=== PATIENT | female | born 1960 | race Caucasian/White ===

== ENCOUNTER → 2020-04-19 15:34 | Outpatient (BNVA) | payer OTHER, SELFPAY | PROVIDERS: PCP Internal Medicine; Referring Provider Internal Medicine; Visit Provider Internal Medicine | DX: Z76.89 Persons encountering health services in other specified circumstances (principal) ==

== ENCOUNTER 2020-05-23 09:58 | Outpatient (REF) | payer OTHER, SELFPAY ==
[2020-05-23 11:05] LABS: COVID-19 Test Negative (Negative); IDNOW Serial# 55D5AD1C
== END 2020-05-23 09:59 | disposition home or self-care (01) ==
LOC: HO.EMPCOV 09:58
PROVIDERS: PCP Internal Medicine; Visit Provider Internal Medicine
DX: Z20.828 Contact with and (suspected) exposure to other viral communicable diseases (principal)
CPT/HCPCS: 87635; C9803

== ENCOUNTER 2020-06-15 10:28 | Outpatient (REF) | payer OTHER, SELFPAY | END 2020-06-15 10:29 | disposition home or self-care (01) | LOC: HO.LAB 10:28 | PROVIDERS: Visit Provider Internal Medicine | DX: E66.01 Morbid (severe) obesity due to excess calories (principal); F41.8 Other specified anxiety disorders; G47.33 Obstructive sleep apnea (adult) (pediatric) | CPT/HCPCS: 88142 ==

== ENCOUNTER 2020-06-24 07:38 | Outpatient (REF) | payer OTHER, SELFPAY ==
[2020-06-24 11:22] LABS: Hematocrit 40.9 % (37-47); Hemoglobin 13.2 g/dl (12.0-16.0); Mean Corpuscular HGB Conc 32.3 g/dl (31.0-35.0); Mean Corpuscular Hemoglobin 30.9 pg (27.0-33.0); Mean Corpuscular Volume 95.8 fL (80-98); Platelet Count 261 X10*3/uL (160-400); Red Blood Count 4.27 X10*6/uL (4.20-5.50); Red Cell Distribution Width 13.6 % (11.0-16.0)
[2020-06-24 11:26] LABS: Estimated Average Glucose 117 mg/dL; Hemoglobin A1c % 5.7 %
[2020-06-24 11:57] LABS: Alanine Aminotransferase 26 U/L (0-31); Albumin Level 4.3 g/dL (3.5-5.0); Alkaline Phosphatase 72 U/L (39-117); Anion Gap 15 (12-20); Aspartate Amino Transferase 22 U/L (5-31); Bilirubin Total 0.5 mg/dL (0.0-1.0); Blood Urea Nitrogen 13 mg/dL (9-16); Calcium 9.3 mg/dL (8.4-10.2); Carbon Dioxide 26 mmol/L (22-29); Chloride 105 mmol/L (96-108); Cholesterol 188 mg/dL; Creatinine Urine 57.93 mg/dL; Estimated Glomerular Filt Rate > 60; Glucose Fasting 110 mg/dL (60-99); HDL Cholesterol 60 mg/dL; LDL Cholesterol Calculated 108 mg/dl; Microalbumin Urine < 5.0 mg/L; Potassium 4.3 mmol/l (3.3-5.1); Sodium 142 mmol/L (135-145); Total Protein 6.9 g/dL (6.5-8.0); Triglycerides 101 mg/dL
[2020-06-24 12:21] LABS: TSH reflex Free T4 2.21 mIU/mL (0.32-4.0)
== END 2020-06-24 07:39 | disposition home or self-care (01) ==
LOC: HO.HMGCLDS 07:38
PROVIDERS: PCP Internal Medicine; Visit Provider Internal Medicine
DX: E66.01 Morbid (severe) obesity due to excess calories (principal); F41.8 Other specified anxiety disorders; G47.33 Obstructive sleep apnea (adult) (pediatric)
CPT/HCPCS: 36415; 80053; 80061; 82043; 83036; 84443; 85027

== ENCOUNTER → 2020-07-22 11:27 | Outpatient (BNVA) | payer OTHER, SELFPAY | PROVIDERS: PCP Internal Medicine; Visit Provider Student in an Organized Health Care Education/Training Program | DX: Z76.89 Persons encountering health services in other specified circumstances (principal) ==

== ENCOUNTER 2020-09-09 15:44 | Outpatient (REF) | payer OTHER, SELFPAY ==
--- NOTE | ~2020-09-09 | MM_ITS ---
EXAMINATION: MM SCREENING DIGITAL BREAST TOMOSYNTHESIS, BILATERAL CLINICAL INFORMATION: Screening. Asymptomatic. Family history breast cancer, sister. The lifetime risk of breast cancer based on the Tyrer-Cuzick Model is 29%. COMPARISON: Mammography: 09/04/2019, 08/29/2018, 02/27/2016 TECHNIQUE: Digital breast tomosynthesis is performed in both the craniocaudal and mediolateral oblique views along with computer-aided detection (CAD). Synthesized 2D images are generated from the tomosynthesis. FINDINGS: There are scattered areas of fibroglandular density (ACR BI-RADS breast composition Category b). There are no significant masses, abnormal calcifications, or other abnormalities. Parenchymal pattern is similar to prior studies. No developing density. The axilla and skin contours are unremarkable. MM/MM tomosynthesis screening BI IMPRESSION: No mammographic evidence of malignancy. ASSESSMENT: BI-RADS 1: Negative RECOMMENDATION: 1. Routine annual mammography screening. 2. The lifetime risk of breast cancer based on the Tyrer-Cuzick Model is 29%. Additional annual adjunct screening with breast MRI may be of benefit in women with a risk score of 20% or greater. This patient's information was entered into a reminder system with a target due date for their next mammogram.
== END 2020-09-09 15:45 | disposition home or self-care (01) ==
LOC: HO.MAMMO 15:44
PROVIDERS: PCP Internal Medicine; Visit Provider Internal Medicine
DX: Z12.31 Encounter for screening mammogram for malignant neoplasm of breast (principal)
CPT/HCPCS: 77063; 77067

== ENCOUNTER 2020-09-13 15:57 | Outpatient (REF) | payer OTHER, SELFPAY ==
--- NOTE | ~2020-09-13 | US_ITS ---
EXAMINATION: US VENOUS ULTRASOUND WITH DOPPLER LOWER EXTREMITY, LEFT CLINICAL INFORMATION: Left leg pain. COMPARISON: None TECHNIQUE: Ultrasound of the deep veins is performed from the hip to the calf with compression sonography and color and pulse Doppler assessment. Spectral analysis with color-flow imaging is performed. FINDINGS: There is normal venous compression and respiratory variation and augmented flow. The visualized common femoral vein, superficial femoral vein, profunda femoral vein, popliteal vein, and the trifurcation region shows no evidence of deep venous thrombosis. There is no significant popliteal fossa cyst. If the patient's symptoms persist, followup ultrasound in 5 days 7 days might be of value to exclude proximal propagation from a non-visualized calf vein. US/US venous duplex LE LT IMPRESSION: No DVT demonstrated in the left lower extremity.
[2020-09-13 17:52] LABS: Glucose Urine UA NEG (NEG); Leukocyte Esterase Urine NEG (NEG); Nitrite Urine NEG (NEG); Specific Gravity - Urine 1.025 (1.005-1.025); Urine Blood NEG (NEG); Urine Ketones NEG (NEG); Urine Protein NEG (NEG-TRACE)
[2020-09-13 17:53] LABS: Color Urine YELLOW; MANUAL DIFF FLAG NO
[2020-09-13 17:54] LABS: Appearance Urine CLEAR
[2020-09-13 18:00] LABS: Basophils Percent Auto 0.3 % (0-2); Eosinophils Absolute Auto 0.1 X10*3/uL (0.0-0.4); Eosinophils Percent Auto 1.6 % (0-4); Hematocrit 40.8 % (37-47); Hemoglobin 13.3 g/dl (12.0-16.0); Imm Gran Abs Auto 0.04 X10*3/uL (0.00-0.03); Imm Gran Pct Auto 0.5 % (0.0-0.4); Lymphocytes Absolute Auto 2.4 X10*3/uL (1.2-4.9); Lymphocytes Percent Auto 26.9 % (20-40); Mean Corpuscular HGB Conc 32.6 g/dl (31.0-35.0); Mean Corpuscular Hemoglobin 30.6 pg (27.0-33.0); Mean Platelet Volume 9.8 fL (9.4-12.3); Monocytes Absolute Auto 0.7 X10*3/uL (0.1-1.2); Monocytes Percent Auto 8.2 % (2-11); Neutrophils Absolute Auto 5.5 X10*3/uL (2.0-8.3); Neutrophils Percent Auto 62.5 % (45-73); Platelet Count 290 X10*3/uL (160-400); Red Blood Count 4.34 X10*6/uL (4.20-5.50); Red Cell Distribution Width 13.7 % (11.0-16.0); White Blood Count 8.8 X10*3/uL (4.8-10.8)
[2020-09-13 18:02] LABS: Bacteria Urine 1+ /LPF; RBC Urine 0 /HPF (0); Squamous Epithelial Cell Urine 1+ /LPF; WBC Urine 0 /HPF (0-4)
[2020-09-13 18:30] LABS: Alanine Aminotransferase 23 U/L (0-31); Albumin Level 4.4 g/dL (3.5-5.0); Alkaline Phosphatase 80 U/L (39-117); Anion Gap 13 (12-20); Aspartate Amino Transferase 20 U/L (5-31); Bilirubin Total 0.3 mg/dL (0.0-1.0); Blood Urea Nitrogen 16 mg/dL (9-16); C Reactive Protein 2.83 mg/dL (< or = 0.50); Calcium 9.5 mg/dL (8.4-10.2); Carbon Dioxide 29 mmol/L (22-29); Chloride 106 mmol/L (96-108); Estimated Glomerular Filt Rate > 60; Glucose Random 89 mg/dL (60-115); Potassium 3.8 mmol/L (3.3-5.1); Sodium 144 mmol/L (135-145)
[2020-09-13 18:50] LABS: Erythrocyte Sedimentation Rate 32 MM/HR (0-20)
[2020-09-14 12:32] LABS: Complement C3 155 mg/dL (83-193)
[2020-09-14 13:47] LABS: Anti DNA DS Antibody <1 IU/mL
== END 2020-09-13 15:58 | disposition home or self-care (01) ==
LOC: HO.US 15:57
PROVIDERS: PCP Internal Medicine; Visit Provider Student in an Organized Health Care Education/Training Program
DX: M79.89 Other specified soft tissue disorders (principal); M35.9 Systemic involvement of connective tissue, unspecified
CPT/HCPCS: 36415; 80053; 81001; 85025; 85652; 86140; 86160; 86225; 93971

== ENCOUNTER 2020-09-16 08:20 | Outpatient (REF) | payer OTHER, SELFPAY ==
--- NOTE | ~2020-09-16 | XR_ITS ---
EXAMINATION: XR KNEE, LEFT CLINICAL INFORMATION: Pain in the left knee COMPARISON: X-ray left knee February 2013. TECHNIQUE: Four views of the left knee. FINDINGS: There are marginal osteophytes about all compartments with some joint space narrowing of the patellofemoral and medial compartment indicative of ikbr-ki-vbzmxupb arthrosis. Mild arthrosis of the lateral compartment without joint space narrowing. Small joint effusion. No fracture or bone lesion. XR/XR knee LT 3V IMPRESSION: Osteoarthritis of the left knee most prominent in the medial compartment and patellofemoral compartment being [id number]. Overall degenerative changes have progressed compared with 2013 exam.
== END 2020-09-16 08:21 | disposition home or self-care (01) ==
LOC: HO.XRAY 08:20
PROVIDERS: PCP Internal Medicine; Visit Provider Student in an Organized Health Care Education/Training Program
DX: M25.562 Pain in left knee (principal); M06.9 Rheumatoid arthritis, unspecified; M79.7 Fibromyalgia; E66.01 Morbid (severe) obesity due to excess calories; G47.33 Obstructive sleep apnea (adult) (pediatric); F41.8 Other specified anxiety disorders; Z88.2 Allergy status to sulfonamides; Z88.8 Allergy status to other drugs, medicaments and biological substances; Z91.09 Other allergy status, other than to drugs and biological substances; Z79.1 Long term (current) use of non-steroidal anti-inflammatories (NSAID); Z79.899 Other long term (current) drug therapy
CPT/HCPCS: 20610; 73562

== ENCOUNTER → 2020-10-19 15:50 | Outpatient (BNVA) | payer OTHER, SELFPAY | PROVIDERS: Visit Provider Student in an Organized Health Care Education/Training Program ==

== ENCOUNTER 2020-11-01 17:00 | Outpatient (RCR) | payer OTHER, SELFPAY ==
--- NOTE | 2020-09-28 17:51 | MHC.PT.EP ---
[facility] [place] Office [place] Office [place] Office [address] [phone] F: [phone] F: [phone] F: [phone] F: [phone] Physical Therapy Plan of Care Date of Evaluation: 09/28/20 Date of Surgery: N/A Diagnosis: Left Knee Pain Assessment: Misa Ruiz is a 60-year-old female presenting to physical therapy with a diagnosis of left knee pain. She presents with deficits in BL knee ROM, BL LE strength, impaired posture and impaired gait mechanics. She would benefit from skilled therapy to address the aforementioned impairments and increase her tolerance to standing and walking for long periods, squatting down to lift items from the floor, and climbing stairs when ambulating in the community. Misa Ruiz is motivated to participate in therapy to reduce her pain, improve her function, and allow her to return to her PLOF. Frequency and Duration: The patient will be seen 2 visits per week for 5 weeks Short Term Goals: -Pt will report <2/10 pain at rest to allow her to sleep comfortably through the night within 3 weeks. Office Services Coordinator Goals: -Pt will be independent with HEP for symptom management and maintenance following discharge from therapy within 5 weeks. -Pt will be able to negotiate 12 stairs with <2/10 pain in her knee within 5 weeks. -Pt will report <2/10 pain with activity to allow her to walk for >20 minutes while at work within 5 weeks. Treatment Plan: Modalities to reduce pain, spasms and effusion. Manual therapy to restore motion and function. Therapeutic exercise to improve strength and flexibility. Neuromuscular re-education for posture and balance. Therapeutic activities to return to functional activities of daily living. Electronically signed by: Katie Maldonado, PT, DPT Please sign and return to therapist. Thank you for your referral.
--- NOTE | 2020-11-07 15:48 | MHC.PT.DC ---
[facility] [place] Office [place] Office [place] Office [address] [place] Cast[place] 140 [facility] [phone] F: [phone] F: [phone] F: [phone] F: [phone] Physical Therapy Discharge Report Diagnosis: Left Knee Pain Date of Surgery: N/A Date of Evaluation: 09/28/20 Date of Discharge: 11/07/20 Treatments to Date: 10 Cancellations to Date: 0 No Shows to Date: 0 Discharge Status: Achieved Goals Improved Function Discharge Summary: Pt has completed 10 PT visits and has achieved all goals set for her. She was therefore d/c from therapy. Electronically signed by: Katie Maldonado, PT, DPT Please sign and return to therapist. Thank you for your referral.
== END 2020-11-07 15:49 | disposition other institution (70) ==
LOC: HO.PT 17:00
PROVIDERS: PCP Internal Medicine; Visit Provider Student in an Organized Health Care Education/Training Program
DX: M25.562 Pain in left knee (principal)
CPT/HCPCS: 97110; 97140; 97162; 97530

== ENCOUNTER 2021-01-24 15:43 | Outpatient (REF) | payer OTHER, SELFPAY ==
[2021-01-24 17:22] LABS: MANUAL DIFF FLAG NO
[2021-01-24 17:24] LABS: Basophils Percent Auto 0.1 % (0-2); Eosinophils Absolute Auto 0.2 X10*3/uL (0.0-0.4); Eosinophils Percent Auto 2.3 % (0-4); Hematocrit 40.4 % (37-47); Hemoglobin 13.2 g/dl (12.0-16.0); Imm Gran Abs Auto 0.03 X10*3/uL (0.00-0.03); Imm Gran Pct Auto 0.4 % (0.0-0.4); Lymphocytes Absolute Auto 2.1 X10*3/uL (1.2-4.9); Lymphocytes Percent Auto 30.7 % (20-40); Mean Corpuscular HGB Conc 32.7 g/dl (31.0-35.0); Mean Corpuscular Hemoglobin 31.1 pg (27.0-33.0); Mean Corpuscular Volume 95.1 fL (80-98); Mean Platelet Volume 9.5 fL (9.4-12.3); Monocytes Absolute Auto 0.6 X10*3/uL (0.1-1.2); Monocytes Percent Auto 8.7 % (2-11); Neutrophils Percent Auto 57.8 % (45-73); Platelet Count 260 X10*3/uL (160-400); Red Blood Count 4.25 X10*6/uL (4.20-5.50); Red Cell Distribution Width 13.8 % (11.0-16.0)
[2021-01-24 17:43] LABS: Alanine Aminotransferase 26 U/L (0-31); Albumin Level 4.2 g/dL (3.5-5.0); Alkaline Phosphatase 90 U/L (39-117); Anion Gap 12 (12-20); Aspartate Amino Transferase 22 U/L (5-31); Bilirubin Total 0.2 mg/dL (0.0-1.0); Blood Urea Nitrogen 12 mg/dL (9-16); C Reactive Protein 2.72 mg/dL (< or = 0.50); Calcium 9.3 mg/dL (8.4-10.2); Carbon Dioxide 28 mmol/L (22-29); Chloride 106 mmol/L (96-108); Estimated Glomerular Filt Rate > 60; Glucose Random 133 mg/dL (60-115); Potassium 3.8 mmol/L (3.3-5.1); Sodium 142 mmol/L (135-145); Total Protein 6.8 g/dL (6.5-8.0)
[2021-01-24 18:10] LABS: Glucose Urine UA NEG (NEG); Leukocyte Esterase Urine NEG (NEG); Nitrite Urine NEG (NEG); Urine Blood NEG (NEG); Urine Ketones NEG (NEG); Urine Protein NEG (NEG-TRACE)
[2021-01-24 18:11] LABS: Erythrocyte Sedimentation Rate 30 MM/HR (0-20)
[2021-01-24 18:15] LABS: Appearance Urine CLEAR; Color Urine YELLOW
[2021-01-24 18:20] LABS: RBC Urine 0 /HPF (0); Squamous Epithelial Cell Urine TRACE /LPF; WBC Urine 0 /HPF (0-4)
[2021-01-25 14:46] LABS: Complement C3 134 mg/dL (83-193)
[2021-01-26 12:11] LABS: Anti DNA DS Antibody <1 IU/mL; Antibody to SS-A Antigen <1.0 NEG AI (<1.0 NEG); Antibody to SS-B Antigen <1.0 NEG AI (<1.0 NEG); SM/Ribonucleoprotein Ab 5.1 POS AI (<1.0 NEG); Smith Protein <1.0 NEG AI (<1.0 NEG)
== END 2021-01-24 15:44 | disposition home or self-care (01) ==
LOC: HO.LAB 15:43
PROVIDERS: PCP Internal Medicine; Visit Provider Student in an Organized Health Care Education/Training Program
DX: M35.9 Systemic involvement of connective tissue, unspecified (principal); M79.89 Other specified soft tissue disorders; Z79.899 Other long term (current) drug therapy
CPT/HCPCS: 36415; 80053; 81001; 85025; 85652; 86140; 86160; 86225; 86235

== ENCOUNTER 2021-06-23 08:05 | Outpatient (REF) | payer OTHER, SELFPAY ==
[2021-06-23 11:38] LABS: Hematocrit 42.9 % (37.0-47.0); Hemoglobin 13.7 g/dl (12.0-16.0); Mean Corpuscular HGB Conc 31.9 g/dl (31.0-35.0); Mean Corpuscular Hemoglobin 30.4 pg (27.0-33.0); Mean Corpuscular Volume 95.3 fL (80.0-98.0); Mean Platelet Volume 9.9 fL (9.4-12.3); Platelet Count 270 X10*3/uL (160-400); Red Cell Distribution Width 13.6 % (11.0-16.0); White Blood Count 5.7 X10*3/uL (4.8-10.8)
[2021-06-23 11:44] LABS: Alanine Aminotransferase 97 U/L (0-31); Albumin Level 4.3 g/dL (3.5-5.0); Alkaline Phosphatase 94 U/L (39-117); Anion Gap 11 (12-20); Aspartate Amino Transferase 47 U/L (5-31); Bilirubin Total 0.5 mg/dL (0.0-1.0); Blood Urea Nitrogen 10 mg/dL (9-16); Calcium 9.4 mg/dL (8.4-10.2); Carbon Dioxide 28 mmol/L (22-29); Chloride 106 mmol/L (96-108); Cholesterol 183 mg/dL; Estimated Glomerular Filt Rate > 60; Glucose Fasting 102 mg/dL (60-99); HDL Cholesterol 59 mg/dL; LDL Cholesterol Calculated 99 mg/dl; Sodium 141 mmol/L (135-145); Total Protein 6.9 g/dL (6.5-8.0); Triglycerides 129 mg/dL
[2021-06-23 11:47] LABS: Estimated Average Glucose 120 mg/dL; Hemoglobin A1c % 5.8 %
[2021-06-23 12:07] LABS: TSH reflex Free T4 2.11 uIU/mL (0.32-4.0)
== END 2021-06-23 08:06 | disposition home or self-care (01) ==
LOC: HO.HMGCLDS 08:05
PROVIDERS: PCP Internal Medicine; Visit Provider Internal Medicine
DX: Z00.00 Encounter for general adult medical examination without abnormal findings (principal); M35.9 Systemic involvement of connective tissue, unspecified; E66.01 Morbid (severe) obesity due to excess calories; G47.33 Obstructive sleep apnea (adult) (pediatric); R73.9 Hyperglycemia, unspecified; R06.00 Dyspnea, unspecified
CPT/HCPCS: 36415; 80053; 80061; 83036; 84443; 85027

== ENCOUNTER 2021-07-28 07:55 | Outpatient (REF) | payer OTHER, SELFPAY ==
[2021-07-28 12:01] LABS: Alanine Aminotransferase 38 U/L (0-31); Albumin Level 4.1 g/dL (3.5-5.0); Alkaline Phosphatase 84 U/L (39-117); Aspartate Amino Transferase 29 U/L (5-31); Bilirubin Direct 0.2 mg/dL (0.0-0.5); Bilirubin Total 0.2 mg/dL (0.0-1.0)
== END 2021-07-28 07:56 | disposition home or self-care (01) ==
LOC: HO.HMGCLDS 07:55
PROVIDERS: Visit Provider Internal Medicine
DX: R79.89 Other specified abnormal findings of blood chemistry (principal)
CPT/HCPCS: 36415; 80076

== ENCOUNTER → 2021-08-04 08:24 | Outpatient (REF) | payer OTHER, SELFPAY ==
--- NOTE | 2021-08-04 08:31 | CA_ITS ---
Transthoracic Echocardiogram Patient (Last, First, Middle): Misa Torres Ann Gender: Female Date of : 1960 Age: 61 Procedure Date: 08/04/2021 Procedure Type: Transthoracic Echocardiogram Location: OP Height: 160.02 cm Weight: 109.77 kg BSA: 2.10 m2 Heart Rate: bpm BP: 124 / 60 mmHg Enamel Shader: Referring MD: Iman Pulliam MD Brick Setter Operator: Luis Feilpe Castañeda MD Symptoms: R06.00 - Dyspnea, unspecified Study Quality: Fair ECG Rhythm: Sinus Conclusions: - 1. Normal LV systolic function with mild LVH with impaired LV relaxation pattern 2. Mildly dilated left atrium 3. Normal cardiac valvular Dopplers 4. Normal RVSP 5. No pericardial effusion Findings Left Ventricle Normal left ventricular size and systolic function. There is mildly increased left ventricular wall thickness. The visually estimated ejection fraction is between 60-65%. There is no evidence of regional wall motion abnormalities. Spectral Doppler is indicative of an impaired relaxation filling pattern. E/E prime ratio is between 8 and 15 consistent with indeterminate filling pressures. Right Ventricle Normal right ventricular cavity size and systolic function. Atria The left atrium is mildly dilated. There is no evidence of interatrial shunt. The right atrium is normal in size. Aortic Valve The aortic valve structure and function is likely normal. There is no aortic valve stenosis. There is no aortic valve regurgitation. Mitral Valve Normal mitral valve structure and function. There is trace mitral valve regurgitation. There is no mitral valve stenosis. Pulmonic Valve The pulmonic valve was not well visualized. Tricuspid Valve Likely normal tricuspid valve structure and function. There is trace tricuspid valve regurgitation. The right ventricular systolic pressure is normal. There is no evidence of pulmonary hypertension. Great Vessels All visible segments of the aorta are normal in size. The pulmonary artery was not well visualized. Venous The inferior vena cava is normal in size and collapses greater than 50% with inspiration. Pericardium/Pleural There is no evidence of pericardial effusion. Measurements 2D Linear Measurements IVSd: 1.24 0.6-0.9/0.6-1.0 cm LVIDd: 5.70 3.9-5.3/4.2-5.9 cm LVIDd Index: 2.71 2.4-3.2/2.2-3.1 cm/m2 LVIDs: 2.99 2.0-3.6 cm LVPWd: 1.33 0.7-1.1 cm Ao Root: 3.10 2.1-3.5 cm LA Diam: 4.10 2.7-3.8/3.0-4.0 cm LAIDs Index: 1.95 1.5-2.3 cm/m2 LV Mass: 428.22 67-162/88-224 g LV Mass Index: 203.92 43-95/49-115 g/m2 LVOT Diam: 2.00 3.0+(-)1.3 cm Mitral Valve MV Pk E: 0.87 MV PK A: 0.97 MV Decel Time: 265.00 E/A: 0.90 E'Lateral: 9.46 E'Medial: 5.77 E/E' Med: 15.00 E/E' Lat: 9.10 PHT: 78.00 MVA PHT: 2.82 Decel Cameron: 3.26 Aortic Valve AoV Pk Gwyn: 1.44 AoV Mn Gwyn: 0.87 AoV VTI: 0.33 AoV Pk Grad: 8.00 Aov Mn Grad: 4.00 SCOT Cont.VTI: 2.35 LVOT LVOT Pk Gwyn: 0.99 LVOT Mn Gwyn: 0.67 LVOT VTI: 0.25 LVOT Pk Grad: 4.00 LVOT Mn Grad: 2.00 LVOT Diam: 2.00 LVOT Area: 3.14 Diastolic Function MV Pk E: 0.87 MV Pk A: 0.97 E/A: 0.90 E'Medial: 5.77 E/E' Med: 15.00 E' Laterial: 9.46 E/E' Lat: 9.10 Tricuspid Valve TR Pk Gwyn: 1.62 TR Pk Grad: 10.00 RA Press: 3.00 RVSP: 13.00 Great Vessels Aorta Ao Root-2D: 3.10 2.0-3.7 cm Ao Asc: 3.10 2.1-3.4 cm Pulmonary Valve PV Pk Gwyn: 1.00 Peak PV Grad: 4.00 Updated in Other Vendor System with Status of Final Luis Felipe Castañeda MD electronically signed on 08/05/2021 9:35:11 AM with status of Final
== END ==
LOC: HO.CARD 08:24
PROVIDERS: PCP Internal Medicine; Visit Provider Internal Medicine
DX: R06.00 Dyspnea, unspecified (principal)
CPT/HCPCS: 93306; Q9957

== ENCOUNTER 2021-09-04 14:59 | Outpatient (REF) | payer OTHER, SELFPAY ==
[2021-09-04 16:38] LABS: MANUAL DIFF FLAG NO
[2021-09-04 16:47] LABS: Basophils Percent Auto 0.2 % (0-2); Eosinophils Absolute Auto 0.1 X10*3/uL (0.0-0.4); Eosinophils Percent Auto 1.7 % (0-4); Hematocrit 41.8 % (37.0-47.0); Hemoglobin 13.4 g/dl (12.0-16.0); Imm Gran Abs Auto 0.02 X10*3/uL (0.00-0.03); Imm Gran Pct Auto 0.2 % (0.0-0.4); Lymphocytes Absolute Auto 2.5 X10*3/uL (1.2-4.9); Lymphocytes Percent Auto 30.1 % (20-40); Mean Corpuscular HGB Conc 32.1 g/dl (31.0-35.0); Mean Corpuscular Hemoglobin 31.1 pg (27.0-33.0); Mean Platelet Volume 9.6 fL (9.4-12.3); Monocytes Absolute Auto 0.6 X10*3/uL (0.1-1.2); Monocytes Percent Auto 7.7 % (2-11); Neutrophils Percent Auto 60.1 % (45-73); Platelet Count 270 X10*3/uL (160-400); Red Blood Count 4.31 X10*6/uL (4.20-5.50); Red Cell Distribution Width 13.4 % (11.0-16.0); White Blood Count 8.3 X10*3/uL (4.8-10.8)
[2021-09-04 17:16] LABS: Alanine Aminotransferase 21 U/L (0-31); Aspartate Amino Transferase 20 U/L (5-31); C Reactive Protein 3.44 mg/dL (< or = 0.50); Estimated Glomerular Filt Rate > 60
== END 2021-09-04 15:00 | disposition home or self-care (01) ==
LOC: HO.LAB 14:59
PROVIDERS: PCP Internal Medicine; Visit Provider Internal Medicine Rheumatology
DX: M17.12 Unilateral primary osteoarthritis, left knee (principal); M35.9 Systemic involvement of connective tissue, unspecified; M79.643 Pain in unspecified hand; R79.89 Other specified abnormal findings of blood chemistry; M19.049 Primary osteoarthritis, unspecified hand; Z79.899 Other long term (current) drug therapy
CPT/HCPCS: 36415; 82565; 84450; 84460; 85025; 86140

== ENCOUNTER 2021-09-25 15:34 | Outpatient (REF) | payer OTHER, SELFPAY ==
--- NOTE | ~2021-09-25 | MM_ITS ---
EXAMINATION: MM SCREENING DIGITAL BREAST TOMOSYNTHESIS, BILATERAL CLINICAL INFORMATION: Screening. Asymptomatic. The lifetime risk of breast cancer based on the Tyrer-Cuzick Model is 9.0%. COMPARISON: Mammography: September 09, 2020 and studies dating back to February 01, 2011 TECHNIQUE: Digital breast tomosynthesis is performed in both the craniocaudal and mediolateral oblique views along with computer-aided detection (CAD). Synthesized 2D images are generated from the tomosynthesis. FINDINGS: There are scattered areas of fibroglandular density (ACR BI-RADS breast composition Category b). There are no new significant masses, abnormal calcifications, or other abnormalities. There stable regions of architectural distortion about the left breast. MM/MM tomosynthesis screening BI IMPRESSION: There are no significant changes from prior study. ASSESSMENT: BI-RADS 2: Benign RECOMMENDATION: Routine annual mammography screening. This patient's information was entered into a reminder system with a target due date for their next mammogram.
== END 2021-09-25 15:35 | disposition home or self-care (01) ==
LOC: HO.MAMMO 15:34
PROVIDERS: PCP Internal Medicine; Visit Provider Internal Medicine
DX: Z12.31 Encounter for screening mammogram for malignant neoplasm of breast (principal)
CPT/HCPCS: 77063; 77067

== ENCOUNTER 2021-11-25 06:57 | Outpatient (REF) | payer OTHER, SELFPAY ==
[2021-11-25 07:17] LABS: MANUAL DIFF FLAG NO
[2021-11-25 07:43] LABS: Basophils Percent Auto 0.3 % (0-2); Eosinophils Absolute Auto 0.1 X10*3/uL (0.0-0.4); Eosinophils Percent Auto 1.7 % (0-4); Hematocrit 40.4 % (37.0-47.0); Hemoglobin 13.5 g/dl (12.0-16.0); Imm Gran Abs Auto 0.03 X10*3/uL (0.00-0.03); Imm Gran Pct Auto 0.4 % (0.0-0.4); Lymphocytes Absolute Auto 2.2 X10*3/uL (1.2-4.9); Lymphocytes Percent Auto 29.8 % (20-40); Mean Corpuscular HGB Conc 33.4 g/dl (31.0-35.0); Mean Corpuscular Hemoglobin 31.7 pg (27.0-33.0); Mean Corpuscular Volume 94.8 fL (80.0-98.0); Mean Platelet Volume 9.6 fL (9.4-12.3); Monocytes Absolute Auto 0.5 X10*3/uL (0.1-1.2); Monocytes Percent Auto 6.3 % (2-11); Neutrophils Absolute Auto 4.6 x10*3/uL (2.0-8.3); Neutrophils Percent Auto 61.5 % (45-73); Platelet Count 268 X10*3/uL (160-400); Red Blood Count 4.26 X10*6/uL (4.20-5.50); Red Cell Distribution Width 13.4 % (11.0-16.0); White Blood Count 7.5 X10*3/uL (4.8-10.8)
[2021-11-25 08:12] LABS: Alanine Aminotransferase 23 U/L (0-31); Aspartate Amino Transferase 21 U/L (5-31); Estimated Average Glucose 117 mg/dL; Hemoglobin A1c % 5.7 %
[2021-11-25 08:15] LABS: Alanine Aminotransferase 22 U/L (0-31); Albumin Level 4.3 g/dL (3.5-5.0); Alkaline Phosphatase 75 U/L (39-117); Anion Gap 12 (12-20); Aspartate Amino Transferase 20 U/L (5-31); Bilirubin Total 0.5 mg/dL (0.0-1.0); Blood Urea Nitrogen 10 mg/dL (9-16); C Reactive Protein 3.09 mg/dL (< or = 0.50); Calcium 9.6 mg/dL (8.4-10.2); Carbon Dioxide 29 mmol/L (22-29); Chloride 104 mmol/L (96-108); Cholesterol 205 mg/dL; Estimated Glomerular Filt Rate > 60; Glucose Fasting 128 mg/dL (60-99); HDL Cholesterol 60 mg/dL; LDL Cholesterol Calculated 124 mg/dl; Potassium 4.1 mmol/L (3.3-5.1); Sodium 141 mmol/L (135-145); Triglycerides 106 mg/dL
[2021-11-25 08:52] LABS: Erythrocyte Sedimentation Rate 31 MM/HR (0-20)
[2021-11-29 21:01] LABS: Anti DNA DS Antibody <1 IU/mL
== END 2021-11-25 06:58 | disposition home or self-care (01) ==
LOC: HO.LAB 06:57
PROVIDERS: Student in an Organized Health Care Education/Training Program; Absent Provider Internal Medicine; PCP Internal Medicine; Visit Provider Internal Medicine Rheumatology
DX: Z00.00 Encounter for general adult medical examination without abnormal findings (principal); E66.01 Morbid (severe) obesity due to excess calories; G47.33 Obstructive sleep apnea (adult) (pediatric); M35.9 Systemic involvement of connective tissue, unspecified; R06.00 Dyspnea, unspecified; R73.9 Hyperglycemia, unspecified; Z79.899 Other long term (current) drug therapy
CPT/HCPCS: 36415; 80053; 80061; 83036; 84450; 84460; 85025; 85652; 86140; 86225

== ENCOUNTER 2022-02-05 09:26 | Day surgery (SDC) | payer OTHER, SELFPAY ==
--- NOTE | 2022-02-01 15:31 | HO.ANESPROP2 ---
Documented by User: Luna Leigh NP 02/01/22 15:33 HPI - Anesthesia Eval Consult details Narrative: 62yo F for Colonoscopy PMFSH Active Problems Active Problems: All Active Problems (Updated 01/01/22 @ 17:18 by Timur Rivera MD) Bilateral hand numbness (Acute) Osteoarthritis of hand, primary localized (Acute) Elevated LFTs (Acute) Hyperglycemia (Acute) TURCIOS (dyspnea on exertion) (Acute) Primary osteoarthritis of left knee (Acute) [facility] methotrexate user (Acute) Undifferentiated connective tissue disease (Acute) Depression with anxiety (Acute) Annual physical exam (Acute) RUSSELL (obstructive sleep apnea) (Acute) Morbid obesity (Acute) Past Medical History Medical History (Updated 01/01/22 @ 17:18 by Timur Rivera MD) Annual physical exam Depression with anxiety TURCIOS (dyspnea on exertion) Elevated LFTs Fibromyalgia Hyperglycemia [facility] methotrexate user Morbid obesity RUSSELL (obstructive sleep apnea) Osteoarthritis of hand, primary localized Rheumatoid arthritis Undifferentiated connective tissue disease Surgical History Surgical History H/O colonoscopy History of cyst of breast History of tonsillectomy Social History Social History Housing: House Alcohol intake: current Alcohol intake frequency: holidays/special occasions only Patient Tobacco Use Status: Never used Tobacco e-Cigarette/Vaping Use: Never Used Use of substances other than those prescribed or required for medical reasons: No Are you DNR?: No Advance Directives: No Advance Directives Information Provided: Yes Recently lost weight without trying: No Nutrition Risks: No Nutritional Risk Current occupational status: employed Cognitive needs: No Hearing needs: No Vision needs: Yes Meds Allergies Allergy/AdvReac Type Severity Reaction Status Date / Time chamomile flower Allergy Intermediate RASH Verified 01/01/22 15:40 [CHAMOMILE HAWKINS] gabapentin Allergy Unknown sleepiness Verified 01/01/22 15:40 lisinopril Allergy Unknown weight gain Verified 01/01/22 15:40 simvastatin Allergy Unknown NAUSEA Verified 01/01/22 15:40 Sulfa (Sulfonamide AdvReac Mild RASH Verified 01/01/22 15:40 Antibiotics) Home Medications Medication Instructions Recorded Confirmed Last Taken Type calcium carbonate 600 mg calcium 600 mg PO DAILY 06/15/20 01/01/22 Unknown History (1,500 mg) tablet (Calcium) omega-3 fatty acids 1,000 mg 1,000 mg PO BID 06/16/21 01/30/22 Unknown History capsule (Fish Oil Concentrate) cholecalciferol (vitamin D3) 25 25 mcg PO BID 09/04/21 01/30/22 Unknown History mcg (1,000 unit) capsule dextroamphetamine-amphetamine 10 5 mg PO DAILY 09/04/21 01/30/22 02/05/22 History mg tablet sertraline 100 mg tablet 100 mg PO DAILY 11/27/21 01/30/22 Unknown History fqgxngaopgoq-exenlvxt-atgcte tablet 1 tab PO DAILY 01/30/22 01/30/22 Unknown History sulfasalazine 500 mg tablet tab 01/30/22 01/30/22 Unknown History Exam Exam Date and Time: February 01, 2022 1531 Pertinent Lab Results Pertinent Lab Results: Laboratory Tests 11/25/21 11/25/21 07:14 07:14 WBC 7.5 Hgb 13.5 Hct 40.4 Plt Count 268 Sodium 141 Potassium 4.1 Chloride 104 Carbon Dioxide 29 BUN 10 Creatinine 0.70 Narrative Narrative: ECHO 2021 Conclusions: - 1. Normal LV systolic function with mild LVH with impaired LV? relaxation pattern ? 2. Mildly dilated left atrium? 3. Normal cardiac valvular Dopplers? 4. Normal RVSP ? 5. No pericardial effusion ?? 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 Morbid obesity RUSSELL (obstructive sleep apnea) Osteoarthritis of hand, primary localized Rheumatoid arthritis Undifferentiated connective tissue disease Family History Family history of problems with anesthesia: No Surgical History Surgical History H/O colonoscopy History of cyst of breast History of tonsillectomy History of Problems with Anesthesia: No Social History Social History Housing: House Alcohol intake: current Alcohol intake frequency: holidays/special occasions only Patient Tobacco Use Status: Never used Tobacco e-Cigarette/Vaping Use: Never Used Use of substances other than those prescribed or required for medical reasons: No Are you DNR?: No Advance Directives: No Advance Directives Information Provided: Yes Recently lost weight without trying: No Nutrition Risks: No Nutritional Risk Current occupational status: employed Cognitive needs: No Hearing needs: No Vision needs: Yes Meds Allergies Allergy/AdvReac Type Severity Reaction Status Date / Time chamomile flower Allergy Intermediate RASH Verified 01/01/22 15:40 [CHAMOMILE HAWKINS] gabapentin Allergy Unknown sleepiness Verified 01/01/22 15:40 lisinopril Allergy Unknown weight gain Verified 01/01/22 15:40 simvastatin Allergy Unknown NAUSEA Verified 01/01/22 15:40 Sulfa (Sulfonamide AdvReac Mild RASH Verified 01/01/22 15:40 Antibiotics) Home Medications Medication Instructions Recorded Confirmed Last Taken Type calcium carbonate 600 mg calcium 600 mg PO DAILY 06/15/20 01/01/22 Unknown History (1,500 mg) tablet (Calcium) omega-3 fatty acids 1,000 mg 1,000 mg PO BID 06/16/21 01/30/22 Unknown History capsule (Fish Oil Concentrate) cholecalciferol (vitamin D3) 25 25 mcg PO BID 09/04/21 01/30/22 Unknown History mcg (1,000 unit) capsule dextroamphetamine-amphetamine 10 5 mg PO DAILY 09/04/21 01/30/22 02/05/22 History mg tablet sertraline 100 mg tablet 100 mg PO DAILY 11/27/21 01/30/22 Unknown History dupnxozioywr-qzesbesb-inouvg tablet 1 tab PO DAILY 01/30/22 01/30/22 Unknown History sulfasalazine 500 mg tablet tab 01/30/22 01/30/22 Unknown History Assessment and Plan Assessment Anesthesia Assessment: Anesthesia Plan Discussed Final Anesthetic Review Family History of Problems with Anesthesia: No History of Problems with Anesthesia: No NPO: Yes ASA Class: II Final Preanesthetic Review: No Changes in Pt Med Stat, Meds/Allgs Chart Reviewed, Consent Obtained/Reviewed and Anes Risks/Benef Reviewed Patient Risk: Low Procedure Risk: Low Anesthetic Plan Anesthetic Plan: MAC: Disposition: Standard PACU
[2022-02-05 10:06] VITALS: BMI 40.9
[2022-02-05 10:09] VITALS: BP 155/72; PULSE 72; RESP 16; TEMP 36.4; O2SAT 97
[2022-02-05] MEDS: Lactated Ringers 1,000 ML 100 ML IVCONT (10:26)
--- NOTE | 2022-02-05 10:35 | P.CONAN_ITS ---
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 (Acute) Undifferentiated connective tissue disease (Acute) Depression with anxiety (Acute) Annual physical exam (Acute) RUSSELL (obstructive sleep apnea) (Acute) Morbid obesity (Acute) Past Medical History Medical History (Updated 01/01/22 @ 17:18 by Timur Rivera MD) Annual physical exam Depression with anxiety TURCIOS (dyspnea on exertion) Elevated LFTs Fibromyalgia 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 Morbid obesity RUSSELL (obstructive sleep apnea) Osteoarthritis of hand, primary localized Rheumatoid arthritis Undifferentiated connective tissue disease Family History Family history of problems with anesthesia: No Surgical History Surgical History H/O colonoscopy History of cyst of breast History of tonsillectomy History of Problems with Anesthesia: No Social History Social History Housing: House Alcohol intake: current Alcohol intake frequency: holidays/special occasions only Patient Tobacco Use Status: Never used Tobacco e-Cigarette/Vaping Use: Never Used Use of substances other than those prescribed or required for medical reasons: No Are you DNR?: No Advance Directives: No Advance Directives Information Provided: Yes Recently lost weight without trying: No Nutrition Risks: No Nutritional Risk Current occupational status: employed Cognitive needs: No Hearing needs: No Vision needs: Yes Meds Allergies Allergy/AdvReac Type Severity Reaction Status Date / Time chamomile flower Allergy Intermediate RASH Verified 01/01/22 15:40 [CHAMOMILE HAWKINS] gabapentin Allergy Unknown sleepiness Verified 01/01/22 15:40 lisinopril Allergy Unknown weight gain Verified 01/01/22 15:40 simvastatin Allergy Unknown NAUSEA Verified 01/01/22 15:40 Sulfa (Sulfonamide AdvReac Mild RASH Verified 01/01/22 15:40 Antibiotics) Active Medications: Current Medications Lactated Ringer's (Lr) 1,000 mls @ 100 mls/hr IVCONT .Q10H CANDY Last Admin: 02/05/22 10:26 Dose: 100 mls/hr Sodium Biphosphate/Sodium Phosphate (Sodium Phosphate,Coffey-Dibasic 133 Ml Enema) 133 ml WI ONCE PRN PRN Reason: Poor Colonoscopy Prep Results Home Medications Medication Instructions Recorded Confirmed Last Taken Type calcium carbonate 600 mg calcium 600 mg PO DAILY 06/15/20 01/01/22 Unknown History (1,500 mg) tablet (Calcium) omega-3 fatty acids 1,000 mg 1,000 mg PO BID 06/16/21 01/30/22 Unknown History capsule (Fish Oil Concentrate) cholecalciferol (vitamin D3) 25 25 mcg PO BID 09/04/21 01/30/22 Unknown History mcg (1,000 unit) capsule dextroamphetamine-amphetamine 10 5 mg PO DAILY 09/04/21 01/30/22 02/05/22 History mg tablet sertraline 100 mg tablet 100 mg PO DAILY 11/27/21 01/30/22 Unknown History ybuntykojuyd-lutzjbtc-awlofz tablet 1 tab PO DAILY 01/30/22 01/30/22 Unknown History sulfasalazine 500 mg tablet tab 01/30/22 01/30/22 Unknown History Exam Exam Date and Time: February 05, 2022 1035 Height,Weight and Vital Signs: Height 5 ft 3 in Weight 104.78 kg Last Vital Signs Temp 97.5 F 02/05/22 10:09 Pulse 72 02/05/22 10:09 Resp 16 02/05/22 10:09 BP 155/72 H 02/05/22 10:09 Pulse Ox 97 02/05/22 10:09 O2 Del Method 02/05/22 10:09 Airway Mallampati Class: II TM Dist: >3cm Neck ROM: Full Denture: Upper Assessment and Plan Final Anesthetic Review Family History of Problems with Anesthesia: No History of Problems with Anesthesia: No
[2022-02-05 11:39] VITALS: BP 130/65; PULSE 62; RESP 17; TEMP 36.2; O2SAT 96
--- NOTE | 2022-02-05 11:39 | PM.OP ---
Brief Operative Note Date of Service: 02/05/22 Pre-op diagnosis: Screening Post-op diagnosis: other (Diverticulosis) Procedure: Colonoscopy to the cecum and TI Surgeon: Patrice Swan Anesthesia: MAC Was an Veneer Drier Tailer used for this Procedure?: No Estimated blood loss (mL): 0 Pathology: none sent Condition: stable Disposition: PACU
[2022-02-05 11:54] VITALS: BP 155/78; PULSE 61; RESP 18; TEMP 36.2; O2SAT 96
--- NOTE | 2022-02-06 10:54 | OP_ITS ---
SURGEON: Patrice Swan MD INDICATIONS: The patient presents for evaluation of colorectal cancer screening and family history of colon cancer. Full consent was obtained from her for this, including risks of bleeding and perforation. PREOPERATIVE DIAGNOSIS: POSTOPERATIVE DIAGNOSIS: PROCEDURE PERFORMED: Colonoscopy to cecum and terminal ileum. ESTIMATED BLOOD LOSS: COMPLICATIONS: ANESTHESIA: Monitored anesthesia care. ASSISTANTS: SPECIMENS: PREOPERATIVE DIAGNOSES: Colorectal cancer screening and family history of colon cancer. POSTOPERATIVE DIAGNOSES: Colorectal cancer screening and family history of colon cancer, diverticulosis and internal hemorrhoids. DESCRIPTION OF PROCEDURE: The patient was placed in the left lateral decubitus position. The digital rectal exam revealed no abnormalities. The Olympus video pediatric colonoscope was entered into the rectum and advanced easily to the cecum. Once in the cecum, I did identify normal-appearing cecal pouch with appendiceal orifice and a normal-appearing ileocecal valve. The terminal ileum was cannulated and appeared normal. The scope was withdrawn back in the colon. The entire cecum and ileocecal valve appeared normal. The scope was slowly withdrawn, assessing all mucosal surfaces carefully. Preparation was excellent. I did not visualize any sign of polyps, colitis, or angiodysplasia. There was a mild amount of sigmoid diverticulosis. In the rectum, the scope was retroflexed visualizing internal hemorrhoids, but no other pathology. The rectal mucosa appeared normal. The scope was straightened and withdrawn from the patient. She tolerated the procedure well and was returned to recovery area in stable condition. IMPRESSION: 1. Sigmoid diverticulosis. 2. Internal hemorrhoids. PLAN: Given her family history, I would recommend a repeat colonoscopy in 5 years. She will otherwise see me on a p.r.n. basis. MD KALIN Eldridge/GEORGE / [id number]
== END 2022-02-05 12:30 | disposition home or self-care (01) ==
PROVIDERS: PCP Internal Medicine; Visit Provider Internal Medicine
PROC: 0DJD8ZZ Inspection of Lower Intestinal Tract, Via Natural or Artificial Opening Endoscopic (ICD-10-PCS; CPT 45378; principal; 2022-02-05 10:30)
DX: Z12.11 Encounter for screening for malignant neoplasm of colon (principal); Z80.0 Family history of malignant neoplasm of digestive organs; K57.30 Diverticulosis of large intestine without perforation or abscess without bleeding; K64.8 Other hemorrhoids; K21.9 Gastro-esophageal reflux disease without esophagitis; I10 Essential (primary) hypertension; F41.8 Other specified anxiety disorders; M32.9 Systemic lupus erythematosus, unspecified; M79.7 Fibromyalgia; M19.90 Unspecified osteoarthritis, unspecified site; G47.33 Obstructive sleep apnea (adult) (pediatric); Z99.89 Dependence on other enabling machines and devices; Z79.899 Other long term (current) drug therapy; Z79.82 Long term (current) use of aspirin
CPT/HCPCS: 45378

== ENCOUNTER 2022-02-13 13:28 | Outpatient (REF) | payer OTHER, SELFPAY ==
[2022-02-13 13:51] LABS: Appearance Urine HAZY; Color Urine YELLOW; Glucose Urine UA NEG (NEG); Leukocyte Esterase Urine 1+ (NEG); Nitrite Urine NEG (NEG); PH 7.5 (5.0-8.0); Specific Gravity - Urine 1.015 (1.005-1.025); UACC Culture Trigger YES; Urine Blood 2+ (NEG); Urine Ketones NEG (NEG); Urine Protein NEG (NEG-TRACE)
[2022-02-13 14:07] LABS: Bacteria Urine TRACE /LPF; RBC Urine 50-75 /HPF (0)
[2022-02-13 14:08] LABS: Squamous Epithelial Cell Urine 1+ /LPF
== END 2022-02-13 13:29 | disposition home or self-care (01) ==
LOC: HO.LNP 13:28
PROVIDERS: Visit Provider Internal Medicine
DX: R30.0 Dysuria (principal)
CPT/HCPCS: 81001; 87086

== ENCOUNTER 2022-02-14 16:42 | Outpatient (REF) | payer OTHER, SELFPAY ==
[2022-02-14 17:06] LABS: Appearance Urine CLEAR; Color Urine ORANGE; Glucose Urine UA 100 MG/DL (NEG); Leukocyte Esterase Urine 1+ (NEG); Nitrite Urine POS (NEG); Specific Gravity - Urine <= 1.005 (1.005-1.025); UACC Culture Trigger YES; Urine Blood TRACE (NEG); Urine Ketones NEG (NEG); Urine Protein 1+ MG/DL (NEG-TRACE)
[2022-02-14 17:14] LABS: Bacteria Urine TRACE /LPF; Squamous Epithelial Cell Urine 1+ /LPF
== END 2022-02-14 16:43 | disposition home or self-care (01) ==
LOC: HO.LAB 16:42
PROVIDERS: PCP Internal Medicine; Visit Provider Internal Medicine
DX: R82.71 Bacteriuria (principal)
CPT/HCPCS: 81001; 81003

== ENCOUNTER 2022-03-02 09:31 | Outpatient (REF) | payer OTHER, SELFPAY ==
[2022-03-02 11:27] LABS: MANUAL DIFF FLAG NO
[2022-03-02 11:30] LABS: Appearance Urine Clear; Color Urine Yellow; Glucose Urine UA Negative (Negative); Leukocyte Esterase Urine Trace (Negative); Nitrite Urine Negative (Negative); PH 7.5 (5.0-8.0); Urine Blood Negative (Negative); Urine Ketones Negative (Negative); Urine Protein Negative (Neg-Trace)
[2022-03-02 11:38] LABS: Basophils Percent Auto 0.3 % (0-2); Eosinophils Absolute Auto 0.1 X10*3/uL (0.0-0.4); Eosinophils Percent Auto 1.2 % (0-4); Hematocrit 42.2 % (37.0-47.0); Hemoglobin 13.9 g/dl (12.0-16.0); Imm Gran Abs Auto 0.01 X10*3/uL (0.00-0.03); Imm Gran Pct Auto 0.2 % (0.0-0.4); Lymphocytes Absolute Auto 1.9 X10*3/uL (1.2-4.9); Mean Corpuscular HGB Conc 32.9 g/dl (31.0-35.0); Mean Corpuscular Hemoglobin 30.4 pg (27.0-33.0); Mean Corpuscular Volume 92.3 fL (80.0-98.0); Mean Platelet Volume 10.2 fL (9.4-12.3); Monocytes Absolute Auto 0.4 X10*3/uL (0.1-1.2); Monocytes Percent Auto 6.4 % (2-11); Neutrophils Absolute Auto 3.5 x10*3/uL (2.0-8.3); Neutrophils Percent Auto 59.9 % (45-73); Platelet Count 313 X10*3/uL (160-400); Red Blood Count 4.57 X10*6/uL (4.20-5.50); Red Cell Distribution Width 13.5 % (11.0-16.0); White Blood Count 5.8 X10*3/uL (4.8-10.8)
[2022-03-02 11:39] LABS: Bacteria Urine None Seen (None Seen); Hyaline Casts Urine 0-2 /LPF (0-2); RBC Urine 0-2 /HPF (0-2); WBC Urine 0-5 /HPF (0-5)
[2022-03-02 12:38] LABS: Alanine Aminotransferase 37 U/L (0-31); Aspartate Amino Transferase 28 U/L (5-31); C Reactive Protein 2.48 mg/dL (< or = 0.50); Estimated Glomerular Filt Rate > 60
[2022-03-02 12:51] LABS: Erythrocyte Sedimentation Rate 38 MM/HR (0-20)
== END 2022-03-02 09:32 | disposition home or self-care (01) ==
LOC: HO.HMGCLDS 09:31
PROVIDERS: Absent Provider Internal Medicine Rheumatology; PCP Internal Medicine; Visit Provider Internal Medicine
DX: M35.9 Systemic involvement of connective tissue, unspecified (principal); Z79.899 Other long term (current) drug therapy
CPT/HCPCS: 36415; 81001; 82565; 84450; 84460; 85025; 85652; 86140

== ENCOUNTER 2022-03-07 15:49 | Outpatient (REF) | payer OTHER, SELFPAY ==
[2022-03-07 17:35] LABS: Appearance Urine Clear; Color Urine Yellow; Glucose Urine UA Negative (Negative); Leukocyte Esterase Urine Negative (Negative); Nitrite Urine Negative (Negative); Specific Gravity - Urine >= 1.030 (1.005-1.025); Urine Blood Negative (Negative); Urine Ketones Negative (Negative); Urine Protein Negative (Neg-Trace)
== END 2022-03-07 15:50 | disposition home or self-care (01) ==
LOC: HO.LAB 15:49
PROVIDERS: PCP Internal Medicine; Visit Provider Internal Medicine
DX: R82.71 Bacteriuria (principal)
CPT/HCPCS: 81003; 87086

== ENCOUNTER 2022-04-27 14:10 | Outpatient (REF) | payer OTHER, SELFPAY ==
[2022-04-27 16:36] LABS: MANUAL DIFF FLAG NO
[2022-04-27 16:41] LABS: Basophils Percent Auto 0.3 % (0-2); Eosinophils Absolute Auto 0.1 X10*3/uL (0.0-0.4); Eosinophils Percent Auto 1.8 % (0-4); Hematocrit 40.4 % (37.0-47.0); Hemoglobin 13.5 g/dl (12.0-16.0); Imm Gran Abs Auto 0.01 X10*3/uL (0.00-0.03); Imm Gran Pct Auto 0.2 % (0.0-0.4); Lymphocytes Absolute Auto 2.4 X10*3/uL (1.2-4.9); Lymphocytes Percent Auto 39.2 % (20-40); Mean Corpuscular HGB Conc 33.4 g/dl (31.0-35.0); Mean Corpuscular Hemoglobin 30.8 pg (27.0-33.0); Mean Corpuscular Volume 92.2 fL (80.0-98.0); Mean Platelet Volume 9.9 fL (9.4-12.3); Monocytes Absolute Auto 0.4 X10*3/uL (0.1-1.2); Monocytes Percent Auto 6.6 % (2-11); Neutrophils Absolute Auto 3.2 x10*3/uL (2.0-8.3); Neutrophils Percent Auto 51.9 % (45-73); Platelet Count 286 X10*3/uL (160-400); Red Blood Count 4.38 X10*6/uL (4.20-5.50); Red Cell Distribution Width 13.3 % (11.0-16.0); White Blood Count 6.2 X10*3/uL (4.8-10.8)
[2022-04-27 16:56] LABS: Alanine Aminotransferase 22 U/L (0-31); Aspartate Amino Transferase 21 U/L (5-31); C Reactive Protein 2.75 mg/dL (< or = 0.50); Estimated Glomerular Filt Rate > 60
[2022-04-27 18:02] LABS: Erythrocyte Sedimentation Rate 34 MM/HR (0-20)
== END 2022-04-27 14:11 | disposition home or self-care (01) ==
LOC: HO.HMGCLDS 14:10
PROVIDERS: PCP Internal Medicine; Visit Provider Internal Medicine Rheumatology
DX: M35.9 Systemic involvement of connective tissue, unspecified (principal); Z79.899 Other long term (current) drug therapy
CPT/HCPCS: 36415; 82565; 84450; 84460; 85025; 85652; 86140

== ENCOUNTER 2022-06-08 09:56 | Outpatient (REF) | payer OTHER, SELFPAY ==
[2022-06-08 11:35] LABS: MANUAL DIFF FLAG NO
[2022-06-08 11:47] LABS: Basophils Percent Auto 0.2 % (0-2); Eosinophils Absolute Auto 0.1 X10*3/uL (0.0-0.4); Eosinophils Percent Auto 1.7 % (0-4); Hematocrit 41.7 % (37.0-47.0); Hemoglobin 13.8 g/dl (12.0-16.0); Imm Gran Abs Auto 0.02 X10*3/uL (0.00-0.03); Imm Gran Pct Auto 0.3 % (0.0-0.4); Lymphocytes Absolute Auto 2.3 X10*3/uL (1.2-4.9); Lymphocytes Percent Auto 35.2 % (20-40); Mean Corpuscular HGB Conc 33.1 g/dl (31.0-35.0); Mean Corpuscular Hemoglobin 30.5 pg (27.0-33.0); Mean Corpuscular Volume 92.3 fL (80.0-98.0); Mean Platelet Volume 10.2 fL (9.4-12.3); Monocytes Absolute Auto 0.4 X10*3/uL (0.1-1.2); Monocytes Percent Auto 6.6 % (2-11); Neutrophils Absolute Auto 3.6 x10*3/uL (2.0-8.3); Platelet Count 261 X10*3/uL (160-400); Red Blood Count 4.52 X10*6/uL (4.20-5.50); Red Cell Distribution Width 13.2 % (11.0-16.0); White Blood Count 6.4 X10*3/uL (4.8-10.8)
[2022-06-08 12:48] LABS: Estimated Average Glucose 117 mg/dL; Hemoglobin A1c % 5.7 %
[2022-06-08 12:59] LABS: Alanine Aminotransferase 21 U/L (0-31); Albumin Level 4.2 g/dL (3.5-5.0); Alkaline Phosphatase 74 U/L (39-117); Anion Gap 12 (12-20); Aspartate Amino Transferase 22 U/L (5-31); Bilirubin Total 0.6 mg/dL (0.0-1.0); Blood Urea Nitrogen 10 mg/dL (9-16); C Reactive Protein 2.47 mg/dL (< or = 0.50); Calcium 9.2 mg/dL (8.4-10.2); Carbon Dioxide 29 mmol/L (22-29); Chloride 105 mmol/L (96-108); Cholesterol 197 mg/dL; Estimated Glomerular Filt Rate > 60; Glucose Fasting 101 mg/dL (60-99); HDL Cholesterol 59 mg/dL; LDL Cholesterol Calculated 113 mg/dl; Potassium 3.8 mmol/L (3.3-5.1); Sodium 142 mmol/L (135-145); TSH reflex Free T4 1.89 uIU/mL (0.32-4.0); Total Protein 6.7 g/dL (6.5-8.0); Triglycerides 126 mg/dL
[2022-06-08 14:05] LABS: Creatinine Urine 107.72 mg/dL; Microalbum/Creatinine Ratio Ur 11.1 ug/mg cr
== END 2022-06-08 09:57 | disposition home or self-care (01) ==
LOC: HO.HMGCLDS 09:56
PROVIDERS: Absent Provider Internal Medicine Rheumatology; PCP Internal Medicine; Visit Provider Internal Medicine
DX: E66.01 Morbid (severe) obesity due to excess calories (principal); M35.9 Systemic involvement of connective tissue, unspecified; R73.9 Hyperglycemia, unspecified; Z79.899 Other long term (current) drug therapy
CPT/HCPCS: 36415; 80053; 80061; 82043; 83036; 84443; 85025; 86140

== ENCOUNTER 2022-07-20 07:59 | Outpatient (REF) | payer OTHER, SELFPAY ==
--- NOTE | ~2022-07-20 | MM_ITS ---
EXAMINATION: BONE DENSITOMETRY CLINICAL INDICATION: Asymptomatic menopausal state. COMPARISON: Baseline BD dated 04/06/2013. TECHNIQUE: Using a [employer] DXA System (software version: 13.1) manufactured by [employer], dual-energy x-ray absorptiometry was performed of the lumbar spine and left hip. The images are of good technical quality. Summary results are attached. FINDINGS: AP SPINE L1-L4: Current: BMD 1.237 g/cm2, Z-score 0.8, T-score 0.5, normal, 3.8% decrease from baseline (<5% change is not significant). Baseline: BMD 1.286 g/cm2. LEFT FEMUR, NECK: Current: BMD 1.017 g/cm2, Z-score 0.5, T-score -0.2, normal. Baseline: BMD 0.988 g/cm2. LEFT FEMUR, TOTAL: Current: BMD 1.163 g/cm2, Z-score 1.5, T-score 1.2, normal, 5.2% increase from baseline (<5% change is not significant). Baseline: BMD 1.105 g/cm2. IDENTIFIED RISK FACTORS: Rheumatoid arthritis. Osteoporosis. Recurrent falls. Menopause. Thiazide. HISTORY OF FRACTURE: Shoulder. MEDICATIONS: Calcium supplement or multivitamin. Vitamin D. MM/XR DEXA axial skeleton IMPRESSION: 1. DIAGNOSIS: Normal bone density based on the lowest T-score value of -0.2 in the femoral neck applying World Health Organization criteria. 2. 10-YEAR FRACTURE RISK PREDICTION, FRAX: According to the guidelines, FRAX calculation should only be performed on patients in the osteopenia bone density category. Therefore, FRAX was not performed on this patient.? 3. Treatment Recommendations: NOF guidelines recommend consideration for treatment in postmenopausal women and men age 50 and older presenting with the following: -A hip or vertebral (clinical or morphometric) fracture. -T-score less than or equal to -2.5 at the femoral neck or spine after appropriate evaluation to exclude secondary causes. -Low bone mass at the hip or spine and a 10-year fracture probability by FRAX of greater than or equal to 3% for hip fracture or greater than or equal to 20% for major osteoporotic fracture based on the [place] adapted WHO algorithm. 4. Other Recommendations: All treatment decisions require clinical judgment and consideration of individual patient factors, including patient preferences, comorbidities, previous drug use, risk factors not captured in the FRAX model (e.g. frailty, falls, vitamin D deficiency, increased bone turnover, interval significant decline in bone density) and possible under or overestimation of fracture risk by FRAX. FUTURE SCAN RECOMMENDATION: People with diagnosed cases of osteoporosis or at high risk for fracture should have regular bone mineral density tests. For patients eligible for Medicare, routine testing is allowed once every 2 years. The testing frequency can be increased to one year for patients who have rapidly progressing disease, those who are receiving or discontinuing medical therapy to restore bone mass, or have additional risk factors.
== END 2022-07-20 08:00 | disposition home or self-care (01) ==
LOC: HO.MAMMO 07:59
PROVIDERS: Visit Provider Internal Medicine
DX: Z13.820 Encounter for screening for osteoporosis (principal); Z78.0 Asymptomatic menopausal state
CPT/HCPCS: 77080

== ENCOUNTER → 2022-08-14 08:18 | Outpatient (BNVA) | payer OTHER, SELFPAY | PROVIDERS: PCP Internal Medicine; Visit Provider Psychiatry & Neurology Neurology | DX: R20.0 Anesthesia of skin (principal) ==

== ENCOUNTER → 2022-08-15 15:09 | Outpatient (BNVA) | payer OTHER, SELFPAY | PROVIDERS: PCP Internal Medicine; Visit Provider Internal Medicine | DX: Z13.89 Encounter for screening for other disorder (principal) ==

== ENCOUNTER 2022-08-27 10:36 | Outpatient (REF) | payer OTHER, SELFPAY ==
[2022-08-27 11:43] LABS: Aspartate Amino Transferase 18 U/L (5-31)
[2022-08-27 11:51] LABS: Erythrocyte Sedimentation Rate 34 MM/HR (0-20)
== END 2022-08-27 10:37 | disposition home or self-care (01) ==
LOC: HO.LAB 10:36
PROVIDERS: PCP Internal Medicine; Visit Provider Internal Medicine Rheumatology
DX: M35.9 Systemic involvement of connective tissue, unspecified (principal); Z79.899 Other long term (current) drug therapy
CPT/HCPCS: 36415; 84450; 85652

== ENCOUNTER → 2022-08-30 08:31 | Outpatient (BNVA) | payer OTHER, SELFPAY | PROVIDERS: PCP Internal Medicine; Visit Provider Internal Medicine Rheumatology | DX: Z13.89 Encounter for screening for other disorder (principal) ==

== ENCOUNTER 2022-09-04 15:07 | Outpatient (REF) | payer OTHER, SELFPAY ==
[2022-09-04 15:25] LABS: MANUAL DIFF FLAG NO
[2022-09-04 17:06] LABS: Basophils Percent Auto 0.3 % (0-2); Eosinophils Absolute Auto 0.1 X10*3/uL (0.0-0.4); Eosinophils Percent Auto 1.1 % (0-4); Hemoglobin 14.3 g/dl (12.0-16.0); Imm Gran Abs Auto 0.02 X10*3/uL (0.00-0.03); Imm Gran Pct Auto 0.2 % (0.0-0.4); Lymphocytes Absolute Auto 3.2 X10*3/uL (1.2-4.9); Lymphocytes Percent Auto 30.6 % (20-40); Mean Corpuscular Hemoglobin 31.1 pg (27.0-33.0); Mean Corpuscular Volume 91.3 fL (80.0-98.0); Mean Platelet Volume 10.2 fL (9.4-12.3); Monocytes Absolute Auto 0.7 X10*3/uL (0.1-1.2); Monocytes Percent Auto 6.4 % (2-11); Neutrophils Absolute Auto 6.5 x10*3/uL (2.0-8.3); Neutrophils Percent Auto 61.4 % (45-73); Platelet Count 302 X10*3/uL (160-400); Red Cell Distribution Width 13.4 % (11.0-16.0); White Blood Count 10.5 X10*3/uL (4.8-10.8)
[2022-09-04 17:31] LABS: Alanine Aminotransferase 22 U/L (0-31); Aspartate Amino Transferase 21 U/L (5-31); C Reactive Protein 1.92 mg/dL (< or = 0.50); Estimated Glomerular Filt Rate > 60
[2022-09-04 17:52] LABS: Erythrocyte Sedimentation Rate 29 MM/HR (0-20)
== END 2022-09-04 15:08 | disposition home or self-care (01) ==
LOC: HO.LAB 15:07
PROVIDERS: PCP Internal Medicine; Visit Provider Internal Medicine Rheumatology
DX: M35.9 Systemic involvement of connective tissue, unspecified (principal); Z79.60 Long term (current) use of unspecified immunomodulators and immunosuppressants; Z79.899 Other long term (current) drug therapy
CPT/HCPCS: 36415; 82565; 84450; 84460; 85025; 85652; 86140

== ENCOUNTER 2022-10-01 09:41 | Outpatient (REF) | payer OTHER, SELFPAY ==
[2022-10-01 10:39] LABS: MANUAL DIFF FLAG NO
[2022-10-01 10:54] LABS: Basophils Percent Auto 0.3 % (0-2); Eosinophils Absolute Auto 0.2 X10*3/uL (0.0-0.4); Eosinophils Percent Auto 2.2 % (0-4); Hematocrit 40.8 % (37.0-47.0); Hemoglobin 13.9 g/dl (12.0-16.0); Imm Gran Abs Auto 0.03 X10*3/uL (0.00-0.03); Imm Gran Pct Auto 0.4 % (0.0-0.4); Lymphocytes Absolute Auto 2.3 X10*3/uL (1.2-4.9); Lymphocytes Percent Auto 31.4 % (20-40); Mean Corpuscular HGB Conc 34.1 g/dl (31.0-35.0); Mean Corpuscular Hemoglobin 31.7 pg (27.0-33.0); Mean Corpuscular Volume 93.2 fL (80.0-98.0); Mean Platelet Volume 10.2 fL (9.4-12.3); Monocytes Absolute Auto 0.5 X10*3/uL (0.1-1.2); Monocytes Percent Auto 6.3 % (2-11); Neutrophils Absolute Auto 4.4 x10*3/uL (2.0-8.3); Neutrophils Percent Auto 59.4 % (45-73); Platelet Count 272 X10*3/uL (160-400); Red Blood Count 4.38 X10*6/uL (4.20-5.50); Red Cell Distribution Width 13.2 % (11.0-16.0); White Blood Count 7.3 X10*3/uL (4.8-10.8)
[2022-10-01 11:07] LABS: Alanine Aminotransferase 23 U/L (0-31); Aspartate Amino Transferase 21 U/L (5-31); C Reactive Protein 2.46 mg/dL (< or = 0.50); Estimated Glomerular Filt Rate > 60
[2022-10-01 11:40] LABS: Erythrocyte Sedimentation Rate 28 MM/HR (0-20)
== END 2022-10-01 09:42 | disposition home or self-care (01) ==
LOC: HO.10HDL 09:41
PROVIDERS: Visit Provider Internal Medicine Rheumatology
DX: M35.9 Systemic involvement of connective tissue, unspecified (principal); Z79.60 Long term (current) use of unspecified immunomodulators and immunosuppressants; Z79.899 Other long term (current) drug therapy
CPT/HCPCS: 36415; 82565; 84450; 84460; 85025; 85652; 86140

== ENCOUNTER 2022-10-01 15:34 | Outpatient (REF) | payer OTHER, SELFPAY ==
--- NOTE | ~2022-10-01 | MM_ITS ---
EXAMINATION: MM SCREENING DIGITAL BREAST TOMOSYNTHESIS, BILATERAL CLINICAL INFORMATION: Screening. Asymptomatic. The lifetime risk of breast cancer based on the Tyrer-Cuzick Model is 9.6%. COMPARISON: Mammography: September 25, 2021 and studies dating back to February 27, 2016 TECHNIQUE: Digital breast tomosynthesis is performed in both the craniocaudal and mediolateral oblique views along with computer-aided detection (CAD). Synthesized 2D images are generated from the tomosynthesis. FINDINGS: There are scattered areas of fibroglandular density (ACR BI-RADS breast composition Category b). There are no new significant masses, abnormal calcifications, or other abnormalities. MM/MM tomosynthesis screening BI IMPRESSION: No significant changes from prior exam. ASSESSMENT: BI-RADS 1: Negative RECOMMENDATION: Routine annual mammography screening. This patient's information was entered into a reminder system with a target due date for their next mammogram.
== END 2022-10-01 15:35 | disposition home or self-care (01) ==
LOC: HO.MAMMO 15:34
PROVIDERS: PCP Internal Medicine; Visit Provider Internal Medicine
DX: Z12.31 Encounter for screening mammogram for malignant neoplasm of breast (principal)
CPT/HCPCS: 77063; 77067

== ENCOUNTER → 2022-10-18 10:50 | Outpatient (BNVA) | payer OTHER, SELFPAY | PROVIDERS: PCP Internal Medicine | DX: Z13.89 Encounter for screening for other disorder (principal) | CPT/HCPCS: 99203 ==

== ENCOUNTER 2022-11-08 16:00 | Outpatient (RCR) | payer OTHER, SELFPAY ==
--- NOTE | 2022-10-03 11:59 | MHC.PT.EP ---
[facility] [place] Office [place] Office [place] Office [address] Newton Castillo [address] [phone] F: [phone] F: [phone] F: [phone] F: [phone] Physical Therapy Plan of Care Date of Evaluation: Date of Surgery: NA Diagnosis: Unilateral primary OA, L knee Spondylosis without myelopathy or radiculopathy, lumbar region Assessment: Misa is a 62 year old female who is referred to PT for Unilateral primary OA, L knee, Spondylosis without myelopathy or radiculopathy, lumbar region . She reports of having h/o chronic B knee and low back pain however it got worse about 3-4 weeks back at work when was performing repeated lifting and transfers with a patient. On PT examination she presents with TTP over B medial joint line, decreased trunk and B Knee ROM, 7/10 pain in B knees and back which is worse with standing, walking, stairs, bending and lifting, decreased muscle strength, altered posture and gait. She is independent with all ADLS but needs to take seated rest breaks and modify them. 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 She would benefit from skilled PT to address the aforementioned impairments and improve tolerance to functional activities. Frequency and Duration: The patient will be seen 2/week for 5 weeks Short Term Goals: 1. Pt will have 50% decrease in pain which will enable her to sit without pain in 2 weeks. 2. Pt will be able to move her trunk through all planes of motion with a pain no more than 2/10 which will enable her to dress her body without modification in 3 weeks. Halfway Goals: 1. Pt will demonstrate an increase in muscle strength which will enable her to tolerate walking and stair negotiation with a pain no more than 2/10 in 5 weeks. 2. Pt will be independent with HEP for symptom management and maintenance following d/c in 5 weeks. Treatment Plan: Modalities to reduce pain, spasms and effusion. Manual therapy to restore motion and function. Therapeutic exercise to improve strength and flexibility. Neuromuscular re-education for posture and balance. Therapeutic activities to return to functional activities of daily living. Electronically signed by: Katie Joel, PT DPT Please sign and return to therapist. Thank you for your referral.
--- NOTE | 2022-12-05 09:31 | MHC.PT.DC ---
[facility] [place] Office [place] Office [place] Office [address] Newton Castillo [address] [phone] F: [phone] F: [phone] F: [phone] F: [phone] Physical Therapy Discharge Report Diagnosis: Unilateral primary OA, L knee Spondylosis without myelopathy or radiculopathy, lumbar region Date of Surgery: NA Date of Evaluation: 10/03/22 Date of Discharge: 12/05/22 Treatments to Date: 10 Cancellations to Date: 0 No Shows to Date: Discharge Status: Achieved Goals Improved Function Independent with HEP Discharge Summary: Misa completed 10 PT visits and achieved all goals set for her. She is therefore being d/c from PT. Electronically signed by: Katie Maldonado, PT DPT Please sign and return to therapist. Thank you for your referral.
== END 2022-12-05 09:31 | disposition home or self-care (01) ==
LOC: HO.PT 16:00
PROVIDERS: PCP Internal Medicine; Visit Provider Internal Medicine Rheumatology
DX: M17.12 Unilateral primary osteoarthritis, left knee (principal); M47.816 Spondylosis without myelopathy or radiculopathy, lumbar region
CPT/HCPCS: 97110; 97112; 97161; 97530

== ENCOUNTER 2022-12-07 08:39 | Outpatient (REF) | payer OTHER, SELFPAY ==
[2022-12-07 11:33] LABS: MANUAL DIFF FLAG NO
[2022-12-07 12:00] LABS: Basophils Percent Auto 0.2 % (0-2); Eosinophils Absolute Auto 0.1 X10*3/uL (0.0-0.4); Eosinophils Percent Auto 2.2 % (0-4); Hematocrit 41.5 % (37.0-47.0); Hemoglobin 13.7 g/dl (12.0-16.0); Imm Gran Abs Auto 0.01 X10*3/uL (0.00-0.03); Imm Gran Pct Auto 0.2 % (0.0-0.4); Lymphocytes Absolute Auto 1.7 X10*3/uL (1.2-4.9); Lymphocytes Percent Auto 33.3 % (20-40); Mean Corpuscular Hemoglobin 30.9 pg (27.0-33.0); Mean Corpuscular Volume 93.7 fL (80.0-98.0); Mean Platelet Volume 9.8 fL (9.4-12.3); Monocytes Absolute Auto 0.3 X10*3/uL (0.1-1.2); Monocytes Percent Auto 5.8 % (2-11); Neutrophils Absolute Auto 2.9 x10*3/uL (2.0-8.3); Neutrophils Percent Auto 58.3 % (45-73); Platelet Count 272 X10*3/uL (160-400); Red Blood Count 4.43 X10*6/uL (4.20-5.50); Red Cell Distribution Width 13.3 % (11.0-16.0)
[2022-12-07 12:10] LABS: Estimated Average Glucose 114 mg/dL; Hemoglobin A1c % 5.6 %
[2022-12-07 12:43] LABS: Alanine Aminotransferase 24 U/L (0-31); Albumin Level 4.2 g/dL (3.5-5.0); Alkaline Phosphatase 73 U/L (39-117); Anion Gap 12 (12-20); Aspartate Amino Transferase 23 U/L (5-31); Bilirubin Total 0.6 mg/dL (0.0-1.0); Blood Urea Nitrogen 10 mg/dL (9-16); C Reactive Protein 2.54 mg/dL (< or = 0.50); Calcium 9.1 mg/dL (8.4-10.2); Carbon Dioxide 27 mmol/L (22-29); Chloride 109 mmol/L (96-108); Estimated Glomerular Filt Rate > 60; Glucose Fasting 102 mg/dL (60-99); Iron 96 mcg/dL (30-160); Percent Iron Saturation 36 % (15-50); Sodium 144 mmol/L (135-145); Total Iron Binding Capacity 270 mcg/dL (228-428); Total Protein 6.7 g/dL (6.5-8.0); Unsaturated Iron Binding 174 ug/dL
[2022-12-07 12:45] LABS: Erythrocyte Sedimentation Rate 39 MM/HR (0-20)
[2022-12-07 12:49] LABS: Folate 14.5 ng/mL (> or = 4.0); Vitamin B12 616 pg/mL (200-900); Vitamin D 25-OH Total 73.4 ng/mL (>30)
[2022-12-07 12:54] LABS: Alanine Aminotransferase 23 U/L (0-31); Aspartate Amino Transferase 23 U/L (5-31)
== END 2022-12-07 08:40 | disposition home or self-care (01) ==
LOC: HO.HMGCLDS 08:39
PROVIDERS: Absent Provider Internal Medicine Rheumatology; PCP Internal Medicine; Visit Provider Internal Medicine
DX: E61.1 Iron deficiency (principal); E66.01 Morbid (severe) obesity due to excess calories; R06.00 Dyspnea, unspecified; R73.9 Hyperglycemia, unspecified; M35.9 Systemic involvement of connective tissue, unspecified; Z79.899 Other long term (current) drug therapy; Z79.60 Long term (current) use of unspecified immunomodulators and immunosuppressants
CPT/HCPCS: 36415; 80053; 82306; 82607; 82746; 83036; 83540; 84450; 84460; 85025; 85652; 86140

== ENCOUNTER → 2022-12-24 07:51 | Outpatient (BNVA) | payer OTHER, SELFPAY | PROVIDERS: PCP Internal Medicine; Visit Provider Internal Medicine Rheumatology ==

== ENCOUNTER 2023-03-27 11:04 | Outpatient (REF) | payer OTHER, SELFPAY ==
[2023-03-27 13:13] LABS: MANUAL DIFF FLAG NO
[2023-03-27 13:43] LABS: Basophils Percent Auto 0.3 % (0-2); Eosinophils Absolute Auto 0.1 X10*3/uL (0.0-0.4); Eosinophils Percent Auto 1.8 % (0-4); Hemoglobin 13.9 g/dl (12.0-16.0); Imm Gran Abs Auto 0.02 X10*3/uL (0.00-0.03); Imm Gran Pct Auto 0.3 % (0.0-0.4); Lymphocytes Absolute Auto 2.5 X10*3/uL (1.2-4.9); Lymphocytes Percent Auto 34.6 % (20-40); Mean Corpuscular HGB Conc 33.9 g/dl (31.0-35.0); Mean Corpuscular Hemoglobin 31.7 pg (27.0-33.0); Mean Corpuscular Volume 93.4 fL (80.0-98.0); Mean Platelet Volume 9.8 fL (9.4-12.3); Monocytes Absolute Auto 0.7 X10*3/uL (0.1-1.2); Monocytes Percent Auto 9.1 % (2-11); Neutrophils Absolute Auto 3.9 x10*3/uL (2.0-8.3); Neutrophils Percent Auto 53.9 % (45-73); Platelet Count 281 X10*3/uL (160-400); Red Blood Count 4.39 X10*6/uL (4.20-5.50); Red Cell Distribution Width 14.1 % (11.0-16.0); White Blood Count 7.2 X10*3/uL (4.8-10.8)
[2023-03-27 14:02] LABS: Alanine Aminotransferase 18 U/L (0-31); Aspartate Amino Transferase 20 U/L (5-31); C Reactive Protein 2.28 mg/dL (< or = 0.50); Estimated Glomerular Filt Rate > 60
[2023-03-27 14:08] LABS: Erythrocyte Sedimentation Rate 33 MM/HR (0-20)
== END 2023-03-27 11:05 | disposition home or self-care (01) ==
LOC: HO.HMGCLDS 11:04
PROVIDERS: PCP Internal Medicine; Visit Provider Internal Medicine Rheumatology
DX: M35.9 Systemic involvement of connective tissue, unspecified (principal); Z79.899 Other long term (current) drug therapy
CPT/HCPCS: 36415; 82565; 84450; 84460; 85025; 85652; 86140

== ENCOUNTER 2023-04-01 07:56 | Outpatient (AMB) | payer OTHER, SELFPAY ==
--- NOTE | 2023-04-01 08:06 | MHC.OFFVIS ---
Intake Vital Signs 04/01/23 08:08 Height 5 ft 3.5 in Weight 226 lb 10.163 oz BMI 39.5 BP 146/72 H Blood Pressure Location Lt brachial Position Sitting Pulse 79 Pulse Source Pulse Oximeter Temp 97.3 F Temp Source Skin Pulse Oximetry (%) 96 Oxygen Delivery Method Room Air Intake Visit Reasons: UCTD Intake Note: Patient here today to follow up on undifferentiated connective tissue disorder. 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 Accompanied by: Self / Same As Patient Allergies chamomile flower [CHAMOMILE HAWKINS] Allergy (Intermediate, Verified 04/01/23 08:07) RASH gabapentin Allergy (Unknown, Verified 04/01/23 08:07) sleepiness lisinopril Allergy (Unknown, Verified 04/01/23 08:07) weight gain simvastatin Allergy (Unknown, Verified 04/01/23 08:07) NAUSEA Sulfa (Sulfonamide Antibiotics) Adverse Reaction (Mild, Verified 04/01/23 08:07) RASH Daisys Adverse Reaction (Severe, Uncoded 04/01/23 08:07) rash Medication List - Last Reconciled 04/01/23 by Timur Rivera MD calcium carbonate (Calcium) 600 mg PO DAILY cholecalciferol (vitamin D3) 25 mcg PO BID dextroamphetamine-amphetamine 10 mg ER 1 cap PO QAM diclofenac sodium 1% 2 grams topical QID 30 days folic acid 1 mg PO DAILY hydroxychloroquine 200 mg PO BID loratadine 10 mg PO DAILY methotrexate sodium 20 mg (8 x 2.5 mg) PO QWEEK multivitamin (Daily Multi-Vitamin tablet) 1 tab PO DAILY [id number]-[id number] 1 tab PO DAILY omega-3 fatty acids (Fish Oil Concentrate) 1,000 mg PO BID sertraline 50 mg PO DAILY vitamin B complex 1 cap PO DAILY HPI HPI Comments History of Present Illness Details The patient returns for evaluation of what we are calling undifferentiated connective tissue disease. She remains on methotrexate 20 mg weekly, folic acid 1 mg daily, hydroxychloroquine 200 mg b.i.d., and cgtl-fwo-iuzptse ibuprofen 200 mg to 600 mg once daily if needed. There are arthralgias in the neck, hands, lower back and knees. She developed COVID apparently in early February. She had fevers, chills, and respiratory symptoms. Also she had fever and more myalgias and arthralgias. She was prescribed Paxil open and developed diarrhea. However she eventually did recover and return to work. 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 Morbid obesity Muscle cramps Numbness and tingling RUSSELL (obstructive sleep apnea) Osteoarthritis of hand, primary localized Rheumatoid arthritis Undifferentiated connective tissue disease Surgical History History of colonoscopy History of cyst of breast History of tonsillectomy Family History Father Osteoarthritis (arthritis due to wear and tear of joints) Colon cancer Diverticulosis Stroke HTN (hypertension) Mother HTN (hypertension) Acute arthritis Asthma Heart murmur TIA (transient ischemic attack) Diabetes mellitus Full dentures Family/Other Diabetes mellitus Heart disease CHF (congestive heart failure) Cancer Breast cancer Multiple myeloma Sister Mental health disorder Brother Substance use disorder Social History Housing: House Alcohol intake: former Patient Tobacco Use Status: Never used Tobacco e-Cigarette/Vaping Use: Never Used Current occupational status: employed 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 Card Details: Negative chest pain, edema and syncope Resp Details: Negative for SOB, cough and wheezing GI Details: Negative indigestion/heartburn, nausea, abdominal pain, bowel changes, diarrhea, constipation and bloody stool. Neuro Details: She still has some tingling often on her fingers. A neurology visit is planned. Negative for epilepsy, palsy, stroke, changes in speech, and weakness Psych Details: She is back on 50 mg daily sertraline as she did not feel it helped too much. She is also on daily Adderall. Momo/Lymph Details: Negative for excessive bruising or bleeding. Physical Exam APPEARANCE: Patient in no acute distress EYES no redness, pupils equal and reactive to light, eyelids normal EARS: External ear normal, canal clear and tympanic membrane normal. NOSE/SINUS: Airflow through both nares, no nasal discharge, no bleeding THROAT: Oral mucosa moist, no ulcerations NECK: No thyromegaly or masses, no adenopathy, trachea midline. HEART: Regulrar rhythm, S1-S2 heard, no murmurs, rubs or gallops. LUNG: Clear to percussion and auscultation ABD: Normal bowel sounds, no organomegaly, masses or tenderness. EXTREMITIES: No edema, no calf tenderness, normal peripheral pulses. NEURO: Oriented and alert x3. No focal weakness. Reflexes symmetric. Gait normal. SKIN: No inflammatory or neoplastic lesions. Normal color and turgor JOINT EXAM:.?? Cervical Spine:.? Mild discomfort with extremes of normal range of motion.? No tenderness. Thoracic Spine:.? No scoliosis.? No tenderness on palpation. Lumbar Spine:.? Alignment normal.? Full range of motion with mild discomfort; mild lumbar paraspinal muscle tenderness. Chest Wall:.? No tenderness, swelling, increased warmth or erythema. Hands:? Right:? Normal pain-free range of motion.? Mild tenderness at the base of the thumb and the 1st 3 MCP joints. There is some slight puffiness in the MCP joints..? There is also mild tenderness at the thumb IP joint and some slight tenderness? across the PIP joints.? There is also tenderness and some bony enlargement at the 2nd and 3rd distal IP joints.? Is no sensory loss or thenar atrophy. Left:? Mild tenderness across the MCP and PIP joints.? The 1st 3 MCPs have some slight puffiness. The D IP and PIP have some minimal bony enlargement.? No flexor tendon triggering or soft tissue swelling.? No sensory loss or thenar atrophy. Wrists:.? Normal pain-free range of motion without tenderness, swelling, increased warmth or erythema. Elbows:. Normal pain-free range of motion without tenderness, swelling, increased warmth or erythema. Shoulders:?? Right:?Mild pain at the extremes of range of motion with minimal anterior tenderness.? No abductor weakness, adenopathy, redness or swelling.? No acromioclavicular joint tenderness.? Left: range of motion without pain. No tenderness, weakness, swelling, increased warmth or erythema. Hips:? Right:? Mild lumbar pain and slight groin discomfort at the extremes of range of motion.? No groin tenderness or mass.? Left:? Normal range? of motion with slight buttock and groin pain at the extremes of internal external rotation.? No groin tenderness or mass. Hip bursa:.? No tenderness. Knees:??Right: Normal pain-free range of motion with mild patellofemoral crepitus.? There is mild medial tenderness without effusion, soft tissue swelling, swelling, increased warmth or erythema.? Left:? Mild pain with mild patellofemoral crepitus and mild pain extremes of normal flexion extension with some mild medial tenderness but no no effusion. Ankles:.? Normal pain-free range of motion without tenderness, swelling, increased warmth or erythema. Feet:? Normal pain-free range of motion with slight bony enlargement at the 1st MTP joints without tenderness..? No soft tissue swelling, increased warmth or erythema. Tender points:.? mild tenderness to digital palpation at the occiput, trapezius, second rib, knees, greater trochanter and gluteal area bilaterally. ? Results Reviewed Results Reviewed: Laboratory Tests 03/27/23 11:10 WBC 7.2 Hgb 13.9 ESR 33 H Creatinine 0.67 AST 20 ALT 18 C-Reactive Protein 2.28 H Assessment & Plan Assessment & Plan (1) Long-term use of immunosuppressant medication: Code(s): Z79.60 - group home (current) use of unspecified immunomodulators and immunosuppressants (2) Osteoarthritis of hand, primary localized: Code(s): M19.049 - Primary osteoarthritis, unspecified hand (3) Primary osteoarthritis of left knee: Code(s): M17.12 - Unilateral primary osteoarthritis, left knee (4) Undifferentiated connective tissue disease: Comment: onset 2008. Predominantly hand and knee pains. Hydroxychloroquine since 2009 eyes OK 03/2022.Methotrexate added 2011. Sulfasalazine added 2019. stopped 12/2019 due to suspicion of neuropathy Code(s): M35.9 - Systemic involvement of connective tissue, unspecified Plan: She still has some mild elevation of inflammatory markers and few joints that are tender. I am not sure this swelling in the hands is actually synovitis. She has not changed much i the 1.5 years or so that I have been seeing her. I do not really see any signs of extra-articular manifestations of an autoimmune connective tissue disorder. She has many tender points as well suggesting that much of her underlying pain could be some fibromyalgia. There are findings of osteoarthritis in the lower back, knees and the hands. I will check some hand x-rays. With the 13 year history of being on the hydroxychloroquine apparently she is getting regular eye exams so I think that it can be continued. The methotrexate is not causing her any side effects so we will continue that as well. We talked about sparingly using the ibuprofen and she seems to agree with that plan. She will need lab work again in 2 months and 4 months. She will make a follow-up in Rheumatology for 4 months. Orders: Orders XR hand RT min 3V Today M35.9 - Systemic involvement of connective tissue, unspecified Erythrocyte Sedimentation Rate Today M35.9 - Systemic involvement of connective tissue, unspecified Alanine Aminotransferase Today M35.9 - Systemic involvement of connective tissue, unspecified, Z79.899 - Other intermediate frame tender (current) drug therapy Aspartate Amino Transferase Today M35.9 - Systemic involvement of connective tissue, unspecified, Z79.899 - Other intermediate frame tender (current) drug therapy Complete Blood Count Auto Diff Today M35.9 - Systemic involvement of connective tissue, unspecified, Z79.899 - Other care home (current) drug therapy Creatinine Today M35.9 - Systemic involvement of connective tissue, unspecified, Z79.899 - Other care home (current) drug therapy XR hand LT min 3V Today M35.9 - Systemic involvement of connective tissue, unspecified C Reactive Protein Today M35.9 - Systemic involvement of connective tissue, unspecified Coding Level of Care Code Est Pt Level 4 (22196) Diagnoses Long-term use of immunosuppressant medication Z79.60 Osteoarthritis of hand, primary localized M19.049 Primary osteoarthritis of left knee M17.12 Undifferentiated connective tissue disease M35.9
[2023-04-01 08:08] VITALS: BP 146/72; PULSE 79; TEMP 36.3; O2SAT 96; BMI 39.5
== END 2023-04-01 08:34 | disposition home or self-care (01) ==
PROVIDERS: PCP Internal Medicine; Visit Provider Internal Medicine Rheumatology
DX: M35.89 Other specified systemic involvement of connective tissue (principal); Z79.60 Long term (current) use of unspecified immunomodulators and immunosuppressants; M19.049 Primary osteoarthritis, unspecified hand; M17.12 Unilateral primary osteoarthritis, left knee
CPT/HCPCS: 99214

== ENCOUNTER → 2023-04-01 07:56 | Outpatient (BNVA) | payer OTHER, SELFPAY | PROVIDERS: PCP Internal Medicine; Visit Provider Internal Medicine Rheumatology ==

== ENCOUNTER 2023-04-18 09:22 | Outpatient (AMB) | payer OTHER, SELFPAY ==
[2023-04-18 09:23] VITALS: BP 126/82; PULSE 63; O2SAT 96; BMI 39.5
--- NOTE | 2023-04-18 09:23 | A.OFFVIS_ITS ---
Intake Vital Signs 04/18/23 09:23 Height 5 ft 3.5 in Weight 226 lb 6 oz BMI 39.5 BP 126/82 Blood Pressure Location Rt brachial Position Sitting Pulse 63 Pulse Source Pulse Oximeter Pulse Oximetry (%) 96 Oxygen Delivery Method Room Air Intake Visit Reasons: 1y follow up Anesthesia of skin-LVM to r/s Intake Note: Pt presents to the office today for a 1 year follow up for anesthesia of skin. Pt states she is feeling well other than the neuropathy in her fingertips. Allergies chamomile flower [CHAMOMILE HAWKINS] Allergy (Intermediate, Verified 04/18/23 09:26) RASH gabapentin Allergy (Unknown, Verified 04/18/23 09:26) sleepiness lisinopril Allergy (Unknown, Verified 04/18/23 09:26) weight gain simvastatin Allergy (Unknown, Verified 04/18/23 09:26) NAUSEA Sulfa (Sulfonamide Antibiotics) Adverse Reaction (Mild, Verified 04/18/23 09:26) RASH Daisys Adverse Reaction (Severe, Uncoded 04/18/23 09:26) rash Medication List - Last Reconciled 04/18/23 by Linda Shin MD calcium carbonate (Calcium) 600 mg PO DAILY cholecalciferol (vitamin D3) 25 mcg PO BID dextroamphetamine-amphetamine 10 mg ER 1 cap PO QAM diclofenac sodium 1% 2 grams topical QID 30 days folic acid 1 mg PO DAILY hydroxychloroquine 200 mg PO BID loratadine 10 mg PO DAILY methotrexate sodium 20 mg (8 x 2.5 mg) PO QWEEK multivitamin (Daily Multi-Vitamin tablet) 1 tab PO DAILY opkaavxknorw-morrlqpm-lxerqe 1 tab PO DAILY omega-3 fatty acids (Fish Oil Concentrate) 1,000 mg PO BID sertraline 50 mg PO DAILY vitamin B complex 1 cap PO DAILY HPI HPI Comments History of Present Illness Details 63y/o female comes for follow up of num bness in her feet and fingers, sleep disorder, memory loss. she is on CPAP now and is complaint followed up by Dr. Galvan. SHe did not notice any worsening of her sensory symptoms.she still has nighttime leg discomfort and cramps . Previous history-She has been on sulfasalazine for 2 years for undifferentiated connective tissues disease and she started noticing numbness, tingling in her finger tips and distal toes , shooting pains for about 1 year. SHe was seen by Dr. Estrada in December 2021 and sulfasalazine was stopped as a probable etiology of neuropathy. She started noticing improvement in symptoms 2 mths after she stopped. Now she denies numbness, but has occasional tingling in her toes and fingers. she denies shooting pain. she has RUSSELL and on CPAP for over [address] Galvan. she has uncomfortable sensations in her legs at night.she wake sup 3 times a night with discomfort - she stretches her legs and shifts position. she has daytime fatigue.she reports leg cramps at night. 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 Undifferentiated connective tissue disease Rheumatoid arthritis Fibromyalgia Depression with anxiety RUSSELL (obstructive sleep apnea) Morbid obesity Surgical History History of colonoscopy History of cyst of breast History of tonsillectomy Family History Father Osteoarthritis (arthritis due to wear and tear of joints) Colon cancer Diverticulosis Stroke HTN (hypertension) Mother HTN (hypertension) Acute arthritis Asthma Heart murmur TIA (transient ischemic attack) Diabetes mellitus Full dentures Family/Other Diabetes mellitus Heart disease CHF (congestive heart failure) Cancer Breast cancer Multiple myeloma Sister Mental health disorder Brother Substance use disorder Social History Housing: House Alcohol intake: former Patient Tobacco Use Status: Never used Tobacco e-Cigarette/Vaping Use: Never Used Current occupational status: employed 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 Cognitive needs: No Hearing needs: No Vision needs: Yes Physical Exam Vital Signs: Last Vital Signs Pulse 63 04/18/23 09:23 BP 126/82 04/18/23 09:23 Pulse Ox 96 04/18/23 09:23 Oxygen Delivery Method Room Air 04/18/23 09:23 BMI result Body Mass Index 39.5 Const General: cooperative, healthy appearing, comfortable and no acute distress Nutritional Appearance: obese Orientation/consciousness: patient oriented x3 Limitations: no limitations HEENT Head: Yes normal to inspection and Yes normocephalic Eyes Pupils: Equal, round and reactive pupils present Neuro General: patient oriented x3, tone normal, moves all extremities and no focal motor deficits Cranial nerves: Yes Facial sensation intact/muscles of mastication intact, Yes Equal, round and reactive pupils present, Yes Bilaterally intact EOM present, Yes Nystagmus not present, Yes Normal facial strength present, Yes Midline tongue present, Yes Symmetric palate elevation present and Yes Ability to bila terally elevate shoulders present Cognition (Neuro): normal cognition Gait exam (Neuro): Antalgic gait present Motor exam (neuro): 5/5 motor strength present throughout and Motor abnormalities not present Deep tendon reflexes (DTR's): Right triceps reflex intensity grade: 1+, Left triceps reflex intensity grade: 1+, Rt Biceps (C5, C6): 1+, Left biceps reflex intensity grade: 1+, Right brachioradialis reflex intensity grade: 1+, Left brachioradialis reflex intensity grade: 1+, Right patellar reflex intensity grade: 1+ and Left patellar reflex intensity grade: 1+ Coordination: [id number] test normal Psych Appearance: grossly normal Mental Status: mental status grossly normal Assessment & Plan Assessment & Plan (1) Numbness and tingling: Comment: likely related to sulfasalazine - resolved Code(s): R20.0 - Anesthesia of skin; R20.2 - Paresthesia of skin Plan Patients is currently stable- neuro exam was non focal . I will follow her up clinically. I will trial her on ropinirole XR 2mg qhs Continue CPAP and f/u with Dr. Galvan Medications: New ropinirole ER 2 mg PO BEDTIME 30 tabs 3RF Coding Level of Care Code Est Pt Level 4 (30995) Diagnoses Numbness and tingling R20.0; R20.2
== END 2023-04-18 09:49 | disposition home or self-care (01) ==
PROVIDERS: Visit Provider Psychiatry & Neurology Neurology
DX: R20.0 Anesthesia of skin (principal); R20.2 Paresthesia of skin
CPT/HCPCS: 99214

== ENCOUNTER → 2023-04-18 09:22 | Outpatient (BNVA) | payer OTHER, SELFPAY | PROVIDERS: Visit Provider Psychiatry & Neurology Neurology | DX: R20.0 Anesthesia of skin (principal); R20.2 Paresthesia of skin; R25.2 Cramp and spasm ==

== ENCOUNTER 2023-05-01 12:34 | Outpatient (REF) | payer OTHER, SELFPAY ==
--- NOTE | ~2023-05-01 | XR_ITS ---
EXAMINATION: XR HANDS, BILATERAL CLINICAL INFORMATION: Systemic involvement of connective tissue disease. COMPARISON: Bilateral hands 10/25/2016. TECHNIQUE: 3 views of each hand. FINDINGS: Left: Again seen are degenerative changes at the interphalangeal joints with narrowing, sclerosis and minimal osteophyte formation. Appearances are similar to 2017. Degenerative changes are also seen at the 1st CMC joint which appears slightly progressed when compared to the 2017. No chondrocalcinosis. No fractures or dislocations. Right: Again seen are degenerative changes at the interphalangeal joints with narrowing, sclerosis and minimal osteophyte formation. Appearances are similar to 2017. No chondrocalcinosis. No fractures or dislocations. XR/XR hand LT min 3V IMPRESSION: Degenerative changes in both hands as described above.
--- NOTE | ~2023-05-01 | XR_ITS ---
EXAMINATION: XR HANDS, BILATERAL CLINICAL INFORMATION: Systemic involvement of connective tissue disease. COMPARISON: Bilateral hands 10/25/2016. TECHNIQUE: 3 views of each hand. FINDINGS: Left: Again seen are degenerative changes at the interphalangeal joints with narrowing, sclerosis and minimal osteophyte formation. Appearances are similar to 2017. Degenerative changes are also seen at the 1st CMC joint which appears slightly progressed when compared to the 2017. No chondrocalcinosis. No fractures or dislocations. Right: Again seen are degenerative changes at the interphalangeal joints with narrowing, sclerosis and minimal osteophyte formation. Appearances are similar to 2017. No chondrocalcinosis. No fractures or dislocations. XR/XR hand RT min 3V IMPRESSION: Degenerative changes in both hands as described above.
[2023-05-01 12:50] LABS: MANUAL DIFF FLAG NO
[2023-05-01 13:10] LABS: Basophils Percent Auto 0.3 % (0-2); Eosinophils Absolute Auto 0.1 X10*3/uL (0.0-0.4); Eosinophils Percent Auto 1.5 % (0-4); Hematocrit 41.6 % (37.0-47.0); Hemoglobin 14.1 g/dl (12.0-16.0); Imm Gran Abs Auto 0.03 X10*3/uL (0.00-0.03); Imm Gran Pct Auto 0.5 % (0.0-0.4); Lymphocytes Absolute Auto 2.2 X10*3/uL (1.2-4.9); Lymphocytes Percent Auto 32.8 % (20-40); Mean Corpuscular HGB Conc 33.9 g/dl (31.0-35.0); Mean Corpuscular Hemoglobin 31.1 pg (27.0-33.0); Mean Corpuscular Volume 91.6 fL (80.0-98.0); Mean Platelet Volume 9.5 fL (9.4-12.3); Monocytes Absolute Auto 0.6 X10*3/uL (0.1-1.2); Monocytes Percent Auto 9.6 % (2-11); Neutrophils Absolute Auto 3.6 x10*3/uL (2.0-8.3); Neutrophils Percent Auto 55.3 % (45-73); Platelet Count 273 X10*3/uL (160-400); Red Blood Count 4.54 X10*6/uL (4.20-5.50); Red Cell Distribution Width 13.7 % (11.0-16.0); White Blood Count 6.6 X10*3/uL (4.8-10.8)
[2023-05-01 13:48] LABS: Alanine Aminotransferase 25 U/L (0-31); Aspartate Amino Transferase 26 U/L (5-31); C Reactive Protein 2.07 mg/dL (< or = 0.50); Estimated Glomerular Filt Rate > 60
[2023-05-01 13:50] LABS: Erythrocyte Sedimentation Rate 32 MM/HR (0-20)
== END 2023-05-01 12:35 | disposition home or self-care (01) ==
LOC: HO.LAB 12:34
PROVIDERS: PCP Internal Medicine; Visit Provider Internal Medicine Rheumatology
DX: M35.9 Systemic involvement of connective tissue, unspecified (principal); Z79.899 Other long term (current) drug therapy
CPT/HCPCS: 36415; 73130; 82565; 84450; 84460; 85025; 85652; 86140

== ENCOUNTER 2023-06-10 09:53 | Outpatient (REF) | payer OTHER, SELFPAY ==
[2023-06-10 13:37] LABS: MANUAL DIFF FLAG NO
[2023-06-10 13:56] LABS: Basophils Percent Auto 0.2 % (0-2); Eosinophils Absolute Auto 0.1 X10*3/uL (0.0-0.4); Eosinophils Percent Auto 1.4 % (0-4); Hematocrit 42.5 % (37.0-47.0); Hemoglobin 13.9 g/dl (12.0-16.0); Imm Gran Abs Auto 0.03 X10*3/uL (0.00-0.03); Imm Gran Pct Auto 0.5 % (0.0-0.4); Lymphocytes Absolute Auto 1.8 X10*3/uL (1.2-4.9); Lymphocytes Percent Auto 27.6 % (20-40); Mean Corpuscular HGB Conc 32.7 g/dl (31.0-35.0); Mean Corpuscular Volume 94.7 fL (80.0-98.0); Monocytes Absolute Auto 0.5 X10*3/uL (0.1-1.2); Monocytes Percent Auto 7.6 % (2-11); Neutrophils Percent Auto 62.7 % (45-73); Platelet Count 286 X10*3/uL (160-400); Red Blood Count 4.49 X10*6/uL (4.20-5.50); Red Cell Distribution Width 13.2 % (11.0-16.0); White Blood Count 6.3 X10*3/uL (4.8-10.8)
[2023-06-10 14:10] LABS: Estimated Average Glucose 114 mg/dL; Hemoglobin A1c % 5.6 % (<6.0)
[2023-06-10 14:32] LABS: Alanine Aminotransferase 20 U/L (0-31); Albumin Level 4.2 g/dL (3.5-5.0); Alkaline Phosphatase 65 U/L (39-117); Anion Gap 10 (12-20); Aspartate Amino Transferase 22 U/L (5-31); Bilirubin Total 0.5 mg/dL (0.0-1.0); Blood Urea Nitrogen 11 mg/dL (9-16); C Reactive Protein 2.38 mg/dL (< or = 0.50); Calcium 9.5 mg/dL (8.4-10.2); Carbon Dioxide 29 mmol/L (22-29); Chloride 108 mmol/L (96-108); Cholesterol 194 mg/dL (<200); Estimated Glomerular Filt Rate > 60; Glucose Fasting 111 mg/dL (60-99); HDL Cholesterol 60 mg/dL (>40); LDL Cholesterol Calculated 111 mg/dL (<100); Potassium 4.4 mmol/L (3.3-5.1); Sodium 143 mmol/L (135-145); Total Protein 7.3 g/dL (6.5-8.0); Triglycerides 115 mg/dL (<150)
[2023-06-10 15:23] LABS: Erythrocyte Sedimentation Rate 38 MM/HR (0-20)
== END 2023-06-10 09:54 | disposition home or self-care (01) ==
LOC: HO.HMGCLDS 09:53
PROVIDERS: Absent Provider Internal Medicine Rheumatology; PCP Internal Medicine; Visit Provider Internal Medicine
DX: Z00.00 Encounter for general adult medical examination without abnormal findings (principal); E66.01 Morbid (severe) obesity due to excess calories; R73.9 Hyperglycemia, unspecified; M35.9 Systemic involvement of connective tissue, unspecified
CPT/HCPCS: 36415; 80053; 80061; 83036; 84443; 85025; 85652; 86140

== ENCOUNTER 2023-06-17 08:24 | Outpatient (AMB) | payer OTHER, SELFPAY ==
--- NOTE | 2023-06-17 08:28 | MHC.PC.OV ---
Vital Signs 06/17/23 08:31 Height 5 ft 3.5 in Weight 230 lb BMI 40.1 BP 126/74 Blood Pressure Location Lt brachial Position Sitting Pulse 62 Pulse Source Pulse Oximeter Pulse Oximetry (%) 97 Oxygen Delivery Method Room Air Intake Visit Reasons: PE Intake Note: Pt is here today for PE. Allergies chamomile flower [CHAMOMILE HAWKINS] Allergy (Intermediate, Verified 06/17/23 08:37) RASH gabapentin Allergy (Unknown, Verified 06/17/23 08:37) sleepiness lisinopril Allergy (Unknown, Verified 06/17/23 08:37) weight gain simvastatin Allergy (Unknown, Verified 06/17/23 08:37) NAUSEA ropinirole Adverse Reaction (Intermediate, Verified 06/17/23 08:54) HIGH BLOOD PRESSURE Sulfa (Sulfonamide Antibiotics) Adverse Reaction (Mild, Verified 06/17/23 08:37) RASH Daisys Adverse Reaction (Severe, Uncoded 06/17/23 08:37) rash Medication List - Last Reconciled 06/17/23 by Iman Pulliam MD calcium carbonate (Calcium) 600 mg PO DAILY cholecalciferol (vitamin D3) 25 mcg PO BID dextroamphetamine-amphetamine 10 mg 1 tab PO DAILY dextroamphetamine-amphetamine 10 mg ER 1 cap PO QAM diclofenac sodium 1% 2 grams topical QID 30 days folic acid 1 mg PO DAILY gabapentin 100 mg PO BEDTIME hydroxychloroquine 200 mg PO BID loratadine 10 mg PO DAILY methotrexate sodium 20 mg (8 x 2.5 mg) PO QWEEK multivitamin (Daily Multi-Vitamin tablet) 1 tab PO DAILY xzyyfwqaoefx-jfgswsgf-ymmnfy 1 tab PO DAILY omega-3 fatty acids (Fish Oil Concentrate) 1,000 mg PO BID sertraline 50 mg PO DAILY vitamin B complex 1 cap PO DAILY Tobacco use date assessed: 06/17/23 Fall risk assessment: No Falls in past year Last assessed Fall Risk: 06/17/23 Dental Screening Dental Screen Date: 06/17/23 Did you have a dental visit in the last 12 months?: Yes Did you have a dental problem in the last 6 months where you did not have access to dental care?: No Was dental information given to patient?: Patient has dentist HPI PE HPI Details Pt presents for PE. 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 Undifferentiated connective tissue disease Rheumatoid arthritis Fibromyalgia Depression with anxiety RUSSELL (obstructive sleep apnea) Morbid obesity Surgical History History of colonoscopy History of cyst of breast History of tonsillectomy Family History Father Osteoarthritis (arthritis due to wear and tear of joints) Colon cancer Diverticulosis Stroke HTN (hypertension) Mother HTN (hypertension) Acute arthritis Asthma Heart murmur TIA (transient ischemic attack) Diabetes mellitus Full dentures Family/Other Diabetes mellitus Heart disease CHF (congestive heart failure) Cancer Breast cancer Multiple myeloma Sister Mental health disorder Brother Substance use disorder Social History (Updated 05/06/23 @ 15:11 by Lucinda Chen [facility]) Housing: House Alcohol intake: former Patient Tobacco Use Status: Never used Tobacco e-Cigarette/Vaping Use: Never Used Current occupational status: employed 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 1. Little interest or pleasure in doing things: not at all 2. Feeling down, depressed, or hopeless: not at all 3. Trouble falling or staying asleep, or sleeping too much: several days 4. Feeling tired or having little energy: several days 5. Poor appetite or overeating: not at all 6. Feeling bad about yourself - or that you are a failure or have let yourself or your family down: not at all 7. Trouble concentrating on things, such as reading the newspaper or watching television: not at all 8. Moving or speaking so slowly that other people could have noticed. Or the opposite - being so fidgety or restless that you have been moving around a lot more than usual: not at all 9. Thoughts that you would be better off or of hurting yourself in some way: not at all Total score: 2 Depression Screening Interpretation: Negative Depression Screening Done: Yes Source: Developed by Drs. Patrice Agosto, Megan B.Bobby Delarosa and colleagues, with an educational johnathan from [employer]. Thrive Questionnaire Date Thrive assessed: 06/17/23 I am a: Patient What is your living situation today?: I have a steady place to live Within the past 12 months, did the food you bought not last and you didn't have the money to get more?: Never true Within the past 12 months, did you worry whether your food would run out before you got money to buy more?: Never true Do you have trouble paying for medicines?: No Do you have trouble getting transportation to medical appointments?: No Do you have trouble paying your heating and electricity bill?: No Do you have trouble taking care of your child, family member or friend?: No Do you have trouble with day-to-day activities such as bathing, preparing meals, shopping, managing finances, etc.?: No Are you currently unemployed and looking for a job?: No Are you interested in more education?: No Please select the resources that you would like help with: None AUDIT C Alcohol Use Questionnaire (AUDIT-C) 1. How often do you have a drink containing alcohol?: Never 3. How often do you have six or more drinks on one occasion?: Never Total Score: 0 MILDRED-7 AMB Questionnaire MILDRED-7 Date MILDRED - 7 assessed: 06/17/23 Feeling nervous, anxious, or on edge: 0 = Not at all Not being able to stop or control worryin = Not at all Worrying too much about different things: 0 = Not at all Trouble relaxin = Several days Being so restless that it is hard to sit still: 0 = Not at all Becoming easily annoyed or irritable: 0 = Not at all Feeling afraid as if something awful might happen: 0 = Not at all Total MILDRED-7 score (0-4 normal; 5-9 mild; 10-14 moderate; 15-21 severe): 1 Source: Developed by Drs. Patrice Agosto, Bobby Kohli and colleagues, with an educational johnathan from [employer]. Review of Systems Const All systems reviewed & are unremarkable except as noted in HPI and below Reports no additional complaints Eyes Reports no additional complaints ENT Reports no additional complaints Card Reports no additional complaints Resp Reports no additional complaints GI Reports no additional complaints Reports no additional complaints Physical exam (Primary Care) Vital Signs: Last Vital Signs Pulse 62 06/17/23 08:31 BP 126/74 06/17/23 08:31 Pulse Ox 97 06/17/23 08:31 Oxygen Delivery Method Room Air 06/17/23 08:31 BMI result Body Mass Index 40.1 Tobacco/Smoking Status: Tobacco use Status Tobacco use date assessed 06/17/23 06/17/23 08:44 Patient Tobacco Use Status Never used Tobacco 06/17/23 08:44 e-Cigarette/Vaping Use Never Used 06/17/23 08:28 PHQ-9: PHQ-9 Score PHQ-9: Total score 2 06/17/23 09:36 Depression Screening Interpretation: Negative Thrive Assessment: Date of Thrive Assessment Date Thrive assessed 06/17/23 06/17/23 08:44 Const General: no acute distress HENMT Head: Yes normal to inspection Ears: hearing grossly normal bilaterally Face and sinus: Yes normal facial exam Mouth: Normal oral and palatal mucosa present Throat: Yes posterior oropharynx normal Eyes General: appearance normal, both eyes and all related structures Neck Neck: Yes no lymphadenopathy and Yes supple Resp Effort & Inspection: normal respiratory effort Auscultation: clear to auscultation bilaterally Cardio Rhythm: regular rhythm Heart sounds: S1 normal heart sound present and S2 normal heart sound present GI Inspection: Yes normal to inspection Palpation (GI): Soft to palpation Percussion: Yes normal to percussion Auscultation: normal bowel sounds Assessment and Plan Assessment & Plan (1) Hyperglycemia: Code(s): R73.9 - Hyperglycemia, unspecified Plan: A1C is 5.6, ADA diet, increase exercise, weight loss discussed, f/u 6 months (2) Undifferentiated connective tissue disease: Comment: onset 2008. Predominantly hand and knee pains. Hydroxychloroquine since 2009 eyes OK 03/2022, 03/2023.Methotrexate added 2011. Sulfasalazine added 2019. stopped 12/2019 due to suspicion of neuropathy Code(s): M35.9 - Systemic involvement of connective tissue, unspecified Plan: f/u with Rheumatology (3) RUSSELL (obstructive sleep apnea): Comment: She is very regular in using CPAP and is benefiting. Compliance is excellent. Advised to come back once a year for follow-up. Code(s): G47.33 - Obstructive sleep apnea (adult) (pediatric) (4) Annual physical exam: Code(s): Z00.00 - Encounter for general adult medical examination without abnormal findings Plan: well balanced diet, regular exercise, weight loss discussed Orders: Orders Comprehensive Met. Panel 6 Months G47.33 - Obstructive sleep apnea (adult) (pediatric), M35.9 - Systemic involvement of connective tissue, unspecified, R73.9 - Hyperglycemia, unspecified, Z00.00 - Encounter for general adult medical examination without abnormal findings Complete Blood Count Auto Diff 6 Months G47.33 - Obstructive sleep apnea (adult) (pediatric), M35.9 - Systemic involvement of connective tissue, unspecified, R73.9 - Hyperglycemia, unspecified, Z00.00 - Encounter for general adult medical examination without abnormal findings Hemoglobin A1c 6 Months G47.33 - Obstructive sleep apnea (adult) (pediatric), M35.9 - Systemic involvement of connective tissue, unspecified, R73.9 - Hyperglycemia, unspecified, Z00.00 - Encounter for general adult medical examination without abnormal findings Lipid Panel 6 Months G47.33 - Obstructive sleep apnea (adult) (pediatric), M35.9 - Systemic involvement of connective tissue, unspecified, R73.9 - Hyperglycemia, unspecified, Z00.00 - Encounter for general adult medical examination without abnormal findings Coding Level of Care Code Est Pt Prev Care 40-64y(75286) Diagnoses Hyperglycemia R73.9 Undifferentiated connective tissue disease M35.9 RUSSELL (obstructive sleep apnea) G47.33 Annual physical exam Z00.00
[2023-06-17 08:31] VITALS: BP 126/74; PULSE 62; O2SAT 97; BMI 40.1
== END 2023-06-17 11:24 | disposition home or self-care (01) ==
PROVIDERS: PCP Internal Medicine; Visit Provider Internal Medicine
DX: R73.9 Hyperglycemia, unspecified (principal); M35.9 Systemic involvement of connective tissue, unspecified; G47.33 Obstructive sleep apnea (adult) (pediatric); Z00.00 Encounter for general adult medical examination without abnormal findings
CPT/HCPCS: 99396

== ENCOUNTER 2023-06-17 21:02 | Inpatient (IN) | payer OTHER, SELFPAY ==
--- NOTE | ~2023-06-17 | CT_ITS ---
EXAMINATION: CT HEAD WITHOUT CONTRAST (STROKE PROTOCOL) CLINICAL INFORMATION: Stroke protocol. Left leg numbness COMPARISON: MRI brain from 10/01/2018 TECHNIQUE: Contiguous axial imaging was performed from the skull base to vertex without intravenous administration of contrast. This CT examination was performed using dose optimization techniques as appropriate, variously including the following: *Automated exposure control *Adjustment of mA and/or kV according to patient size (this includes techniques or standardized protocols for targeted exams where dose is matched to indication/reason for exam; i.e. extremities or head) *Use of iterative reconstruction technique DLP: 605 mGy-cm FINDINGS: There is no evidence of acute intracranial hemorrhage or territorial infarction. Slight chronic white matter small vessel ischemic changes. No abnormal mass effect or midline shift is seen. De La Cruz to white matter differentiation is well preserved. No extra-axial fluid collections are identified. The ventricles are normal in size. There is no abnormal attenuation within the brain parenchyma. The osseous structures and soft tissues are normal. The mastoid air cells and visualized portions of the paranasal sinuses are well aerated. CT/CT head for stroke IMPRESSION: 1. No acute intracranial pathology. 2. Slight chronic white matter small vessel ischemic changes. This critical result was discussed with DR EDDY by telephone on 06/17/2023 9:29 PM and it was ascertained that the content and urgency of the report was understood at the time of direct communication.
--- NOTE | ~2023-06-17 | CT_ITS ---
EXAMINATION: CT ANGIOGRAM HEAD CT ANGIOGRAM NECK CLINICAL INFORMATION: Left leg numbness. COMPARISON: CT head from 06/17/2023. CTA head and neck from 10/01/2018. Brain MRI from 10/01/2018. TECHNIQUE: Initial noncontrast valving machine operator imaging of the head and neck was performed. Comparison is made with noncontrast head CT from earlier today. Test bolus sequences followed by intravenous administration 85 mL of Omnipaque 350. Helical imaging was performed in the axial plane from the aortic arch to the skull vertex. Delayed postcontrast imaging of the head was also performed. The data was processed at the tomography technologist's workstation for generation of MIP sequences. Angled MIPs and volume rendered reformatted images were also generated at an offline 3D workstation. Stenoses are assessed in accordance with NASCET criteria unless otherwise indicated. This CT examination was performed using dose optimization techniques as appropriate, variously including the following: *Automated exposure control. *Adjustment of mA and/or kV according to patient size (this includes techniques or standardized protocols for targeted exams where dose is matched to indication/reason for exam; i.e. extremities or head). *Use of iterative reconstruction technique. DLP: 1460 mGy-cm FINDINGS: CT Head: There is no evidence of acute intracranial hemorrhage or edematous territorial infarction. De La Cruz-white matter differentiation is preserved. A few foci of hypoattenuation in the periventricular and deep white matter are consistent with mild microangiopathy. Proportional prominence of the ventricles and sulcal spaces without evidence of obstructive hydrocephalus. No abnormal mass effect or midline shift. No extra-axial fluid collections. No pathologic intra-axial enhancement. No acute soft tissue or osseous abnormalities. Mild mucosal thickening of the paranasal sinuses. The mastoid air cells and middle ear cavities are clear. CT Neck: The thyroid gland and remaining cervical soft tissues are within normal limits. Straightening of the normal cervical lordosis. Mild degenerative anterolisthesis of C2 on C3. Moderate degenerative disc disease at C5-C6 and C6-C7 with disc-osteophyte complex formation. Mild degenerative disc disease at all additional cervical levels. There appears to be at least mild spinal canal stenosis at C5-C6. Facet and uncovertebral joint arthropathy leads to osseous encroachment on the neural foramina from C5-C7. CT Upper Chest: The visualized lung apices and upper mediastinum are within normal limits. Neck CTA: Aortic Arch: Normal contour and caliber. There 3 vessel branching pattern of the aortic arch. The left common carotid artery arises from the brachiocephalic trunk. The left vertebral artery arises directly from the aortic arch between the brachiocephalic and left subclavian arteries. Great Vessel Origins: No significant stenosis of the branch origins. Right Common Carotid Artery: No focal stenosis or occlusion. Cervical Right Internal Carotid Artery: Normal opacification without focal stenosis or occlusion. Left Common Carotid Artery: No focal stenosis or occlusion. Cervical Left Internal Carotid Artery: Mild calcific atherosclerotic disease of the carotid bulb and proximal internal carotid artery without flow-limiting stenosis. Cervical Right Vertebral Artery: Dominant. No focal stenosis or occlusion. Cervical Left Vertebral Artery: No focal stenosis or occlusion. Brain CTA: Intracranial Internal Carotid Arteries: Calcific atherosclerotic disease of the intracranial internal carotid arteries without occlusion or flow-limiting stenosis. Right Anterior Cerebral Artery: Normal A1 segment. Normal opacification of the distal FAROOQ segments. Left Anterior Cerebral Artery: Normal A1 segment. Normal opacification of the distal FAROOQ segments. Anterior Communicating Artery: Normal. Right Middle Cerebral Artery: Normal M1 segment of the MCA without focal stenosis or occlusion. Normal arborization of the distal segments. Left Middle Cerebral Artery: Normal M1 segment of the MCA without focal stenosis or occlusion. Normal arborization of the distal segments. Right Vertebral Artery: Normal V4 segment. Normal opacification of the proximal segments of the posterior inferior cerebellar artery. Left Vertebral Artery: Normal V4 segment. Normal opacification of the proximal segments of the posterior inferior cerebellar artery. Basilar Artery: Normal without focal stenosis or occlusion. Normal appearance of the proximal superior cerebellar arteries. Right Posterior Cerebral Artery: Normal P1 segment. Normal opacification of the distal ELECTRIC MOTOR MECHANIC segments. Left Posterior Cerebral Artery: Normal P1 segment. Normal opacification of the distal ELECTRIC MOTOR MECHANIC segments. Normal opacification of the superior sagittal, straight, transverse, and sigmoid sinuses. CT/CT angio head neck stroke IMPRESSION: 1. No evidence of acute intracranial hemorrhage or edematous territorial infarction. Mild underlying microangiopathy and generalized cerebral volume loss. 2. CTA of the head and neck without proximal occlusion or flow-limiting stenosis. 3. Moderate multilevel degenerative spondyloarthropathy of the cervical spine. Most notably, there appears to be at least mild spinal canal stenosis at C5-C6. This critical result was discussed with Dr. Kraft at 23:15 on 06/17/2023 and it was ascertained that the content and urgency of the report was understood at the time of direct communication.
--- NOTE | ~2023-06-17 | MR_ITS ---
MRI OF THE BRAIN WITHOUT IV CONTRAST INDICATION: TIA with left lower extremity weakness and numbness. COMPARISON: CTA head and neck June 17, 2023. TECHNIQUE: Multiplanar multisequence MR imaging of the brain was obtained without IV contrast. FINDINGS: There is no hydrocephalus, extra-axial surface collection, or herniation. Mild chronic microangiopathy. The major flow voids at the skull base are preserved. There is no acute infarct on diffusion-weighted imaging. There is no intracranial hemorrhage on the gradient recalled echo acquisition. A 6 mm pineal gland cyst is incidentally noted. The cerebellar tonsils are normally positioned. The cerebellum and brainstem are normal. The craniocervical junction is normal. Osseous marrow signal intensity is homogenous. The visualized soft tissues are unremarkable. There is a small right mastoid effusion. MR/MR head/brain wo con IMPRESSION: - No acute intracranial findings. No acute infarcts. - Mild chronic microangiopathy.
--- NOTE | 2023-06-17 21:05 | ECG_ITS ---
Test Reason : numbness Blood Pressure : / mmHG Vent. Rate : 067 BPM Atrial Rate : 067 BPM P-R Int : 170 ms QRS Dur : 098 ms QT Int : 402 ms P-R-T Axes : 048 -12 022 degrees QTc Int : 424 ms Normal sinus rhythm Moderate voltage criteria for LVH, may be normal variant ( R in aVL , Reynaldo product ) Borderline ECG When compared with ECG of 01-OCT-2018 14:46, No significant change was found Referred By: Arianna Kraft Electronically Signed By:Ji Street
--- NOTE | 2023-06-17 21:37 | ED_ITS ---
HPI - Neuro Symptoms/Deficit General Chief Complaint: Stroke Stated Complaint: left leg numbness Time Seen by Provider: 06/17/23 21:04 Source: patient and old records reviewed Mode of arrival: wheelchair Limitations: no limitations History of Present Illness HPI Narrative: 63 yo female with PMH of arthritis, mixed connective tissue disease, RUSSELL, obesity, depression, who was coming into work and 10 minutes prior to arrival in the ED felt numbness in L foot that went up to the thigh she had no weakness noted but stated her BP was high. She states the symptoms are improving and she can feel her leg at this time. She has not had a TIA or stroke before. She does not take a blood thinner or aspirin. Onset (ago): minute(s) (20) Last Observed Normal: 08:45 Location: left leg History of same: No Severity: mild Quality: numb Relieving factors: time Exacerbating factors: none Context: sudden onset On Anticoagulants: No Associated symptoms: denies other symptoms Treatments Prior to Arrival: none Related Data Home Medications Medication Instructions Recorded Confirmed calcium carbonate 600 mg calcium 600 mg PO DAILY 06/15/20 06/17/23 (1,500 mg) tablet (Calcium) omega-3 fatty acids 1,000 mg 1,000 mg PO BID 06/16/21 06/17/23 capsule (Fish Oil Concentrate) cholecalciferol (vitamin D3) 25 25 mcg PO BID 09/04/21 06/17/23 mcg (1,000 unit) capsule iuvwpumxtsvm-hnbzhexx-nnijlw tablet 1 tab PO DAILY 01/30/22 06/17/23 loratadine 10 mg tablet 10 mg PO DAILY 06/14/22 06/17/23 multivitamin (Daily Multi-Vitamin 1 tab PO DAILY 08/14/22 06/17/23 tablet) dextroamphetamine-amphetamine ER 1 cap PO QAM 03/28/23 06/17/23 10 mg 24hr capsule,extend release sertraline 50 mg tablet 50 mg PO DAILY 03/28/23 06/17/23 vitamin B complex 1 cap PO DAILY 04/01/23 06/17/23 dextroamphetamine-amphetamine 10 1 tab PO DAILY 06/17/23 06/17/23 mg tablet Previous Rx's Medication Instructions Recorded diclofenac sodium 1 % topical gel 2 g topical QID 30 days #100 grams 09/04/21 folic acid 1 mg tablet 1 mg PO DAILY #90 tabs 02/15/23 methotrexate sodium 2.5 mg tablet 20 mg (8 x 2.5 mg) PO QWEEK #96 03/12/23 tabs hydroxychloroquine 200 mg tablet 200 mg PO BID #180 tabs 04/09/23 gabapentin 100 mg capsule 100 mg PO BEDTIME #30 caps 05/22/23 Allergies Allergy/AdvReac Type Severity Reaction Status Date / Time chamomile flower Allergy Intermediate RASH Verified 06/17/23 21:44 [CHAMOMILE HAWKINS] lisinopril Allergy Unknown Nausea Verified 06/17/23 21:44 simvastatin Allergy Unknown NAUSEA Verified 06/17/23 21:44 ropinirole AdvReac Intermediate HIGH BLOOD Verified 06/17/23 21:44 PRESSURE Sulfa (Sulfonamide AdvReac Mild RASH Verified 06/17/23 21:44 Antibiotics) gabapentin AdvReac Unknown Fatigued Verified 06/17/23 21:44 Daisys AdvReac Severe rash Uncoded 06/17/23 21:44 Review of Systems 2 Review of Systems: Constitutional : No Fever, No Chills, No Fatigue ENT/Mouth : No sore throat, No Rhinorrhea Eyes: No Eye Pain, No Swelling, No Redness Cardiovascular : No Chest Pain, No SOB, No Dyspnea on Exertion Respiratory : No Cough, No Sputum Gastrointestinal : No Nausea, No Vomiting, No Diarrhea, No abdominal Pain Genitourinary : No Dysuria, No Urinary Frequency, No Hematuria, Musculoskeletal : No joint pain, No Myalgias, No Joint Swelling Skin : No Skin Lesions, No rash Neuro : No Weakness, pos Numbness, No Dizziness, no Headache Psych : No Anxiety/Panic, No Depression Heme/Lymph: No Bruising, No Bleeding,No Lymphadenopathy Endocrine : No Polyuria, No Polydipsia All other systems reviewed and are negative [facility] Past Medical History Attestation statement: The following information was validated with the patient. 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 Undifferentiated connective tissue disease Rheumatoid arthritis Fibromyalgia Depression with anxiety RUSSELL (obstructive sleep apnea) Morbid obesity Surgical History History of colonoscopy History of cyst of breast History of tonsillectomy Family History Family History Father Osteoarthritis (arthritis due to wear and tear of joints) Colon cancer Diverticulosis Stroke HTN (hypertension) Mother HTN (hypertension) Acute arthritis Asthma Heart murmur TIA (transient ischemic attack) Diabetes mellitus Full dentures Family/Other Diabetes mellitus Heart disease CHF (congestive heart failure) Cancer Breast cancer Multiple myeloma Sister Mental health disorder Brother Substance use disorder Social History Social History Housing: House Alcohol intake: never Patient Tobacco Use Status: Never used Tobacco Smoked in Last 30 Days: No e-Cigarette/Vaping Use: Never Used Use of substances other than those prescribed or required for medical reasons: No Any prior treatment program specific to substance use: No Advance Directives: No Advance Directives Information Provided: No Patient : No Current occupational status: employed 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 Oriented X3. No acute distress. Eyes: Pupils equal, round and reactive to light. ENT: Pharynx normal. Neck: Normal inspection. Neck supple. CVS: Normal heart rate and rhythm. Pulses normal. Respiratory: No respiratory distress. Breath sounds normal. Abdomen: Soft and nontender. Skin: Skin warm and dry. Normal skin color. Normal skin turgor. Extremities: No lower extremity edema. No calf ttp Neuro: Oriented X 3. No motor deficit. No sensory deficit. CN2-12 intact Course Course Course Narrative: given aspirin PO Medications Administered Discontinued Medications Generic Name Dose Route Start Last Admin Trade Name Freq PRN Reason Stop Dose Admin Iohexol 70 ml 06/17/23 22:27 06/17/23 22:27 Iohexol 350 Mg/Ml 100 Ml Infus..Btl IV 06/17/23 22:28 70 ml ONCE ONE Administration Medical Decision Making Medical Decision Making MDM Narrative: 63 yo female with PMH of arthritis, mixed connective tissue disease, RUSSELL, obesity, depression, here with resolved L leg numbness at this time will put in stroke protocol she is not a candidate for TNK as NIH is 0 and symptoms are so mild. Will observe and possibly admit for TIA. Differential Diagnosis Differential Diagnoses: The differential diagnosis associated with the presentation includes TIA, neuropathy, HTN Admission/Observation Consideration of admission/observation: Escalation of care including admission/observation considered admit for TIA Consult Healthcare Provider Management of the patient was discussed with: Hospitalist (will admit) Lab Data [facility] Lab Attestation statement: I reviewed the patient's lab results. 06/17/23 21:34 06/17/23 21:34 Labs: Lab Results 06/17/23 Range/Units 21:34 WBC 8.2 (4.8-10.8) X10*3/uL RBC 4.44 (4.20-5.50) X10*6/uL Hgb 13.7 (12.0-16.0) g/dl Hct 41.0 (37.0-47.0) % MCV 92.3 (80.0-98.0) fL MCH 30.9 (27.0-33.0) pg MCHC 33.4 (31.0-35.0) g/dl RDW 13.2 (11.0-16.0) % Plt Count 259 (160-400) X10*3/uL MPV 9.7 (9.4-12.3) fL Immature Gran % (Auto) 0.4 (0.0-0.4) % Neut % (Auto) 56.2 (45-73) % Lymph % (Auto) 33.8 (20-40) % [place] % (Auto) 7.2 (2-11) % Eos % (Auto) 2.2 (0-4) % Baso % (Auto) 0.2 (0-2) % Lymph # (Auto) 2.8 (1.2-4.9) X10*3/uL [place] # (Auto) 0.6 (0.1-1.2) X10*3/uL Eos # (Auto) 0.2 (0.0-0.4) X10*3/uL Baso # (Auto) 0.0 (0.0-0.2) X10*3/uL Abs Immat Gran (auto) 0.03 (0.00-0.03) X10*3/uL Absolute Neuts (auto) 4.6 (2.0-8.3) x10*3/uL Absolute Nucleated RBC 0.000 (0.0-0.012) X10*3/uL Nucleated RBC % (auto) 0.0 (0.0-0.2) /100WBC PT 11.6 (11.1-13.3) SEC INR 1.0 (0.9-1.1) APTT 35.7 (26.0-36.4) SEC Sodium 144 (135-145) mmol/L Potassium 3.7 (3.3-5.1) mmol/L Chloride 105 (96-108) mmol/L Carbon Dioxide 27 (22-29) mmol/L Anion Gap 16 (12-20) BUN 9 (9-16) mg/dL Creatinine 0.67 (0.5-1.4) mg/dL Estim Creat Clear Calc 91.2 Estimated GFR > 60 Random Glucose 94 (60-115) mg/dL Calcium 9.6 (8.4-10.2) mg/dL Magnesium 2.3 (1.6-2.6) mg/dL Total Bilirubin 0.3 (0.0-1.0) mg/dL Direct Bilirubin 0.1 (0.0-0.5) mg/dL AST 22 (5-31) U/L ALT 23 (0-31) U/L Alkaline Phosphatase 72 (39-117) U/L Troponin I High Sens 4.4 (<3.5-17.0) ng/L Total Protein 7.3 (6.5-8.0) g/dL Albumin 4.2 (3.5-5.0) g/dL COVID-19 ([facility]) Negative (Negative) COVID-19 Clin Com See Note Independent Interpretation I performed an independent interpretation of an: EKG and CT Scan (no ICH) Interpretation: Rate: 67 Rhythm: NSR [place]: left, LVH Normal P waves. Normal APRIL. Normal QRS complex. ST T wave : inverted t wave III, no OPAL qTC: normal prior studies: no acute ischemia The study has been interpreted contemporaneously by me. . Radiology Impression Discussion of test interpretation with radiology: I have reviewed the radiologist's reading. External Record Review External record reviewed: Inpatient record NIH Stroke Scale Internal: Initial- Upon Arrival Level of Consciousness: Alert Level of Consciousness Questions: Answers both questions correctly Level of Consciousness Commands: Performs both tasks correctly Best Gaze: Normal Visual: No visual loss Facial Palsy: Normal Motor Arm (Right): No drift Motor Arm (Left): No drift Motor Leg (Right): No drift Motor Leg (Left): No drift Limb Ataxia: Absent Sensory: Normal Best Language: No aphasia Dysarthia: Normal Extinction and Inattention: No abnormality Score: 0 Discharge Plan Discharge Clinical Impression: Brain TIA HTN (hypertension) Qualifiers: Hypertension type: unspecified Qualified Code(s): I10 - Essential (primary) hypertension Patient Disposition: Admitted As Inpatient Prescriptions: No Action folic acid 1 mg tablet 1 mg PO DAILY Qty: 90 3RF methotrexate sodium 2.5 mg tablet 20 mg PO QWEEK Qty: 96 1RF hydroxychloroquine 200 mg tablet 200 mg PO BID Qty: 180 2RF gabapentin 100 mg capsule 100 mg PO BEDTIME Qty: 30 6RF Centrum Silver Tablet 1 tab PO DAILY calcium carbonate [Calcium 600] 600 mg calcium (1,500 mg) tablet 600 mg PO DAILY cholecalciferol (vitamin D3) 25 mcg (1,000 unit) capsule 25 mcg PO BID loratadine 10 mg tablet 10 mg PO DAILY dextroamphetamine-amphetamine 10 mg tablet 1 tab PO DAILY omega-3 fatty acids [Fish Oil Concentrate] 1,000 mg capsule 1,000 mg PO BID diclofenac sodium 1 % gel 2 g topical QID 30 Days Qty: 100 2RF Rx Instructions: apply to single elbow, wrist or hand; for hand includes palm/fingers/back of hand multivitamin [Daily Multi-Vitamin] Tablet 1 tab PO DAILY sertraline 50 mg tablet 50 mg PO DAILY dextroamphetamine-amphetamine 10 mg capsule,extended release 24hr 1 cap PO QAM vitamin B complex Capsule 1 cap PO DAILY
[2023-06-17 21:40] LABS: MANUAL DIFF FLAG NO
[2023-06-17 21:42] LABS: Basophils Percent Auto 0.2 % (0-2); Eosinophils Absolute Auto 0.2 X10*3/uL (0.0-0.4); Eosinophils Percent Auto 2.2 % (0-4); Hemoglobin 13.7 g/dl (12.0-16.0); Imm Gran Abs Auto 0.03 X10*3/uL (0.00-0.03); Imm Gran Pct Auto 0.4 % (0.0-0.4); Lymphocytes Absolute Auto 2.8 X10*3/uL (1.2-4.9); Lymphocytes Percent Auto 33.8 % (20-40); Mean Corpuscular HGB Conc 33.4 g/dl (31.0-35.0); Mean Corpuscular Hemoglobin 30.9 pg (27.0-33.0); Mean Corpuscular Volume 92.3 fL (80.0-98.0); Mean Platelet Volume 9.7 fL (9.4-12.3); Monocytes Absolute Auto 0.6 X10*3/uL (0.1-1.2); Monocytes Percent Auto 7.2 % (2-11); Neutrophils Absolute Auto 4.6 x10*3/uL (2.0-8.3); Neutrophils Percent Auto 56.2 % (45-73); Platelet Count 259 X10*3/uL (160-400); Red Blood Count 4.44 X10*6/uL (4.20-5.50); Red Cell Distribution Width 13.2 % (11.0-16.0); White Blood Count 8.2 X10*3/uL (4.8-10.8)
[2023-06-17 21:50] LABS: Prothrombin Time 11.6 SEC (11.1-13.3)
[2023-06-17 21:51] VITALS: BP 194/84; PULSE 85; RESP 20; TEMP 36.7; O2SAT 98; BMI 33.4
[2023-06-17 21:53] LABS: Partial Thromboplastin Time 35.7 SEC (26.0-36.4)
[2023-06-17 21:58] LABS: Alanine Aminotransferase 23 U/L (0-31); Albumin Level 4.2 g/dL (3.5-5.0); Alkaline Phosphatase 72 U/L (39-117); Anion Gap 16 (12-20); Aspartate Amino Transferase 22 U/L (5-31); Bilirubin Direct 0.1 mg/dL (0.0-0.5); Bilirubin Total 0.3 mg/dL (0.0-1.0); Blood Urea Nitrogen 9 mg/dL (9-16); Calcium 9.6 mg/dL (8.4-10.2); Carbon Dioxide 27 mmol/L (22-29); Chloride 105 mmol/L (96-108); Creatinine Clr Calc Pharmacy 91.2; Estimated Glomerular Filt Rate > 60; Glucose Random 94 mg/dL (60-115); Magnesium 2.3 mg/dL (1.6-2.6); Potassium 3.7 mmol/L (3.3-5.1); Sodium 144 mmol/L (135-145); Total Protein 7.3 g/dL (6.5-8.0)
[2023-06-17 22:04] LABS: Troponin-I High Sensitivity 4.4 ng/L (<3.5-17.0)
[2023-06-17 22:10] LABS: COVID-19 Test Negative (Negative); IDNOW Serial# 08D9AD1C
[2023-06-17] MEDS: iohexoL 350 MG/ML 100 ML INFUS..BTL 70 ML IV (22:27)
[2023-06-17] MEDS: Aspirin 325 MG TABLET PO (23:38)
[2023-06-17 23:48] VITALS: BP 199/83; PULSE 69; RESP 24; TEMP 36.6; O2SAT 95
[2023-06-18 00:03] LABS: Cholesterol 188 mg/dL (<200); HDL Cholesterol 62 mg/dL (>40); LDL Cholesterol Calculated 103 mg/dL (<100); Triglycerides 115 mg/dL (<150)
[2023-06-18 00:37] VITALS: BP 165/65; PULSE 71; RESP 15; O2SAT 97
[2023-06-18] MEDS: Enoxaparin Sodium 40 MG/0.4 ML SYRINGE SUBCUT (00:40)
[2023-06-18 03:30] VITALS: BP 182/86
[2023-06-18 05:30] VITALS: BMI 39.2
[2023-06-18 06:13] VITALS: BP 160/74; PULSE 72; RESP 18; O2SAT 96
--- NOTE | 2023-06-18 07:00 | CA_ITS ---
Transthoracic Echocardiogram Patient (Last, First, Middle): Misa Torres Ann Gender: Female Date of : 1960 Age: 63 Procedure Date: 06/18/2023 Procedure Type: Transthoracic [place] [facility] [place]: 162.56 cm Weight: 103.42 kg BSA: 2.07 m2 Heart Rate: 56 bpm BP: 170 / 73 mmHg Arabic Translator: SB Referring MD: Baldomero Dela Cruz MD Symptoms: TIA Study Quality: Adequate ECG Rhythm: Bradycardia Conclusions: - Normal left ventricular size and systolic function. The visually estimated ejection fraction is between 60-65%. - E/E prime ratio is between 8 and 15 consistent with indeterminate filling pressures. There is severe septal asymmetric hypertrophy. - Normal right ventricular cavity size and systolic function. - Moderate plaque is seen in the descending thoracic aorta. Findings Procedure Information Contrast agent, definity, is being given per protocol without apparent complications. Left Ventricle Normal left ventricular size and systolic function. The visually estimated ejection fraction is between 60-65%. There is no evidence of regional wall motion abnormalities. Abnormal diastolic function is noted. Spectral Doppler is indicative of a pseudonormal filling pattern. E/E prime ratio is between 8 and 15 consistent with indeterminate filling pressures. There is severe septal asymmetric hypertrophy. Right Ventricle Normal right ventricular cavity size and systolic function. Atria The left atrium is normal in size. There is no evidence of interatrial shunt by agitated saline. Aortic Valve Normal aortic valve structure and function. There is no aortic valve stenosis. There is no aortic valve regurgitation. Mitral Valve Normal mitral valve structure and function. There is no mitral valve regurgitation. There is no mitral valve stenosis. Pulmonic Valve The pulmonic valve was not well visualized. Tricuspid Valve Normal tricuspid valve structure. Tricuspid regurgitation envelope is inadequate for calculation of right ventricular systolic pressure. Normal right atrial pressure. Great Vessels All visible segments of the aorta are normal in size. Moderate plaque is seen in the descending thoracic aorta. The visualized portions of the pulmonary artery and branches are normal. Venous The inferior vena cava is normal in size and collapses greater than 50% with inspiration. Pericardium/Pleural There is no evidence of pericardial effusion. Measurements 2D Linear Measurements IVSd: 1.57 0.6-0.9/0.6-1.0 cm LVIDd: 5.05 3.9-5.3/4.2-5.9 cm LVIDd Index: 2.44 2.4-3.2/2.2-3.1 cm/m2 LVIDs: 3.27 2.0-3.6 cm LVPWd: 0.64 0.7-1.1 cm LA Diam: 4.00 2.7-3.8/3.0-4.0 cm LAIDs Index: 1.93 1.5-2.3 cm/m2 LV Mass: 263.86 67-162/88-224 g LV Mass Index: 127.47 43-95/49-115 g/m2 LVOT Diam: 2.10 3.0+(-)1.3 cm 2D Systolic Function EF 4C: 69.10 >55% EF 2C: 70.20 >55% EF BiP: 69.40 >55% Mitral Valve MV Pk E: 0.89 MV PK A: 0.62 MV Decel Time: 199.00 E/A: 1.40 E'Lateral: 7.87 E'Medial: 6.65 E/E' Med: 13.30 E/E' Lat: 11.30 PHT: 58.00 MVA PHT: 3.79 Decel Upton: 4.45 Aortic Valve AoV Pk Gwyn: 1.24 AoV Pk Grad: 6.00 SCOT: 2.55 LVOT LVOT Pk Gwyn: 0.95 LVOT Mn Gwyn: 0.63 LVOT VTI: 0.20 LVOT Pk Grad: 4.00 LVOT Mn Grad: 2.00 LVOT Diam: 2.10 LVOT Area: 3.46 Diastolic Function MV Pk E: 0.89 MV Pk A: 0.62 E/A: 1.40 E'Medial: 6.65 E/E' Med: 13.30 E' Laterial: 7.87 E/E' Lat: 11.30 Right Ventricle TAPSE (mm): 23.50 TVS' Gwyn: 14.40 Tricuspid Valve RA Press: 3.00 Great Vessels Aorta Sinus of Valsalva: 3.30 2.0-3.5 cm Ao Asc: 3.00 2.1-3.4 cm Pulmonary Valve PV Pk Gwyn: 0.71 Peak PV Grad: 2.00 Updated in Other Vendor System with Status of Final Ji Street MD electronically signed on 06/18/2023 2:21:28 PM with status of Final
[2023-06-18 07:29] VITALS: BP 170/73; PULSE 65; RESP 18; TEMP 36.6; O2SAT 96
[2023-06-18 07:29] LABS: Estimated Average Glucose 117 mg/dL; Hemoglobin A1c % 5.7 % (<6.0)
--- NOTE | 2023-06-18 07:44 | P.HPHOSP_ITS ---
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 from the knee to the foot ? was numb and weak.? She held on to the wall and tried to move it but could hardly do so.? She therefore sat back down and at then noticed that the numbness had now extended proximally to the mid- thigh.? Another staff member checked her blood pressure and noticed that it was significantly elevated at 219/95 mmHg (she does not have a history of high blood pressure and in fact her blood pressure was normal today morning during a primary care clinic visit).? She was therefore taken to the emergency room for evaluation.? However, by the time she was assessed, her symptoms had completely resolved.? She states that they lasted about 15 minutes in total.? She denies any other neurological symptoms and initial evaluation in the D was notable for elevated blood pressure.? Her blood work was all normal and a head CT scan and head and neck CTA done were both normal.? She was started on Aspirin and also received a dose of 10 mg of IV Hydralazine for the elevated blood pressure following which admission was requested. ?When I saw her, she was comfortable in bed with no other symptoms. 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 Undifferentiated connective tissue disease Rheumatoid arthritis Fibromyalgia Depression with anxiety RUSSELL (obstructive sleep apnea) Morbid obesity Family History Father Osteoarthritis (arthritis due to wear and tear of joints) Colon cancer Diverticulosis Stroke HTN (hypertension) Mother HTN (hypertension) Acute arthritis Asthma Heart murmur TIA (transient ischemic attack) Diabetes mellitus Full dentures Family/Other Diabetes mellitus Heart disease CHF (congestive heart failure) Cancer Breast cancer Multiple myeloma Sister Mental health disorder Brother Substance use disorder Surgical History History of colonoscopy History of cyst of breast History of tonsillectomy Social History Household Members: Spouse Housing: House Do you presently have visiting nurse or other home services: No Alcohol intake: never Patient Tobacco Use Status: Never used Tobacco Smoked in Last 30 Days: No e-Cigarette/Vaping Use: Never Used Use of substances other than those prescribed or required for medical reasons: No Any prior treatment program specific to substance use: No Have you been hit, kicked, punched, or otherwise hurt by someone within the past year? 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 [employer] Cognitive needs: No Hearing needs: No Vision needs: Yes Meds Allergies Allergy/AdvReac Type Severity Reaction Status Date / Time chamomile flower Allergy Intermediate RASH Verified 06/17/23 21:44 [CHAMOMILE HAWKINS] lisinopril Allergy Unknown Nausea Verified 06/17/23 21:44 simvastatin Allergy Unknown NAUSEA Verified 06/17/23 21:44 ropinirole AdvReac Intermediate HIGH BLOOD Verified 06/17/23 21:44 PRESSURE Sulfa (Sulfonamide AdvReac Mild RASH Verified 06/17/23 21:44 Antibiotics) gabapentin AdvReac Unknown Fatigued Verified 06/17/23 21:44 Daisys AdvReac Severe rash Uncoded 06/17/23 21:44 Home Medications Medication Instructions Recorded Confirmed Last Taken Type calcium carbonate 600 mg calcium 600 mg PO DAILY 06/15/20 06/17/23 Unknown History (1,500 mg) tablet (Calcium) omega-3 fatty acids 1,000 mg 1,000 mg PO BID 06/16/21 06/17/23 Unknown History capsule (Fish Oil Concentrate) cholecalciferol (vitamin D3) 25 25 mcg PO BID 09/04/21 06/17/23 Unknown History mcg (1,000 unit) capsule pyehvdvvtgau-jzqyhaqv-mkvbax tablet 1 tab PO DAILY 01/30/22 06/17/23 Unknown History loratadine 10 mg tablet 10 mg PO DAILY 06/14/22 06/17/23 Unknown History multivitamin (Daily Multi-Vitamin 1 tab PO DAILY 08/14/22 06/17/23 Unknown History tablet) dextroamphetamine-amphetamine ER 1 cap PO QAM 03/28/23 06/17/23 Unknown History 10 mg 24hr capsule,extend release sertraline 50 mg tablet 50 mg PO DAILY 03/28/23 06/17/23 Unknown History vitamin B complex 1 cap PO DAILY 04/01/23 06/17/23 Unknown History dextroamphetamine-amphetamine 10 1 tab PO DAILY 06/17/23 06/17/23 Unknown History mg tablet Physical Exam 2 Vital Signs and Narrative: Vital Signs: Last Vital Signs Temp 97.9 F 06/18/23 07:29 Pulse 65 06/18/23 07:29 Resp 18 06/18/23 07:29 BP 170/73 H 06/18/23 07:29 Pulse Ox 96 06/18/23 07:29 O2 Del Method Room Air 06/18/23 07:29 BMI result Body Mass Index 39.2 General: obese white female in bed. Awake, alert and oriented x 4. No apparent distress Eyes: No pallor or jaundice. PERRLA, EOMI HENT: Moist oral mucus membranes. No oropharyngeal lesions. Neck: Supple. No cervical adenopathy. No JVD Cardiovascular: Regular rate and rhythm. Normal heart sounds. No murmurs, rubs or gallops. No JVD. No peripheral edema. Respiratory: Normal respiratory effort with no accessory muscle use. CTAB. , CTA bilaterally Gastrointestinal: Abdomen is soft, non-tender, non-distended. Normoactive bowel sounds. No hepatosplenomegaly Extremities: No edema. No calf tenderness. Good peripheral pulses Skin: Warm/Dry. No rashes. No mottling. Capillary refill is < 2 seconds Neurological: AAOx4. Intact speech & cognition. Normal gait & balance. CN II - XII grossly intact but not individually tested. No motor or sensory deficits Hematologic: No bleeding. No ecchymosis. No swollen or tender lymph nodes. Psychiatric: Cooperative. Appropriate mood and affect . Results Labs 06/17/23 21:34 06/17/23 21:34 Labs: Laboratory Results - last 24 hr 06/17/23 21:34 MCV 92.3 MCH 30.9 MCHC 33.4 RDW 13.2 Plt Count 259 MPV 9.7 Immature Gran % (Auto) 0.4 Neut % (Auto) 56.2 Lymph % (Auto) 33.8 Phelps % (Auto) 7.2 Eos % (Auto) 2.2 Baso % (Auto) 0.2 Lymph # (Auto) 2.8 Phelps # (Auto) 0.6 Eos # (Auto) 0.2 Baso # (Auto) 0.0 Abs Immat Gran (auto) 0.03 Absolute Neuts (auto) 4.6 Absolute Nucleated RBC 0.000 Nucleated RBC % (auto) 0.0 PT 11.6 INR 1.0 APTT 35.7 Anion Gap 16 Estim Creat Clear Calc 91.2 Estimated GFR > 60 Random Glucose 94 Estimat Average Glucose 117 Hemoglobin A1c % 5.7 Calcium 9.6 Magnesium 2.3 Total Bilirubin 0.3 Direct Bilirubin 0.1 AST 22 ALT 23 Alkaline Phosphatase 72 Total Protein 7.3 Albumin 4.2 Triglycerides 115 Cholesterol 188 LDL Cholesterol, Calc 103 H HDL Cholesterol 62 COVID-19 (HARVEY) Negative COVID-19 Clin Com See Note Imaging Radiologist's Impressions: Impressions Head CT 06/17/23 21:17 IMPRESSION: 1. No acute intracranial pathology. 2. Slight chronic white matter small vessel ischemic changes. This critical result was discussed with DR KRAFT by telephone on 06/17/2023 9:29 PM and it was ascertained that the content and urgency of the report was understood at the time of direct communication. Head/Neck CTA 06/17/23 22:29 IMPRESSION: 1. No evidence of acute intracranial hemorrhage or edematous territorial infarction. Mild underlying microangiopathy and generalized cerebral volume loss. 2. CTA of the head and neck without proximal occlusion or flow-limiting stenosis. 3. Moderate multilevel degenerative spondyloarthropathy of the cervical spine. Most notably, there appears to be at least mild spinal canal stenosis at C5-C6. This critical result was discussed with Dr. Kraft at 23:15 on 06/17/2023 and it was ascertained that the content and urgency of the report was understood at the time of direct communication. 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 TIA - Her presentation is concerning for TIA - Symptoms have largely resolved - will admit to telemetry - Continue on aspirin and statins - Check lipid pain, MRI head, Echo and Doppler us of the carotids - Neurology consult for further recommendations 2.? Elevated BP without diagnosis of hypertension - BP was significantly elevated at time of presentation - 219/95 mmHg - hold off antihypertensives and allow for permissive hypertension 3.? Obesity - BMI 39.2 - Encourage weight loss 4.? Undifferentiated connective tissues disease - Resume Plaquenil, Methotrexate and Adderall 5.? Depression & anxiety - She gives a history of mild depression for which she is on Sertraline - will continue the same DVT: SC Lovenox CODE STATUS: Full code Admission for at least 2 midnights for management of TIA and elevated BP Total time managing care of this patient today: 75 minutes. Quality Stroke Does the patient have a stroke diagnosis?: No VTE Prior VTE?: No VTE Risk Level:: Medical - moderate - high VTE Device Contraindication: N/A - Device Ordered VTE Drug Contraindication: N/A - Med Ordered
--- NOTE | 2023-06-18 08:36 | PHA.MEDREC ---
Pharmacy Consult ? Medication Reconciliation Pharmacy has completed the medication reconciliation. Spoke to patient and confirmed medication list.
--- NOTE | 2023-06-18 09:36 | HO.PM.IMPN ---
Subjective Subjective Date of Service: 06/18/23 Interval History: LLE numbness improved, now more crampy Physical Exam Vital Signs: Vital Signs: Last Vital Signs Temp 97.9 F 06/18/23 07:29 Pulse 65 06/18/23 07:29 Resp 18 06/18/23 07:29 BP 170/73 H 06/18/23 07:29 Pulse Ox 96 06/18/23 07:29 O2 Del Method Room Air 06/18/23 07:29 BMI result Body Mass Index 39.2 General: AO X 3, no acute distress Resp: CTA bilateral, no accessory muscles used CVS: S1,S2,RRR GI: soft, non tender, non distended Neuro: motor grossly intact, alert Psych: appropriate affect, appropriate insight Objective Data Active Medications Acetaminophen (Acetaminophen 325 Mg Tablet) 650 mg PO Q6H PRN PRN Reason: Pain, Mild (Pain Scale 1-3) Al Hydroxide/Mg Hydroxide (Magnesium Hydrox/Alum Hydrox 30 Ml Oral.Susp) 30 ml PO Q4H PRN PRN Reason: Heartburn/Nausea Aspirin (Aspirin Enteric Coated 81 Mg Tablet.Dr) 81 mg PO DAILY [facility] Docusate Sodium (Docusate Sodium 100 Mg Capsule) 100 mg PO BID [facility] Enoxaparin Sodium (Enoxaparin Sodium 40 Mg/0.4 Ml Syringe) 40 mg SUBCUT 2100 [facility] Last Admin: 06/18/23 00:40 Dose: 40 mg Documented By: CARYN Melatonin (Melatonin 3 Mg Tablet) 6 mg PO BEDTIME PRN PRN Reason: Insomnia Ondansetron HCl (Ondansetron Hcl 4 Mg/2 Ml Vial) 4 mg IVPUSH Q8H PRN PRN Reason: Nausea and Vomiting Sodium Chloride (0.9 % Sodium Chloride Flush 3 Ml Syringe) 3 ml IVFLUSH QSHIFT [facility] Labs 06/17/23 21:34 06/17/23 21:34 Labs: Laboratory Results - last 24 hr 06/17/23 21:34 MCV 92.3 MCH 30.9 MCHC 33.4 RDW 13.2 Plt Count 259 MPV 9.7 Immature Gran % (Auto) 0.4 Neut % (Auto) 56.2 Lymph % (Auto) 33.8 [place] % (Auto) 7.2 Eos % (Auto) 2.2 Baso % (Auto) 0.2 Lymph # (Auto) 2.8 [place] # (Auto) 0.6 Eos # (Auto) 0.2 Baso # (Auto) 0.0 Abs Immat Gran (auto) 0.03 Absolute Neuts (auto) 4.6 Absolute Nucleated RBC 0.000 Nucleated RBC % (auto) 0.0 PT 11.6 INR 1.0 APTT 35.7 Anion Gap 16 Estim Creat Clear Calc 91.2 Estimated GFR > 60 Random Glucose 94 Estimat Average Glucose 117 Hemoglobin A1c % 5.7 Calcium 9.6 Magnesium 2.3 Total Bilirubin 0.3 Direct Bilirubin 0.1 AST 22 ALT 23 Alkaline Phosphatase 72 Total Protein 7.3 Albumin 4.2 Triglycerides 115 Cholesterol 188 LDL Cholesterol, Calc 103 H HDL Cholesterol 62 COVID-19 (HARVEY) Negative COVID-19 Clin Com See Note Assessment and Plan (1) HTN (hypertension): Status: Acute Plan 63F PMH obesity, htn, connective tissue disease, mood disorder, presented LLE numbness lle numbness rule out tia/cva mri, neuro, echo asa, reported intolerance to statin htn permissive htn for now obesity ewgith loss recommended connective tissue disease continue plaquenil, mtx mood disorder sertraline dvt prophylaxis - lovenox full code reason for continued hospitalization:ongoing cva work up Quality Stroke Does the patient have a stroke diagnosis?: No VTE Prior VTE?: No VTE Risk Level:: Medical - moderate - high VTE Device Contraindication: N/A - Device Ordered VTE Drug Contraindication: N/A - Med Ordered
--- NOTE | 2023-06-18 09:37 | MHC.CM.PN ---
Pt lives at home with her , is self-care. Returning home is the goal. Pt will transport herself home (car is in lot). HCP on file and verified. PCP: Dr. Iman Pulliam
[2023-06-18] MEDS: Aspirin Enteric Coated 81 MG TABLET.DR PO (09:43)
[2023-06-18] MEDS: 0.9 % Sodium Chloride Flush 3 ML SYRINGE IVFLUSH (09:43)
--- NOTE | 2023-06-18 11:39 | PM.NEUROCN ---
History of Present Illness Data of Consult Service Date: 06/18/23 Primary Care Provider: Iman Pulliam MD [facility] Reason for consult: Transient left leg numbness 63-year-old female with past medical history of osteoarthritis, undifferentiated connective tissue disease, fibromyalgia, anxiety/depression, obstructive sleep apnea and ? peripheral neuropathy with intermittent numbness and tingling in hands and feet, followed by Dr. Shin ( No NCV/EMG done), who presented to the emergency room complaining of numbness and weakness involving the left leg.? 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 from the knee to the foot ? was numb and weak.? She held on to the wall and tried to move it but could hardly do so.? She therefore sat back down and at then noticed that the numbness had now extended proximally to the mid-thigh.? Another staff member checked her blood pressure and noticed that it was significantly elevated at 219/95 mm Hg (she does not have a history of high blood pressure and in fact her blood pressure was normal today morning during a primary care clinic visit).? She was therefore taken to the emergency room for evaluation.? However, by the time she was assessed, her symptoms had completely resolved.? She states that they lasted about 15 minutes in total.? She denies any other neurological symptoms. Her blood work was all normal and a head CT scan and head and neck CTA done were both normal.? She was started on Aspirin and also received a dose of 10 mg of IV Hydralazine Review of Systems Review of Systems: Constitutional : No Fever, No Chills, No Fatigue ENT/Mouth : No sore throat, No Rhinorrhea Eyes: No Eye Pain, No Swelling, No Redness Cardiovascular : No Chest Pain, No SOB, No Dyspnea on Exertion Respiratory : No Cough, No Sputum Gastrointestinal : No Nausea, No Vomiting, No Diarrhea, No abdominal Pain Genitourinary : No Dysuria, No Urinary Frequency, No Hematuria, Musculoskeletal : No joint pain, No Myalgias, No Joint Swelling Skin : No Skin Lesions, No rash Neuro : No Weakness, pos Numbness, No Dizziness, no Headache Psych : No Anxiety/Panic, No Depression Heme/Lymph: No Bruising, No Bleeding,No Lymphadenopathy Endocrine : No Polyuria, No Polydipsia All other systems reviewed and are negative Yes all other systems are reviewed and are negative [facility] Past Medical History Medical History Muscle cramps Numbness and tingling Osteoarthritis of hand, primary localized Elevated LFTs Hyperglycemia TURCIOS (dyspnea on exertion) 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 Undifferentiated connective tissue disease Rheumatoid arthritis Fibromyalgia Depression with anxiety RUSSELL (obstructive sleep apnea) Morbid obesity Family History Family History Father Osteoarthritis (arthritis due to wear and tear of joints) Colon cancer Diverticulosis Stroke HTN (hypertension) Mother HTN (hypertension) Acute arthritis Asthma Heart murmur TIA (transient ischemic attack) Diabetes mellitus Full dentures Family/Other Diabetes mellitus Heart disease CHF (congestive heart failure) Cancer Breast cancer Multiple myeloma Sister Mental health disorder Brother Substance use disorder Surgical History Surgical History History of colonoscopy History of cyst of breast History of tonsillectomy Social History Social History Household Members: Spouse Housing: House Do you presently have visiting nurse or other home services: No Alcohol intake: never Patient Tobacco Use Status: Never used Tobacco Smoked in Last 30 Days: No e-Cigarette/Vaping Use: Never Used Use of substances other than those prescribed or required for medical reasons: No Any prior treatment program specific to substance use: No Have you been hit, kicked, punched, or otherwise hurt by someone within the past year? 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 [employer] Cognitive needs: No Hearing needs: No Vision needs: Yes Meds Allergies Allergy/AdvReac Type Severity Reaction Status Date / Time chamomile flower Allergy Intermediate RASH Verified 06/17/23 21:44 [CHAMOMILE HAWKINS] lisinopril Allergy Unknown Nausea Verified 06/17/23 21:44 simvastatin Allergy Unknown NAUSEA Verified 06/17/23 21:44 ropinirole AdvReac Intermediate HIGH BLOOD Verified 06/17/23 21:44 PRESSURE Sulfa (Sulfonamide AdvReac Mild RASH Verified 06/17/23 21:44 Antibiotics) gabapentin AdvReac Unknown Fatigued Verified 06/17/23 21:44 Daisys AdvReac Severe rash Uncoded 06/17/23 21:44 Active Medications: Current Medications Acetaminophen (Acetaminophen 325 Mg Tablet) 650 mg PO Q6H PRN PRN Reason: Pain, Mild (Pain Scale 1-3) Al Hydroxide/Mg Hydroxide (Magnesium Hydrox/Alum Hydrox 30 Ml Oral.Susp) 30 ml PO Q4H PRN PRN Reason: Heartburn/Nausea Aspirin (Aspirin Enteric Coated 81 Mg Tablet.Dr) 81 mg PO DAILY [facility] Last Admin: 06/18/23 09:43 Dose: 81 mg Docusate Sodium (Docusate Sodium 100 Mg Capsule) 100 mg PO BID [facility] Last Admin: 06/18/23 09:43 Dose: Not Given Enoxaparin Sodium (Enoxaparin Sodium 40 Mg/0.4 Ml Syringe) 40 mg SUBCUT 2100 [facility] Last Admin: 06/18/23 00:40 Dose: 40 mg Melatonin (Melatonin 3 Mg Tablet) 6 mg PO BEDTIME PRN PRN Reason: Insomnia Ondansetron HCl (Ondansetron Hcl 4 Mg/2 Ml Vial) 4 mg IVPUSH Q8H PRN PRN Reason: Nausea and Vomiting Sodium Chloride (0.9 % Sodium Chloride Flush 3 Ml Syringe) 3 ml IVFLUSH QSHIFT [facility] Last Admin: 06/18/23 09:43 Dose: 3 ml Home Medications Medication Instructions Recorded Confirmed Last Taken Type calcium carbonate 600 mg calcium 600 mg PO BID 06/15/20 06/18/23 06/17/23 History (1,500 mg) tablet (Calcium) cholecalciferol (vitamin D3) 25 25 mcg PO BID 09/04/21 06/18/23 06/17/23 History mcg (1,000 unit) capsule cydapxcarqzk-viusbiyv-ewqiri tablet 1 tab PO DAILY 01/30/22 06/18/23 06/17/23 History loratadine 10 mg tablet 10 mg PO DAILY 06/14/22 06/18/23 06/17/23 History dextroamphetamine-amphetamine ER 1 cap PO QAM 03/28/23 06/18/23 06/17/23 History 10 mg 24hr capsule,extend release sertraline 50 mg tablet 50 mg PO BEDTIME 03/28/23 06/18/23 06/16/23 History vitamin B complex 1 cap PO DAILY 04/01/23 06/18/23 06/17/23 History diclofenac sodium 1 % topical gel 2 g topical DAILY PRN Pain 06/18/23 06/18/23 Unknown History omega 8-ovo-opb-fish oil 1,000 mg 1 cap PO BID 06/18/23 06/18/23 06/17/23 History (120 mg-180 mg) capsule (Fish Oil) Physical Exam Vital Signs: Vital Signs: Last Vital Signs Temp 97.9 F 06/18/23 07:29 Pulse 65 06/18/23 07:29 Resp 18 06/18/23 07:29 BP 170/73 H 06/18/23 07:29 Pulse Ox 96 06/18/23 07:29 O2 Del Method Room Air 06/18/23 07:29 BMI result Body Mass Index 39.2 Neuro: Other: Normal Results Labs 06/17/23 21:34 06/17/23 21:34 Labs: Short CBC 06/17/23 Range/Units 21:34 WBC 8.2 (4.8-10.8) X10*3/uL Hgb 13.7 (12.0-16.0) g/dl Hct 41.0 (37.0-47.0) % Plt Count 259 (160-400) X10*3/uL BMP 06/17/23 21:34 Sodium 144 Potassium 3.7 Chloride 105 Carbon Dioxide 27 BUN 9 Creatinine 0.67 Calcium 9.6 Liver Function 06/17/23 Range/Units 21:34 Total Bilirubin 0.3 (0.0-1.0) mg/dL Direct Bilirubin 0.1 (0.0-0.5) mg/dL AST 22 (5-31) U/L ALT 23 (0-31) U/L Alkaline Phosphatase 72 (39-117) U/L Albumin 4.2 (3.5-5.0) g/dL Assessment and Plan (1) Numbness and tingling of left leg: Status: Acute Probably secondary to compression from sitting, rather than COIL STRAPPER event. Recommend out patient NCV/EMG. Patient has an appt. with Dr. Shin in Jul. Can be discharged. (2) HTN (hypertension): Qualifiers: Hypertension type: unspecified Qualified Code(s): I10 - Essential (primary) hypertension Status: Acute Plan 63F PMH obesity, htn, connective tissue disease, mood disorder, presented LLE numbness lle numbness rule out tia/cva mri, neuro, echo asa, reported intolerance to statin htn permissive htn for now obesity ewgith loss recommended connective tissue disease continue plaquenil, mtx mood disorder sertraline dvt prophylaxis - lovenox full code reason for continued hospitalization:ongoing cva work up Procedures Date of Service Date of Service: 06/18/23
[2023-06-18 12:00] VITALS: BP 177/79; PULSE 64; RESP 18; TEMP 36.9; O2SAT 97
--- NOTE | 2023-06-18 13:19 | P.DS_ITS ---
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 from the knee to the foot ? was numb and weak.? She held on to the wall and tried to move it but could hardly do so.? She therefore sat back down and at then noticed that the numbness had now extended proximally to the mid- thigh.? Another staff member checked her blood pressure and noticed that it was significantly elevated at 219/95 mmHg (she does not have a history of high blood pressure and in fact her blood pressure was normal today morning during a primary care clinic visit).? She was therefore taken to the emergency room for evaluation.? However, by the time she was assessed, her symptoms had completely resolved.? She states that they lasted about 15 minutes in total.? She denies any other neurological symptoms and initial evaluation in the D was notable for elevated blood pressure.? Her blood work was all normal and a head CT scan and head and neck CTA done were both normal.? She was started on Aspirin and also received a dose of 10 mg of IV Hydralazine for the elevated blood pressure f ollowing which admission was requested. ?When I saw her, she was comfortable in bed with no other symptoms. hospital course: patient was admitted for LLE numbnress, concern for tia. mri no acute cva was seen by neuro who felt this was more likely peripheral and recommended outpatient follow up for EMG/Nerve conduction. for obesity weight loss recommended. for connective tissue disease was continue plaquenil, mtx. for mood disorder was continued sertraline. for htn will be started on amlodipine. Time Attestation Discharge coordination time: Greater than 30 minutes Quality: Safe Use of Opioids Does Pt have an Active Cancer Diagnosis on the Problem List?: No Quality: Stroke Does the patient have a stroke diagnosis?: No Physical Exam Vital Signs: Vital Signs: Last Vital Signs Temp 98.4 F 06/18/23 12:00 Pulse 64 06/18/23 12:00 Resp 18 06/18/23 12:00 BP 177/79 H 06/18/23 12:00 Pulse Ox 97 06/18/23 12:00 O2 Del Method Room Air 06/18/23 12:00 BMI result Body Mass Index 39.2 Neuro: Other: Normal DS: Data Data Completed and Pending Labs on day of discharge: Laboratory Results - last 24 hr 06/17/23 21:34 WBC 8.2 RBC 4.44 Hgb 13.7 Hct 41.0 MCV 92.3 MCH 30.9 MCHC 33.4 RDW 13.2 Plt Count 259 MPV 9.7 Immature Gran % (Auto) 0.4 Neut % (Auto) 56.2 Lymph % (Auto) 33.8 [place] % (Auto) 7.2 Eos % (Auto) 2.2 Baso % (Auto) 0.2 Lymph # (Auto) 2.8 [place] # (Auto) 0.6 Eos # (Auto) 0.2 Baso # (Auto) 0.0 Abs Immat Gran (auto) 0.03 Absolute Neuts (auto) 4.6 Absolute Nucleated RBC 0.000 Nucleated RBC % (auto) 0.0 PT 11.6 INR 1.0 APTT 35.7 Sodium 144 Potassium 3.7 Chloride 105 Carbon Dioxide 27 Anion Gap 16 BUN 9 Creatinine 0.67 Estim Creat Clear Calc 91.2 Estimated GFR > 60 Random Glucose 94 Estimat Average Glucose 117 Hemoglobin A1c % 5.7 Calcium 9.6 Magnesium 2.3 Total Bilirubin 0.3 Direct Bilirubin 0.1 AST 22 ALT 23 Alkaline Phosphatase 72 Troponin I High Sens 4.4 Total Protein 7.3 Albumin 4.2 Triglycerides 115 Cholesterol 188 LDL Cholesterol, Calc 103 H HDL Cholesterol 62 COVID-19 (HARVEY) Negative COVID-19 Clin Com See Note Discharge Plan Discharge Anticipated Discharge Date/Time: 06/18/23 13:17 Patient Disposition: Home, Self-Care Discharge Diagnosis: numbness Referrals: Iman Pulliam MD [Primary Care Provider] - 1 Week Mirian Matson MD [Physician] - 1 Week Discharge Medications: New amlodipine 5 mg Tablet 5 mg PO DAILY Qty: 30 0RF Protocol: Hold for SBP< HOLD for SBP < : 90 Continued folic acid 1 mg tablet 1 mg PO DAILY Qty: 90 3RF methotrexate sodium 2.5 mg tablet 20 mg PO QWEEK Qty: 96 1RF hydroxychloroquine 200 mg tablet 200 mg PO BID Qty: 180 2RF gabapentin 100 mg capsule 100 mg PO BEDTIME Qty: 30 6RF jwzbhsxieoeu-dtmfogxn-xhxvec Tablet 1 tab PO DAILY omega 5-inx-nrc-fish oil [Fish Oil] 1,000 mg (120 mg-180 mg) Capsule 1 cap PO BID diclofenac sodium 1 % Gel 2 g TOPICAL DAILY PRN (Reason: Pain) Rx Instructions: apply to single elbow, wrist or hand; for hand includes palm/fingers/back of hand calcium carbonate [Calcium 600] 600 mg calcium (1,500 mg) tablet 600 mg PO BID cholecalciferol (vitamin D3) 25 mcg (1,000 unit) capsule 25 mcg PO BID loratadine 10 mg tablet 10 mg PO DAILY sertraline 50 mg tablet 50 mg PO BEDTIME dextroamphetamine-amphetamine 10 mg capsule,extended release 24hr 1 cap PO QAM vitamin B complex Capsule 1 cap PO DAILY Discharge Orders: Discharge Order (Routine); Ordered 06/18/23 Ordered By: Suleman Stahl Diet: Advance to usual diet Activity on Discharge: As tolerated Stand Alone Forms: Patient Portal Discharge page Care Plan Goals: recovery Health Concerns: numbness Plan of Treatment: follow up neuro Assessment: see above
[2023-06-18 15:21] VITALS: BP 145/71; PULSE 68; RESP 15; TEMP 36.2; O2SAT 97
--- NOTE | 2023-06-18 15:38 | MHC.CM.PN ---
Pt is medically cleared for D/C home self-care, pt will transport her self home.
== END 2023-06-18 17:42 | disposition home or self-care (01) | DRG 58 ==
LOC: HO.ED 23:23 → HO.EDOVER 23:53 → HO.IMC 06-18 00:07
PROVIDERS: Admitting Provider Internal Medicine; Emergency Provider Emergency Medicine; PCP Internal Medicine; Visit Provider Internal Medicine
DX: R20.2 Paresthesia of skin (principal); I10 Essential (primary) hypertension; G47.33 Obstructive sleep apnea (adult) (pediatric); F32.A Depression, unspecified; M35.9 Systemic involvement of connective tissue, unspecified; E66.9 Obesity, unspecified; Z68.39 Body mass index [BMI] 39.0-39.9, adult; F41.9 Anxiety disorder, unspecified; Z20.822 Contact with and (suspected) exposure to COVID-19; Z79.631 Long term (current) use of antimetabolite agent; Z79.899 Other long term (current) drug therapy
CPT/HCPCS: 36415; 70450; 70496; 70498; 70551; 80048; 80061; 80076; 83036; 83735; 84484; 85025; 85610; 85730; 87635; 93005; 93306; 99285; J1650; Q9957; Q9967

== ENCOUNTER → 2023-06-17 21:05 | Outpatient (BNV) | payer OTHER, SELFPAY | PROVIDERS: Admitting Provider Internal Medicine; Emergency Provider Emergency Medicine; PCP Internal Medicine; Visit Provider Internal Medicine Cardiovascular Disease | DX: G45.9 Transient cerebral ischemic attack, unspecified (principal); R03.0 Elevated blood-pressure reading, without diagnosis of hypertension | CPT/HCPCS: 93010 ==

== ENCOUNTER 2023-06-17 23:45 | Outpatient (BNV) | payer OTHER, SELFPAY | END 2023-06-18 07:00 | PROVIDERS: Admitting Provider Internal Medicine; Emergency Provider Emergency Medicine; PCP Internal Medicine; Visit Provider Internal Medicine Cardiovascular Disease | DX: I42.9 Cardiomyopathy, unspecified (principal); G45.9 Transient cerebral ischemic attack, unspecified | CPT/HCPCS: 93306 ==

== ENCOUNTER → 2023-06-17 23:45 | Outpatient (BNV) | payer OTHER, SELFPAY | PROVIDERS: Admitting Provider Internal Medicine; Emergency Provider Emergency Medicine; PCP Internal Medicine; Visit Provider Internal Medicine | DX: G45.9 Transient cerebral ischemic attack, unspecified (principal); R03.0 Elevated blood-pressure reading, without diagnosis of hypertension; M35.9 Systemic involvement of connective tissue, unspecified; F41.8 Other specified anxiety disorders; R20.0 Anesthesia of skin; R20.2 Paresthesia of skin; I10 Essential (primary) hypertension | CPT/HCPCS: 99236; 99499 ==

== ENCOUNTER 2023-07-11 09:28 | Outpatient (AMB) | payer OTHER, SELFPAY ==
--- NOTE | 2023-07-11 09:29 | MHC.PC.OV ---
Vital Signs 07/11/23 09:30 Height 5 ft 3.5 in Weight 232 lb BMI 40.4 BP 120/80 Blood Pressure Location Lt brachial Position Sitting Pulse 68 Pulse Source Pulse Oximeter Pulse Oximetry (%) 98 Oxygen Delivery Method Room Air Intake Visit Reasons: HDF Blood pressure issues Intake Note: Pt is here today for Hospital follow up visit. Allergies chamomile flower [CHAMOMILE HAWKINS] Allergy (Intermediate, Verified 07/11/23 09:33) RASH lisinopril Allergy (Unknown, Verified 07/11/23 09:33) Nausea simvastatin Allergy (Unknown, Verified 07/11/23 09:33) NAUSEA ropinirole Adverse Reaction (Intermediate, Verified 07/11/23 09:33) HIGH BLOOD PRESSURE Sulfa (Sulfonamide Antibiotics) Adverse Reaction (Mild, Verified 07/11/23 09:33) RASH gabapentin Adverse Reaction (Unknown, Verified 07/11/23 09:33) Fatigued Daisys Adverse Reaction (Severe, Uncoded 07/11/23 09:33) rash Medication List - Last Reconciled 07/11/23 by Iman Pulliam MD amlodipine 5 mg PO DAILY calcium carbonate (Calcium) 600 mg PO BID cholecalciferol (vitamin D3) 25 mcg PO BID dextroamphetamine-amphetamine 10 mg ER 1 cap PO QAM diclofenac sodium 1% 2 grams topical DAILY PRN folic acid 1 mg PO DAILY gabapentin 100 mg PO BEDTIME hydroxychloroquine 200 mg PO BID loratadine 10 mg PO DAILY methotrexate sodium 20 mg (8 x 2.5 mg) PO QWEEK xtjyrqxijedf-rqxqyaft-xkrtms 1 tab PO DAILY omega 7-ltd-hcu-fish oil 1,000 mg (120 mg-180 mg) (Fish Oil) 1 cap PO BID sertraline 50 mg PO BEDTIME vitamin B complex 1 cap PO DAILY Tobacco use date assessed: 07/11/23 Fall risk assessment: No Falls in past year Last assessed Fall Risk: 07/11/23 Dental Screening Dental Screen Date: 07/11/23 Did you have a dental visit in the last 12 months?: Yes Did you have a dental problem in the last 6 months where you did not have access to dental care?: No Was dental information given to patient?: Patient has dentist HPI HDF Blood pressure issues HPI Details Pt presents for f/u of ER visit for leg numbness. CVA/TIA w/u was negative. Pt has been taking Amlodipine for HTN, and tolerating well. 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 Undifferentiated connective tissue disease Rheumatoid arthritis Fibromyalgia Depression with anxiety RUSSELL (obstructive sleep apnea) Morbid obesity Surgical History History of colonoscopy History of cyst of breast History of tonsillectomy Family History Father Osteoarthritis (arthritis due to wear and tear of joints) Colon cancer Diverticulosis Stroke HTN (hypertension) Mother HTN (hypertension) Acute arthritis Asthma Heart murmur TIA (transient ischemic attack) Diabetes mellitus Full dentures Family/Other Diabetes mellitus Heart disease CHF (congestive heart failure) Cancer Breast cancer Multiple myeloma Sister Mental health disorder Brother Substance use disorder Social History Household Members: Spouse Housing: House Do you presently have visiting nurse or other home services: No Alcohol intake: never Patient Tobacco Use Status: Never used Tobacco e-Cigarette/Vaping Use: Never Used service: No Current occupational status: employed 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 1. Little interest or pleasure in doing things: not at all 2. Feeling down, depressed, or hopeless: not at all 3. Trouble falling or staying asleep, or sleeping too much: several days 4. Feeling tired or having little energy: several days 5. Poor appetite or overeating: not at all 6. Feeling bad about yourself - or that you are a failure or have let yourself or your family down: not at all 7. Trouble concentrating on things, such as reading the newspaper or watching television: not at all 8. Moving or speaking so slowly that other people could have noticed. Or the opposite - being so fidgety or restless that you have been moving around a lot more than usual: not at all 9. Thoughts that you would be better off or of hurting yourself in some way: not at all Total score: 2 Depression Screening Interpretation: Negative Depression Screening Done: Yes Source: Developed by Drs. Patrice Agosto, Bobby Kohli and colleagues, with an educational johnathan from [employer]. Thrive Questionnaire Date Thrive assessed: 07/11/23 I am a: Patient What is your living situation today?: I have a steady place to live Within the past 12 months, did the food you bought not last and you didn't have the money to get more?: Never true Within the past 12 months, did you worry whether your food would run out before you got money to buy more?: Never true Do you have trouble paying for medicines?: No Do you have trouble getting transportation to medical appointments?: No Do you have trouble paying your heating and electricity bill?: No Do you have trouble taking care of your child, family member or friend?: No Do you have trouble with day-to-day activities such as bathing, preparing meals, shopping, managing finances, etc.?: No Are you currently unemployed and looking for a job?: No Are you interested in more education?: No Please select the resources that you would like help with: None AUDIT C Alcohol Use Questionnaire (AUDIT-C) 1. How often do you have a drink containing alcohol?: Never 3. How often do you have six or more drinks on one occasion?: Never Total Score: 0 MILDRED-7 AMB Questionnaire MILDRED-7 Date MILDRED - 7 assessed: 07/11/23 Feeling nervous, anxious, or on edge: 0 = Not at all Not being able to stop or control worryin = Not at all Worrying too much about different things: 0 = Not at all Trouble relaxin = Not at all Being so restless that it is hard to sit still: 0 = Not at all Becoming easily annoyed or irritable: 0 = Not at all Feeling afraid as if something awful might happen: 0 = Not at all Total MILDRED-7 score (0-4 normal; 5-9 mild; 10-14 moderate; 15-21 severe): 0 Source: Developed by Megan Prater Kurt Kroenke and colleagues, with an educational johnathan from [employer]. Review of Systems Const All systems reviewed & are unremarkable except as noted in HPI and below Reports no additional complaints Eyes Reports no additional complaints ENT Reports no additional complaints Card Reports no additional complaints Resp Reports no additional complaints GI Reports no additional complaints Reports no additional complaints Physical exam (Primary Care) Vital Signs: Last Vital Signs Pulse 68 07/11/23 09:30 BP 152/82 H 07/11/23 09:30 Pulse Ox 98 07/11/23 09:30 Oxygen Delivery Method Room Air 07/11/23 09:30 BMI result Body Mass Index 40.4 Tobacco/Smoking Status: Tobacco use Status Tobacco use date assessed 07/11/23 07/11/23 09:37 Patient Tobacco Use Status Never used Tobacco 07/11/23 09:37 e-Cigarette/Vaping Use Never Used 07/11/23 09:32 PHQ-9: PHQ-9 Score PHQ-9: Total score 2 07/11/23 09:51 Depression Screening Interpretation: Negative Thrive Assessment: Date of Thrive Assessment Date Thrive assessed 07/11/23 07/11/23 09:51 Const General: no acute distress HENMT Head: Yes normal to inspection General nose exam: Normal external nose present Mouth: Normal oral and palatal mucosa present Neck Neck: Yes no lymphadenopathy and Yes supple Resp Effort & Inspection: normal respiratory effort Auscultation: clear to auscultation bilaterally Cardio Rhythm: regular rhythm Heart sounds: S1 normal heart sound present and S2 normal heart sound present GI Inspection: Yes normal to inspection Palpation (GI): Soft to palpation Percussion: Yes normal to percussion Auscultation: normal bowel sounds Assessment and Plan Assessment & Plan (1) HTN (hypertension): Code(s): I10 - Essential (primary) hypertension Qualifiers: Hypertension type: unspecified Qualified Code(s): I10 - Essential (primary) hypertension Plan: CONTINUE AMLODIPINE, INCREASE PHYSICAL ACTIVITY WEIGHT LOSS DISCUSSED WITH THE PATIENT. FOLLOW-UP IN 1 MONTH (2) RUSSELL (obstructive sleep apnea): Comment: She is very regular in using CPAP and is benefiting. Compliance is excellent. Advised to come back once a year for follow-up. Code(s): G47.33 - Obstructive sleep apnea (adult) (pediatric) Plan: Continue CPAP (3) Morbid obesity: Comment: Patient remains morbidly obese but she is trying to watch her diet and has lost a few lb in the last couple months. Encouraged to continue to watch diet and do daily exercises. Code(s): E66.01 - Morbid (severe) obesity due to excess calories Plan: Weight loss discussed with the patient Medications: Refilled amlodipine 5 mg PO DAILY 30 tabs 0RF amlodipine 5 mg PO DAILY 90 tabs 0RF Coding Level of Care Code Est Pt Level 3 (15438) Diagnoses HTN (hypertension) I10 Hypertension type: unspecified RUSSELL (obstructive sleep apnea) G47.33 Morbid obesity E66.01
[2023-07-11 09:30] VITALS: BP 120/80; PULSE 68; O2SAT 98; BMI 40.4
== END 2023-07-11 10:10 | disposition home or self-care (01) ==
PROVIDERS: PCP Internal Medicine; Visit Provider Internal Medicine
DX: I10 Essential (primary) hypertension (principal); G47.33 Obstructive sleep apnea (adult) (pediatric); E66.01 Morbid (severe) obesity due to excess calories; Z68.41 Body mass index [BMI] 40.0-44.9, adult
CPT/HCPCS: 99213

== ENCOUNTER 2023-07-16 09:47 | Outpatient (REF) | payer OTHER, SELFPAY ==
[2023-07-16 13:44] LABS: Erythrocyte Sedimentation Rate 33 MM/HR (0-20)
[2023-07-16 13:50] LABS: C Reactive Protein 2.51 mg/dL (< or = 0.50)
== END 2023-07-16 09:48 | disposition home or self-care (01) ==
LOC: HO.HMGCLDS 09:47
PROVIDERS: PCP Internal Medicine; Visit Provider Internal Medicine Rheumatology
DX: M35.9 Systemic involvement of connective tissue, unspecified (principal)
CPT/HCPCS: 36415; 85652; 86140

== ENCOUNTER 2023-07-17 10:45 | Outpatient (AMB) | payer OTHER, SELFPAY ==
--- NOTE | 2023-07-17 10:46 | A.OFFVIS_ITS ---
Intake Vital Signs 07/17/23 10:54 Height 5 ft 3.5 in Weight 230 lb 6.129 oz BMI 40.2 BP 122/92 H Blood Pressure Location Rt brachial Position Sitting Pulse 79 Pulse Source Pulse Oximeter Temp 97 F Temp Source Skin Pulse Oximetry (%) 96 Oxygen Delivery Method Room Air Intake Visit Reasons: with dr geller Intake Note: Pt last seen by Dr Rivera on 04/01/23, presents today for follow up and test results. 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 Required: No Accompanied by: Self / Same As Patient Allergies chamomile flower [CHAMOMILE HAWKINS] Allergy (Intermediate, Verified 07/17/23 10:55) RASH lisinopril Allergy (Unknown, Verified 07/17/23 10:55) Nausea simvastatin Allergy (Unknown, Verified 07/17/23 10:55) NAUSEA ropinirole Adverse Reaction (Intermediate, Verified 07/17/23 10:55) HIGH BLOOD PRESSURE Sulfa (Sulfonamide Antibiotics) Adverse Reaction (Mild, Verified 07/17/23 10:55) RASH gabapentin Adverse Reaction (Unknown, Verified 07/17/23 10:55) Fatigued Daisys Adverse Reaction (Severe, Uncoded 07/17/23 10:55) rash Medication List - Last Reconciled 07/17/23 by Alina Geller MD amlodipine 5 mg PO DAILY calcium carbonate (Calcium) 600 mg PO BID cholecalciferol (vitamin D3) 25 mcg PO BID dextroamphetamine-amphetamine 10 mg ER 1 cap PO QAM diclofenac sodium 1% 2 grams topical DAILY PRN folic acid 1 mg PO DAILY gabapentin 100 mg PO BEDTIME hydroxychloroquine 200 mg PO BID loratadine 10 mg PO DAILY methotrexate sodium 20 mg (8 x 2.5 mg) PO QWEEK rdgocrkdjxay-ghkxxdvf-yzryuy 1 tab PO DAILY omega 3-ebh-efv-fish oil 1,000 mg (120 mg-180 mg) (Fish Oil) 1 cap PO BID sertraline 50 mg PO BEDTIME vitamin B complex 1 cap PO DAILY HPI HPI Comments History of Present Illness Details 63-year-old female with UCTD returns for follow-up. Remains on methotrexate 20 mg weekly, folic acid 1 mg daily and hydroxychloroquine 200 mg Twice daily. She takes ibuprofen once every 2 or 3 weeks. She states that she has been doing fairly well until about 2 or 3 days ago with the snow and rainstorm. She has been having worsening pain swelling and stiffness of her hands. Worse in the morning. She is having tingling and numbness of her fingertips and she will follow-up with her neurologist soon Most recent history by Dr. Rivera 03/2023: The patient returns for evaluation of what we are calling undifferentiated connective tissue disease. She remains on methotrexate 20 mg weekly, folic acid 1 mg daily, hydroxychloroquine 200 mg b.i.d., and jajx-gsy-ydkymus ibuprofen 200 mg to 600 mg once daily if needed. There are arthralgias in the neck, hands, lower back and knees. She developed COVID apparently in early February. She had fevers, chills, and respiratory symptoms. Also she had fever and more myalgias and arthralgias. She was prescribed Paxil open and developed diarrhea. However she eventually did recover and return to work. 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 Undifferentiated connective tissue disease Rheumatoid arthritis Fibromyalgia Depression with anxiety RUSSELL (obstructive sleep apnea) Morbid obesity Surgical History History of colonoscopy History of cyst of breast History of tonsillectomy Family History Father Osteoarthritis (arthritis due to wear and tear of joints) Colon cancer Diverticulosis Stroke HTN (hypertension) Mother HTN (hypertension) Acute arthritis Asthma Heart murmur TIA (transient ischemic attack) Diabetes mellitus Full dentures Family/Other Diabetes mellitus Heart disease CHF (congestive heart failure) Cancer Breast cancer Multiple myeloma Sister Mental health disorder Brother Substance use disorder Social History Household Members: Spouse Housing: House Do you presently have visiting nurse or other home services: No Alcohol intake: never Patient Tobacco Use Status: Never used Tobacco e-Cigarette/Vaping Use: Never Used service: No Current occupational status: employed 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[employer] Cognitive needs: No Hearing needs: No Vision needs: Yes Review of Systems [facility] Reports arthralgias, Reports joint swelling, Reports numbness, Reports stiffness and Reports tingling Neuro Reports numbness and Reports tingling Physical Exam Vital Signs: Last Vital Signs Temp 97 F 07/17/23 10:54 Pulse 79 07/17/23 10:54 BP 122/92 H 07/17/23 10:54 Pulse Ox 96 07/17/23 10:54 Oxygen Delivery Method Room Air 07/17/23 10:54 BMI result Body Mass Index 40.2 Const General: cooperative, healthy appearing and comfortable Nutritional Appearance: obese morbidly obese Orientation/consciousness: patient oriented x3 Limitations: no limitations HEENT Head: Yes normocephalic and Yes atraumatic Mouth: moist mucous membranes Resp Effort & Inspection: normal respiratory effort and able to speak in complete sentences Auscultation: clear to auscultation bilaterally Cardio Rate: regular rate Rhythm: regular rhythm Skin General skin exam: no rashes or lesions noted Neuro General: patient oriented x3 Extrem Other: Puffiness of MCPs, fingers few tender MCPs bilaterally but most tender is bilateral 1st CMC joints normal range of motion of both elbows Limited range of motion of right shoulder (history of fracture) Normal nailfold capillaroscopy Assessment & Plan Assessment & Plan (1) Undifferentiated connective tissue disease: Comment: onset 2008. 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 Predominantly hand and knee pains. HCQ since 2009 eyes OK 03/2022, 03/2023. Methotrexate added 2011. Sulfasalazine added 2019. stopped 12/2019 due to suspicion of neuropathy Code(s): M35.9 - Systemic involvement of connective tissue, unspecified Plan: 63-year-old female with UCTD returns for follow-up. This is her 1st visit with me. Per patient she has been having worsening joint pain swelling and stiffness over the last 2 or 3 days related to the recent snow/rainstorm. Upon evaluation today her symptoms are rather consistent with degenerative arthritis. Advised patient to use Tylenol, apply Voltaren gel on affected joints. 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 (current) use of unspecified immunomodulators and immunosuppressants Plan: Monitor safety labs Plan I spent 35 minutes reviewing patient's chart, evaluating patient, ordering diagnostic workup, counseling patient and documenting in the chart Orders: Orders Complete Blood Count Auto Diff 4 Months Z79.60 - half-way (current) use of unspecified immunomodulators and immunosuppressants Erythrocyte Sedimentation Rate 4 Months Z79.60 - half-way (current) use of unspecified immunomodulators and immunosuppressants Rheumatoid Factor 4 Months M25.541 - Pain in joints of right hand Protein Electrophoresis, Serum 4 Months M35.9 - Systemic involvement of connective tissue, unspecified Comprehensive Met. Panel 4 Months Z79.60 - watermelon inspector (current) use of unspecified immunomodulators and immunosuppressants C Reactive Protein 4 Months Z79.60 - watermelon inspector (current) use of unspecified immunomodulators and immunosuppressants Hepatitis A,B,C Profile 4 Months Z11.59 - Encounter for screening for other viral diseases T Spot TB 4 Months Z11.7 - Encounter for testing for latent tuberculosis infe ction Immunofixation Pnl, Serum 4 Months M35.9 - Systemic involvement of connective tissue, unspecified Coding Level of Care Code Est Pt Level 4 (01986) Diagnoses Undifferentiated connective tissue disease M35.9 Long-term use of immunosuppressant medication Z79.60
[2023-07-17 10:54] VITALS: BP 122/92; PULSE 79; TEMP 36.1; O2SAT 96; BMI 40.2
== END 2023-07-17 11:23 | disposition home or self-care (01) ==
LOC: HO.RHE 10:45
PROVIDERS: PCP Internal Medicine; Visit Provider Student in an Organized Health Care Education/Training Program
DX: M35.89 Other specified systemic involvement of connective tissue (principal); Z79.60 Long term (current) use of unspecified immunomodulators and immunosuppressants
CPT/HCPCS: 99214

== ENCOUNTER → 2023-07-17 10:45 | Outpatient (BNVA) | payer OTHER, SELFPAY | PROVIDERS: PCP Internal Medicine; Visit Provider Student in an Organized Health Care Education/Training Program ==

== ENCOUNTER 2023-08-15 09:55 | Outpatient (AMB) | payer OTHER, SELFPAY ==
--- NOTE | 2023-08-15 10:02 | A.OFFVIS_ITS ---
Intake Vital Signs 08/15/23 10:09 Height 5 ft 4 in Weight 233 lb 8 oz BMI 40.1 BP 122/90 H Blood Pressure Location Lt brachial Position Sitting Pulse 60 Pulse Source Pulse Oximeter Pulse Oximetry (%) 97 Oxygen Delivery Method Room Air Intake Visit Reasons: 3 mo f/u -Anesthesia of skin - LVM Intake Note: Patient presents for 3 month f/u. still having neuropathy and rhematology provider would like a nerve conduction test Allergies chamomile flower [CHAMOMILE HAWKINS] Allergy (Intermediate, Verified 08/19/23 10:19) RASH lisinopril Allergy (Unknown, Verified 08/19/23 10:19) Nausea simvastatin Allergy (Unknown, Verified 08/19/23 10:19) NAUSEA ropinirole Adverse Reaction (Intermediate, Verified 08/19/23 10:19) HIGH BLOOD PRESSURE Sulfa (Sulfonamide Antibiotics) Adverse Reaction (Mild, Verified 08/19/23 10:19) RASH gabapentin Adverse Reaction (Unknown, Verified 08/19/23 10:19) Fatigued Daisys Adverse Reaction (Severe, Uncoded 08/19/23 10:19) rash HPI HPI Comments History of Present Illness Details 63 y/o female comes for follow up of nu mbness in her feet and fingers, sleep disorder, memory loss. Pt is on CPAP now and is complaint and followed up by Dr. Galvan. Pt reports she still has nighttime leg discomfort and cramps. She tried Ropinirole, it makes her light headedness so changed to gabapentin. Gabapentin 100 mg qHS help to reduce the legs shooting pain. She is on prednisone therapy for undifferentiated connective tissues disease, and now she walks better. Pt also reports tingling on her fingertip, and it can be painful when she strike the keyboard. Previous history-She has been on sulfasalazine for 2 years for undifferentiated connective tissues disease and she started noticing numbness, tingling in her finger tips and distal toes , shooting pains for about 1 year. SHe was seen by Dr. Estrada in December 2021 and sulfasalazine was stopped as a probable etiology of neuropathy. She started noticing improvement in symptoms 2 mths after she stopped. Now she denies numbness, but has occasional tingling in her toes and fingers. she denies shooting pain. 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 Undifferentiated connective tissue disease Rheumatoid arthritis Fibromyalgia Depression with anxiety RUSSELL (obstructive sleep apnea) Morbid obesity Surgical History History of colonoscopy History of cyst of breast History of tonsillectomy Family History Father Osteoarthritis (arthritis due to wear and tear of joints) Colon cancer Diverticulosis Stroke HTN (hypertension) Mother HTN (hypertension) Acute arthritis Asthma Heart murmur TIA (transient ischemic attack) Diabetes mellitus Full dentures Family/Other Diabetes mellitus Heart disease CHF (congestive heart failure) Cancer Breast cancer Multiple myeloma Sister Mental health disorder Brother Substance use disorder Social History Household Members: Spouse Housing: House Do you presently have visiting nurse or other home services: No Alcohol intake: never Patient Tobacco Use Status: Never used Tobacco e-Cigarette/Vaping Use: Never Used service: No Current occupational status: employed 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 [employer] Cognitive needs: No Hearing needs: No Vision needs: Yes Review of Systems Const All systems reviewed & are unremarkable except as noted in HPI and below Physical Exam Vital Signs: Last Vital Signs Pulse 60 08/15/23 10:09 BP 122/90 H 08/15/23 10:09 Pulse Ox 97 08/15/23 10:09 Oxygen Delivery Method Room Air 08/15/23 10:09 BMI result Body Mass Index 40.1 Const General: cooperative, healthy appearing, comfortable and no acute distress Nutritional Appearance: obese Orientation/consciousness: patient oriented x3 Limitations: no limitations HEENT Head: Yes normal to inspection and Yes normocephalic Eyes Pupils: Equal, round and reactive pupils present Neuro General: patient oriented x3, tone normal, moves all extremities and no focal motor deficits Cranial nerves: Yes Facial sensation intact/muscles of mastication intact, Yes Equal, round and reactive pupils present, Yes Bilaterally intact EOM present, Yes Nystagmus not present, Yes Normal facial strength present, Yes Midline tongue present, Yes Symmetric palate elevation present and Yes Ability to bilaterally elevate shoulders present Cognition (Neuro): normal cognition Gait exam (Neuro): Antalgic gait present Motor exam (neuro): 5/5 motor strength present throughout and Motor abnormalities not present Deep tendon reflexes (DTR's): Right triceps reflex intensity grade: 1+, Left triceps reflex intensity grade: 1+, Rt Biceps (C5, C6): 1+, Left biceps reflex intensity grade: 1+, Right brachioradialis reflex intensity grade: 1+, Left brachioradialis reflex intensity grade: 1+, Right patellar reflex intensity grade: 1+ and Left patellar reflex intensity grade: 1+ Coordination: [id number] test normal Psych Appearance: grossly normal Mental Status: mental status grossly normal Assessment & Plan Assessment & Plan (1) Numbness and tingling: Comment: likely related to sulfasalazine - resolved Code(s): R20.0 - Anesthesia of skin; R20.2 - Paresthesia of skin (2) RUSSELL (obstructive sleep apnea): Comment: She is a known case of obstructive sleep apnea due to her morbid obesity. Uses CPAP regularly with good effect and sleeps well. Compliance is good. Code(s): G47.33 - Obstructive sleep apnea (adult) (pediatric) Plan Patients is currently stable. Advised patient to try gabapentin 200 mg qHS for legs discomfort and shooting pain. Continue CPAP and f/u with Dr. Galvan. Coding Level of Care Code Est Pt Level 4 (40745) Diagnoses Numbness and tingling R20.0; R20.2 RUSSELL (obstructive sleep apnea) G47.33
[2023-08-15 10:09] VITALS: BP 122/90; PULSE 60; O2SAT 97; BMI 40.1
== END 2023-08-15 10:52 | disposition home or self-care (01) ==
PROVIDERS: PCP Internal Medicine; Visit Provider Nurse Practitioner Family
DX: R20.0 Anesthesia of skin (principal); R20.2 Paresthesia of skin; G47.33 Obstructive sleep apnea (adult) (pediatric)
CPT/HCPCS: 99214

== ENCOUNTER → 2023-08-15 09:55 | Outpatient (BNVA) | payer OTHER, SELFPAY | PROVIDERS: PCP Internal Medicine; Visit Provider Nurse Practitioner Family ==

== ENCOUNTER 2023-08-19 10:03 | Outpatient (AMB) | payer OTHER, SELFPAY ==
[2023-08-19 10:09] VITALS: BP 130/60; PULSE 71; O2SAT 97; BMI 40.0
--- NOTE | 2023-08-19 10:09 | A.OFFVIS_ITS ---
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 Required: No Allergies chamomile flower [CHAMOMILE HAWKINS] Allergy (Intermediate, Verified 08/19/23 10:19) RASH lisinopril Allergy (Unknown, Verified 08/19/23 10:19) Nausea simvastatin Allergy (Unknown, Verified 08/19/23 10:19) NAUSEA ropinirole Adverse Reaction (Intermediate, Verified 08/19/23 10:19) HIGH BLOOD PRESSURE Sulfa (Sulfonamide Antibiotics) Adverse Reaction (Mild, Verified 08/19/23 10:19) RASH gabapentin Adverse Reaction (Unknown, Verified 08/19/23 10:19) Fatigued Daisys Adverse Reaction (Severe, Uncoded 08/19/23 10:19) rash Medication List - Last Reconciled 08/19/23 by Mirian Galvan MD amlodipine 5 mg PO DAILY calcium carbonate (Calcium) 600 mg PO BID cholecalciferol (vitamin D3) 25 mcg PO BID dextroamphetamine-amphetamine 10 mg ER 1 cap PO QAM diclofenac sodium 1% 2 grams topical DAILY PRN folic acid 1 mg PO DAILY gabapentin 200 mg PO BEDTIME hydroxychloroquine 200 mg PO BID loratadine 10 mg PO DAILY methotrexate sodium 20 mg (8 x 2.5 mg) PO QWEEK pluqtwxmvabt-mimtvbhv-ulgfjr 1 tab PO DAILY omega 5-tjb-hnv-fish oil 1,000 mg (120 mg-180 mg) (Fish Oil) 1 cap PO BID prednisone Take 3 tabs daily for 1 week then 2 tabs daily for 1 week then 1 tab daily for 1 week then stop sertraline 50 mg PO BEDTIME vitamin B complex 1 cap PO DAILY Do you need a note to return to daycare/school/sports/work: No HPI Annual checkup for C-Pap user HPI Details THIS 63 YEARS OLD VERY PLEASANT FEMALE, 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 HAS GROSS OBESITY AND DIAGNOSIS OF OBSTRUCTIVE SLEEP APNEA. SHE IS ON CPAP THERAPY WHICH SHE USES VERY. WELL AND REGULARLY SHE IS COMING ONCE A YEAR FOR FOLLOW-UP. SHE SLEEPS VERY WELL WHEN USING THE CPAP, AND WAKES UP REFRESHED. DENIES. ANY DAYTIME SLEEPINESS SHE HAS NO HISTORY OF COUGH OR WHEEZING. 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 PATIENT IS NONSMOKER. 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 care methotrexate user Undifferentiated connective tissue disease Rheumatoid arthritis Fibromyalgia Depression with anxiety RUSSELL (obstructive sleep apnea) Morbid obesity Surgical History History of colonoscopy History of cyst of breast History of tonsillectomy Family History Father Osteoarthritis (arthritis due to wear and tear of joints) Colon cancer Diverticulosis Stroke HTN (hypertension) Mother HTN (hypertension) Acute arthritis Asthma Heart murmur TIA (transient ischemic attack) Diabetes mellitus Full dentures Family/Other Diabetes mellitus Heart disease CHF (congestive heart failure) Cancer Breast cancer Multiple myeloma Sister Mental health disorder Brother Substance use disorder Social History Household Members: Spouse Housing: House Do you presently have visiting nurse or other home services: No Alcohol intake: never Patient Tobacco Use Status: Never used Tobacco e-Cigarette/Vaping Use: Never Used service: No Current occupational status: employed 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 [employer] Cognitive needs: No Hearing needs: No Vision needs: Yes Review of Systems Const All systems reviewed & are unremarkable except as noted in HPI and below Eyes Reports no additional complaints ENT Reports nasal congestion (Mild off and on) Card Denies chest pain at rest, Denies irregular heart rhythm, Denies leg edema and Denies dyspnea on exertion Resp Denies cough, Denies dyspnea on exertion and Denies wheezing GI Reports no additional complaints Reports no additional complaints Musc Reports myalgias and Reports arthralgias Skin/Breast Reports system reviewed and no additional complaints, except as documented Neuro Reports no additional complaints Psych Reports no additional complaints Momo/Lymph Reports no additional complaints Aller/Immun Denies wheezing Physical Exam Vital Signs: Last Vital Signs Pulse 71 08/19/23 10:09 BP 130/60 08/19/23 10:09 Pulse Ox 97 08/19/23 10:09 Oxygen Delivery Method Room Air 08/19/23 10:09 BMI result Body Mass Index 40.0 Const General: healthy appearing (Except for being overweight), comfortable, no acute distress, alert and awake Orientation/consciousness: patient oriented x3 HEENT Head: Yes normal to inspection General nose exam: No nasal polyps present and No nasal discharge present Face and sinus: Yes sinuses nontender Mouth: oropharynx normal Throat: Yes posterior oropharynx normal Eyes General: appearance normal, both eyes and all related structures Neck Neck: Yes normal visual inspection, Yes no lymphadenopathy, Yes trachea midline and Yes no JVD Thyroid: Thyroid normal Chest Chest palpation & inspection: normal inspection of the chest, normal palpation of entire chest wall and no tenderness Resp Effort & Inspection: normal respiratory effort Auscultation: clear to auscultation bilaterally, no crackles and no wheezes Cardio Palpation: normal PMI Rate: regular rate Rhythm: regular rhythm Heart sounds: no gallops and no murmurs Peripheral pulses: Peripheral pulses 2+ throughout GI Palpation (GI): Soft to palpation, nontender, No hepatosplenomegaly present and no masses Auscultation: normal bowel sounds Back/Spine/Pelvis Thoracic/Lumbar Spine: thoracic and lumbar spine normal to inspection Skin General skin exam: no rashes or lesions noted Neuro General: patient oriented x3 and no focal motor deficits Cranial nerves: Yes CN's II-XII intact bilaterally Extrem General: Yes normal to inspection, Yes no clubbing, cyanosis or edema and Yes no calf tenderness Psych Appearance: grossly normal and well kempt Speech and movement: Normal speech and movement present Results Reviewed Results Reviewed: COMPLIANCE REPORT IS REVIEWED. SHE HAS USED 30/30 NIGHTS. AVERAGE USE IT PER NIGHT 6 HOURS 25 MINUTES. THERE IS NO AIR LEAK. RESIDUAL AHI 3.0 Assessment & Plan Assessment & Plan (1) Morbid obesity: Comment: Patient remains morbidly obese . BMI= 40 Her weight has remained stable , she has not been able to lose any weight. Code(s): E66.01 - Morbid (severe) obesity due to excess calories Plan: Discuss about the weight and encouraged to walk more, and also try to cut down the calories intake. (2) RUSSELL (obstructive sleep apnea): Comment: She is a known case of obstructive sleep apnea due to her morbid obesity. Uses CPAP regularly with good effect and sleeps well. Compliance is good. Code(s): G47.33 - Obstructive sleep apnea (adult) (pediatric) Plan: Commended for her good compliance. Encouraged to keep on using CPAP every night. (3) TURCIOS (dyspnea on exertion): Comment: She has mild shortness of breath on exertion like walking up hill or on the level ground, Expiratory wheezes were heard , by her bobbin loose end finder. I suspect that she may have a mild degree of restrictive pulmonary disorder. Code(s): R06.00 - Dyspnea, unspecified Plan: PULMONARY FUNCTION TEST IS ORDERED , FOR AN APPROPRIATE . PULMONARY DIAGNOSIS Orders: Orders PFT pulmonary function test Today E66.01 - Morbid (severe) obesity due to excess calories, M35.9 - Systemic involvement of connective tissue, unspecified, R06.00 - Dyspnea, unspecified Medications: Changed From gabapentin 100 mg PO BEDTIME 30 caps 6RF To gabapentin 200 mg PO BEDTIME Coding Level of Care Code Est Pt Level 3 (31051) Diagnoses Morbid obesity E66.01 RUSSELL (obstructive sleep apnea) G47.33 TURCIOS (dyspnea on exertion) R06.00
== END 2023-08-19 10:42 | disposition home or self-care (01) ==
PROVIDERS: PCP Internal Medicine; Visit Provider Internal Medicine
DX: E66.01 Morbid (severe) obesity due to excess calories (principal); G47.33 Obstructive sleep apnea (adult) (pediatric); R06.00 Dyspnea, unspecified
CPT/HCPCS: 99213

== ENCOUNTER → 2023-08-19 10:03 | Outpatient (BNVA) | payer OTHER, SELFPAY | PROVIDERS: PCP Internal Medicine; Visit Provider Internal Medicine ==

== ENCOUNTER 2023-09-04 09:03 | Outpatient (REF) | payer OTHER, SELFPAY ==
[2023-09-04 09:31] VITALS: PULSE 58; RESP 16; O2SAT 97
--- NOTE | 2023-09-04 10:55 | PFT_ITS ---
Flows: FEV1: 86 % of predicted at 2.03 L FVC: 85 % of predicted at 2.58 L FEV1/FVC: 79 % Bronchodilator response: Absent Volumes: No lung volumes measurements performed secondary to a technical issue. Diffusion capacity: Normal Impression: No obstructive ventilatory defect. No bronchodilator response. No lung volumes measurements performed secondary to a technical issue. MTDD
== END 2023-09-04 09:04 | disposition home or self-care (01) ==
LOC: HO.RESP 09:03
PROVIDERS: PCP Internal Medicine; Visit Provider Internal Medicine
DX: E66.01 Morbid (severe) obesity due to excess calories (principal); R06.00 Dyspnea, unspecified; M35.9 Systemic involvement of connective tissue, unspecified
CPT/HCPCS: 94010; 94640; 94727; 94729

== ENCOUNTER 2023-09-04 10:13 | Outpatient (AMB) | payer OTHER, SELFPAY ==
--- NOTE | 2023-09-04 10:47 | A.OFFPC_ITS ---
Vital Signs 09/04/23 10:48 Height 5 ft 4 in Weight 232 lb BMI 39.8 BP 132/74 Blood Pressure Location Lt brachial Position Sitting Pulse 73 Pulse Source Pulse Oximeter Pulse Oximetry (%) 96 Oxygen Delivery Method Room Air Intake Visit Reasons: Follow up on BP. Intake Note: Pt is here today for a follow up visit on BP. Allergies chamomile flower [CHAMOMILE HAWKINS] Allergy (Intermediate, Verified 09/04/23 10:51) RASH lisinopril Allergy (Unknown, Verified 09/04/23 10:51) Nausea simvastatin Allergy (Unknown, Verified 09/04/23 10:51) NAUSEA ropinirole Adverse Reaction (Intermediate, Verified 09/04/23 10:51) HIGH BLOOD PRESSURE Sulfa (Sulfonamide Antibiotics) Adverse Reaction (Mild, Verified 09/04/23 10:51) RASH gabapentin Adverse Reaction (Unknown, Verified 09/04/23 10:51) Fatigued Daisys Adverse Reaction (Severe, Uncoded 09/04/23 10:51) rash Medication List - Last Reconciled 09/04/23 by Iman Pulliam MD albuterol sulfate 90 mcg/actuation 2 puffs inhalation Q6H PRN amlodipine 5 mg PO DAILY calcium carbonate (Calcium) 600 mg PO BID cholecalciferol (vitamin D3) 25 mcg PO BID dextroamphetamine-amphetamine 10 mg ER 1 cap PO QAM diclofenac sodium 1% 2 grams topical DAILY PRN folic acid 1 mg PO DAILY gabapentin 200 mg (2 x 100 mg) PO BEDTIME 30 days hydroxychloroquine 200 mg PO BID loratadine 10 mg PO DAILY methotrexate sodium 20 mg (8 x 2.5 mg) PO QWEEK nchcyqbqvrxx-dxquwljo-bczlcm 1 tab PO DAILY omega 7-pza-xtj-fish oil 1,000 mg (120 mg-180 mg) (Fish Oil) 1 cap PO BID sertraline 50 mg PO BEDTIME vitamin B complex 1 cap PO DAILY Tobacco use date assessed: 07/11/23 HPI Follow up on BP. HPI Details Patient presents for the follow-up on hypertension controlled on amlodipine. Patient follows up with biofuels plant manager for mixed connective tissue disease and has been taking Plaquenil methotrexate and gabapentin for chronic pain. Patient had a pulmonary function test for an episode of wheezing and results are pending. 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 Undifferentiated connective tissue disease Rheumatoid arthritis Fibromyalgia Depression with anxiety RUSSELL (obstructive sleep apnea) Morbid obesity Surgical History History of colonoscopy History of cyst of breast History of tonsillectomy Family History Father Osteoarthritis (arthritis due to wear and tear of joints) Colon cancer Diverticulosis Stroke HTN (hypertension) Mother HTN (hypertension) Acute arthritis Asthma Heart murmur TIA (transient ischemic attack) Diabetes mellitus Full dentures Family/Other Diabetes mellitus Heart disease CHF (congestive heart failure) Cancer Breast cancer Multiple myeloma Sister Mental health disorder Brother Substance use disorder Social History Household Members: Spouse Housing: House Do you presently have visiting nurse or other home services: No Alcohol intake: never Patient Tobacco Use Status: Never used Tobacco e-Cigarette/Vaping Use: Never Used service: No Current occupational status: employed 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 Patrice Agosto, Megan Hu, Bobby Jackson and colleagues, with an educational johnathan from [employer]. Review of Systems Const All systems reviewed & are unremarkable except as noted in HPI and below Reports no additional complaints Eyes Reports no additional complaints ENT Reports no additional complaints Card Reports no additional complaints Resp Reports no additional complaints GI Reports no additional complaints Physical exam (Primary Care) Vital Signs: Last Vital Signs Pulse 73 09/04/23 10:48 BP 132/74 09/04/23 10:48 Pulse Ox 96 09/04/23 10:48 Oxygen Delivery Method Room Air 09/04/23 10:48 BMI result Body Mass Index 39.8 Tobacco/Smoking Status: Tobacco use Status Tobacco use date assessed 07/11/23 09/04/23 10:50 Patient Tobacco Use Status Never used Tobacco 09/04/23 10:50 e-Cigarette/Vaping Use Never Used 09/04/23 10:50 Thrive Assessment: Date of Thrive Assessment Date Thrive assessed 07/11/23 09/04/23 10:50 Const General: no acute distress HENMT Head: Yes normal to inspection Throat: Yes posterior oropharynx normal Neck Neck: Yes supple Resp Effort & Inspection: normal respiratory effort Auscultation: clear to auscultation bilaterally Cardio Rhythm: regular rhythm Heart sounds: S1 normal heart sound present and S2 normal heart sound present Assessment and Plan Assessment & Plan (1) HTN (hypertension): Code(s): I10 - Essential (primary) hypertension Qualifiers: Hypertension type: unspecified Qualified Code(s): I10 - Essential (primary) hypertension Plan: Continue Amlodipine (2) Obesity (BMI 30-39.9): Code(s): E66.9 - Obesity, unspecified Plan: Increase physical activity weight loss discussed with the patient (3) RUSSELL (obstructive sleep apnea): Comment: She is a known case of obstructive sleep apnea due to her morbid obesity. Uses CPAP regularly with good effect and sleeps well. Compliance is good. Code(s): G47.33 - Obstructive sleep apnea (adult) (pediatric) Plan: Continue CPAP and follow-up with Pulmonary (4) Undifferentiated connective tissue disease: Comment: onset 2008. 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 Predominantly hand and knee pains. HCQ since 2009 eyes OK 03/2022, 03/2023. Methotrexate added 2011. Sulfasalazine added 2019. stopped 12/2019 due to suspicion of neuropathy Code(s): M35.9 - Systemic involvement of connective tissue, unspecified Plan: Follow-up with rheumatology on methotrexate and Plaquenil Medications: New albuterol sulfate 90 mcg/actuation 2 puffs inhalation Q6H PRN 8.5 grams 0RF shortness of breath or wheezing Coding Level of Care Code Est Pt Level 4 (06084) Diagnoses HTN (hypertension) I10 Hypertension type: unspecified Obesity (BMI 30-39.9) E66.9 RUSSELL (obstructive sleep apnea) G47.33 Undifferentiated connective tissue disease M35.9
[2023-09-04 10:48] VITALS: BP 132/74; PULSE 73; O2SAT 96; BMI 39.8
== END 2023-09-04 11:51 | disposition home or self-care (01) ==
PROVIDERS: PCP Internal Medicine; Visit Provider Internal Medicine
DX: I10 Essential (primary) hypertension (principal); E66.9 Obesity, unspecified; Z68.39 Body mass index [BMI] 39.0-39.9, adult; M35.9 Systemic involvement of connective tissue, unspecified; G47.33 Obstructive sleep apnea (adult) (pediatric)
CPT/HCPCS: 99214

== ENCOUNTER → 2023-09-04 10:55 | Outpatient (BNV) | payer OTHER, SELFPAY | PROVIDERS: PCP Internal Medicine; Visit Provider Internal Medicine Pulmonary Disease | DX: R06.00 Dyspnea, unspecified (principal) | CPT/HCPCS: 94060; 94729 ==

== ENCOUNTER → 2023-10-07 15:45 | Outpatient (BNV) | payer OTHER, SELFPAY | PROVIDERS: PCP Internal Medicine; Visit Provider Radiology Diagnostic Radiology | DX: Z12.31 Encounter for screening mammogram for malignant neoplasm of breast (principal) | CPT/HCPCS: 77063; 77067 ==

== ENCOUNTER 2023-10-07 15:48 | Outpatient (REF) | payer OTHER, SELFPAY | END 2023-10-07 15:49 | disposition home or self-care (01) | LOC: HO.MAMMO 15:48 | PROVIDERS: PCP Internal Medicine; Visit Provider Internal Medicine | DX: Z12.31 Encounter for screening mammogram for malignant neoplasm of breast (principal) | CPT/HCPCS: 77063; 77067 ==

== ENCOUNTER 2023-10-28 08:57 | Outpatient (AMB) | payer OTHER, SELFPAY ==
--- NOTE | 2023-10-28 09:03 | MHC.OFFVIS ---
Vital Signs 10/28/23 09:11 Height 5 ft 4 in Weight 237 lb 8 oz BMI 40.8 BP 124/60 Blood Pressure Location Rt brachial Position Sitting Pulse 75 Pulse Source Pulse Oximeter Pulse Oximetry (%) 96 Oxygen Delivery Method Room Air Intake Visit Reasons: 6 mo f/u -Anesthesia of Skin-CONF Intake Note: Patient presents for a 2 month fu-numbeness/tingling Automatic Lathe Setter Required: No Accompanied by: Self / Same As Patient Allergies chamomile flower [CHAMOMILE HAWKINS] Allergy (Intermediate, Verified 10/28/23 09:06) RASH lisinopril Allergy (Unknown, Verified 10/28/23 09:06) Nausea simvastatin Allergy (Unknown, Verified 10/28/23 09:06) NAUSEA ropinirole Adverse Reaction (Intermediate, Verified 10/28/23 09:06) HIGH BLOOD PRESSURE Sulfa (Sulfonamide Antibiotics) Adverse Reaction (Mild, Verified 10/28/23 09:06) RASH gabapentin Adverse Reaction (Unknown, Verified 10/28/23 09:06) Fatigued Daisys Adverse Reaction (Severe, Uncoded 09/04/23 10:51) rash Medication List - Last Reconciled 10/28/23 by Linda Shin MD albuterol sulfate 90 mcg/actuation 2 puffs inhalation Q6H PRN amlodipine 5 mg PO DAILY calcium carbonate (Calcium) 600 mg PO BID cholecalciferol (vitamin D3) 25 mcg PO BID [collagen 300 mg PO DAILY] dextroamphetamine-amphetamine 10 mg ER 1 cap PO QAM diclofenac sodium 1% 2 grams topical DAILY PRN folic acid 1 mg PO DAILY gabapentin 200 mg (2 x 100 mg) PO BEDTIME 30 days hydroxychloroquine 200 mg PO BID loratadine 10 mg PO DAILY methotrexate sodium 20 mg (8 x 2.5 mg) PO QWEEK txgooyktrdao-huxfstxr-mvllfn 1 tab PO DAILY omega 0-ktj-kol-fish oil 1,000 mg (120 mg-180 mg) (Fish Oil) 1 cap PO BID sertraline 50 mg PO BEDTIME vitamin B complex 1 cap PO DAILY HPI Comments Details: 63 y/o female comes for follow up of numbness and tingling in her feet and fingers. Her right hand fingers are worse than other extremities. Her symptoms worsen at night. she is not sure if gabapentin is working.she works second shift and has trouble typing.she also has joint pains worsening in the later part of the day. Pt is on CPAP now and is complaint and followed up by Dr. Galvan. She tried Ropinirole, it made her light headed so was switched to gabapentin. She is on prednisone therapy for undifferentiated connective tissues disease on a as needed basis. Previous history-She has been on sulfasalazine for 2 years for undifferentiated connective tissues disease and she started noticing numbness, tingling in her finger tips and distal toes , shooting pains for about 1 year. SHe was seen by Dr. Estrada in December 2021 and sulfasalazine was stopped as a probable etiology of neuropathy. She started noticing improvement in symptoms 2 mths after she stopped. 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 Undifferentiated connective tissue disease Rheumatoid arthritis Fibromyalgia Depression with anxiety RUSSELL (obstructive sleep apnea) Morbid obesity Surgical History History of colonoscopy History of cyst of breast History of tonsillectomy Family History Father Osteoarthritis (arthritis due to wear and tear of joints) Colon cancer Diverticulosis Stroke HTN (hypertension) Mother HTN (hypertension) Acute arthritis Asthma Heart murmur TIA (transient ischemic attack) Diabetes mellitus Full dentures Family/Other Diabetes mellitus Heart disease CHF (congestive heart failure) Cancer Breast cancer Multiple myeloma Sister Mental health disorder Brother Substance use disorder Social History Household Members: Spouse Housing: House Do you presently have visiting nurse or other home services: No Alcohol intake: never Patient Tobacco Use Status: Never used Tobacco e-Cigarette/Vaping Use: Never Used service: No Current occupational status: employed 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 Cognitive needs: No Hearing needs: No Vision needs: Yes Physical Exam Vital Signs: Last Vital Signs Pulse 75 10/28/23 09:11 BP 124/60 10/28/23 09:11 Pulse Ox 96 10/28/23 09:11 Oxygen Delivery Method Room Air 10/28/23 09:11 BMI result Body Mass Index 40.8 Const General: cooperative, healthy appearing, comfortable and no acute distress Nutritional Appearance: obese Orientation/consciousness: patient oriented x3 Limitations: no limitations HEENT Head: Yes normal to inspection and Yes normocephalic Eyes Pupils: Equal, round and reactive pupils present Neuro General: patient oriented x3, tone normal, moves all extremities and no focal motor deficits Cranial nerves: Yes Facial sensation intact/muscles of mastication intact, Yes Equal, round and reactive pupils present, Yes Bilaterally intact EOM present, Yes Nystagmus not present, Yes Normal facial strength present, Yes Midline tongue present, Yes Symmetric palate elevation present and Yes Ability to bilaterally elevate shoulders present Cognition (Neuro): normal cognition Gait exam (Neuro): Antalgic gait present Motor exam (neuro): 5/5 motor strength present throughout and Motor abnormalities not present Deep tendon reflexes (DTR's): Right triceps reflex intensity grade: 1+, Left triceps reflex intensity grade: 1+, Rt Biceps (C5, C6): 2+, Left biceps reflex intensity grade: 2+, Right brachioradialis reflex intensity grade: 2+, Left brachioradialis reflex intensity grade: 2+, Right patellar reflex intensity grade: 2+ and Left patellar reflex intensity grade: 3+ Coordination: [id number] test normal Psych Appearance: grossly normal Mental Status: mental status grossly normal Assessment & Plan Assessment & Plan (1) Numbness and tingling: Comment: likely related to sulfasalazine -better Code(s): R20.0 - Anesthesia of skin; R20.2 - Paresthesia of skin Category: Medical (2) RUSSELL (obstructive sleep apnea): Comment: She is a known case of obstructive sleep apnea due to her morbid obesity. Uses CPAP regularly with good effect and sleeps well. Compliance is good. Code(s): G47.33 - Obstructive sleep apnea (adult) (pediatric) Category: Medical Plan EMG NCS Right UE for evalaution of numbness and paresthesias Increase gabapentin 300 mg qHS for legs discomfort and shooting pain. ALpha lipoic acid and B complex in AM Continue CPAP and f/u with Dr. Galvan. Orders: Orders NE nerve conduction velocity Today R20.2 - Paresthesia of skin NE electromyogram (EMG) Today R20.2 - Paresthesia of skin Medications: Changed From gabapentin 200 mg (2 x 100 mg) PO BEDTIME 30 days 60 caps 6RF To gabapentin 300 mg PO BEDTIME 30 days 30 caps 6RF
[2023-10-28 09:11] VITALS: BP 124/60; PULSE 75; O2SAT 96; BMI 40.8
== END 2023-10-28 09:34 | disposition home or self-care (01) ==
PROVIDERS: PCP Internal Medicine; Visit Provider Psychiatry & Neurology Neurology
DX: R20.0 Anesthesia of skin (principal); R20.2 Paresthesia of skin; G47.33 Obstructive sleep apnea (adult) (pediatric)
CPT/HCPCS: 99214

== ENCOUNTER → 2023-10-28 08:57 | Outpatient (BNVA) | payer OTHER, SELFPAY | PROVIDERS: PCP Internal Medicine; Visit Provider Psychiatry & Neurology Neurology ==

== ENCOUNTER 2023-11-11 10:02 | Outpatient (REF) | payer OTHER, SELFPAY ==
[2023-11-11 13:26] LABS: MANUAL DIFF FLAG NO
[2023-11-11 13:35] LABS: Basophils Percent Auto 0.3 % (0-2); Eosinophils Absolute Auto 0.2 X10*3/uL (0.0-0.4); Hematocrit 41.5 % (37.0-47.0); Hemoglobin 13.8 g/dl (12.0-16.0); Imm Gran Abs Auto 0.02 X10*3/uL (0.00-0.03); Imm Gran Pct Auto 0.3 % (0.0-0.4); Lymphocytes Absolute Auto 2.2 X10*3/uL (1.2-4.9); Lymphocytes Percent Auto 29.4 % (20-40); Mean Corpuscular HGB Conc 33.3 g/dl (31.0-35.0); Mean Corpuscular Hemoglobin 31.4 pg (27.0-33.0); Mean Corpuscular Volume 94.5 fL (80.0-98.0); Monocytes Absolute Auto 0.6 X10*3/uL (0.1-1.2); Monocytes Percent Auto 7.3 % (2-11); Neutrophils Absolute Auto 4.6 x10*3/uL (2.0-8.3); Neutrophils Percent Auto 60.7 % (45-73); Platelet Count 327 X10*3/uL (160-400); Red Blood Count 4.39 X10*6/uL (4.20-5.50); Red Cell Distribution Width 13.4 % (11.0-16.0); White Blood Count 7.5 X10*3/uL (4.8-10.8)
[2023-11-11 13:52] LABS: Alanine Aminotransferase 30 U/L (0-31); Albumin Level 4.2 g/dL (3.5-5.0); Alkaline Phosphatase 70 U/L (39-117); Anion Gap 14 (12-20); Aspartate Amino Transferase 26 U/L (5-31); Bilirubin Total 0.4 mg/dL (0.0-1.0); Blood Urea Nitrogen 12 mg/dL (9-16); C Reactive Protein 2.06 mg/dL (< or = 0.50); Calcium 9.8 mg/dL (8.4-10.2); Carbon Dioxide 27 mmol/L (22-29); Chloride 106 mmol/L (96-108); Estimated Glomerular Filt Rate > 60; Glucose Random 121 mg/dL (60-115); Potassium 4.1 mmol/L (3.3-5.1); Sodium 143 mmol/L (135-145); Total Protein 7.1 g/dL (6.5-8.0)
[2023-11-11 14:05] LABS: Rheumatoid Factor < 13.0 IU/mL (<15.0)
[2023-11-11 14:20] LABS: Erythrocyte Sedimentation Rate 28 MM/HR (0-20)
[2023-11-12 04:26] LABS: HBsAGNum1 0.24 S/CO (0.00-0.99); Hepatitis B Core Antibody Nonreactive (Nonreactive); Hepatitis B Surface Antigen Negative (Negative); ~Hepatitis B Surface Antibody NONREACTIVE (Nonreactive); ~Hepatitis C Antibody Nonreactive (Nonreactive)
[2023-11-12 04:43] LABS: Hepatitis A Antibody IgM 0.12 Index (0-0.79); ~Hepatitis A Antibody IgM Nonreactive (Nonreactive)
[2023-11-12 13:08] LABS: Prot Elec - Alpha1 0.3 g/dL (0.2-0.3); Prot Elec - Alpha2 0.8 g/dL (0.5-0.9); Prot Elec - Beta 1 0.4 g/dL (0.4-0.6); Prot Elec - Beta 2 0.3 g/dL (0.2-0.5); Prot Elec - Gamma 0.8 g/dL (0.8-1.7); Prot Elec - Total Protein 6.6 g/dL (6.1-8.1)
[2023-11-13 21:12] LABS: IgA 148 mg/dL (70-320); IgG 830 mg/dL (600-1540); IgM 131 mg/dL (50-300)
[2023-11-14 03:58] LABS: TS Negative Control Passed; TS Panel A 0; TS Panel B 0; TS Positive Control Passed; TSpotTB Negative (Negative)
== END 2023-11-11 10:03 | disposition home or self-care (01) ==
LOC: HO.HMGCLDS 10:02
PROVIDERS: PCP Internal Medicine; Visit Provider Student in an Organized Health Care Education/Training Program
DX: Z11.59 Encounter for screening for other viral diseases (principal); Z11.7 Encounter for testing for latent tuberculosis infection; M35.9 Systemic involvement of connective tissue, unspecified; M25.541 Pain in joints of right hand; Z72.89 Other problems related to lifestyle; Z79.60 Long term (current) use of unspecified immunomodulators and immunosuppressants
CPT/HCPCS: 36415; 80053; 82784; 84165; 85025; 85652; 86140; 86334; 86431; 86481; 86704; 86706; 86709; 86803; 87340

== ENCOUNTER 2023-11-18 09:57 | Outpatient (AMB) | payer OTHER, SELFPAY ==
--- NOTE | 2023-11-18 09:58 | MHC.OFFVIS ---
Vital Signs 11/18/23 10:04 Height 5 ft 4 in Weight 234 lb 9.149 oz BMI 40.3 BP 128/64 Blood Pressure Location Rt brachial Position Sitting Pulse 77 Pulse Source Pulse Oximeter Pulse Oximetry (%) 97 Oxygen Delivery Method Room Air Intake Visit Reasons: UCTD Intake Note: Patient last seen 07/17/23 presents today for follow up and test results. 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 Accompanied by: Self / Same As Patient Allergies chamomile flower [CHAMOMILE HAKWINS] Allergy (Intermediate, Verified 11/18/23 09:58) RASH lisinopril Allergy (Unknown, Verified 11/18/23 09:58) Nausea simvastatin Allergy (Unknown, Verified 11/18/23 09:58) NAUSEA ropinirole Adverse Reaction (Intermediate, Verified 11/18/23 09:58) HIGH BLOOD PRESSURE Sulfa (Sulfonamide Antibiotics) Adverse Reaction (Mild, Verified 11/18/23 09:58) RASH gabapentin Adverse Reaction (Unknown, Verified 11/18/23 09:58) Fatigued Daisys Adverse Reaction (Severe, Uncoded 11/18/23 09:58) rash Medication List - Last Reconciled 11/18/23 by Alina Caldwell MD albuterol sulfate 90 mcg/actuation 2 puffs inhalation Q6H PRN amlodipine 5 mg PO DAILY calcium carbonate (Calcium 600) 600 mg PO BID cholecalciferol (vitamin D3) 25 mcg PO BID [collagen 300 mg PO DAILY] dextroamphetamine-amphetamine 10 mg ER 1 cap PO QAM diclofenac sodium 1% 2 grams topical DAILY PRN folic acid 1 mg PO DAILY gabapentin 300 mg PO BEDTIME 30 days hydroxychloroquine 200 mg PO BID loratadine 10 mg PO DAILY methotrexate sodium 20 mg (8 x 2.5 mg) PO QWEEK chemfjzokgxt-namazhfr-vlqbes 1 tab PO DAILY omega 3-mqh-mgn-fish oil 1,000 mg (120 mg-180 mg) (Fish Oil) 1 cap PO BID sertraline 50 mg PO BEDTIME vitamin B complex 1 cap PO DAILY HPI Comments Details: 63-year-old female with UCTD returns for follow-up. Remains on methotrexate 20 mg weekly, folic acid 1 mg daily and hydroxychloroquine 200 mg Twice daily. She states that she continues to get intermittent flare-ups of pain in her hands, fingers, knees. Continues to have achy shoulders. Fingers are almost always puffy. He was recently started on alpha lipoic acid by neurologist with some improvement of her neuropathic symptoms. She is scheduled for bilateral upper extremity EMG ordered by neurologist. She also started collagen she believes is helping some of her knee pain and helping her hair. Most recent history by Dr. Rivera 03/2023: The patient returns for evaluation of what we are calling undifferentiated connective tissue disease. She remains on methotrexate 20 mg weekly, folic acid 1 mg daily, hydroxychloroquine 200 mg b.i.d., and xpjs-rcj-wfyoyqi ibuprofen 200 mg to 600 mg once daily if needed. There are arthralgias in the neck, hands, lower back and knees. She developed COVID apparently in early February. She had fevers, chills, and respiratory symptoms. Also she had fever and more myalgias and arthralgias. She was prescribed Paxil open and developed diarrhea. However she eventually did recover and return to work. 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 user Undifferentiated connective tissue disease Rheumatoid arthritis Fibromyalgia Depression with anxiety RUSSELL (obstructive sleep apnea) Morbid obesity Surgical History History of colonoscopy History of cyst of breast History of tonsillectomy Family History Father Osteoarthritis (arthritis due to wear and tear of joints) Colon cancer Diverticulosis Stroke HTN (hypertension) Mother HTN (hypertension) Acute arthritis Asthma Heart murmur TIA (transient ischemic attack) Diabetes mellitus Full dentures Family/Other Diabetes mellitus Heart disease CHF (congestive heart failure) Cancer Breast cancer Multiple myeloma Sister Mental health disorder Brother Substance use disorder Social History Household Members: Spouse Housing: House Do you presently have visiting nurse or other home services: No Alcohol intake: never Patient Tobacco Use Status: Never used Tobacco e-Cigarette/Vaping Use: Never Used service: No Current occupational status: employed 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 Cognitive needs: No Hearing needs: No Vision needs: Yes Review of Systems Musc Reports arthralgias, Reports joint swelling, Reports numbness, Reports stiffness and Reports tingling Neuro Reports numbness and Reports tingling Physical Exam Vital Signs: Last Vital Signs Pulse 77 11/18/23 10:04 BP 128/64 11/18/23 10:04 Pulse Ox 97 11/18/23 10:04 Oxygen Delivery Method Room Air 11/18/23 10:04 BMI result Body Mass Index 40.3 Const General: cooperative, healthy appearing and comfortable Nutritional Appearance: obese morbidly obese Orientation/consciousness: patient oriented x3 Limitations: no limitations HEENT Head: Yes normocephalic and Yes atraumatic Mouth: moist mucous membranes Resp Effort & Inspection: normal respiratory effort and able to speak in complete sentences Auscultation: clear to auscultation bilaterally Cardio Rate: regular rate Rhythm: regular rhythm Skin General skin exam: no rashes or lesions noted Neuro General: patient oriented x3 Extrem Other: Puffiness of MCPs, fingers few tender MCPs bilaterally but most tender is bilateral 1st CMC joints normal range of motion of both elbows Limited range of motion of right shoulder (history of fracture) Bilateral knee pain with full extension Normal nailfold capillaroscopy Assessment & Plan Assessment & Plan (1) Undifferentiated connective tissue disease: Comment: onset 2008. +++LEATHER SPONGER ++JACY -ve JOYCE -ve RF, -ve CCP Predominantly hand and knee pains. HCQ since 2009 eyes OK 03/2022, 03/2023. Methotrexate added 2011. Sulfasalazine added 2019. stopped 12/2019 due to suspicion of neuropathy Code(s): M35.9 - Systemic involvement of connective tissue, unspecified Category: Medical Plan: 63-year-old female with UCTD returns for follow-up. Patient is on methotrexate 20 mg weekly split dose, hydroxychloroquine 400 mg daily. She continues to have multiple swollen and tender joints. Will need to advance her treatment. Increase methotrexate to 25 mg weekly split dose Continue hydroxychloroquine 400 mg daily I think she should be treated as a seronegative RA. Labs before next visit in 2 months. If no improvement, consider adding biologics such as TNF inhibitors if no improvement (2) Long-term use of immunosuppressant medication: Code(s): Z79.60 - extermination inspector (current) use of unspecified immunomodulators and immunosuppressants Category: Medical Plan: Monitor safety labs for methotrexate (3) Long-term use of hydroxychloroquine: Comment: eyes OK 03/2022, 03/2023. Code(s): Z79.899 - Other intermediate (current) drug therapy Category: Medical Plan: Discussed risk of retinopathy associated with hydroxychloroquine. Patient stated that she was recently evaluated by Dr. Carballo. Will request records Plan I spent 35 minutes reviewing patient's chart, evaluating patient, ordering diagnostic workup, counseling patient and documenting in the chart Orders: Orders Complete Blood Count Auto Diff 2 Months M35.9 - Systemic involvement of connective tissue, unspecified Comprehensive Met. Panel 2 Months M35.9 - Systemic involvement of connective tissue, unspecified C Reactive Protein 2 Months M35.9 - Systemic involvement of connective tissue, unspecified Erythrocyte Sedimentation Rate 2 Months M35.9 - Systemic involvement of connective tissue, unspecified Medications: Changed From methotrexate sodium 20 mg (8 x 2.5 mg) PO QWEEK 96 tabs 1RF M35.9 - Systemic involvement of connective tissue, unspecified To methotrexate sodium 25 mg (10 x 2.5 mg) PO QWEEK 120 tabs 1RF M35.9 - Systemic involvement of connective tissue, unspecified Coding Level of Care Code Est Pt Level 4 (00877) Diagnoses Undifferentiated connective tissue disease M35.9 Long-term use of immunosuppressant medication Z79.60 Long-term use of hydroxychloroquine Z79.899
[2023-11-18 10:04] VITALS: BP 128/64; PULSE 77; O2SAT 97; BMI 40.3
== END 2023-11-18 10:29 | disposition home or self-care (01) ==
PROVIDERS: PCP Internal Medicine; Visit Provider Student in an Organized Health Care Education/Training Program
DX: M35.89 Other specified systemic involvement of connective tissue (principal); Z79.60 Long term (current) use of unspecified immunomodulators and immunosuppressants; Z79.899 Other long term (current) drug therapy
CPT/HCPCS: 99214

== ENCOUNTER → 2023-11-18 09:57 | Outpatient (BNVA) | payer OTHER, SELFPAY | PROVIDERS: PCP Internal Medicine; Visit Provider Student in an Organized Health Care Education/Training Program ==

== ENCOUNTER 2023-11-19 08:07 | Outpatient (REF) | payer OTHER, SELFPAY ==
--- NOTE | 2023-11-19 08:10 | EMG_ITS ---
Right median and ulnar motor and sensory studies were performed. Right radial and median and lateral antecubital sensory studies were performed and paraspinal muscles were tested with a needle. IMPRESSION: 1. Gvsnstxp-fm-nitsyq right median neuropathy across carpal tunnel. 2. Mild right ulnar neuropathy across cubital tunnel. MD FRANK Mcelroy/GEORGE / [id number]
== END 2023-11-19 08:08 | disposition home or self-care (01) ==
LOC: HO.NEURO 08:07
PROVIDERS: Absent Provider Student in an Organized Health Care Education/Training Program; PCP Internal Medicine; Visit Provider Psychiatry & Neurology Neurology
DX: R20.2 Paresthesia of skin (principal)
CPT/HCPCS: 95886; 95910

== ENCOUNTER 2023-11-29 11:15 | Outpatient (AMB) | payer OTHER, SELFPAY ==
[2023-11-29 11:16] VITALS: BP 126/60; PULSE 68; O2SAT 96; BMI 40.5
--- NOTE | 2023-11-29 11:16 | MHC.PC.OV ---
Vital Signs 11/29/23 11:16 Height 5 ft 4 in Weight 236 lb BMI 40.5 BP 126/60 Blood Pressure Location Lt brachial Position Sitting Pulse 68 Pulse Source Pulse Oximeter Pulse Oximetry (%) 96 Oxygen Delivery Method Room Air Intake Visit Reasons: BP and edema Intake Note: Pt is here today for a follow up visit on BP and edema. Allergies chamomile flower [CHAMOMILE HAWKINS] Allergy (Intermediate, Verified 11/29/23 11:28) RASH lisinopril Allergy (Unknown, Verified 11/29/23 11:28) Nausea simvastatin Allergy (Unknown, Verified 11/29/23 11:28) NAUSEA ropinirole Adverse Reaction (Intermediate, Verified 11/29/23 11:28) HIGH BLOOD PRESSURE Sulfa (Sulfonamide Antibiotics) Adverse Reaction (Mild, Verified 11/29/23 11:28) RASH gabapentin Adverse Reaction (Unknown, Verified 11/29/23 11:28) Fatigued Daisys Adverse Reaction (Severe, Uncoded 11/29/23 11:28) rash Medication List - Last Reconciled 11/29/23 by Iman Pulliam MD acetylcarnitin HCl-a lipoic ac 400-200 mg caps PO albuterol sulfate 90 mcg/actuation 2 puffs inhalation Q6H PRN amlodipine 5 mg PO DAILY calcium carbonate (Calcium 600) 600 mg PO BID cholecalciferol (vitamin D3) 25 mcg PO BID [collagen 1,000 mg PO DAILY] dextroamphetamine-amphetamine 10 mg ER 1 cap PO QAM diclofenac sodium 1% 2 grams topical DAILY PRN folic acid 1 mg PO DAILY gabapentin 300 mg PO BEDTIME 30 days hydroxychloroquine 200 mg PO BID loratadine 10 mg PO DAILY methotrexate sodium 25 mg (10 x 2.5 mg) PO QWEEK jghycvugltzs-vrdmfmde-zysjdw 1 tab PO DAILY omega 0-iae-hfm-fish oil 1,000 mg (120 mg-180 mg) (Fish Oil) 1 cap PO BID sertraline 50 mg PO BEDTIME vitamin B complex 1 cap PO DAILY Tobacco use date assessed: 11/29/23 Dental Screening Dental Screen Date: 07/11/23 HPI BP and edema HPI Details Patient presents complaining of increased lower extremity swelling for the last month since the weather became warmer. Patient has been taking amlodipine since June and her blood pressure has been well controlled. Patient denies shortness or breath PND orthopnea palpitations or chest pains. She complains of general arthralgia and follows up with crm manager for rheumatoid arthritis. 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 Undifferentiated connective tissue disease Rheumatoid arthritis Fibromyalgia Depression with anxiety RUSSELL (obstructive sleep apnea) Morbid obesity Surgical History History of colonoscopy History of cyst of breast History of tonsillectomy Family History Father Osteoarthritis (arthritis due to wear and tear of joints) Colon cancer Diverticulosis Stroke HTN (hypertension) Mother HTN (hypertension) Acute arthritis Asthma Heart murmur TIA (transient ischemic attack) Diabetes mellitus Full dentures Family/Other Diabetes mellitus Heart disease CHF (congestive heart failure) Cancer Breast cancer Multiple myeloma Sister Mental health disorder Brother Substance use disorder Social History Household Members: Spouse Housing: House Do you presently have visiting nurse or other home services: No Alcohol intake: never Patient Tobacco Use Status: Never used Tobacco e-Cigarette/Vaping Use: Never Used service: No Current occupational status: employed 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 Patrice Agosto, Megan Hu, Bobby Jackson and colleagues, with an educational johnathan from [employer]. Review of Systems Const All systems reviewed & are unremarkable except as noted in HPI and below Eyes Reports no additional complaints Card Reports no additional complaints Resp Reports no additional complaints GI Reports no additional complaints Reports no additional complaints Physical exam (Primary Care) Vital Signs: Last Vital Signs Pulse 68 11/29/23 11:16 BP 126/60 11/29/23 11:16 Pulse Ox 96 11/29/23 11:16 Oxygen Delivery Method Room Air 11/29/23 11:16 BMI result Body Mass Index 40.5 Tobacco/Smoking Status: Tobacco use Status Tobacco use date assessed 11/29/23 11/29/23 11:35 Patient Tobacco Use Status Never used Tobacco 11/29/23 11:16 e-Cigarette/Vaping Use Never Used 11/29/23 11:16 Thrive Assessment: Date of Thrive Assessment Date Thrive assessed 07/11/23 11/29/23 11:16 Const General: no acute distress HENMT Head: Yes normal to inspection Ears: hearing grossly normal bilaterally Face and sinus: Yes normal facial exam Neck Neck: Yes supple Resp Effort & Inspection: normal respiratory effort Auscultation: clear to auscultation bilaterally Cardio Rhythm: regular rhythm Heart sounds: S1 normal heart sound present and S2 normal heart sound present Extrem Other: 2+ nonpitting edema bilaterally Assessment and Plan Assessment & Plan (1) HTN (hypertension): Code(s): I10 - Essential (primary) hypertension Qualifiers: Hypertension type: unspecified Qualified Code(s): I10 - Essential (primary) hypertension Plan: Continue 5 mg of amlodipine and add 25 mg of spironolactone. Patient potassium level has been historically borderline low. Patient will return for blood pressure check in 1 week and will follow-up in 1 month, BMP will be checked in 1 week (2) Edema: Code(s): R60.9 - Edema, unspecified Plan: Start 25 mg of spironolactone (3) Undifferentiated connective tissue disease: Comment: onset 2008. +++PROFESSOR OF COUNSELING ++JACY -ve JOYCE -ve RF, -ve CCP Predominantly hand and knee pains. HCQ since 2009 eyes OK 03/2022, 03/2023. Methotrexate added 2011. Sulfasalazine added 2019. stopped 12/2019 due to suspicion of neuropathy Code(s): M35.9 - Systemic involvement of connective tissue, unspecified (4) Rheumatoid arthritis: Code(s): M06.9 - Rheumatoid arthritis, unspecified Plan: Follow-up with rheumatology Orders: Orders Basic Metabolic Panel 1 Week R60.9 - Edema, unspecified Medications: New spironolactone 25 mg PO DAILY 30 tabs 2RF Coding Level of Care Code Est Pt Level 4 (08886) Diagnoses HTN (hypertension) I10 Hypertension type: unspecified Edema R60.9 Undifferentiated connective tissue disease M35.9 Rheumatoid arthritis M06.9
== END 2023-11-29 13:09 | disposition home or self-care (01) ==
PROVIDERS: PCP Internal Medicine; Visit Provider Internal Medicine
DX: I10 Essential (primary) hypertension (principal); R60.9 Edema, unspecified; M35.9 Systemic involvement of connective tissue, unspecified; M06.9 Rheumatoid arthritis, unspecified
CPT/HCPCS: 99214

== ENCOUNTER 2024-01-13 09:53 | Outpatient (REF) | payer OTHER, SELFPAY ==
[2024-01-13 13:58] LABS: MANUAL DIFF FLAG NO
[2024-01-13 14:08] LABS: Basophils Percent Auto 0.4 % (0-2); Eosinophils Absolute Auto 0.1 X10*3/uL (0.0-0.4); Eosinophils Percent Auto 1.8 % (0-4); Hematocrit 44.1 % (37.0-47.0); Hemoglobin 14.5 g/dl (12.0-16.0); Imm Gran Abs Auto 0.02 X10*3/uL (0.00-0.03); Imm Gran Pct Auto 0.3 % (0.0-0.4); Lymphocytes Absolute Auto 2.8 X10*3/uL (1.2-4.9); Lymphocytes Percent Auto 39.2 % (20-40); Mean Corpuscular HGB Conc 32.9 g/dl (31.0-35.0); Mean Corpuscular Hemoglobin 31.3 pg (27.0-33.0); Mean Corpuscular Volume 95.2 fL (80.0-98.0); Monocytes Absolute Auto 0.5 X10*3/uL (0.1-1.2); Monocytes Percent Auto 6.9 % (2-11); Neutrophils Absolute Auto 3.6 x10*3/uL (2.0-8.3); Neutrophils Percent Auto 51.4 % (45-73); Platelet Count 290 X10*3/uL (160-400); Red Blood Count 4.63 X10*6/uL (4.20-5.50); White Blood Count 7.1 X10*3/uL (4.8-10.8)
[2024-01-13 14:16] LABS: Estimated Average Glucose 123 mg/dL; Hemoglobin A1c % 5.9 % (<6.0)
[2024-01-13 15:02] LABS: Alanine Aminotransferase 26 U/L (0-31); Albumin Level 4.5 g/dL (3.5-5.0); Alkaline Phosphatase 59 U/L (39-117); Anion Gap 12 (12-20); Aspartate Amino Transferase 21 U/L (5-31); Bilirubin Total 0.4 mg/dL (0.0-1.0); Blood Urea Nitrogen 11 mg/dL (9-16); C Reactive Protein 1.47 mg/dL (< or = 0.50); Carbon Dioxide 27 mmol/L (22-29); Chloride 106 mmol/L (96-108); Cholesterol 186 mg/dL (<200); Estimated Glomerular Filt Rate > 60; Glucose Random 108 mg/dL (60-115); HDL Cholesterol 54 mg/dL (>40); LDL Cholesterol Calculated 107 mg/dL (<100); Potassium 4.3 mmol/L (3.3-5.1); Sodium 141 mmol/L (135-145); Total Protein 7.5 g/dL (6.5-8.0); Triglycerides 127 mg/dL (<150)
[2024-01-13 15:26] LABS: Erythrocyte Sedimentation Rate 23 MM/HR (0-20)
== END 2024-01-13 09:54 | disposition home or self-care (01) ==
LOC: HO.HMGCLDS 09:53
PROVIDERS: Student in an Organized Health Care Education/Training Program; PCP Internal Medicine; Visit Provider Internal Medicine
DX: Z00.00 Encounter for general adult medical examination without abnormal findings (principal); R73.9 Hyperglycemia, unspecified; M35.9 Systemic involvement of connective tissue, unspecified; G47.33 Obstructive sleep apnea (adult) (pediatric)
CPT/HCPCS: 36415; 80053; 80061; 83036; 85025; 85652; 86140

== ENCOUNTER 2024-01-15 12:28 | Outpatient (AMB) | payer OTHER, SELFPAY ==
[2024-01-15 12:30] VITALS: BP 118/68; PULSE 74; O2SAT 97; BMI 39.5
--- NOTE | 2024-01-15 12:30 | MHC.PC.OV ---
Vital Signs 01/15/24 12:30 Height 5 ft 4 in Weight 230 lb BMI 39.5 BP 118/68 Blood Pressure Location Rt brachial Position Sitting Pulse 74 Pulse Source Pulse Oximeter Pulse Oximetry (%) 97 Oxygen Delivery Method Room Air Intake Visit Reasons: Follow up faiza'd from December. Intake Note: Pt is here today for a follow up visit. Pt states that after starting Amlodipine she noticed red spots on her lower legs. Allergies chamomile flower [CHAMOMILE HAWKINS] Allergy (Intermediate, Verified 01/15/24 12:30) RASH lisinopril Allergy (Unknown, Verified 01/15/24 12:30) Nausea simvastatin Allergy (Unknown, Verified 01/15/24 12:30) NAUSEA ropinirole Adverse Reaction (Intermediate, Verified 01/15/24 12:30) HIGH BLOOD PRESSURE Sulfa (Sulfonamide Antibiotics) Adverse Reaction (Mild, Verified 01/15/24 12:30) RASH gabapentin Adverse Reaction (Unknown, Verified 01/15/24 12:30) Fatigued Daisys Adverse Reaction (Severe, Uncoded 01/15/24 12:30) rash Medication List - Last Reconciled 01/15/24 by Iman Pulliam MD acetylcarnitin HCl-a lipoic ac 400-200 mg caps PO albuterol sulfate 90 mcg/actuation 2 puffs inhalation Q6H PRN amlodipine 5 mg PO DAILY calcium carbonate (Calcium 600) 600 mg PO BID cholecalciferol (vitamin D3) 25 mcg PO BID [collagen 1,000 mg PO DAILY] dextroamphetamine-amphetamine 10 mg ER 1 cap PO QAM diclofenac sodium 1% 2 grams topical DAILY PRN Enbrel SureClick (etanercept) 50 mg subcut QWEEK NS folic acid 1 mg PO DAILY gabapentin 300 mg PO BEDTIME 30 days hydroxychloroquine 200 mg PO BID loratadine 10 mg PO DAILY methotrexate sodium 25 mg (10 x 2.5 mg) PO QWEEK tkncffuksepz-uilaldto-cclrkh 1 tab PO DAILY omega 0-nis-zcx-fish oil 1,000 mg (120 mg-180 mg) (Fish Oil) 1 cap PO BID sertraline 50 mg PO BEDTIME spironolactone 25 mg PO DAILY vitamin B complex 1 cap PO DAILY Tobacco use date assessed: 01/15/24 Fall risk assessment: No Falls in past year Last assessed Fall Risk: 01/15/24 Dental Screening Dental Screen Date: 01/15/24 Did you have a dental visit in the last 12 months?: Yes Did you have a dental problem in the last 6 months where you did not have access to dental care?: No Was dental information given to patient?: Patient has dentist HPI Follow up faiza'd from December. HPI Details Pt presents for f/u HTN, RA, stable on meds. 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 Undifferentiated connective tissue disease Rheumatoid arthritis Fibromyalgia Depression with anxiety RUSSELL (obstructive sleep apnea) Morbid obesity Surgical History History of colonoscopy History of cyst of breast History of tonsillectomy Family History Father Osteoarthritis (arthritis due to wear and tear of joints) Colon cancer Diverticulosis Stroke HTN (hypertension) Mother HTN (hypertension) Acute arthritis Asthma Heart murmur TIA (transient ischemic attack) Diabetes mellitus Full dentures Family/Other Diabetes mellitus Heart disease CHF (congestive heart failure) Cancer Breast cancer Multiple myeloma Sister Mental health disorder Rheumatoid arthritis Moises's disease Brother Substance use disorder Social History Household Members: Spouse Housing: House Do you presently have visiting nurse or other home services: No Alcohol intake: never Patient Tobacco Use Status: Never used Tobacco e-Cigarette/Vaping Use: Never Used service: No Current occupational status: employed 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 How often do you have a drink containing alcohol?: Never 3. How often do you have six or more drinks on one occasion?: Never Total Score: 0 MILDRED-7 AMB Questionnaire MILDRED-7 Date MILDRED - 7 assessed: 07/11/23 Source: Developed by Drs. Patrice Agosto, Megan Hu, Bobby Jackson and colleagues, with an educational johnathan from [employer]. Review of Systems Const All systems reviewed & are unremarkable except as noted in HPI and below Eyes Reports no additional complaints ENT Reports no additional complaints Card Reports no additional complaints Resp Reports no additional complaints GI Reports no additional complaints Reports no additional complaints Physical exam (Primary Care) Vital Signs: Last Vital Signs Pulse 74 01/15/24 12:30 BP 118/68 01/15/24 12:30 Pulse Ox 97 01/15/24 12:30 Oxygen Delivery Method Room Air 01/15/24 12:30 BMI result Body Mass Index 39.5 Tobacco/Smoking Status: Tobacco use Status Tobacco use date assessed 01/15/24 01/15/24 12:38 Patient Tobacco Use Status Never used Tobacco 01/15/24 12:38 e-Cigarette/Vaping Use Never Used 01/15/24 12:38 Thrive Assessment: Date of Thrive Assessment Date Thrive assessed 07/11/23 01/15/24 12:38 Const General: no acute distress HENMT Head: Yes normal to inspection Ears: hearing grossly normal bilaterally Throat: Yes posterior oropharynx normal Eyes General: appearance normal, both eyes and all related structures Neck Neck: Yes no lymphadenopathy and Yes supple Resp Effort & Inspection: normal respiratory effort Auscultation: clear to auscultation bilaterally Cardio Rhythm: regular rhythm Heart sounds: S1 normal heart sound present and S2 normal heart sound present GI Inspection: Yes normal to inspection Palpation (GI): Soft to palpation Percussion: Yes normal to percussion Auscultation: normal bowel sounds Assessment and Plan Assessment & Plan (1) Rheumatoid arthritis: Comment: [facility] Code(s): M06.9 - Rheumatoid arthritis, unspecified Plan: Continue current medications follow-up with rheumatology (2) HTN (hypertension): Code(s): I10 - Essential (primary) hypertension Qualifiers: Hypertension type: unspecified Qualified Code(s): I10 - Essential (primary) hypertension Plan: Continue current medications (3) Obesity (BMI 30-39.9): Code(s): E66.9 - Obesity, unspecified Plan: Increase physical activity decrease caloric intake and weight loss discussed with the patient (4) Hyperglycemia: Code(s): R73.9 - Hyperglycemia, unspecified Plan: A1c is 5.9, ADA diet regular exercise weight loss discussed with the patient return in 6 months with a fasting labs before Orders: Orders Lipid Panel 6 Months I10 - Essential (primary) hypertension, M06.9 - Rheumatoid arthritis, unspecified, R73.9 - Hyperglycemia, unspecified Complete Blood Count Auto Diff 6 Months I10 - Essential (primary) hypertension, M06.9 - Rheumatoid arthritis, unspecified, R73.9 - Hyperglycemia, unspecified TSH reflex Free T4 6 Months I10 - Essential (primary) hypertension, M06.9 - Rheumatoid arthritis, unspecified, R73.9 - Hyperglycemia, unspecified Vitamin D 25-OH Total 6 Months I10 - Essential (primary) hypertension, M06.9 - Rheumatoid arthritis, unspecified, R73.9 - Hyperglycemia, unspecified Hemoglobin A1c 6 Months I10 - Essential (primary) hypertension, M06.9 - Rheumatoid arthritis, unspecified, R73.9 - Hyperglycemia, unspecified Comprehensive Coello. Panel Fast 6 Months I10 - Essential (primary) hypertension, M06.9 - Rheumatoid arthritis, unspecified, R73.9 - Hyperglycemia, unspecified Microalbumin, Random (w Creat) 6 Months I10 - Essential (primary) hypertension, M06.9 - Rheumatoid arthritis, unspecified, R73.9 - Hyperglycemia, unspecified Coding Level of Care Code Est Pt Level 4 (04494) Diagnoses Rheumatoid arthritis M06.9 HTN (hypertension) I10 Hypertension type: unspecified Obesity (BMI 30-39.9) E66.9 Hyperglycemia R73.9
== END 2024-01-15 14:44 | disposition home or self-care (01) ==
PROVIDERS: PCP Internal Medicine; Visit Provider Internal Medicine
DX: M06.9 Rheumatoid arthritis, unspecified (principal); I10 Essential (primary) hypertension; E66.9 Obesity, unspecified; Z68.39 Body mass index [BMI] 39.0-39.9, adult; R73.9 Hyperglycemia, unspecified
CPT/HCPCS: 99214

== ENCOUNTER 2024-01-22 09:46 | Outpatient (AMB) | payer OTHER, SELFPAY ==
--- NOTE | 2024-01-22 09:47 | A.OFFVIS_ITS ---
Vital Signs 01/22/24 09:53 Height 5 ft 4 in Weight 231 lb 7.766 oz BMI 39.7 BP 122/70 Blood Pressure Location Rt brachial Position Sitting Pulse 65 Pulse Source Pulse Oximeter Pulse Oximetry (%) 98 Oxygen Delivery Method Room Air Intake Visit Reasons: RA/CM Intake Note: Patient presents RA. Allergies chamomile flower [CHAMOMILE HAWKINS] Allergy (Intermediate, Verified 01/22/24 09:51) RASH lisinopril Allergy (Unknown, Verified 01/22/24 09:51) Nausea simvastatin Allergy (Unknown, Verified 01/22/24 09:51) NAUSEA ropinirole Adverse Reaction (Intermediate, Verified 01/22/24 09:51) HIGH BLOOD PRESSURE Sulfa (Sulfonamide Antibiotics) Adverse Reaction (Mild, Verified 01/22/24 09:51) RASH gabapentin Adverse Reaction (Unknown, Verified 01/22/24 09:51) Fatigued Daisys Adverse Reaction (Severe, Uncoded 01/15/24 12:30) rash Medication List - Last Reconciled 01/22/24 by Alina Caldwell MD acetylcarnitin HCl-a lipoic ac 400-200 mg caps PO albuterol sulfate 90 mcg/actuation 2 puffs inhalation Q6H PRN amlodipine 5 mg PO DAILY calcium carbonate (Calcium 600) 600 mg PO BID cholecalciferol (vitamin D3) 25 mcg PO BID [collagen 1,000 mg PO DAILY] dextroamphetamine-amphetamine 10 mg ER 1 cap PO QAM diclofenac sodium 1% 2 grams topical DAILY PRN Enbrel SureClick (etanercept) 50 mg subcut QWEEK NS etanercept (Enbrel) 25 mg subcut QWEEK folic acid 1 mg PO DAILY gabapentin 300 mg PO BEDTIME 30 days hydroxychloroquine 200 mg PO BID loratadine 10 mg PO DAILY methotrexate sodium 25 mg (10 x 2.5 mg) PO QWEEK paopjgextesu-qmjdtymu-zqgxmm 1 tab PO DAILY omega 1-gke-ssk-fish oil 1,000 mg (120 mg-180 mg) (Fish Oil) 1 cap PO BID sertraline 50 mg PO BEDTIME spironolactone 25 mg PO DAILY vitamin B complex 1 cap PO DAILY HPI Comments Details: 64-year-old female with UCTD/seronegative RA returns for follow-up. Remains on methotrexate 20 mg weekly, folic acid 1 mg daily and hydroxychloroquine 200 mg Twice daily, she started Enbrel her last visit. She took 6 doses so far and she states that it provides very short-lived relief. For 2 days at the most. She continues to have multiple swollen and painful joints involving her wrists, hands, knees. She denies any side effects related to Enbrel Most recent history by Dr. Rivera 03/2023: The patient returns for evaluation of what we are calling undifferentiated connective tissue disease. She remains on methotrexate 20 mg weekly, folic acid 1 mg daily, hydroxychloroquine 200 mg b.i.d., and mwtl-sow-wfozxvs ibuprofen 200 mg to 600 mg once daily if needed. There are arthralgias in the neck, hands, lower back and knees. She developed COVID apparently in early February. She had fevers, chills, and respiratory symptoms. Also she had fever and more myalgias and arthralgias. She was prescribed Paxil open and developed diarrhea. However she eventually did recover and return to work. 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 Undifferentiated connective tissue disease Fibromyalgia Depression with anxiety RUSSELL (obstructive sleep apnea) Morbid obesity Surgical History History of colonoscopy History of cyst of breast History of tonsillectomy Family History Father Osteoarthritis (arthritis due to wear and tear of joints) Colon cancer Diverticulosis Stroke HTN (hypertension) Mother HTN (hypertension) Acute arthritis Asthma Heart murmur TIA (transient ischemic attack) Diabetes mellitus Full dentures Family/Other Diabetes mellitus Heart disease CHF (congestive heart failure) Cancer Breast cancer Multiple myeloma Sister Mental health disorder Rheumatoid arthritis Moises's disease Brother Substance use disorder Social History Household Members: Spouse Housing: House Do you presently have visiting nurse or other home services: No Alcohol intake: never Patient Tobacco Use Status: Never used Tobacco e-Cigarette/Vaping Use: Never Used service: No Current occupational status: employed 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 Cognitive needs: No Hearing needs: No Vision needs: Yes Review of Systems Musc Reports arthralgias, Reports joint swelling, Reports numbness, Reports stiffness and Reports tingling Neuro Reports numbness and Reports tingling Physical Exam Vital Signs: Last Vital Signs Pulse 65 01/22/24 09:53 BP 122/70 01/22/24 09:53 Pulse Ox 98 01/22/24 09:53 Oxygen Delivery Method Room Air 01/22/24 09:53 BMI result Body Mass Index 39.7 Const General: cooperative, healthy appearing and comfortable Nutritional Appearance: obese morbidly obese Orientation/consciousness: patient oriented x3 Limitations: no limitations HEENT Head: Yes normocephalic and Yes atraumatic Mouth: moist mucous membranes Resp Effort & Inspection: normal respiratory effort and able to speak in complete sentences Auscultation: clear to auscultation bilaterally Cardio Rate: regular rate Rhythm: regular rhythm Skin General skin exam: no rashes or lesions noted Neuro General: patient oriented x3 Extrem Other: Puffiness of MCPs, fingers few tender MCPs bilaterally but most tender is bilateral 1st CMC joints normal range of motion of both elbows Limited range of motion of right shoulder (history of fracture) Bilateral knee pain with full extension Normal nailfold capillaroscopy Assessment & Plan Assessment & Plan (1) Seronegative rheumatoid arthritis: Comment: onset 2008. 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 HCQ since 2009 eyes OK 03/2022, 03/2023. Methotrexate added 2011. Sulfasalazine added 2019. stopped 12/2019 due to suspicion of neuropathy Enbrel added 11/2023 DC ineffective Code(s): M06.00 - Rheumatoid arthritis without rheumatoid factor, unspecified site Category: Medical Plan: This is a 64-year-old female with seronegative RA who presents for follow-up. She is on methotrexate 20 mg weekly, hydroxychloroquine 200 mg Twice daily and E nbrel added last visit. Since Enbrel was added, patient gets 2 days relief at the most. On exam she continues to have multiple swollen and tender joints. Inflammatory markers remain elevated. We will need to change DMARDs. Discussed risks and benefits of Actemra. Patient agreed to proceed. She denies history of diverticulitis. They will start prior authorization for Actemra Continue methotrexate 20 mg weekly Hydroxychloroquine 200 mg Twice daily and folic acid 1 mg daily (2) Undifferentiated connective tissue disease: Comment: onset 2008. 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 HCQ since 2009 eyes OK 03/2022, 03/2023. Code(s): M35.9 - Systemic involvement of connective tissue, unspecified Category: Medical (3) Long-term use of immunosuppressant medication: Code(s): Z79.60 - custodial (current) use of unspecified immunomodulators and immunosuppressants Category: Medical Plan: Monitor safety labs for methotrexate (4) Long-term use of hydroxychloroquine: Comment: eyes OK 03/2022, 03/2023. Code(s): Z79.899 - Other care home (current) drug therapy Category: Medical Plan: Discussed risk of retinopathy associated with hydroxychloroquine. Follow-up regularly with property site manager Plan I spent 35 minutes reviewing patient's chart, evaluating patient, ordering diagnostic workup, counseling patient and documenting in the chart Medications: Discontinued Enbrel SureClick (etanercept) Discontinued Reason: Doctor's Order 50 mg subcut QWEEK 4 mL 2RF NS Coding Level of Care Code Est Pt Level 5 (29232) Complex EM visit Add On G2211 Diagnoses Seronegative rheumatoid arthritis M06.00 Undifferentiated connective tissue disease M35.9 Long-term use of immunosuppressant medication Z79.60 Long-term use of hydroxychloroquine Z79.899
[2024-01-22 09:53] VITALS: BP 122/70; PULSE 65; O2SAT 98; BMI 39.7
== END 2024-01-22 10:30 | disposition home or self-care (01) ==
PROVIDERS: PCP Internal Medicine; Visit Provider Student in an Organized Health Care Education/Training Program
DX: M06.09 Rheumatoid arthritis without rheumatoid factor, multiple sites (principal); M35.89 Other specified systemic involvement of connective tissue; Z79.60 Long term (current) use of unspecified immunomodulators and immunosuppressants; Z79.899 Other long term (current) drug therapy
CPT/HCPCS: 99214

== ENCOUNTER → 2024-01-22 09:46 | Outpatient (BNVA) | payer OTHER, SELFPAY | PROVIDERS: PCP Internal Medicine; Visit Provider Student in an Organized Health Care Education/Training Program ==

== ENCOUNTER 2024-04-14 12:17 | Outpatient (REF) | payer OTHER, SELFPAY ==
[2024-04-14 13:08] LABS: MANUAL DIFF FLAG NO
[2024-04-14 13:28] LABS: Basophils Percent Auto 0.3 % (0-2); Eosinophils Absolute Auto 0.2 X10*3/uL (0.0-0.4); Eosinophils Percent Auto 2.1 % (0-4); Hematocrit 41.5 % (37.0-47.0); Imm Gran Abs Auto 0.05 X10*3/uL (0.00-0.03); Imm Gran Pct Auto 0.7 % (0.0-0.4); Lymphocytes Absolute Auto 2.9 X10*3/uL (1.2-4.9); Lymphocytes Percent Auto 41.2 % (20-40); Mean Corpuscular HGB Conc 33.7 g/dl (31.0-35.0); Mean Corpuscular Hemoglobin 32.7 pg (27.0-33.0); Mean Platelet Volume 9.8 fL (9.4-12.3); Monocytes Absolute Auto 0.6 X10*3/uL (0.1-1.2); Monocytes Percent Auto 8.2 % (2-11); Neutrophils Absolute Auto 3.4 x10*3/uL (2.0-8.3); Neutrophils Percent Auto 47.5 % (45-73); Platelet Count 293 X10*3/uL (160-400); Red Blood Count 4.28 X10*6/uL (4.20-5.50); Red Cell Distribution Width 13.5 % (11.0-16.0); White Blood Count 7.1 X10*3/uL (4.8-10.8)
[2024-04-14 14:09] LABS: Erythrocyte Sedimentation Rate 21 MM/HR (0-20)
[2024-04-14 14:15] LABS: Alanine Aminotransferase 27 U/L (0-31); Albumin Level 4.5 g/dL (3.5-5.0); Alkaline Phosphatase 75 U/L (39-117); Anion Gap 11 (12-20); Aspartate Amino Transferase 23 U/L (5-31); Bilirubin Total 0.3 mg/dL (0.0-1.0); Blood Urea Nitrogen 12 mg/dL (9-16); C Reactive Protein 1.42 mg/dL (< or = 0.50); Calcium 9.7 mg/dL (8.4-10.2); Carbon Dioxide 28 mmol/L (22-29); Chloride 107 mmol/L (96-108); Estimated Glomerular Filt Rate > 60; Glucose Random 102 mg/dL (60-115); Potassium 3.9 mmol/L (3.3-5.1); Sodium 142 mmol/L (135-145); Total Protein 7.8 g/dL (6.5-8.0)
== END 2024-04-14 12:18 | disposition home or self-care (01) ==
LOC: HO.HMGCLDS 12:17
PROVIDERS: PCP Internal Medicine; Visit Provider Student in an Organized Health Care Education/Training Program
DX: Z51.81 Encounter for therapeutic drug level monitoring (principal); Z79.60 Long term (current) use of unspecified immunomodulators and immunosuppressants
CPT/HCPCS: 36415; 80053; 85025; 85652; 86140

== ENCOUNTER 2024-04-15 10:23 | Outpatient (AMB) | payer OTHER, SELFPAY ==
--- NOTE | 2024-04-15 10:28 | MHC.OFFVIS ---
Vital Signs 04/15/24 10:34 Height 5 ft 4 in Weight 236 lb 5.369 oz BMI 40.6 BP 120/68 Blood Pressure Location Rt brachial Position Sitting Pulse 61 Pulse Source Pulse Oximeter Pulse Oximetry (%) 96 Oxygen Delivery Method Room Air Intake Visit Reasons: RA/CM Intake Note: Patient presents for RA. Allergies chamomile flower [CHAMOMILE HAWKINS] Allergy (Intermediate, Verified 04/15/24 10:32) RASH lisinopril Allergy (Unknown, Verified 04/15/24 10:32) Nausea simvastatin Allergy (Unknown, Verified 04/15/24 10:32) NAUSEA ropinirole Adverse Reaction (Intermediate, Verified 04/15/24 10:32) HIGH BLOOD PRESSURE Sulfa (Sulfonamide Antibiotics) Adverse Reaction (Mild, Verified 04/15/24 10:32) RASH gabapentin Adverse Reaction (Unknown, Verified 04/15/24 10:32) Fatigued Daisys Adverse Reaction (Severe, Uncoded 01/15/24 12:30) rash Medication List - Last Reconciled 04/15/24 by Alina Cadlwell MD acetylcarnitin HCl-a lipoic ac 400-200 mg caps PO albuterol sulfate 90 mcg/actuation 2 puffs inhalation Q6H PRN amlodipine 5 mg PO DAILY calcium carbonate (Calcium 600) 600 mg PO BID cholecalciferol (vitamin D3) 25 mcg PO BID dextroamphetamine-amphetamine 10 mg ER 1 cap PO QAM diclofenac sodium 1% 2 grams topical DAILY PRN folic acid 1 mg PO DAILY gabapentin 300 mg PO BEDTIME 30 days Humira(CF) Pen (adalimumab) 40 mg (0.4 mL) subcut Q2W NS hydroxychloroquine 200 mg PO BID loratadine 10 mg PO DAILY methotrexate sodium 25 mg (10 x 2.5 mg) PO QWEEK kdbxtavraoup-rycobkwm-fmguos 1 tab PO DAILY nystatin 4 mL PO QID 14 days omega 8-qfd-rpj-fish oil 1,000 mg (120 mg-180 mg) (Fish Oil) 1 cap PO BID sertraline 50 mg PO BEDTIME spironolactone 25 mg PO DAILY vitamin B complex 1 cap PO DAILY HPI Comments Details: 64-year-old female with UCTD/seronegative RA returns for follow-up. Remains on methotrexate 20 mg weekly, folic acid 1 mg daily and hydroxychloroquine 200 mg Twice daily, she started Humira after her last visit. It is well tolerated. She is unaware of any side effects related to Humira. She states that continues to have puffiness of the hands. She has pain in her DIPs. She also states that she gets very rapid shooting pains of her hands, this happens about once a week and it lasts 1 minute. Over the last one-month she has had multiple episodes when she felt that her left knee buckled and gave out on her. No knee injuries Most recent history by Dr. Rivera 03/2023: The patient returns for evaluation of what we are calling undifferentiated connective tissue disease. She remains on methotrexate 20 mg weekly, folic acid 1 mg daily, hydroxychloroquine 200 mg b.i.d., and xriq-pof-uqstnlg ibuprofen 200 mg to 600 mg once daily if needed. There are arthralgias in the neck, hands, lower back and knees. She developed COVID apparently in early February. She had fevers, chills, and respiratory symptoms. Also she had fever and more myalgias and arthralgias. She was prescribed Paxil open and developed diarrhea. However she eventually did recover and return to work. 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 Undifferentiated connective tissue disease Fibromyalgia Depression with anxiety RUSSELL (obstructive sleep apnea) Morbid obesity Surgical History History of colonoscopy History of cyst of breast History of tonsillectomy Family History Father Osteoarthritis (arthritis due to wear and tear of joints) Colon cancer Diverticulosis Stroke HTN (hypertension) Mother HTN (hypertension) Acute arthritis Asthma Heart murmur TIA (transient ischemic attack) Diabetes mellitus Full dentures Family/Other Diabetes mellitus Heart disease CHF (congestive heart failure) Cancer Breast cancer Multiple myeloma Sister Mental health disorder Rheumatoid arthritis Moises's disease Brother Substance use disorder Social History Household Members: Spouse Housing: House Do you presently have visiting nurse or other home services: No Alcohol intake: never Patient Tobacco Use Status: Never used Tobacco e-Cigarette/Vaping Use: Never Used service: No Current occupational status: employed 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 Cognitive needs: No Hearing needs: No Vision needs: Yes Review of Systems Musc Reports arthralgias, Reports joint swelling, Reports numbness, Reports stiffness and Reports tingling Neuro Reports numbness and Reports tingling Physical Exam Vital Signs: Last Vital Signs Pulse 61 04/15/24 10:34 BP 120/68 04/15/24 10:34 Pulse Ox 96 04/15/24 10:34 Oxygen Delivery Method Room Air 04/15/24 10:34 BMI result Body Mass Index 40.6 Const General: cooperative, healthy appearing and comfortable Nutritional Appearance: obese morbidly obese Orientation/consciousness: patient oriented x3 Limitations: no limitations HEENT Head: Yes normocephalic and Yes atraumatic Mouth: moist mucous membranes Resp Effort & Inspection: normal respiratory effort and able to speak in complete sentences Auscultation: clear to auscultation bilaterally Cardio Rate: regular rate Rhythm: regular rhythm Skin General skin exam: no rashes or lesions noted Neuro General: patient oriented x3 Extrem Other: Puffiness of MCPs, fingers Right 2nd MCP tenderness. Most tender however is some of her prominent Heberden's nodes normal range of motion of both elbows Limited range of motion of right shoulder (history of fracture) Bilateral knee pain with full extension Normal nailfold capillaroscopy Assessment & Plan Assessment & Plan (1) Seronegative rheumatoid arthritis: Comment: onset 2008. 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 HCQ since 2009 eyes OK 03/2022, 03/2023. Methotrexate added 2011. Sulfasalazine added 2019. stopped 12/2019 due to suspicion of neuropathy Enbrel added 11/2023 DC ineffective Humira 01/2024 effective Code(s): M06.00 - Rheumatoid arthritis without rheumatoid factor, unspecified site Category: Medical Plan: This is a 64-year-old female with seronegative RA who presents for follow-up. She is on methotrexate 20 mg weekly, hydroxychloroquine 200 mg Twice daily and Humira 40 mg every other week added last visit. Patient is doing well today with no active synovitis. Her symptoms are due to degenerative arthritis. Continue current meds as prescribed Labs before next visit in 3 months (2) Undifferentiated connective tissue disease: Comment: onset 2008. 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 HCQ since 2009 eyes OK 03/2022, 03/2023. 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 Patient fully aware. Advised patient to seek medical care LIVE if patient has an infection and advised patient to stop the medication until the infection is resolved. (4) Long-term use of hydroxychloroquine: Comment: eyes OK 03/2022, 03/2023. Code(s): Z79.899 - Other intermediate manager (current) drug therapy Category: Medical Plan: Discussed risk of retinopathy associated with hydroxychloroquine. Follow-up regularly with lead miner blasting. (5) Bilateral carpal tunnel syndrome: Code(s): G56.03 - Carpal tunnel syndrome, bilateral upper limbs Category: Medical Plan: Confirmed with EMG/NCV on the right hand. Referred to hand surgeon (6) Internal derangement of left knee: Code(s): M23.92 - Unspecified internal derangement of left knee Category: Medical Plan: Will check left knee MRI to rule out internal derangement such as meniscal tear (7) Osteoarthritis of hand, primary localized: Code(s): M19.049 - Primary osteoarthritis, unspecified hand Category: Medical Qualifiers: Laterality: unspecified laterality Qualified Code(s): M19.049 - Primary osteoarthritis, unspecified hand Plan: Refer to hand surgery Plan I spent 45 minutes reviewing patient's chart, evaluating patient, ordering diagnostic workup, counseling patient and documenting in the chart Orders: Orders Erythrocyte Sedimentation Rate 3 Months M06.00 - Rheumatoid arthritis without rheumatoid factor, unspecified site C Reactive Protein 3 Months M06.00 - Rheumatoid arthritis without rheumatoid factor, unspecified site MR knee LT wo con Today M23.92 - Unspecified internal derangement of left knee Complete Blood Count Auto Diff 3 Months M06.00 - Rheumatoid arthritis without rheumatoid factor, unspecified site Comprehensive Met. Panel 3 Months M06.00 - Rheumatoid arthritis without rheumatoid factor, unspecified site Referrals Hand Surgery Referral G56.03 - Carpal tunnel syndrome, bilateral upper limbs, M19.049 - Primary osteoarthritis, unspecified hand Medications: Discontinued Actemra ACTPen (tocilizumab) Discontinued Reason: Doctor's Order 162 mg (0.9 mL) subcut QWEEK 1.8 mL 2RF NS Coding Level of Care Code Est Pt Level 5 (41068) Complex EM visit Add On G2211 Diagnoses Seronegative rheumatoid arthritis M06.00 Undifferentiated connective tissue disease M35.9 Long-term use of immunosuppressant medication Z79.60 Long-term use of hydroxychloroquine Z79.899 Bilateral carpal tunnel syndrome G56.03 Internal derangement of left knee M23.92 Localized, primary osteoarthritis of hand, unspecified laterality M19.049 Laterality: unspecified laterality
[2024-04-15 10:34] VITALS: BP 120/68; PULSE 61; O2SAT 96; BMI 40.6
== END 2024-04-15 11:12 | disposition home or self-care (01) ==
PROVIDERS: PCP Internal Medicine; Visit Provider Student in an Organized Health Care Education/Training Program
DX: M06.09 Rheumatoid arthritis without rheumatoid factor, multiple sites (principal); M35.89 Other specified systemic involvement of connective tissue; Z79.60 Long term (current) use of unspecified immunomodulators and immunosuppressants; Z79.899 Other long term (current) drug therapy; G56.03 Carpal tunnel syndrome, bilateral upper limbs; M23.92 Unspecified internal derangement of left knee; M19.049 Primary osteoarthritis, unspecified hand
CPT/HCPCS: 99215

== ENCOUNTER → 2024-04-15 10:23 | Outpatient (BNVA) | payer OTHER, SELFPAY | PROVIDERS: PCP Internal Medicine; Visit Provider Student in an Organized Health Care Education/Training Program ==

== ENCOUNTER 2024-04-23 19:54 | Outpatient (REF) | payer OTHER, SELFPAY ==
--- NOTE | ~2024-04-23 | MR_ITS ---
EXAMINATION: MR KNEE WITHOUT CONTRAST, LEFT CLINICAL INFORMATION: Left knee pain and swelling. COMPARISON: Left knee radiographs dated 09/16/2020. TECHNIQUE: MRI of the knee without contrast was performed using routine sequences on a high-field scanner. FINDINGS: MENISCI: Medial Meniscus: Attenuation of the medially extruded meniscal body with inner margin blunting and a nondisplaced oblique inner margin/tibial articular surface tear. Inner margin tibial articular surface tearing extends through the posterior horn and root. Lateral Meniscus: Mild inner margin fraying of the posterior root. LIGAMENTS: Cruciate: Intact. Collateral: Intact. EXTENSOR MECHANISM: Intact quadriceps and patellar tendons. Normal patellofemoral alignment. Subcutaneous edema ventral to the patella without organized fluid collection or hematoma formation. ARTICULAR CARTILAGE/BONE: Patellofemoral Compartment: Patellar articular cartilage signal heterogeneity with areas of full-thickness fissuring/loss at the patellar median ridge measuring up to 0.6 cm in ML dimension. Trochlear signal heterogeneity and surface irregularity. Marginal osteophytes. Medial Compartment: Articular cartilage thinning with signal heterogeneity and surface irregularity and marginal osteophytes. Lateral Compartment: Mild articular cartilage signal heterogeneity with small marginal osteophytes. JOINT FLUID AND BURSAE: Small joint effusion. Loose body posterosuperior to the lateral femoral condyle measuring up to 0.3 cm in greatest dimension. MR/MR knee LT wo con IMPRESSION: 1. Attenuation of the medial meniscal body with inner margin blunting and a nondisplaced oblique inner margin/tibial articular surface tear. Inner margin tibial articular surface tearing extends through the posterior horn and root. 2. Mild inner margin fraying of the lateral meniscus posterior root. 3. Tmyi-dr-irgnrddg patellofemoral as well as moderate medial and mild lateral compartment osteoarthritis. Small joint effusion. Loose body posterosuperior to the lateral femoral condyle measuring up to 0.3 cm. Electronically signed by: Ethan Rincon MD 05/03/2024 02:54 PM EDT
== END 2024-04-23 19:55 | disposition home or self-care (01) ==
LOC: HO.MRI 19:54
PROVIDERS: PCP Internal Medicine; Visit Provider Student in an Organized Health Care Education/Training Program
DX: M23.92 Unspecified internal derangement of left knee (principal)
CPT/HCPCS: 73721

== ENCOUNTER 2024-04-27 07:31 | Outpatient (AMB) | payer OTHER, SELFPAY ==
[2024-04-27 07:33] VITALS: BMI 40.5
--- NOTE | 2024-04-27 07:33 | MHC.OFFVIS ---
Vital Signs 04/27/24 07:33 Height 5 ft 4 in Weight 236 lb BMI 40.5 Intake Visit Reasons: Follow up Intake Note: Patient presents for follow up. Allergies chamomile flower [CHAMOMILE HAWKINS] Allergy (Intermediate, Verified 04/27/24 07:37) RASH lisinopril Allergy (Unknown, Verified 04/27/24 07:37) Nausea simvastatin Allergy (Unknown, Verified 04/27/24 07:37) NAUSEA ropinirole Adverse Reaction (Intermediate, Verified 04/27/24 07:37) HIGH BLOOD PRESSURE Sulfa (Sulfonamide Antibiotics) Adverse Reaction (Mild, Verified 04/27/24 07:37) RASH gabapentin Adverse Reaction (Unknown, Verified 04/27/24 07:37) Fatigued Daisys Adverse Reaction (Severe, Uncoded 04/27/24 07:37) rash HPI Comments Details: 64 y/o female comes for follow up of numbness and tingling in her feet and fingers. her emg was c/w severe carpal tunnel on the right and ulnar neuropathy on left. Increase in gabapentin has helped her feet. Pt is on CPAP now and is complaint and followed up by Dr. Galvan. she is followe dup be Dr. Caldwell. She is on prednisone therapy for undifferentiated connective tissues disease on a as needed basis. Previous history-She has been on sulfasalazine for 2 years for undifferentiated connective tissues disease and she started noticing numbness, tingling in her finger tips and distal toes , shooting pains for about 1 year. SHe was seen by Dr. Estrada in December 2021 and sulfasalazine was stopped as a probable etiology of neuropathy. She started noticing improvement in symptoms 2 mths after she stopped. 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 Undifferentiated connective tissue disease Fibromyalgia Depression with anxiety RUSSELL (obstructive sleep apnea) Morbid obesity Surgical History History of colonoscopy History of cyst of breast History of tonsillectomy Family History Father Osteoarthritis (arthritis due to wear and tear of joints) Colon cancer Diverticulosis Stroke HTN (hypertension) Mother HTN (hypertension) Acute arthritis Asthma Heart murmur TIA (transient ischemic attack) Diabetes mellitus Full dentures Family/Other Diabetes mellitus Heart disease CHF (congestive heart failure) Cancer Breast cancer Multiple myeloma Sister Mental health disorder Rheumatoid arthritis Moises's disease Brother Substance use disorder Social History Household Members: Spouse Housing: House Do you presently have visiting nurse or other home services: No Alcohol intake: never Patient Tobacco Use Status: Never used Tobacco e-Cigarette/Vaping Use: Never Used service: No Current occupational status: employed 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 [employer] Cognitive needs: No Hearing needs: No Vision needs: Yes Physical Exam Vital Signs: BMI result Body Mass Index 40.5 Const General: cooperative, healthy appearing, comfortable and no acute distress Nutritional Appearance: obese Orientation/consciousness: patient oriented x3 Limitations: no limitations HEENT Head: Yes normal to inspection and Yes normocephalic Eyes Pupils: Equal, round and reactive pupils present Neuro General: patient oriented x3, tone normal, moves all extremities and no focal motor deficits Cranial nerves: Yes Facial sensation intact/muscles of mastication intact, Yes Equal, round and reactive pupils present, Yes Bilaterally intact EOM present, Yes Nystagmus not present, Yes Normal facial strength present, Yes Midline tongue present, Yes Symmetric palate elevation present and Yes Ability to bilaterally elevate shoulders present Cognition (Neuro): normal cognition Gait exam (Neuro): Antalgic gait present Motor exam (neuro): 5/5 motor strength present throughout and Motor abnormalities not present Coordination: tyopyv-zh-btvk test normal Psych Appearance: grossly normal Mental Status: mental status grossly normal Results Reviewed Results Reviewed: EMG 11/18 1. Cfwbbsew-la-eusagw right median neuropathy across carpal tunnel. 2. Mild right ulnar neuropathy across cubital tunnel. Assessment & Plan Assessment & Plan (1) Carpal tunnel syndrome of right wrist: Code(s): G56.01 - Carpal tunnel syndrome, right upper limb Category: Medical (2) Ulnar neuropathy at elbow of left upper extremity: Code(s): G56.22 - Lesion of ulnar nerve, left upper limb Category: Medical (3) RUSSELL (obstructive sleep apnea): Comment: She is a known case of obstructive sleep apnea due to her morbid obesity. Uses CPAP regularly with good effect and sleeps well. Compliance is good. Code(s): G47.33 - Obstructive sleep apnea (adult) (pediatric) Category: Medical Plan F/u with Hand surgery Continue gabapentin 300 mg qHS for legs discomfort and shooting pain. ALpha lipoic acid and B complex in AM Continue CPAP and f/u with Dr. Galvan. Coding Level of Care Code Est Pt Level 4 (72649) Complex EM visit Add On G2211 Diagnoses Carpal tunnel syndrome of right wrist G56.01 Ulnar neuropathy at elbow of left upper extremity G56.22 RUSSELL (obstructive sleep apnea) G47.33
== END 2024-04-27 08:12 | disposition home or self-care (01) ==
PROVIDERS: PCP Internal Medicine; Visit Provider Psychiatry & Neurology Neurology
DX: G56.01 Carpal tunnel syndrome, right upper limb (principal); G56.22 Lesion of ulnar nerve, left upper limb; G47.33 Obstructive sleep apnea (adult) (pediatric)
CPT/HCPCS: 99214

== ENCOUNTER → 2024-04-27 07:31 | Outpatient (BNVA) | payer OTHER, SELFPAY | PROVIDERS: PCP Internal Medicine; Visit Provider Psychiatry & Neurology Neurology | DX: R20.2 Paresthesia of skin (principal); R20.0 Anesthesia of skin; G47.33 Obstructive sleep apnea (adult) (pediatric) ==

== ENCOUNTER 2024-05-04 11:36 | Outpatient (AMB) | payer OTHER, SELFPAY ==
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
[2024-05-04 11:46] VITALS: BMI 40.2
== END 2024-05-04 12:35 | disposition home or self-care (01) ==
LOC: HO.HOS 11:37
PROVIDERS: PCP Internal Medicine
DX: G56.21 Lesion of ulnar nerve, right upper limb (principal); G56.01 Carpal tunnel syndrome, right upper limb
CPT/HCPCS: 99204

== ENCOUNTER → 2024-05-04 11:36 | Outpatient (BNVA) | payer OTHER, SELFPAY | PROVIDERS: PCP Internal Medicine ==

== ENCOUNTER 2024-06-15 10:51 | Outpatient (REF) | payer OTHER, SELFPAY ==
--- NOTE | ~2024-06-15 | XR_ITS ---
EXAMINATION: XR RIGHT KNEE CLINICAL INFORMATION: Pain in right knee M25.561. COMPARISON: XR Right knee 04/08/2019 TECHNIQUE: AP standing view of the right FINDINGS: Mild medial compartment osteoarthritis. XR/XR knee RT 1V IMPRESSION: Mild medial compartment osteoarthritis. Electronically signed by: Tra Miranda MD 07/23/2024 01:50 PM [facility]
--- NOTE | ~2024-06-15 | XR_ITS ---
EXAMINATION: XR LEFT KNEE CLINICAL INFORMATION: Pain in left knee M25.562. COMPARISON: MR Left knee 04/23/2024 TECHNIQUE: AP standing view and lateral and sunrise views of the left knee FINDINGS: Moderate medial and mild patellofemoral/lateral compartment osteoarthritis with a trace joint effusion. No acute abnormality. XR/XR knee LT 3V IMPRESSION: Tricompartmental osteoarthritis with a trace joint effusion. Electronically signed by: Tra Miranda MD 07/23/2024 01:49 PM [facility]
== END 2024-06-15 10:52 | disposition home or self-care (01) ==
LOC: HO.HOSX 10:51
PROVIDERS: Visit Provider Physician Assistant
DX: M25.561 Pain in right knee (principal); M25.562 Pain in left knee
CPT/HCPCS: 73560; 73562

== ENCOUNTER 2024-06-15 11:17 | Outpatient (AMB) | payer OTHER, SELFPAY ==
--- NOTE | 2024-06-15 11:31 | MHC.OFFVIS ---
Intake Visit Reasons: New prob- Left knee tear of medial meniscus Intake Note: Misa is a 64 year old female who presents today with a cane for a evaluation of her left knee pain, DOI 02/2024. Patient reports she was on vacation when she was lifting her luggage and she felt a pull in her knee. She mentions still having pain in her knee and it feels tender and stiff. Allergies chamomile flower [CHAMOMILE HAWKINS] Allergy (Intermediate, Verified 06/15/24 11:36) RASH lisinopril Allergy (Unknown, Verified 06/15/24 11:36) Nausea simvastatin Allergy (Unknown, Verified 06/15/24 11:36) NAUSEA ropinirole Adverse Reaction (Intermediate, Verified 06/15/24 11:36) HIGH BLOOD PRESSURE Sulfa (Sulfonamide Antibiotics) Adverse Reaction (Mild, Verified 06/15/24 11:36) RASH gabapentin Adverse Reaction (Unknown, Verified 06/15/24 11:36) Fatigued Daisys Adverse Reaction (Severe, Uncoded 05/04/24 11:47) rash Medication List - Last Reconciled 06/15/24 by Hoang Gr PA-C albuterol sulfate 90 mcg/actuation 2 puffs inhalation Q6H PRN amlodipine 5 mg PO DAILY calcium carbonate (Calcium 600) 600 mg PO BID cholecalciferol (vitamin D3) 25 mcg PO BID dextroamphetamine-amphetamine 10 mg ER 1 cap PO QAM diclofenac sodium 1% 2 grams topical DAILY PRN folic acid 1 mg PO DAILY gabapentin 300 mg PO BEDTIME 30 days gentamicin 0.3% 1 drp ophthalmic (eye) Q8H Humira(CF) Pen (adalimumab) 40 mg (0.4 mL) subcut Q2W NS hydroxychloroquine 200 mg PO BID loratadine 10 mg PO DAILY methotrexate sodium 25 mg (10 x 2.5 mg) PO QWEEK jhnghjudhakh-zxwqmnwy-dyirbg 1 tab PO DAILY omega 2-ocw-gph-fish oil 1,000 (120-180) mg (Fish Oil) 1 cap PO BID sertraline 50 mg PO BEDTIME spironolactone 25 mg PO DAILY vitamin B complex 1 cap PO DAILY HPI HPI New prob- Left knee tear of medial meniscus: Details: 64-year-old female who presents to the office today for an evaluation of left knee injury, 02/2024. She reports she was on vacation when she was lifting a luggage and felt a pull in her knee. She currently states she has pain, stiffness and tenderness in her knee. Prior to this incident, she has had knee pain for the last 10 years which is affevting her quality of life. She has diff with stairs and daily chores. She has a history of sleep apnea and uses a CPAP. 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 Undifferentiated connective tissue disease Fibromyalgia Depression with anxiety RUSSELL (obstructive sleep apnea) Morbid obesity Surgical History History of colonoscopy History of cyst of breast History of tonsillectomy Family History Father Osteoarthritis (arthritis due to wear and tear of joints) Colon cancer Diverticulosis Stroke HTN (hypertension) Mother HTN (hypertension) Acute arthritis Asthma Heart murmur TIA (transient ischemic attack) Diabetes mellitus Full dentures Family/Other Diabetes mellitus Heart disease CHF (congestive heart failure) Cancer Breast cancer Multiple myeloma Sister Mental health disorder Rheumatoid arthritis Moises's disease Brother Substance use disorder Social History Household Members: Spouse Housing: House Do you presently have visiting nurse or other home services: No Alcohol intake: never Patient Tobacco Use Status: Never used Tobacco e-Cigarette/Vaping Use: Never Used service: No Current occupational status: employed 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 Tenderness along the medial and lateral joint line. Full ROM with crepitus. Negative Julio C?s. No ligamentous laxity. NVI. Results Reviewed Results Reviewed: Xrays were obtained in the office today and personally reviewed by me of the left knee show moderate oa MRI left knee IMPRESSION: 1. Attenuation of the medial meniscal body with inner margin blunting and a nondisplaced oblique inner margin/tibial articular surface tear. Inner margin tibial articular surface tearing extends through the posterior horn and root. 2. Mild inner margin fraying of the lateral meniscus posterior root. 3. Yurc-id-ciqujyfu patellofemoral as well as moderate medial and mild lateral compartment osteoarthritis. Small joint effusion. Loose body posterosuperior to the lateral femoral condyle measuring up to 0.3 cm. Assessment & Plan Assessment & Plan (1) Osteoarthritis of left knee: Code(s): M17.12 - Unilateral primary osteoarthritis, left knee Category: Medical Plan We had a lengthy discussion about the extent of her osteoarthritis and options available which include surgical intervention. He is interested in pursuing Total knee arthroplasty to improve his functional capacity and daily activities. I explained to her the procedure in detail, the hospital stays and details about post op rehab and precautions. He does understand all this and would like to move forward. I did put him in contact with our Nurse Navigator, Paola, who will set him up with pre-op planning and book accordingly. All questions were answered. Orders: Orders XR knee RT 1V Today M25.561 - Pain in right knee XR knee LT 3V Today M25.562 - Pain in left knee PT Evaluation and Treatment Today M17.12 - Unilateral primary osteoarthritis, left knee Patient Instructions: Scribed for Hoang Gr PA-C, by Luis Wolf medical delivery technician, on 06/15/2024 at 11:30 AM EST.? I, Hoang Gr PA-C, have personally reviewed and agree with the information entered by the scribe. Coding Level of Care Code Est Pt Level 4 (19725) Complex EM visit Add On G2211 Diagnoses Osteoarthritis of left knee M17.12
--- OUTSIDE RECORDS SUMMARY | 2024-06-17 15:10 | XMS_ITS | Patient Health Record ---
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 Name Role Phone Iman Pulliam MD Primary Care Provider Patrice Lundberg Unavailable [phone] ALLERGIES Allergen (clinical drug ingredient) Drug/Non Drug Allergy documented on EMR Reaction Allergy Type Onset Date Status Sulfa Unknown Drug Allergy Active REASON FOR REFERRAL No Information MEDICATIONS Medication SIG (Take, Route, Frequency, Duration) Notes Start Date End Date Status Cinnamon 500 MG Orally Acti ve Centrum Silver Orally Activ e Sertraline HCl 100 MG 1 tablet Orally On ce a day Active Ferrous Sulfate CR A ctive Calcium 600 + D 600-200 MG-UNIT Orally Active Fish Oil 1200 MG 1 capsule Orally Onc e a day Active sulfaSALAzine 500 MG 1 tablet Orally Onc e a day for 30 day(s) Active Plaquenil 200 MG 1 tablet with food o r milk Orally Once a day Active IMMUNIZATIONS Vaccine Route Administration Date Status Comme nts Influenza Unknown 04/25/2021 Administered SOCIAL HISTORY Sex Assigned At : Social History Observation Description Sex Assigned At Unknown PROBLEMS Problem Type ICD Code Onset Dates Problem Status W/U Status Risk SNOMED Code Notes Problem Encounter for screening for malignant neoplasm of colon (Z12.11) Active confirmed Screening for malignant neoplasm of colon (885300885) Problem Family history of malignant neoplasm of digestive organs (Z80.0) Active confirmed Family history of malignant neoplasm of gastrointestinal tract (478701949) Problem Encounter for other preprocedural examination (Z01.818) Active confirmed Pre-procedure evaluation check (185479982) Problem Diverticulosis of colon (K57.30) Active confirmed Diverticulosi s of colon (662338838) PLAN OF TREATMENT Future Test Test Name Order Date COLONOSCOPY 12/22/2014 COLONOSCOPY 12/20/2021 Insurance Providers Payer Name Payer Address Payer Phone Subscriber Number Group Number Insured Name Patient Relationship to Insured Coverage Start Date Coverage End Date [employer] [place] [address] [address] [place] [address] [id number] HARJEET CULLEN Self - patient is the insured MEDICAL (GENERAL) HISTORY Medical History History ICD Code Negative Colonoscopies in 24 09 and in 08-29-2009, other than diverticulosis and internal hemorrhoids-- GERD--[id number]. except for a m inimal HH-no esophagitis Cervical polyps Depression/anxiety Sleep apnea-uses CPAP Diffuse unspecified connecti ve tissue disease, SLE, Osteoarthritis---sees Dr. Doshi HTN Denies [place],DM,CVA,Lung disease,renal dise ase MCTD-unspecified Fibromyalgia Osteoarthritis Negative colonoscopy in 2014 Surgical History Surgery Date(Month/Year) LEEP Benign breast cyst Tonsils
== END 2024-06-15 12:00 | disposition home or self-care (01) ==
PROVIDERS: PCP Internal Medicine; Visit Provider Physician Assistant
DX: M17.12 Unilateral primary osteoarthritis, left knee (principal)
CPT/HCPCS: 99214

== ENCOUNTER 2024-06-26 09:49 | Outpatient (REF) | payer OTHER, SELFPAY ==
--- OUTSIDE RECORDS SUMMARY | 2024-06-26 09:52 | XMS_ITS | Patient Health Record ---
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 Name Role Phone Iman Pulliam MD Primary Care Provider Patrice Lundberg Unavailable [phone] ALLERGIES Allergen (clinical drug ingredient) Drug/Non Drug [...] confirmed Screening for malignant neoplasm of colon (619003857) Problem Family history of malignant neoplasm of digestive organs (Z80.0) Active confirmed Family history of malignant neoplasm of gastrointestinal tract (769164312) Problem Encounter for other preprocedural examination (Z01.818) Active confirmed Pre-procedure evaluation check (323111803) Problem Diverticulosis of colon (K57.30) Active confirmed Diverticulosi s of colon (929560533) PLAN OF TREATMENT Future Test Test Name Order Date COLONOSCOPY 12/22/2014 COLONOSCOPY 12/20/2021 Insurance Providers Payer Name Payer Address Payer Phone Subscriber Number Group Number Insured Name Patient Relationship to Insured Coverage Start Date Coverage End Date [employer] [place] [address] [address] [place] [address] [id number] 1 HARJEET CULLEN Self - patient is the insured MEDICAL (GENERAL) HISTORY Medical History History ICD Code Negative Colonoscopies in 24 09 and in 08-29-2009, other than diverticulosis and internal hemorrhoids-- GERD--[id number]--lmd. except for a m inimal HH-no esophagitis Cervical polyps Depression/anxiety Sleep apnea-uses CPAP Diffuse unspecified connecti ve tissue disease, SLE, Osteoarthritis---sees Dr. Doshi HTN Denies [place],DM,CVA,Lung disease,renal dise ase MCTD-unspecified Fibromyalgia Osteoarthritis Negative colonoscopy in 2014 Surgical History Surgery Date(Month/Year) LEEP Benign breast cyst Tonsils
[2024-06-26 13:23] LABS: MANUAL DIFF FLAG NO
[2024-06-26 13:27] LABS: Basophils Percent Auto 0.4 % (0-2); Eosinophils Absolute Auto 0.2 X10*3/uL (0.0-0.4); Eosinophils Percent Auto 2.4 % (0-4); Hematocrit 44.2 % (37.0-47.0); Hemoglobin 14.7 g/dl (12.0-16.0); Imm Gran Abs Auto 0.03 X10*3/uL (0.00-0.03); Imm Gran Pct Auto 0.4 % (0.0-0.4); Lymphocytes Absolute Auto 2.7 X10*3/uL (1.2-4.9); Lymphocytes Percent Auto 40.2 % (20-40); Mean Corpuscular HGB Conc 33.3 g/dl (31.0-35.0); Mean Corpuscular Hemoglobin 31.7 pg (27.0-33.0); Mean Corpuscular Volume 95.3 fL (80.0-98.0); Mean Platelet Volume 9.8 fL (9.4-12.3); Monocytes Absolute Auto 0.6 X10*3/uL (0.1-1.2); Monocytes Percent Auto 9.5 % (2-11); Neutrophils Absolute Auto 3.2 x10*3/uL (2.0-8.3); Neutrophils Percent Auto 47.1 % (45-73); Platelet Count 305 X10*3/uL (160-400); Red Blood Count 4.64 X10*6/uL (4.20-5.50); Red Cell Distribution Width 13.2 % (11.0-16.0); White Blood Count 6.8 X10*3/uL (4.8-10.8)
[2024-06-26 13:40] LABS: Estimated Average Glucose 120 mg/dL; Hemoglobin A1C 147.0446 umol/L; Hemoglobin A1c % 5.8 % (<6.0); Total Hemoglobin (HGBA1C) 3688.1011 umol/L
[2024-06-26 13:54] LABS: Creatinine Urine 129.99 mg/dL; Microalbum/Creatinine Ratio Ur 6.9 ug/mg cr (<30)
[2024-06-26 14:10] LABS: Albumin Level 4.3 g/dL (3.5-5.0); Alkaline Phosphatase 65 U/L (39-117); Anion Gap 13 (12-20); Aspartate Amino Transferase 33 U/L (5-31); Bilirubin Total 0.4 mg/dL (0.0-1.0); Blood Urea Nitrogen 13 mg/dL (9-16); Calcium 9.8 mg/dL (8.4-10.2); Carbon Dioxide 27 mmol/L (22-29); Chloride 106 mmol/L (96-108); Cholesterol 190 mg/dL (<200); Estimated Glomerular Filt Rate > 60; Glucose Fasting 106 mg/dL (60-99); HDL Cholesterol 55 mg/dL (>40); LDL Cholesterol Calculated 105 mg/dL (<100); Potassium 4.3 mmol/L (3.3-5.1); Sodium 142 mmol/L (135-145); TSH reflex Free T4 2.24 uIU/mL (0.32-4.0); Total Protein 7.4 g/dL (6.5-8.0); Triglycerides 154 mg/dL (<150); Vitamin D 25-OH Total 87.5 ng/mL (>30)
[2024-06-26 14:12] LABS: Alanine Aminotransferase 33 U/L (0-31)
== END 2024-06-26 09:50 | disposition home or self-care (01) ==
LOC: HO.HMGCLDS 09:49
PROVIDERS: PCP Internal Medicine; Visit Provider Internal Medicine
DX: M06.00 Rheumatoid arthritis without rheumatoid factor, unspecified site (principal); R73.9 Hyperglycemia, unspecified; I10 Essential (primary) hypertension; M06.9 Rheumatoid arthritis, unspecified
CPT/HCPCS: 36415; 80053; 80061; 82043; 82306; 82570; 83036; 84443; 85025; 86140

== ENCOUNTER 2024-07-10 11:26 | Outpatient (AMB) | payer OTHER, SELFPAY ==
--- NOTE | 2024-07-10 11:42 | MHC.PC.OV ---
Vital Signs 07/10/24 11:44 Height 5 ft 4 in Weight 238 lb BMI 40.8 BP 126/74 Blood Pressure Location Lt brachial Position Sitting Pulse 73 Pulse Source Pulse Oximeter Pulse Oximetry (%) 95 Oxygen Delivery Method Room Air Intake Visit Reasons: Annual PE Intake Note: Pt is here today for PE. Allergies chamomile flower [CHAMOMILE HAWKINS] Allergy (Intermediate, Verified 07/10/24 11:44) RASH lisinopril Allergy (Unknown, Verified 07/10/24 11:44) Nausea simvastatin Allergy (Unknown, Verified 07/10/24 11:44) NAUSEA ropinirole Adverse Reaction (Intermediate, Verified 07/10/24 11:44) HIGH BLOOD PRESSURE Sulfa (Sulfonamide Antibiotics) Adverse Reaction (Mild, Verified 07/10/24 11:44) RASH gabapentin Adverse Reaction (Unknown, Verified 07/10/24 11:44) Fatigued Daisys Adverse Reaction (Severe, Uncoded 07/10/24 11:44) rash Tobacco use date assessed: 07/10/24 Fall risk assessment: No Falls in past year Last assessed Fall Risk: 07/10/24 Dental Screening Dental Screen Date: 07/10/24 Did you have a dental visit in the last 12 months?: Yes Did you have a dental problem in the last 6 months where you did not have access to dental care?: No Was dental information given to patient?: Patient has dentist HPI Annual PE HPI Details Pt presents for PE. Pt will have R carpal and ulnar surgery in 2 weeks and an knee replacement surgery in October. [facility] Medical History (Updated 07/10/24 @ 12:49 by Iman Pulliam MD) Annual physical exam Internal derangement of left knee Ulnar neuropathy at elbow of left upper extremity Carpal tunnel syndrome of right wrist Brain TIA Tingling of right upper extremity Muscle cramps Numbness and tingling Osteoarthritis of hand, primary localized Elevated LFTs Hyperglycemia TURCIOS (dyspnea on exertion) longterm methotrexate user Undifferentiated connective tissue disease Fibromyalgia Depression with anxiety RUSSELL (obstructive sleep apnea) Morbid obesity Surgical History History of colonoscopy History of cyst of breast History of tonsillectomy Family History Father Osteoarthritis (arthritis due to wear and tear of joints) Colon cancer Diverticulosis Stroke HTN (hypertension) Mother HTN (hypertension) Acute arthritis Asthma Heart murmur TIA (transient ischemic attack) Diabetes mellitus Full dentures Family/Other Diabetes mellitus Heart disease CHF (congestive heart failure) Cancer Breast cancer Multiple myeloma Sister Mental health disorder Rheumatoid arthritis Moises's disease Brother Substance use disorder Social History Household Members: Spouse Housing: House Do you presently have visiting nurse or other home services: No Alcohol intake: never Patient Tobacco Use Status: Never used Tobacco e-Cigarette/Vaping Use: Never Used service: No Current occupational status: employed 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 1. Little interest or pleasure in doing things: not at all 2. Feeling down, depressed, or hopeless: not at all 3. Trouble falling or staying asleep, or sleeping too much: not at all 4. Feeling tired or having little energy: several days 5. Poor appetite or overeating: not at all 6. Feeling bad about yourself - or that you are a failure or have let yourself or your family down: not at all 7. Trouble concentrating on things, such as reading the newspaper or watching television: not at all 8. Moving or speaking so slowly that other people could have noticed. Or the opposite - being so fidgety or restless that you have been moving around a lot more than usual: not at all 9. Thoughts that you would be better off or of hurting yourself in some way: not at all Total score: 1 Depression Screening Interpretation: Negative Depression Screening Done: Yes 05963 - PHQ-9 Billing: Yes Source: Developed by Drs. Patrice Agosto, Megan Hu, Bobby Jackson and colleagues, with an educational johnathan from [employer]. Thrive Questionnaire Date Thrive assessed: 07/10/24 I am a: Patient What is your living situation today?: I have a steady place to live Within the past 12 months, did the food you bought not last and you didn't have the money to get more?: Never true Within the past 12 months, did you worry whether your food would run out before you got money to buy more?: Never true Do you have trouble paying for medicines?: No Do you have trouble getting transportation to medical appointments?: No Do you have trouble paying your heating and electricity bill?: No Do you have trouble taking care of your child, family member or friend?: No Do you have trouble with day-to-day activities such as bathing, preparing meals, shopping, managing finances, etc.?: No Are you currently unemployed and looking for a job?: No Are you interested in more education?: Yes Please select the resources that you would like help with: None Currently or been in a relationship where the following occur: No concerns reported THRIVE Score: 0 AUDIT C Alcohol Use Questionnaire (AUDIT-C) 1. How often do you have a drink containing alcohol?: Never 3. How often do you have six or more drinks on one occasion?: Never Total Score: 0 MILDRED-7 AMB Questionnaire MILDRED-7 Date MILDRED - 7 assessed: 07/10/24 Feeling nervous, anxious, or on edge: 0 = Not at all Not being able to stop or control worryin = Not at all Worrying too much about different things: 0 = Not at all Trouble relaxin = Not at all Being so restless that it is hard to sit still: 0 = Not at all Becoming easily annoyed or irritable: 1 = Several days Feeling afraid as if something awful might happen: 0 = Not at all Total MILDRED-7 score (0-4 normal; 5-9 mild; 10-14 moderate; 15-21 severe): 1 Source: Developed by Drs. Patrice Agosto, Megan Hu, Bobby Jackson and colleagues, with an educational johnathan from [employer]. MILDRED-7 Assessment Billing MILDRED-7 Assessment Tool: MILDRED-7 Assessment 04491 Review of Systems Const All systems reviewed & are unremarkable except as noted in HPI and below Eyes Reports no additional complaints ENT Reports no additional complaints Card Reports no additional complaints Resp Reports no additional complaints GI Reports no additional complaints Reports no additional complaints Physical exam (Primary Care) Vital Signs: Last Vital Signs Pulse 73 07/10/24 11:44 BP 126/74 07/10/24 11:44 Pulse Ox 95 07/10/24 11:44 Oxygen Delivery Method Room Air 07/10/24 11:44 BMI result Body Mass Index 40.8 Tobacco/Smoking Status: Tobacco use Status Tobacco use date assessed 07/10/24 07/10/24 11:47 Patient Tobacco Use Status Never used Tobacco 07/10/24 11:47 e-Cigarette/Vaping Use Never Used 07/10/24 11:42 PHQ-9: PHQ-9 Score PHQ-9: Total score 1 07/10/24 12:06 Depression Screening Interpretation: Negative Thrive Assessment: Date of Thrive Assessment Date Thrive assessed 07/10/24 07/10/24 11:47 Currently or been in a relationship where the following occur: No concerns reported Const General: no acute distress HENMT Head: Yes normal to inspection Face and sinus: Yes normal facial exam Eyes General: appearance normal, both eyes and all related structures Neck Neck: Yes no lymphadenopathy and Yes supple Resp Effort & Inspection: normal respiratory effort Auscultation: clear to auscultation bilaterally Cardio Rhythm: regular rhythm Heart sounds: S1 normal heart sound present and S2 normal heart sound present GI Inspection: Yes normal to inspection Palpation (GI): Soft to palpation Percussion: Yes normal to percussion Auscultation: normal bowel sounds Coding Level of Care Code Est Pt Prev Care >65y(64713) Diagnoses Seronegative rheumatoid arthritis M06.00 HTN (hypertension) I10 Hypertension type: unspecified Undifferentiated connective tissue disease M35.9 Morbid obesity E66.01 Annual physical exam Z00.00 Hyperglycemia R73.9 Additional Codes MILDRED-7 Assessment Billing - MILDRED-7 Assessment Tool: MILDRED-7 Assessment 34287 ([id number]) PHQ-9 - 40867 - PHQ-9 Billing: Yes ([id number]) Assessment & Plan Assessment & Plan (1) Seronegative rheumatoid arthritis: Comment: onset 2008. 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 HCQ since 2009 eyes OK 03/2022, 03/2023. Methotrexate added 2011. Sulfasalazine added 2019. stopped 12/2019 due to suspicion of neuropathy Enbrel added 11/2023 DC ineffective Humira 01/2024 effective Code(s): M06.00 - Rheumatoid arthritis without rheumatoid factor, unspecified site Category: Medical Plan: Follow-up with rheumatology (2) HTN (hypertension): Code(s): I10 - Essential (primary) hypertension Category: Medical Qualifiers: Hypertension type: unspecified Qualified Code(s): I10 - Essential (primary) hypertension Plan: Continue current medications (3) Undifferentiated connective tissue disease: Comment: onset 2008. 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 HCQ since 2009 eyes OK 03/2022, 03/2023. Code(s): M35.9 - Systemic involvement of connective tissue, unspecified Category: Medical Plan: Follow-up with Rheumatology (4) Morbid obesity: Comment: Patient remains morbidly obese . BMI= 40 Code(s): E66.01 - Morbid (severe) obesity due to excess calories Category: Medical Plan: Decreasing caloric intake increasing physical activity and weight loss discussed with the patient (5) Annual physical exam: Code(s): Z00.00 - Encounter for general adult medical examination without abnormal findings Category: Medical Plan: Well-balanced diet regular physical activity log weight loss discussed with the patient she is up-to-date with mammogram colonoscopy, return in 6 months with a fasting labs before (6) Hyperglycemia: Code(s): R73.9 - Hyperglycemia, unspecified Category: Medical Plan: ADA diet increase exercise weight loss discussed with the patient check A1c Orders: Orders Complete Blood Count Auto Diff 6 Months E55.9 - Vitamin D deficiency, unspecified, I10 - Essential (primary) hypertension, M06.00 - Rheumatoid arthritis without rheumatoid factor, unspecified site, R73.9 - Hyperglycemia, unspecified TSH reflex Free T4 6 Months E55.9 - Vitamin D deficiency, unspecified, I10 - Essential (primary) hypertension, M06.00 - Rheumatoid arthritis without rheumatoid factor, unspecified site, R73.9 - Hyperglycemia, unspecified Vitamin D 25-OH Total 6 Months E55.9 - Vitamin D deficiency, unspecified, I10 - Essential (primary) hypertension, M06.00 - Rheumatoid arthritis without rheumatoid factor, unspecified site, R73.9 - Hyperglycemia, unspecified Comprehensive [place]. Panel Fast 6 Months E55.9 - Vitamin D deficiency, unspecified, I10 - Essential (primary) hypertension, M06.00 - Rheumatoid arthritis without rheumatoid factor, unspecified site, R73.9 - Hyperglycemia, unspecified Lipid Panel 6 Months E55.9 - Vitamin D deficiency, unspecified, I10 - Essential (primary) hypertension, M06.00 - Rheumatoid arthritis without rheumatoid factor, unspecified site, R73.9 - Hyperglycemia, unspecified Hemoglobin A1c 6 Months E55.9 - Vitamin D deficiency, unspecified, I10 - Essential (primary) hypertension, M06.00 - Rheumatoid arthritis without rheumatoid factor, unspecified site, R73.9 - Hyperglycemia, unspecified
[2024-07-10 11:44] VITALS: BP 126/74; PULSE 73; O2SAT 95; BMI 40.8
--- OUTSIDE RECORDS SUMMARY | 2024-07-10 13:14 | XMS_ITS | Patient Health Record ---
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 Name Role Phone Iman Pulliam MD Primary Care Provider Patrice Lundberg Unavailable [phone] ALLERGIES Allergen (clinical drug ingredient) Drug/Non Drug [...] confirmed Screening for malignant neoplasm of colon (351648487) Problem Family history of malignant neoplasm of digestive organs (Z80.0) Active confirmed Family history of malignant neoplasm of gastrointestinal tract (694237769) Problem Encounter for other preprocedural examination (Z01.818) Active confirmed Pre-procedure evaluation check (833781061) Problem Diverticulosis of colon (K57.30) Active confirmed Diverticulosi s of colon (061173700) PLAN OF TREATMENT Future Test Test Name Order Date COLONOSCOPY 12/22/2014 COLONOSCOPY 12/20/2021 Insurance Providers Payer Name Payer Address Payer Phone Subscriber Number Group Number Insured Name Patient Relationship to Insured Coverage Start Date Coverage End Date [employer] [place] [address] [address] [place] [address] [id number] 1 HARJEET CULLEN Self - patient is the insured MEDICAL (GENERAL) HISTORY Medical History History ICD Code Negative Colonoscopies in 24 09 and in 08-29-2009, other than diverticulosis and internal hemorrhoids-- GERD--[id number]--sxu. except for a m inimal HH-no esophagitis Cervical polyps Depression/anxiety Sleep apnea-uses CPAP Diffuse unspecified connecti ve tissue disease, SLE, Osteoarthritis---sees Dr. Doshi HTN Denies [place],DM,CVA,Lung disease,renal dise ase MCTD-unspecified Fibromyalgia Osteoarthritis Negative colonoscopy in 2014 Surgical History Surgery Date(Month/Year) LEEP Benign breast cyst Tonsils
== END 2024-07-10 12:32 | disposition home or self-care (01) ==
PROVIDERS: PCP Internal Medicine; Visit Provider Internal Medicine
DX: Z00.00 Encounter for general adult medical examination without abnormal findings (principal); M06.00 Rheumatoid arthritis without rheumatoid factor, unspecified site; E66.01 Morbid (severe) obesity due to excess calories; Z68.41 Body mass index [BMI] 40.0-44.9, adult; M35.9 Systemic involvement of connective tissue, unspecified; I10 Essential (primary) hypertension; R73.9 Hyperglycemia, unspecified

== ENCOUNTER → 2024-07-10 11:26 | Outpatient (BNVA) | payer OTHER, SELFPAY | PROVIDERS: PCP Internal Medicine; Visit Provider Internal Medicine | DX: Z00.00 Encounter for general adult medical examination without abnormal findings (principal); M06.00 Rheumatoid arthritis without rheumatoid factor, unspecified site; I10 Essential (primary) hypertension; M35.9 Systemic involvement of connective tissue, unspecified; E66.01 Morbid (severe) obesity due to excess calories; Z68.41 Body mass index [BMI] 40.0-44.9, adult; R73.9 Hyperglycemia, unspecified | CPT/HCPCS: 96127 ==

== ENCOUNTER 2024-07-14 10:10 | Outpatient (REF) | payer OTHER, SELFPAY ==
--- OUTSIDE RECORDS SUMMARY | 2024-07-14 10:49 | XMS_ITS | Patient Health Record ---
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 Name Role Phone Iman Pulliam MD Primary Care Provider Patrice Lundberg Unavailable [phone] ALLERGIES Allergen (clinical drug ingredient) Drug/Non Drug [...] confirmed Screening for malignant neoplasm of colon (000223478) Problem Family history of malignant neoplasm of digestive organs (Z80.0) Active confirmed Family history of malignant neoplasm of gastrointestinal tract (427570555) Problem Encounter for other preprocedural examination (Z01.818) Active confirmed Pre-procedure evaluation check (862431591) Problem Diverticulosis of colon (K57.30) Active confirmed Diverticulosi s of colon (795754671) PLAN OF TREATMENT Future Test Test Name Order Date COLONOSCOPY 12/22/2014 COLONOSCOPY 12/20/2021 Insurance Providers Payer Name Payer Address Payer Phone Subscriber Number Group Number Insured Name Patient Relationship to Insured Coverage Start Date Coverage End Date [employer] [place] [address] [address] [place] [address] [id number] 1 HARJEET CULLEN Self - patient is the insured MEDICAL (GENERAL) HISTORY Medical History History ICD Code Negative Colonoscopies in 24 09 and in 08-29-2009, other than diverticulosis and internal hemorrhoids-- GERD--[id number]--dos. except for a m inimal HH-no esophagitis Cervical polyps Depression/anxiety Sleep apnea-uses CPAP Diffuse unspecified connecti ve tissue disease, SLE, Osteoarthritis---sees Dr. Doshi HTN Denies [place],DM,CVA,Lung disease,renal dise ase MCTD-unspecified Fibromyalgia Osteoarthritis Negative colonoscopy in 2014 Surgical History Surgery Date(Month/Year) LEEP Benign breast cyst Tonsils
[2024-07-14 13:13] LABS: MANUAL DIFF FLAG NO
[2024-07-14 13:25] LABS: Basophils Percent Auto 0.4 % (0-2); Eosinophils Absolute Auto 0.1 X10*3/uL (0.0-0.4); Eosinophils Percent Auto 1.7 % (0-4); Hematocrit 42.2 % (37.0-47.0); Hemoglobin 14.1 g/dl (12.0-16.0); Imm Gran Abs Auto 0.02 X10*3/uL (0.00-0.03); Imm Gran Pct Auto 0.3 % (0.0-0.4); Lymphocytes Absolute Auto 3.2 X10*3/uL (1.2-4.9); Lymphocytes Percent Auto 42.5 % (20-40); Mean Corpuscular HGB Conc 33.4 g/dl (31.0-35.0); Mean Corpuscular Hemoglobin 31.8 pg (27.0-33.0); Mean Corpuscular Volume 95.3 fL (80.0-98.0); Monocytes Absolute Auto 0.7 X10*3/uL (0.1-1.2); Monocytes Percent Auto 9.7 % (2-11); Neutrophils Absolute Auto 3.4 x10*3/uL (2.0-8.3); Neutrophils Percent Auto 45.4 % (45-73); Platelet Count 280 X10*3/uL (160-400); Red Blood Count 4.43 X10*6/uL (4.20-5.50); Red Cell Distribution Width 13.2 % (11.0-16.0); White Blood Count 7.5 X10*3/uL (4.8-10.8)
[2024-07-14 13:57] LABS: Alanine Aminotransferase 37 U/L (0-31); Albumin Level 4.4 g/dL (3.5-5.0); Alkaline Phosphatase 59 U/L (39-117); Anion Gap 10 (12-20); Aspartate Amino Transferase 33 U/L (5-31); Bilirubin Total 0.5 mg/dL (0.0-1.0); Blood Urea Nitrogen 11 mg/dL (9-16); Calcium 9.1 mg/dL (8.4-10.2); Carbon Dioxide 27 mmol/L (22-29); Chloride 108 mmol/L (96-108); Estimated Glomerular Filt Rate > 60; Glucose Random 123 mg/dL (60-115); Potassium 4.2 mmol/L (3.3-5.1); Sodium 141 mmol/L (135-145); Total Protein 7.5 g/dL (6.5-8.0)
[2024-07-14 14:11] LABS: Erythrocyte Sedimentation Rate 23 MM/HR (0-20)
== END 2024-07-14 10:11 | disposition home or self-care (01) ==
LOC: HO.HMGCLDS 10:10
PROVIDERS: PCP Internal Medicine; Referring Provider Student in an Organized Health Care Education/Training Program; Visit Provider Internal Medicine
DX: M06.00 Rheumatoid arthritis without rheumatoid factor, unspecified site (principal)
CPT/HCPCS: 36415; 80053; 85025; 85652

== ENCOUNTER 2024-07-15 09:57 | Outpatient (AMB) | payer OTHER, SELFPAY ==
--- NOTE | 2024-07-15 09:59 | MHC.OFFVIS ---
Vital Signs 07/15/24 10:00 Height 5 ft 4 in Weight 238 lb BMI 40.8 Intake Visit Reasons: Preop RT cubital/CTR 07/23/24 AR Intake Note: Misa is a 64 year old female who presents today for a pre operative appointment, she is booked for Right Cubital and Carpal Tunnel Release 07/23/24. She is questioning what medications she continue to take/discontinue prior to and morning of surgery. Allergies chamomile flower [CHAMOMILE HAWKINS] Allergy (Intermediate, Verified 07/15/24 10:00) RASH lisinopril Allergy (Unknown, Verified 07/15/24 10:00) Nausea simvastatin Allergy (Unknown, Verified 07/15/24 10:00) NAUSEA ropinirole Adverse Reaction (Intermediate, Verified 07/15/24 10:00) HIGH BLOOD PRESSURE Sulfa (Sulfonamide Antibiotics) Adverse Reaction (Mild, Verified 07/15/24 10:00) RASH gabapentin Adverse Reaction (Unknown, Verified 07/15/24 10:00) Fatigued Daisys Adverse Reaction (Severe, Uncoded 07/15/24 10:00) rash HPI HPI Preop RT cubital/CTR 07/23/24 AR: Details: Misa is a 64 year old female who presents today for a pre operative appointment, she is booked for Right Cubital and Carpal Tunnel Release 07/23/24. She is questioning what medications she continue to take/discontinue prior to and morning of surgery. [facility] Medical History Annual physical exam Internal derangement of left knee Ulnar neuropathy at elbow of left upper extremity Carpal tunnel syndrome of right wrist Brain TIA Tingling of right upper extremity Muscle cramps Numbness and tingling Osteoarthritis of hand, primary localized Elevated LFTs Hyperglycemia TURCIOS (dyspnea on exertion) long-term methotrexate user Undifferentiated connective tissue disease Fibromyalgia Depression with anxiety RUSSELL (obstructive sleep apnea) Morbid obesity Surgical History History of colonoscopy History of cyst of breast History of tonsillectomy Family History Father Osteoarthritis (arthritis due to wear and tear of joints) Colon cancer Diverticulosis Stroke HTN (hypertension) Mother HTN (hypertension) Acute arthritis Asthma Heart murmur TIA (transient ischemic attack) Diabetes mellitus Full dentures Family/Other Diabetes mellitus Heart disease CHF (congestive heart failure) Cancer Breast cancer Multiple myeloma Sister Mental health disorder Rheumatoid arthritis Moises's disease Brother Substance use disorder Social History Household Members: Spouse Housing: House Do you presently have visiting nurse or other home services: No Alcohol intake: never Patient Tobacco Use Status: Never used Tobacco e-Cigarette/Vaping Use: Never Used service: No Current occupational status: employed 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 No thenar or intrinsic wasting. Good APB muscle firing, weak finger cross bilaterally Vascular: Capillary refill brisk. ROM: Patient can make a fist and extend all their digits. Skin: No lacerations or abrasions noted. General: No ecchymosis. No erythema or evidence of infection. Results Reviewed Results Reviewed: MPRESSION: 1. [id number] right median neuropathy across carpal tunnel. 2. Mild right ulnar neuropathy across cubital tunnel. MD FRANK Mcelroy/GEORGE Assessment & Plan Assessment & Plan (1) Cubital tunnel syndrome on right: Code(s): G56.21 - Lesion of ulnar nerve, right upper limb Category: Medical (2) Carpal tunnel syndrome of right wrist: Code(s): G56.01 - Carpal tunnel syndrome, right upper limb Category: Medical Plan 1. Carpal tunnel syndrome, right 2. Cubital tunnel syndrome, right Symptoms intermittent, but daily, worse at night I educated the patient about the condition. I discussed both operative and nonoperative treatment options. The patient would like to proceed with surgery. The risks and benefits of operative treatment were discussed with the patient and the patient wishes to proceed with surgery. These risks include, but are not limited to, risk of damage to blood vessels, nerves, tendons, infection, recurrence, incomplete relief of preoperative symptoms, persistent pain, possible need for further surgery, and the risks associated with regional blocks and/or anesthesia. Plan is to take the patient to the operating room at some point in the next few weeks for the following procedures: 1. Right Cubital tunnel release under general anesthesia 2. Carpal tunnel syndrome, right under general anesthesia All of the preoperative paperwork including the consent was discussed today. All of the patient's questions were answered in the clinic today. The patient understands that they will be in contact with our certified surgical technician to discuss scheduling their procedure. Of note, the patient is on several immunosuppressant medications for chronic immune or inflammatory conditions, and rheumatology will be consulted to see how long these medication should be discontinued prior to surgery. Patient denies diabetes, blood thinners, asthma, heart issues, lung issues, kidney issues, or current smoking. Coding Level of Care Code Est Pt Level 4 (82125) Diagnoses Cubital tunnel syndrome on right G56.21 Carpal tunnel syndrome of right wrist G56.01
[2024-07-15 10:00] VITALS: BMI 40.8
--- OUTSIDE RECORDS SUMMARY | 2024-07-15 10:12 | XMS_ITS | Patient Health Record ---
Author Organization [facility] Address [address] [place] [address] Care Team Providers Care Director [employer] Name Role Phone Iman Pulliam MD Primary Care Provider Patrice Lundberg Unavailable [phone] ALLERGIES Allergen (clinical drug ingredient) Drug/Non Drug [...] confirmed Screening for malignant neoplasm of colon (524369879) Problem Family history of malignant neoplasm of digestive organs (Z80.0) Active confirmed Family history of malignant neoplasm of gastrointestinal tract (595467130) Problem Encounter for other preprocedural examination (Z01.818) Active confirmed Pre-procedure evaluation check (062543115) Problem Diverticulosis of colon (K57.30) Active confirmed Diverticulosi s of colon (597663149) PLAN OF TREATMENT Future Test Test Name Order Date COLONOSCOPY 12/22/2014 COLONOSCOPY 12/20/2021 Insurance Providers Payer Name Payer Address Payer Phone Subscriber Number Group Number Insured Name Patient Relationship to Insured Coverage Start Date Coverage End Date [employer] [place] [address] [address] [place] [address] [id number] HARJEET CULLEN Self - patient is the insured MEDICAL (GENERAL) HISTORY Medical History History ICD Code Negative Colonoscopies in 24 09 and in 08-29-2009, other than diverticulosis and internal hemorrhoids-- GERD--[id number]--hpv. except for a m inimal HH-no esophagitis Cervical polyps Depression/anxiety Sleep apnea-uses CPAP Diffuse unspecified connecti ve tissue disease, SLE, Osteoarthritis---sees Dr. Doshi HTN Denies PA,DM,CVA,Lung disease,renal dise ase MCTD-unspecified Fibromyalgia Osteoarthritis Negative colonoscopy in 2014 Surgical History Surgery Date(Month/Year) LEEP Benign breast cyst Tonsils
== END 2024-07-15 10:23 | disposition home or self-care (01) ==
PROVIDERS: PCP Internal Medicine
DX: G56.21 Lesion of ulnar nerve, right upper limb (principal); G56.01 Carpal tunnel syndrome, right upper limb
CPT/HCPCS: 99214

== ENCOUNTER 2024-07-16 12:57 | Outpatient (AMB) | payer OTHER, SELFPAY ==
[2024-07-16 13:00] VITALS: BP 160/84; PULSE 71; BMI 40.9
--- NOTE | 2024-07-16 13:00 | A.OFFVIS_ITS ---
Vital Signs 07/16/24 13:00 Height 5 ft 4 in Weight 238 lb 8.642 oz BMI 40.9 BP 160/84 H Blood Pressure Location Rt brachial Position Sitting Pulse 71 Pulse Source Pulse Oximeter Intake Visit Reasons: RA Intake Note: Patient last seen by Doctor Alina Caldwell on 04/15/24. Presents today for RA follow up and MRI/labs test results. Cutter Gas Required: No Accompanied by: Self / Same As Patient Allergies chamomile flower [CHAMOMILE HAWKINS] Allergy (Intermediate, Verified 07/16/24 13:05) RASH lisinopril Allergy (Unknown, Verified 07/16/24 13:05) Nausea simvastatin Allergy (Unknown, Verified 07/16/24 13:05) NAUSEA ropinirole Adverse Reaction (Intermediate, Verified 07/16/24 13:05) HIGH BLOOD PRESSURE Sulfa (Sulfonamide Antibiotics) Adverse Reaction (Mild, Verified 07/16/24 13:05) RASH gabapentin Adverse Reaction (Unknown, Verified 07/16/24 13:05) Fatigued Daisys Adverse Reaction (Severe, Uncoded 07/16/24 13:05) rash Medication List - Last Reconciled 07/16/24 by Alina Caldwell MD albuterol sulfate 90 mcg/actuation 2 puffs inhalation Q6H PRN amlodipine 5 mg PO DAILY calcium carbonate (Calcium 600) 600 mg PO BID cholecalciferol (vitamin D3) 25 mcg PO BID dextroamphetamine-amphetamine 10 mg ER 1 cap PO QAM diclofenac sodium 1% 2 grams topical DAILY PRN folic acid 1 mg PO DAILY gabapentin 300 mg PO BEDTIME 30 days gentamicin 0.3% 1 drp ophthalmic (eye) Q8H Humira(CF) Pen (adalimumab) 40 mg (0.4 mL) subcut Q2W NS hydroxychloroquine 200 mg PO BID loratadine 10 mg PO DAILY methotrexate sodium 20 mg (8 x 2.5 mg) PO QWEEK kgeasjkpkvgc-lzcujyqk-rsgsjd 1 tab PO DAILY omega 4-uxi-mnt-fish oil 1,000 (120-180) mg (Fish Oil) 1 cap PO BID sertraline 50 mg PO BEDTIME spironolactone 25 mg PO DAILY turmeric 3 capsules vitamin B complex 1 cap PO DAILY HPI Comments Details: 64-year-old female with UCTD/seronegative RA returns for follow-up. Remains on methotrexate 25 mg weekly, folic acid 1 mg daily and hydroxychloroquine 200 mg Twice daily, Humira 40 mg every other week. She states that she continues to have episodes of joint pains especially of her hands, knees. She has been taking extra-strength Tylenol, 650 mg about 4 tablets a day, denies any recent alcohol use, she is scheduled for right carpal tunnel release as well as cubital tunnel release soon and left knee replacement in October Most recent history by Dr. Rivera 03/2023: The patient returns for evaluation of what we are calling undifferentiated connective tissue disease. She remains on methotrexate 20 mg weekly, folic acid 1 mg daily, hydroxychloroquine 200 mg b.i.d., and mmop-shu-yrdrvdz ibuprofen 200 mg to 600 mg once daily if needed. There are arthralgias in the neck, hands, lower back and knees. She developed COVID apparently in early February. She had fevers, chills, and respiratory symptoms. Also she had fever and more myalgias and arthralgias. She was prescribed Paxil open and developed diarrhea. However she eventually did recover and return to work. 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 [facility] Medical History Annual physical exam Internal derangement of left knee Ulnar neuropathy at elbow of left upper extremity Carpal tunnel syndrome of right wrist Brain TIA Tingling of right upper extremity Muscle cramps Numbness and tingling Osteoarthritis of hand, primary localized Elevated LFTs Hyperglycemia TURCIOS (dyspnea on exertion) oysterman methotrexate user Undifferentiated connective tissue disease Fibromyalgia Depression with anxiety RUSSELL (obstructive sleep apnea) Morbid obesity Surgical History History of colonoscopy History of cyst of breast History of tonsillectomy Family History Father Osteoarthritis (arthritis due to wear and tear of joints) Colon cancer Diverticulosis Stroke HTN (hypertension) Mother HTN (hypertension) Acute arthritis Asthma Heart murmur TIA (transient ischemic attack) Diabetes mellitus Full dentures Family/Other Diabetes mellitus Heart disease CHF (congestive heart failure) Cancer Breast cancer Multiple myeloma Sister Mental health disorder Rheumatoid arthritis Moises's disease Brother Substance use disorder Social History Household Members: Spouse Housing: House Do you presently have visiting nurse or other home services: No Alcohol intake: never Patient Tobacco Use Status: Never used Tobacco e-Cigarette/Vaping Use: Never Used service: No Current occupational status: employed 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 [employer] Cognitive needs: No Hearing needs: No Vision needs: Yes Review of Systems Musc Reports arthralgias, Reports joint swelling, Reports numbness, Reports stiffness and Reports tingling Neuro Reports numbness and Reports tingling Physical Exam Vital Signs: Last Vital Signs Pulse 71 07/16/24 13:00 BP 160/84 H 07/16/24 13:00 BMI result Body Mass Index 40.9 Const General: cooperative, healthy appearing and comfortable Nutritional Appearance: obese morbidly obese Orientation/consciousness: patient oriented x3 Limitations: no limitations HEENT Head: Yes normocephalic and Yes atraumatic Mouth: moist mucous membranes Resp Effort & Inspection: normal respiratory effort and able to speak in complete sentences Auscultation: clear to auscultation bilaterally Cardio Rate: regular rate Rhythm: regular rhythm Skin General skin exam: no rashes or lesions noted Neuro General: patient oriented x3 Extrem Other: Puffiness of MCPs, fingers Right 2nd MCP tenderness. Most tender however is some of her prominent Heberden's nodes normal range of motion of both elbows Limited range of motion of right shoulder (history of fracture) Bilateral knee pain with full extension Normal nailfold capillaroscopy Assessment & Plan Assessment & Plan (1) Seronegative rheumatoid arthritis: Comment: onset 2008. +++STUDIO OPERATIONS ENGINEER IN CHARGE ++JACY -ve JOYCE -ve RF, -ve CCP Predominantly hand and knee pains. HCQ since 2009 eyes OK 03/2022, 03/2023. Methotrexate added 2011. Sulfasalazine added 2019. stopped 12/2019 due to suspicion of neuropathy Enbrel added 11/2023 DC ineffective Humira 01/2024 effective Code(s): M06.00 - Rheumatoid arthritis without rheumatoid factor, unspecified site Category: Medical Plan: This is a 64-year-old female with seronegative RA who presents for follow-up. She is on methotrexate 25 mg weekly, hydroxychloroquine 200 mg Twice daily and Humira 40 mg every other week. Doing well overall, she has multiple tender joints and tender points related to mechanical and degenerative arthritis as well as fibromyalgia Recent labs showed some transaminitis, lower methotrexate to 20 mg weekly, advised patient to lower her Tylenol use, can take Aleve once daily as needed. Use it sparingly. continue other meds as prescribed Repeat labs in 6 weeks Labs before next visit in 3 months (2) Undifferentiated connective tissue disease: Comment: onset 2008. +++STUDIO OPERATIONS ENGINEER IN CHARGE ++JACY -ve JOYCE -ve RF, -ve CCP Predominantly hand and knee pains. HCQ since 2009 eyes OK 03/2022, 03/2023, 04/2024 Code(s): M35.9 - Systemic involvement of connective tissue, unspecified Category: Medical (3) Long-term use of immunosuppressant medication: Code(s): Z79.60 - oysterman (current) use of unspecified immunomodulators and immunosuppressants Category: Medical Plan: Monitor safety labs for methotrexate Side effects of Humira were discussed with the patient in detail including increased risk of infection, demyelinating disease, reactivation of latent TB, possible increased risk of solid and skin tumors. Patient fully aware. Advised patient to seek medical care LIVE if patient has an infection and advised patient to stop the medication until the infection is resolved. (4) Long-term use of hydroxychloroquine: Comment: eyes OK 03/2022, 03/2023. 04/2024 Code(s): Z79.899 - Other halfway (current) drug therapy Category: Medical Plan: Discussed risk of retinopathy associated with hydroxychloroquine. Follow-up regularly with senior solutions engineer. (5) Bilateral carpal tunnel syndrome: Code(s): G56.03 - Carpal tunnel syndrome, bilateral upper limbs Category: Medical Plan: Confirmed with EMG/NCV on the right hand. Planned for surgery this month Plan I spent 45 minutes reviewing patient's chart, evaluating patient, ordering diagnostic workup, counseling patient and documenting in the chart Orders: Orders Comprehensive Met. Panel 6 Weeks M06.00 - Rheumatoid arthritis without rheumatoid factor, unspecified site Complete Blood Count Auto Diff 3 Months M35.9 - Systemic involvement of connective tissue, unspecified, Z79.899 - Other halfway (current) drug therapy C Reactive Protein 3 Months M35.9 - Systemic involvement of connective tissue, unspecified, Z79.899 - Other halfway (current) drug therapy Erythrocyte Sedimentation Rate 3 Months M35.9 - Systemic involvement of connective tissue, unspecified, Z79.899 - Other halfway (current) drug therapy C Reactive Protein 6 Weeks M06.00 - Rheumatoid arthritis without rheumatoid factor, unspecified site Comprehensive Met. Panel 3 Months M35.9 - Systemic involvement of connective tissue, unspecified, Z79.899 - Other superintendent container terminal (current) drug therapy Medications: Changed From methotrexate sodium 25 mg (10 x 2.5 mg) PO QWEEK 120 tabs 1RF M35.9 - Systemic involvement of connective tissue, unspecified To methotrexate sodium 20 mg (8 x 2.5 mg) PO QWEEK 96 tabs 0RF M35.9 - Systemic involvement of connective tissue, unspecified Refilled hydroxychloroquine 200 mg PO BID 60 tabs 2RF M35.9 - Systemic involvement of connective tissue, unspecified Coding Level of Care Code Est Pt Level 5 (41700) Complex EM visit Add On G2211 Diagnoses Seronegative rheumatoid arthritis M06.00 Undifferentiated connective tissue disease M35.9 Long-term use of immunosuppressant medication Z79.60 Long-term use of hydroxychloroquine Z79.899 Bilateral carpal tunnel syndrome G56.03
== END 2024-07-16 13:32 | disposition home or self-care (01) ==
PROVIDERS: PCP Internal Medicine; Visit Provider Student in an Organized Health Care Education/Training Program
DX: M06.09 Rheumatoid arthritis without rheumatoid factor, multiple sites (principal); M35.89 Other specified systemic involvement of connective tissue; Z79.60 Long term (current) use of unspecified immunomodulators and immunosuppressants; Z79.899 Other long term (current) drug therapy; G56.03 Carpal tunnel syndrome, bilateral upper limbs
CPT/HCPCS: 99215

== ENCOUNTER 2024-07-20 11:03 | Outpatient (RCR) | payer OTHER, SELFPAY ==
--- NOTE | 2024-07-06 16:08 | MHC.PT.EP ---
[facility] [place] [facility] [place] [facility] [place] Office [address] Newton Castillo [address] [phone] F: [phone] F: [phone] F: [phone] F: [phone] Physical Therapy Plan of Care Date of Evaluation: 07/06/24 Date of Surgery: Diagnosis: L knee TKA prehab. Assessment: Pt is a 64 y/o female with Hx of OA, TIA, OA, HTN who is referred to PT for L TKA prehab for surgery scheduled for the spring; Pt reports long Hx of knee pain which has resulted in decreased tolerance for walking, standing for duration, negotiating stairs and curbs, and performing squatting and heavier HH chores secondary to decreased L knee ROM and strength, decreased hip abd strength, gait abnormality, degenerative L knee joint process, and pain. Pt is deemed an appropriate candidate to receive skilled PT services to address their physical impairments in order to improve their functional ability. Frequency and Duration: The patient will be seen 2 x/ wk x 2 wks. Short Term Goals: Initiate home program. 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 Improve knee flexion ROM to at least 120 degrees; initial 115. I with post op stair, walker, and cane management. Treatment Plan: Modalities to reduce pain, spasms and effusion. Manual therapy to restore motion and function. Therapeutic exercise to improve strength and flexibility. Neuromuscular re-education for posture and balance. Therapeutic activities to return to functional activities of daily living. Electronically signed by: Filipe Villeda PT. Please sign and return to therapist. Thank you for your referral.
--- NOTE | 2024-07-20 13:18 | MHC.PT.DC ---
[facility] [place] Office [place] Office [place] Office [address] Newton Castillo [address] [phone] F: [phone] F: [phone] F: [phone] F: [phone] Physical Therapy Discharge Report Diagnosis: L knee TKA prehab. Date of Surgery: Date of Evaluation: 07/06/24 Date of Discharge: 07/20/24 Treatments to Date: 5 Cancellations to Date: No Shows to Date: Discharge Status: Achieved Goals Independent with HEP Discharge Summary: 07/20: Misa has been an active participant in her prehab in and out of the clinic; she is I with her pre-op home program as well as with stair negotiation post surgery. Pt is in agreement with DC at this time. Electronically signed by: Filipe Villeda PT. Please sign and return to therapist. Thank you for your referral.
== END 2024-07-20 13:18 | disposition home or self-care (01) ==
LOC: HO.PT 11:03
PROVIDERS: PCP Internal Medicine; Visit Provider Physician Assistant
DX: M17.12 Unilateral primary osteoarthritis, left knee (principal)
CPT/HCPCS: 97110; 97116; 97161; 97530

== ENCOUNTER 2024-07-23 10:02 | Day surgery (SDC) | payer OTHER, SELFPAY ==
[2024-07-21 11:28] VITALS: BMI 40.3
--- NOTE | 2024-07-21 14:19 | HO.ANESPROP2 ---
Documented by User: Luna Leigh NP 07/21/24 14:20 HPI - Anesthesia Eval Consult details Narrative: 64yo F for Right Cubital Tunnel Release, Carpal Tunnel Release PMFSH Active Problems Active Problems: All Active Problems Vitamin D deficiency (Acute) Osteoarthritis of left knee (Acute) Cubital tunnel syndrome on right (Acute) Tear of medial meniscus of left knee (Acute) Bilateral carpal tunnel syndrome (Acute) Seronegative rheumatoid arthritis (Acute) Edema (Acute) Long-term use of hydroxychloroquine (Acute) Numbness and tingling of left leg (Acute) HTN (hypertension) (Acute) Osteoarthritis of lumbar spine (Acute) Long-term use of immunosuppressant medication (Acute) Iron deficiency (Acute) Post-menopausal (Acute) Bilateral hand numbness (Acute) Primary osteoarthritis of left knee (Acute) Ulnar neuropathy at elbow of left upper extremity (Acute) Carpal tunnel syndrome of right wrist (Acute) Tingling of right upper extremity (Acute) Muscle cramps (Acute) Osteoarthritis of hand, primary localized (Acute) Hyperglycemia (Acute) TURCIOS (dyspnea on exertion) (Acute) Undifferentiated connective tissue disease (Acute) Depression with anxiety (Acute) RUSSELL (obstructive sleep apnea) (Acute) Morbid obesity (Acute) Past Medical History Medical History Ulnar neuropathy at elbow of left upper extremity Carpal tunnel syndrome of right wrist Internal derangement of left knee Tingling of right upper extremity Brain TIA (~06/2023) Muscle cramps Numbness and tingling Osteoarthritis of hand, primary localized Elevated LFTs Hyperglycemia TURCIOS (dyspnea on exertion) correction methotrexate user Undifferentiated connective tissue disease Annual physical exam Fibromyalgia Depression with anxiety RUSSELL (obstructive sleep apnea) Morbid obesity Family History Family History Father Osteoarthritis (arthritis due to wear and tear of joints) Colon cancer Diverticulosis Stroke HTN (hypertension) Mother HTN (hypertension) Acute arthritis Asthma Heart murmur TIA (transient ischemic attack) Diabetes mellitus Full dentures Family/Other Diabetes mellitus Heart disease CHF (congestive heart failure) Cancer Breast cancer Multiple myeloma Sister Mental health disorder Rheumatoid arthritis Moises's disease Brother Substance use disorder Family history of problems with anesthesia: No Surgical History Surgical History History of colonoscopy History of cyst of breast History of tonsillectomy History of Problems with Anesthesia: No Social History Social History Household Members: Spouse Housing: House Are you a primary team primary care physician to a significant other at home: Yes (cares for , hx CVA) Do you presently have visiting nurse or other home services: No Alcohol intake: never Patient Tobacco Use Status: Never used Tobacco e-Cigarette/Vaping Use: Never Used Use of substances other than those prescribed or required for medical reasons: No Have you been hit, kicked, punched, or otherwise hurt by someone within the past year? 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 Cognitive needs: No Hearing needs: No Vision needs: Yes Meds Allergies Allergy/AdvReac Type Severity Reaction Status Date / Time lisinopril Allergy Severe Nausea Verified 07/23/24 10:19 simvastatin Allergy Severe NAUSEA Verified 07/23/24 10:19 chamomile flower Allergy Mild RASH Verified 07/23/24 10:19 [CHAMOMILE HAWKINS] ropinirole AdvReac Intermediate HIGH BLOOD Verified 07/23/24 10:19 PRESSURE gabapentin AdvReac Mild Fatigued Verified 07/23/24 10:19 Sulfa (Sulfonamide AdvReac Mild RASH Verified 07/23/24 10:19 Antibiotics) Daisys AdvReac Mild rash Uncoded 07/23/24 10:19 Home Medications ?Medication ?Instructions ?Recorded ?Confirmed ?Last Taken ?Type calcium carbonate (Calcium 600) 600 mg PO BID 06/15/20 07/21/24 06/17/23 History cholecalciferol (vitamin D3) 25 25 mcg PO BID 09/04/21 07/21/24 06/17/23 History mcg (1,000 unit) capsule kzzhqrrecpdd-plxyzctg-zstavd tablet 1 tab PO DAILY 01/30/22 07/21/24 06/17/23 History loratadine 10 mg tablet 10 mg PO DAILY 06/14/22 07/21/24 06/17/23 History dextroamphetamine-amphetamine ER 1 cap PO QAM 03/28/23 07/21/24 06/17/23 History 10 mg 24hr capsule,extend release sertraline 50 mg tablet 50 mg PO BEDTIME 03/28/23 07/21/24 06/16/23 History vitamin B complex 1 cap PO DAILY 04/01/23 07/21/24 06/17/23 History diclofenac sodium 1 % topical gel 2 g topical DAILY PRN Pain 06/18/23 07/21/24 Unknown History omega 7-hrg-vtm-fish oil 1,000 mg 1 cap PO BID 06/18/23 07/21/24 06/17/23 History (120 mg-180 mg) capsule (Fish Oil) turmeric 400 mg capsule mg PO DAILY 07/10/24 Unknown History alpha lipoic acid 600 mg capsule 600 mg PO DAILY 07/21/24 07/21/24 Unknown History aspirin 81 mg chewable tablet 81 mg PO DAILY 07/21/24 07/21/24 Unknown History gentamicin 0.3 % eye drops 1 drp ophthalmic (eye) Q8H PRN 07/21/24 07/21/24 Unknown History Itching Exam Height,Weight and Vital Signs: Height 5 ft 4 in Weight 106.594 kg Pertinent Lab Results Pertinent Lab Results: Laboratory Tests 07/14/24 10:15 WBC 7.5 Hgb 14.1 Hct 42.2 Plt Count 280 Sodium 141 Potassium 4.2 Chloride 108 Carbon Dioxide 27 BUN 11 Creatinine 0.73 Narrative Narrative: ECHO 2022 Conclusions: - Normal left ventricular size and systolic function. The visually estimated ejection fraction is between 60-65%. - E/E prime ratio is between 8 and 15 consistent with indeterminate filling pressures. There is severe septal asymmetric hypertrophy. - Normal right ventricular cavity size and systolic function. - Moderate plaque is seen in the descending thoracic aorta. Assessment and Plan Assessment Anesthesia Assessment: Chart Reviewed Final Anesthetic Review Family History of Problems with Anesthesia: No History of Problems with Anesthesia: No Documented by User: Radha Rahman MD 07/23/24 13:13 [facility] Past Medical History Medical History Ulnar neuropathy at elbow of left upper extremity Carpal tunnel syndrome of right wrist Internal derangement of left knee Tingling of right upper extremity Brain TIA (~06/2023) Muscle cramps Numbness and tingling Osteoarthritis of hand, primary localized Elevated LFTs Hyperglycemia TURCIOS (dyspnea on exertion) 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 Undifferentiated connective tissue disease Annual physical exam Fibromyalgia Depression with anxiety RUSSELL (obstructive sleep apnea) Morbid obesity Family History Family History Father Osteoarthritis (arthritis due to wear and tear of joints) Colon cancer Diverticulosis Stroke HTN (hypertension) Mother HTN (hypertension) Acute arthritis Asthma Heart murmur TIA (transient ischemic attack) Diabetes mellitus Full dentures Family/Other Diabetes mellitus Heart disease CHF (congestive heart failure) Cancer Breast cancer Multiple myeloma Sister Mental health disorder Rheumatoid arthritis Moises's disease Brother Substance use disorder Surgical History Surgical History History of colonoscopy History of cyst of breast History of tonsillectomy Social History Social History Household Members: Spouse Housing: House Are you a primary team primary care physician to a significant other at home: Yes (cares for , hx CVA) Do you presently have visiting nurse or other home services: No Alcohol intake: never Patient Tobacco Use Status: Never used Tobacco e-Cigarette/Vaping Use: Never Used Use of substances other than those prescribed or required for medical reasons: No Have you been hit, kicked, punched, or otherwise hurt by someone within the past year? 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 Cognitive needs: No Hearing needs: No Vision needs: Yes Meds Allergies Allergy/AdvReac Type Severity Reaction Status Date / Time lisinopril Allergy Severe Nausea Verified 07/23/24 10:19 simvastatin Allergy Severe NAUSEA Verified 07/23/24 10:19 chamomile flower Allergy Mild RASH Verified 07/23/24 10:19 [CHAMOMILE HAWKINS] ropinirole AdvReac Intermediate HIGH BLOOD Verified 07/23/24 10:19 PRESSURE gabapentin AdvReac Mild Fatigued Verified 07/23/24 10:19 Sulfa (Sulfonamide AdvReac Mild RASH Verified 07/23/24 10:19 Antibiotics) Daisys AdvReac Mild rash Uncoded 07/23/24 10:19 Home Medications ?Medication ?Instructions ?Recorded ?Confirmed ?Last Taken ?Type calcium carbonate (Calcium 600) 600 mg PO BID 06/15/20 07/21/24 06/17/23 History cholecalciferol (vitamin D3) 25 25 mcg PO BID 09/04/21 07/21/24 06/17/23 History mcg (1,000 unit) capsule oxdchuoiwmxp-vpcrexhr-vqgsgs tablet 1 tab PO DAILY 01/30/22 07/21/24 06/17/23 History loratadine 10 mg tablet 10 mg PO DAILY 06/14/22 07/21/24 06/17/23 History dextroamphetamine-amphetamine ER 1 cap PO QAM 03/28/23 07/21/24 06/17/23 History 10 mg 24hr capsule,extend release sertraline 50 mg tablet 50 mg PO BEDTIME 03/28/23 07/21/24 06/16/23 History vitamin B complex 1 cap PO DAILY 04/01/23 07/21/24 06/17/23 History diclofenac sodium 1 % topical gel 2 g topical DAILY PRN Pain 06/18/23 07/21/24 Unknown History omega 8-krw-kdc-fish oil 1,000 mg 1 cap PO BID 06/18/23 07/21/24 06/17/23 History (120 mg-180 mg) capsule (Fish Oil) turmeric 400 mg capsule mg PO DAILY 07/10/24 Unknown History alpha lipoic acid 600 mg capsule 600 mg PO DAILY 07/21/24 07/21/24 Unknown History aspirin 81 mg chewable tablet 81 mg PO DAILY 07/21/24 07/21/24 Unknown History gentamicin 0.3 % eye drops 1 drp ophthalmic (eye) Q8H PRN 07/21/24 07/21/24 Unknown History Itching Exam Airway Mallampati Class: II TM Dist: <=3cm Neck ROM: Limited Heart: rrr Lungs: cta Assessment and Plan Assessment Anesthesia Assessment: Anesthesia Plan Discussed Final Anesthetic Review NPO: Yes ASA Class: III Final Preanesthetic Review: No Changes in Pt Med Stat, Meds/Allgs Chart Reviewed, Consent Obtained/Reviewed and Anes Risks/Benef Reviewed Patient Risk: Intermediate Procedure Risk: Intermediate Anesthetic Plan Anesthetic Plan: GA Disposition: Standard PACU
[2024-07-23] VITALS (7 sets, daily range): BP systolic 109–152; BP diastolic 48–72; PULSE 68–85; RESP 12–18; TEMP 36.5–36.6; O2SAT 96–99; BMI 40.7
--- NOTE | 2024-07-23 09:21 | W.PM.OPN ---
Operative Note Operative Note Date of Service: 07/23/24 Narrative: Operative Note Narrative: Preop diagnosis: 1. Right Cubital tunnel syndrome 2. Right carpal tunnel syndrome Postop diagnosis: Same Procedure: 1. Right Cubital Tunnel Release 2. Right carpal tunnel release Surgeon: Tanja Foy MD Marketing Strategy Analyst: Cliff VALDEZ Anesthesia: General Anesthesia Findings: Thickening and fibrosis about the ulnar nerve at the cubital tunnel Implants: none Tourniquet time: 36 minutes EBL: 5.0 ml Specimen: none Drains: None Complications: None Disposition: Brought to the recovery room in stable condition Plan: Follow-up in 10-14 days for wound check, and suture removal Indications: The patient is 64 years old with right cubital tunnel syndrome and right carpal tunnel syndrome . The risks and benefits of operative treatment, including but not limited to risk of damage to blood vessels, nerves, tendons, infection, recurrence, persistent pain or numbness, incomplete resolution of preoperative symptoms, or need for further surgery were discussed with the patient and they wished to proceed with surgery. Procedure: Once consent was obtained patient was brought back to the operating suite and placed in the operating table in a supine position. Perioperative antibiotics and anesthesia was administered by the anesthesia team. The limb was prepped and draped in a standard surgical fashion, and a sterile tourniquet applied to the proximal aspect of the right upper extremity. The limb was elevated exsanguinated with Esmarch bandage and the tourniquet inflated to 250 mm of mercury for a total tourniquet time of 36 minutes. Once assured that we had a good block, a 2.0 cm longitudinal incision was made centered over the right carpal tunnel. The incision was made through the skin to the subcutaneous tissues using a #15 blade. Dissection was made down to the level of the transverse carpal ligament with care being taken to protect the palmar cutaneous nerve. Once the transverse carpal ligament was clearly visualized, a longitudinal incision was made in the transverse carpal ligament 1st using a #15 blade, then using tenotomy scissors under direct visualization. Care was taken to look for and protect the motor branch of the median nerve when seen in this area. Once satisfied with our carpal tunnel release the wound was irrigated with normal saline. A 6 cm gently curved but longitudinally oriented incision was made centered over the cubital tunnel of the right upper extremity. Incision was made through the skin to the subcutaneous tissues using a # 15 Blade. I then dissected down to the level of the medial epicondyle and the cubital tunnel using tenotomy scissors. Care was taken to protect the medial antebrachial cutaneous nerve. The ulnar nerve was identified just posterior to the medial intermuscular septum. The ulnar nerve was released in a proximal to distal direction using tenotomy in iris scissors while directly visualizing and protecting the ulnar nerve. Thickening and fibrosis was appreciated about the ulnar nerve as it passed through the cubital tunnel. The ulnar nerve was assessed as I passed the elbow through full flexion and extension and was found to remain stable within its groove. At this point the tourniquet was deflated and hemostasis obtained with a brief period of local pressure and bipolar electrocautery. The wound was copiously irrigated with normal saline. The subcutaneous layer was closed with 4-0 Vicryl suture, and the skin edges were reapproximated with 5-0 nylon suture. The wound was infiltrated with some 1% lidocaine with epinephrine for postop pain control and sterile dressings were applied. The patient appears to have tolerated the procedure well and with no complications. All digits were well vascularized at the conclusion of the case.
--- NOTE | 2024-07-23 09:23 | MHC.SHP ---
Pre-Procedural Eval Section A - 24 Hr Update-Section A only Date of Service: 07/23/24 The patient is an INPATIENT: No Changes since office visit: No Cold of Flu in the past 2 weeks, No New Medical Problems, No Changes in Medication and No Patient answered all questions The patient has been examined within 24 hours of the surgical procedure. The History & Physical has been completed within 30 days and I have reviewed it.: Yes Section B - Complete if H&P > 30 days Chief Complaint: carpal tunnel realeas,lesion of ulnar nerve Allergies: Allergies Allergy/AdvReac Type Severity Reaction Status Date / Time lisinopril Allergy Severe Nausea Verified 07/21/24 11:24 simvastatin Allergy Severe NAUSEA Verified 07/21/24 11:24 chamomile flower Allergy Mild RASH Verified 07/21/24 11:24 [CHAMOMILE HAWKINS] ropinirole AdvReac Intermediate HIGH BLOOD Verified 07/21/24 11:24 PRESSURE gabapentin AdvReac Mild Fatigued Verified 07/21/24 11:25 Sulfa (Sulfonamide AdvReac Mild RASH Verified 07/21/24 11:24 Antibiotics) Daisys AdvReac Mild rash Uncoded 07/21/24 11:24 Plan I have reviewed the history and physical and performed a pertinent physical examination on my patient. No changes have occurred unless specified. Time Spent With Patient Time: Total time managing care of this patient today ____ minutes.
[2024-07-23] MEDS: Lactated Ringers 1,000 ML 100 ML IVCONT (10:28)
== END 2024-07-23 15:04 | disposition home or self-care (01) ==
PROVIDERS: PCP Internal Medicine; Visit Provider Orthopaedic Surgery
PROC: (CPT 64718; principal; 2024-07-23 12:20)
PROC: (CPT 64721; 2024-07-23 12:20)
DX: G56.01 Carpal tunnel syndrome, right upper limb (principal); G56.21 Lesion of ulnar nerve, right upper limb; R20.0 Anesthesia of skin; R20.2 Paresthesia of skin; M19.049 Primary osteoarthritis, unspecified hand; M79.7 Fibromyalgia; G47.33 Obstructive sleep apnea (adult) (pediatric); F41.9 Anxiety disorder, unspecified; E66.01 Morbid (severe) obesity due to excess calories; Z68.41 Body mass index [BMI] 40.0-44.9, adult; Z79.60 Long term (current) use of unspecified immunomodulators and immunosuppressants; Z88.2 Allergy status to sulfonamides; Z88.8 Allergy status to other drugs, medicaments and biological substances; Z86.73 Personal history of transient ischemic attack (TIA), and cerebral infarction without residual deficits; Z98.890 Other specified postprocedural states
CPT/HCPCS: 64721; 64718; J0131; J0690; J1100; J2003; J2004; J2250; J2405; J2704; J3010

== ENCOUNTER → 2024-07-23 10:02 | Outpatient (BNV) | payer OTHER, SELFPAY | PROVIDERS: PCP Internal Medicine; Visit Provider Orthopaedic Surgery | DX: G56.01 Carpal tunnel syndrome, right upper limb (principal); G56.11 Other lesions of median nerve, right upper limb | CPT/HCPCS: 64718; 64721 ==

== ENCOUNTER 2024-08-05 09:47 | Outpatient (AMB) | payer OTHER, SELFPAY ==
--- NOTE | 2024-08-05 09:52 | A.OFFVIS_ITS ---
Vital Signs 08/05/24 10:00 Height 5 ft 4 in Weight 236 lb BMI 40.5 Intake Visit Reasons: PO RT cubital/CTR 07/23/24 AR Intake Note: Misa is a 64 year old right hand dominant female who presents today for a post operative visit s/p right carpal tunnel release and right cubital tunnel release DOS: 07/23/2024 w/ Dr Foy. Patient reports that she has been doing very well with no current concerns. sutures removed and Steri Strips applied. Allergies lisinopril Allergy (Severe, Verified 08/05/24 10:01) Nausea simvastatin Allergy (Severe, Verified 08/05/24 10:01) NAUSEA chamomile flower [CHAMOMILE HAWKINS] Allergy (Mild, Verified 08/05/24 10:01) RASH ropinirole Adverse Reaction (Intermediate, Verified 08/05/24 10:01) HIGH BLOOD PRESSURE gabapentin Adverse Reaction (Mild, Verified 08/05/24 10:01) Fatigued Sulfa (Sulfonamide Antibiotics) Adverse Reaction (Mild, Verified 08/05/24 10:01) RASH Daisys Adverse Reaction (Mild, Uncoded 08/05/24 10:01) rash HPI HPI PO RT cubital/CTR 07/23/24 AR: Details: Misa is a 64 year old right hand dominant female who presents today for a post operative visit s/p right carpal tunnel release and right cubital tunnel release DOS: 07/23/2024 w/ Dr Foy. Patient reports that she has been doing very well with no current concerns. sutures removed and Steri Strips applied. 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 Undifferentiated connective tissue disease Annual physical exam Fibromyalgia Depression with anxiety RUSSELL (obstructive sleep apnea) Morbid obesity Surgical History History of colonoscopy History of cyst of breast History of tonsillectomy Family History Father Osteoarthritis (arthritis due to wear and tear of joints) Colon cancer Diverticulosis Stroke HTN (hypertension) Mother HTN (hypertension) Acute arthritis Asthma Heart murmur TIA (transient ischemic attack) Diabetes mellitus Full dentures Family/Other Diabetes mellitus Heart disease CHF (congestive heart failure) Cancer Breast cancer Multiple myeloma Sister Mental health disorder Rheumatoid arthritis Moises's disease Brother Substance use disorder Social History Household Members: Spouse Housing: House Are you a primary rn intensive care unit to a significant other at home: Yes (cares for , hx CVA) Do you presently have visiting nurse or other home services: No Alcohol intake: never Patient Tobacco Use Status: Never used Tobacco e-Cigarette/Vaping Use: Never Used Advance Directives Date on File: 04/13/22 service: No Current occupational status: employed 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 [employer] Cognitive needs: No Hearing needs: No Vision needs: Yes Review of Systems Const All systems reviewed & are unremarkable except as noted in HPI and below Physical Exam Vital Signs: BMI result Body Mass Index 40.5 Const General: cooperative, healthy appearing and comfortable Nutritional Appearance: obese morbidly obese Orientation/consciousness: patient oriented x3 Limitations: no limitations HEENT Head: Yes normocephalic and Yes atraumatic Mouth: moist mucous membranes Resp Effort & Inspection: normal respiratory effort and able to speak in complete sentences Auscultation: clear to auscultation bilaterally Cardio Rate: regular rate Rhythm: regular rhythm Skin General skin exam: no rashes or lesions noted Neuro General: patient oriented x3 Extrem Other: Neuro: Normal sensation to the tips of all digits are of the right hand Normal sensation in the tips of all digits of the left hand today. No thenar or intrinsic wasting. Good APB muscle firing, weak finger cross bilaterally Vascular: Capillary refill brisk. ROM: Patient can make a fist and extend all their digits. Skin: Well-approximated and well healing incision sites on the volar right wrist and medial right elbow Mild erythema surrounding elbow incision site General: No ecchymosis. No erythema or evidence of infection. Assessment & Plan Assessment & Plan (1) Cubital tunnel syndrome on right: Code(s): G56.21 - Lesion of ulnar nerve, right upper limb Category: Medical (2) Bilateral carpal tunnel syndrome: Code(s): G56.03 - Carpal tunnel syndrome, bilateral upper limbs Category: Medical Plan 1. Status post right cubital tunnel release 2. Status post right carpal tunnel release Patient appears to be recovering fairly well postoperatively Patient was educated about the typical recovery course At this time, abundance of caution due to the slight redness around the cubital tunnel incision, patient was given a one-week course of cephalexin Patient was amenable to this plan Patient will follow-up in 1 week for wound check, sooner with any acute concerns Medications: New cephalexin 500 mg PO QID 7 days 28 caps 0RF Coding Level of Care Code Global (92554) Diagnoses Cubital tunnel syndrome on right G56.21 Bilateral carpal tunnel syndrome G56.03
[2024-08-05 10:00] VITALS: BMI 40.5
--- OUTSIDE RECORDS SUMMARY | 2024-08-05 11:34 | XMS_ITS | Patient Health Record ---
Author Organization [facility] Address [address] [place] [address] Care Team Providers Care Signal Operator Linguist Name Role Phone Iman Pulliam MD Primary Care Provider Patrice Lundberg Unavailable [phone] ALLERGIES Allergen (clinical drug ingredient) Drug/Non Drug [...] confirmed Screening for malignant neoplasm of colon (021526267) Problem Family history of malignant neoplasm of digestive organs (Z80.0) Active confirmed Family history of malignant neoplasm of gastrointestinal tract (510066529) Problem Encounter for other preprocedural examination (Z01.818) Active confirmed Pre-procedure evaluation check (228612819) Problem Diverticulosis of colon (K57.30) Active confirmed Diverticulosi s of colon (587498403) PLAN OF TREATMENT Future Test Test Name Order Date COLONOSCOPY 12/22/2014 COLONOSCOPY 12/20/2021 Insurance Providers Payer Name Payer Address Payer Phone Subscriber Number Group Number Insured Name Patient Relationship to Insured Coverage Start Date Coverage End Date [employer] [place] [address] [address] [place] [address] [id number] 1 HARJEET CULLEN Self - patient is the insured MEDICAL (GENERAL) HISTORY Medical History History ICD Code Negative Colonoscopies in 24 09 and in 08-29-2009, other than diverticulosis and internal hemorrhoids-- GERD--[id number]--sxy. except for a m inimal HH-no esophagitis Cervical polyps Depression/anxiety Sleep apnea-uses CPAP Diffuse unspecified connecti ve tissue disease, SLE, Osteoarthritis---sees Dr. Doshi HTN Denies [place],DM,CVA,Lung disease,renal dise ase MCTD-unspecified Fibromyalgia Osteoarthritis Negative colonoscopy in 2014 Surgical History Surgery Date(Month/Year) LEEP Benign breast cyst Tonsils
== END 2024-08-05 10:18 | disposition home or self-care (01) ==
PROVIDERS: PCP Internal Medicine
DX: G56.21 Lesion of ulnar nerve, right upper limb (principal); G56.03 Carpal tunnel syndrome, bilateral upper limbs
CPT/HCPCS: 99024

== ENCOUNTER → 2024-08-14 08:49 | Outpatient (AMB) | payer OTHER, SELFPAY ==
--- NOTE | 2024-08-14 08:55 | A.OFFVIS_ITS ---
Intake Visit Reasons: PO RT cubital/CTR 07/23/24 AR - wound check Intake Note: Misa is a 64 year old right hand dominant female who presents today for a post operative wound check s/p right carpal tunnel release and right cubital tunnel release DOS: 07/23/2024 w/ Dr Foy. At her last visit all sutures were removed. She was placed on a one week course of Cephalexin due to redness around the cubital tunnel incision. Patient did complete her abx and is doing well. She has some tingling in the hand but has had significant increases in ability to grasp and lease picker objects. Allergies lisinopril Allergy (Severe, Verified 08/05/24 10:01) Nausea simvastatin Allergy (Severe, Verified 08/05/24 10:01) NAUSEA chamomile flower [CHAMOMILE HAWKINS] Allergy (Mild, Verified 08/05/24 10:01) RASH ropinirole Adverse Reaction (Intermediate, Verified 08/05/24 10:01) HIGH BLOOD PRESSURE gabapentin Adverse Reaction (Mild, Verified 08/05/24 10:01) Fatigued Sulfa (Sulfonamide Antibiotics) Adverse Reaction (Mild, Verified 08/05/24 10:01) RASH Daisys Adverse Reaction (Mild, Uncoded 08/05/24 10:01) rash HPI HPI PO RT cubital/CTR 07/23/24 AR - wound check: Details: Misa is a 64 year old right hand dominant female who presents today for a post operative wound check s/p right carpal tunnel release and right cubital tunnel release DOS: 07/23/2024 w/ Dr Foy. At her last visit all sutures were removed. She was placed on a one week course of Cephalexin due to redness around the cubital tunnel incision. Patient did complete her abx and is doing well. She has some tingling in the hand but has had significant increases in ability to grasp and lease picker objects. 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 Undifferentiated connective tissue disease Annual physical exam Fibromyalgia Depression with anxiety RUSSELL (obstructive sleep apnea) Morbid obesity Surgical History History of colonoscopy History of cyst of breast History of tonsillectomy Family History Father Osteoarthritis (arthritis due to wear and tear of joints) Colon cancer Diverticulosis Stroke HTN (hypertension) Mother HTN (hypertension) Acute arthritis Asthma Heart murmur TIA (transient ischemic attack) Diabetes mellitus Full dentures Family/Other Diabetes mellitus Heart disease CHF (congestive heart failure) Cancer Breast cancer Multiple myeloma Sister Mental health disorder Rheumatoid arthritis Moises's disease Brother Substance use disorder Social History Household Members: Spouse Housing: House Are you a primary progressive care nurse to a significant other at home: Yes (cares for , hx CVA) Do you presently have visiting nurse or other home services: No Alcohol intake: never Patient Tobacco Use Status: Never used Tobacco e-Cigarette/Vaping Use: Never Used Advance Directives Date on File: 04/13/22 service: No Current occupational status: employed 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 [employer] Cognitive needs: No Hearing needs: No Vision needs: Yes Review of Systems Const All systems reviewed & are unremarkable except as noted in HPI and below Physical Exam Const General: cooperative, healthy appearing and comfortable Nutritional Appearance: obese morbidly obese Orientation/consciousness: patient oriented x3 Limitations: no limitations HEENT Head: Yes normocephalic and Yes atraumatic Mouth: moist mucous membranes Resp Effort & Inspection: normal respiratory effort and able to speak in complete sentences Auscultation: clear to auscultation bilaterally Cardio Rate: regular rate Rhythm: regular rhythm Skin General skin exam: no rashes or lesions noted Neuro General: patient oriented x3 Extrem Other: Neuro: Normal sensation to the tips of all digits are of the right hand Normal sensation in the tips of all digits of the left hand today. No thenar or intrinsic wasting. Good APB muscle firing, weak finger cross bilaterally Vascular: Capillary refill brisk. ROM: Patient can make a fist and extend all their digits. Skin: Well-approximated and well healing incision sites on the volar right wrist and medial right elbow Significantly Improved erythema surrounding elbow incision site General: No ecchymosis. No erythema or evidence of infection. Assessment & Plan Assessment & Plan (1) Cubital tunnel syndrome on right: Code(s): G56.21 - Lesion of ulnar nerve, right upper limb Category: Medical (2) Bilateral carpal tunnel syndrome: Code(s): G56.03 - Carpal tunnel syndrome, bilateral upper limbs Category: Medical Plan 1. Status post right cubital tunnel release 2. Status post right carpal tunnel release Patient appears to be recovering fairly well postoperatively Patient was educated about the typical recovery course Erythema surrounding cubital tunnel incision has improved significantly, so patient will require no further antibiotic therapy Patient was amenable to this plan Patient will follow-up as needed with any acute concerns Coding Level of Care Code Global (64506) Diagnoses Cubital tunnel syndrome on right G56.21 Bilateral carpal tunnel syndrome G56.03
--- OUTSIDE RECORDS SUMMARY | 2024-08-14 09:10 | XMS_ITS | Patient Health Record ---
Author Organization [facility] Address [address] [place] [address] Care Team Providers Care Director Client Name Role Phone Iman Pulliam MD Primary Care Provider Patrice Lundberg Unavailable [phone] ALLERGIES Allergen (clinical drug ingredient) Drug/Non Drug [...] confirmed Screening for malignant neoplasm of colon (098930951) Problem Family history of malignant neoplasm of digestive organs (Z80.0) Active confirmed Family history of malignant neoplasm of gastrointestinal tract (417834761) Problem Encounter for other preprocedural examination (Z01.818) Active confirmed Pre-procedure evaluation check (513454999) Problem Diverticulosis of colon (K57.30) Active confirmed Diverticulosi s of colon (417731239) PLAN OF TREATMENT Future Test Test Name Order Date COLONOSCOPY 12/22/2014 COLONOSCOPY 12/20/2021 Insurance Providers Payer Name Payer Address Payer Phone Subscriber Number Group Number Insured Name Patient Relationship to Insured Coverage Start Date Coverage End Date [employer] [place] [address] [address] [place] [address] [id number] 1 HARJEET CULLEN Self - patient is the insured MEDICAL (GENERAL) HISTORY Medical History History ICD Code Negative Colonoscopies in 24 09 and in 08-29-2009, other than diverticulosis and internal hemorrhoids-- GERD--[id number]--ahs. except for a m inimal HH-no esophagitis Cervical polyps Depression/anxiety Sleep apnea-uses CPAP Diffuse unspecified connecti ve tissue disease, SLE, Osteoarthritis---sees Dr. Doshi HTN Denies [place],DM,CVA,Lung disease,renal dise ase MCTD-unspecified Fibromyalgia Osteoarthritis Negative colonoscopy in 2014 Surgical History Surgery Date(Month/Year) LEEP Benign breast cyst Tonsils
== END | disposition home or self-care (01) ==
PROVIDERS: PCP Internal Medicine
CPT/HCPCS: 99024

== ENCOUNTER → 2024-08-14 08:49 | Outpatient (BNVA) | payer OTHER, SELFPAY | PROVIDERS: PCP Internal Medicine ==

== ENCOUNTER 2024-08-27 12:10 | Outpatient (REF) | payer OTHER, SELFPAY ==
--- OUTSIDE RECORDS SUMMARY | 2024-08-27 13:13 | XMS_ITS | Patient Health Record ---
Author Organization [facility] Address [address] [place] [address] Care Team Providers Care Hardware Assembler Name Role Phone Iman Pulliam MD Primary Care Provider Patrice Lundberg Unavailable [phone] ALLERGIES Allergen (clinical drug ingredient) Drug/Non Drug [...] confirmed Screening for malignant neoplasm of colon (361229091) Problem Family history of malignant neoplasm of digestive organs (Z80.0) Active confirmed Family history of malignant neoplasm of gastrointestinal tract (133936379) Problem Encounter for other preprocedural examination (Z01.818) Active confirmed Pre-procedure evaluation check (282854248) Problem Diverticulosis of colon (K57.30) Active confirmed Diverticulosi s of colon (964016489) PLAN OF TREATMENT Future Test Test Name Order Date COLONOSCOPY 12/22/2014 COLONOSCOPY 12/20/2021 Insurance Providers Payer Name Payer Address Payer Phone Subscriber Number Group Number Insured Name Patient Relationship to Insured Coverage Start Date Coverage End Date [employer] [place] [address] [address] [place] [address] [id number] 1 HARJEET CULLEN Self - patient is the insured MEDICAL (GENERAL) HISTORY Medical History History ICD Code Negative Colonoscopies in 24 09 and in 08-29-2009, other than diverticulosis and internal hemorrhoids-- GERD--[id number]--hus. except for a m inimal HH-no esophagitis Cervical polyps Depression/anxiety Sleep apnea-uses CPAP Diffuse unspecified connecti ve tissue disease, SLE, Osteoarthritis---sees Dr. Doshi HTN Denies [place],DM,CVA,Lung disease,renal dise ase MCTD-unspecified Fibromyalgia Osteoarthritis Negative colonoscopy in 2014 Surgical History Surgery Date(Month/Year) LEEP Benign breast cyst Tonsils
[2024-08-27 13:22] LABS: Alanine Aminotransferase 33 U/L (0-31); Albumin Level 4.4 g/dL (3.5-5.0); Alkaline Phosphatase 66 U/L (39-117); Anion Gap 11 (12-20); Aspartate Amino Transferase 30 U/L (5-31); Bilirubin Total 0.4 mg/dL (0.0-1.0); Blood Urea Nitrogen 14 mg/dL (9-16); C Reactive Protein 1.81 mg/dL (< or = 0.50); Calcium 9.8 mg/dL (8.4-10.2); Carbon Dioxide 28 mmol/L (22-29); Chloride 108 mmol/L (96-108); Estimated Glomerular Filt Rate > 60; Glucose Random 89 mg/dL (60-115); Sodium 143 mmol/L (135-145); Total Protein 7.7 g/dL (6.5-8.0)
== END 2024-08-27 12:11 | disposition home or self-care (01) ==
LOC: HO.LAB 12:10
PROVIDERS: PCP Internal Medicine; Visit Provider Student in an Organized Health Care Education/Training Program
DX: M06.00 Rheumatoid arthritis without rheumatoid factor, unspecified site (principal)
CPT/HCPCS: 36415; 80053; 86140

== ENCOUNTER 2024-09-09 11:54 | Outpatient (AMB) | payer OTHER, SELFPAY ==
[2024-09-09 12:00] VITALS: BP 120/70; PULSE 71; RESP 18; TEMP 37.1; O2SAT 97; BMI 41.2
--- NOTE | 2024-09-09 12:00 | A.OFFPC_ITS ---
Vital Signs 09/09/24 12:00 Height 5 ft 4 in Weight 240 lb BMI 41.2 BP 120/70 Blood Pressure Location Lt brachial Position Sitting Respiration 18 Pulse 71 Pulse Source Pulse Oximeter Temp 98.8 F Temp Source Oral Pulse Oximetry (%) 97 Oxygen Delivery Method Room Air Intake Visit Reasons: Pre op L TKA w/Dr. Galvan 11/03/24. Intake Note: Pt is here today for a pre op visit. Allergies lisinopril Allergy (Severe, Verified 09/09/24 12:21) Nausea simvastatin Allergy (Severe, Verified 09/09/24 12:21) NAUSEA chamomile flower [CHAMOMILE HAWKINS] Allergy (Mild, Verified 09/09/24 12:21) RASH ropinirole Adverse Reaction (Intermediate, Verified 09/09/24 12:21) HIGH BLOOD PRESSURE gabapentin Adverse Reaction (Mild, Verified 09/09/24 12:21) Fatigued Sulfa (Sulfonamide Antibiotics) Adverse Reaction (Mild, Verified 09/09/24 12:21) RASH Daisys Adverse Reaction (Mild, Uncoded 09/09/24 12:21) rash Medication List - Last Reconciled 09/09/24 by Iman Pulliam MD albuterol sulfate 90 mcg/actuation 2 puffs inhalation Q6H PRN alpha lipoic acid 600 mg PO DAILY amlodipine 5 mg PO DAILY aspirin 81 mg PO DAILY calcium carbonate (Calcium 600) 600 mg PO BID cholecalciferol (vitamin D3) 25 mcg PO BID dextroamphetamine-amphetamine 10 mg ER 1 cap PO QAM diclofenac sodium 1% 2 grams topical DAILY PRN folic acid 1 mg PO DAILY gabapentin 300 mg PO BEDTIME 30 days gentamicin 0.3% 1 drp ophthalmic (eye) Q8H PRN Humira(CF) Pen (adalimumab) 40 mg (0.4 mL) subcut Q2W NS hydroxychloroquine 200 mg PO BID loratadine 10 mg PO DAILY methotrexate sodium 20 mg (8 x 2.5 mg) PO QWEEK aupccvcvhftg-ybkqkjih-gyphup 1 tab PO DAILY omega 0-wqs-ttw-fish oil 1,000 (120-180) mg (Fish Oil) 1 cap PO BID oxycodone-acetaminophen 5-325 mg 1 tab PO Q6H PRN sertraline 50 mg PO BEDTIME spironolactone 25 mg PO DAILY turmeric 3 capsules vitamin B complex 1 cap PO DAILY walker Folding Front wheeled walker duration 99 days Tobacco use date assessed: 09/09/24 Dental Screening Dental Screen Date: 07/10/24 HPI Pre op L TKA w/Dr. Galvan 11/03/24. HPI Details Pt presents for preop for left knee arthroplasty. HTN is stable on current medications. Patient follows up with automotive paint technician for undifferentiated connective tissue disease and has been on Humira methotrexate and Plaquenil. She follows up with a psychiatrist for depression and ADHD stable on current medications. Patient has been using a CPAP for obstructive sleep apnea. 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 Undifferentiated connective tissue disease Annual physical exam Fibromyalgia Depression with anxiety RUSSELL (obstructive sleep apnea) Morbid obesity Surgical History History of colonoscopy History of cyst of breast History of tonsillectomy Family History Father Osteoarthritis (arthritis due to wear and tear of joints) Colon cancer Diverticulosis Stroke HTN (hypertension) Mother HTN (hypertension) Acute arthritis Asthma Heart murmur TIA (transient ischemic attack) Diabetes mellitus Full dentures Family/Other Diabetes mellitus Heart disease CHF (congestive heart failure) Cancer Breast cancer Multiple myeloma Sister Mental health disorder Rheumatoid arthritis Moises's disease Brother Substance use disorder Social History Household Members: Spouse Housing: House Are you a primary resident care aide to a significant other at home: Yes (cares for , hx CVA) Do you presently have visiting nurse or other home services: No Alcohol intake: never Patient Tobacco Use Status: Never used Tobacco e-Cigarette/Vaping Use: Never Used Advance Directives Date on File: 04/13/22 service: No Current occupational status: employed 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 Cognitive needs: No Hearing needs: No Vision needs: Yes Questionnaire Thrive Questionnaire Date Thrive assessed: 07/10/24 I am a: Patient What is your living situation today?: I have a steady place to live Within the past 12 months, did the food you bought not last and you didn't have the money to get more?: Never true Within the past 12 months, did you worry whether your food would run out before you got money to buy more?: Never true Do you have trouble paying for medicines?: No Do you have trouble getting transportation to medical appointments?: No Do you have trouble paying your heating and electricity bill?: No Do you have trouble taking care of your child, family member or friend?: No Do you have trouble with day-to-day activities such as bathing, preparing meals, shopping, managing finances, etc.?: No Are you currently unemployed and looking for a job?: No Are you interested in more education?: Yes Please select the resources that you would like help with: None Currently or been in a relationship where the following occur: No concerns reported THRIVE Score: 0 AUDIT C Alcohol Use Questionnaire (AUDIT-C) 2. How many drinks containing alcohol do you have on a typical day when you are drinking?: 1 or 2 3. How often do you have six or more drinks on one occasion?: Never Total Score: 0 MILDRED-7 AMB Questionnaire MILDRED-7 Date MILDRED - 7 assessed: 07/10/24 Source: Developed by Drs. Patrice Agosto, Megan Hu, Bobby Jackson and colleagues, with an educational johnathan from [employer]. Review of Systems Const All systems reviewed & are unremarkable except as noted in HPI and below ENT Reports no additional complaints Card Reports no additional complaints Resp Reports no additional complaints GI Reports no additional complaints Reports no additional complaints Physical exam (Primary Care) Vital Signs: Last Vital Signs Temp 98.8 F 09/09/24 12:00 Pulse 71 09/09/24 12:00 Resp 18 09/09/24 12:00 BP 120/70 09/09/24 12:00 Pulse Ox 97 09/09/24 12:00 Oxygen Delivery Method Room Air 09/09/24 12:00 BMI result Body Mass Index 41.2 Tobacco/Smoking Status: Tobacco use Status Tobacco use date assessed 09/09/24 09/09/24 12:24 Patient Tobacco Use Status Never used Tobacco 09/09/24 12:24 e-Cigarette/Vaping Use Never Used 09/09/24 12:00 Thrive Assessment: Date of Thrive Assessment Date Thrive assessed 07/10/24 09/09/24 12:00 Currently or been in a relationship where the following occur: No concerns reported Const General: no acute distress HENMT Head: Yes normal to inspection Throat: Yes posterior oropharynx normal Eyes General: appearance normal, both eyes and all related structures Resp Effort & Inspection: normal respiratory effort Auscultation: clear to auscultation bilaterally Cardio Rhythm: regular rhythm Heart sounds: S1 normal heart sound present and S2 normal heart sound present Coding Level of Care Code Est Pt Level 4 (11534) Diagnoses HTN (hypertension) I10 Hypertension type: unspecified Undifferentiated connective tissue disease M35.9 Primary osteoarthritis of left knee M17.12 Assessment & Plan Assessment & Plan (1) HTN (hypertension): Code(s): I10 - Essential (primary) hypertension Category: Medical Qualifiers: Hypertension type: unspecified Qualified Code(s): I10 - Essential (primary) hypertension Plan: Continue amlodipine and spironolactone (2) Undifferentiated connective tissue disease: Comment: onset 2008. 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 HCQ since 2009 eyes OK 03/2022, 03/2023, 04/2024 Code(s): M35.9 - Systemic involvement of connective tissue, unspecified Category: Medical Plan: Patient is established with a automotive paint technician on Humira Plaquenil and methotrexate (3) Primary osteoarthritis of left knee: Code(s): M17.12 - Unilateral primary osteoarthritis, left knee Category: Medical Plan: Patient is medically cleared for left knee arthroplasty
--- OUTSIDE RECORDS SUMMARY | 2024-09-09 14:24 | XMS_ITS | Patient Health Record ---
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 Name Role Phone Iman Pulliam MD Primary Care Provider Patrice Lundberg Unavailable [phone] Allergies Allergen (clinical drug ingredient) Drug/Non Drug Allergy documented on EMR Reaction Allergy Type Onset Date Status Sulfa Unknown Drug Allergy Active Reason For Referral No Information Medications Medication SIG (Take, Route, Frequency, Duration) Notes [...] r milk Orally Once a day Active Immunizations Vaccine Route Administration Date Status Comme nts Influenza Unknown 04/25/2021 Administered Problems Problem Type SNOMED Code ICD Code Onset Dates Problem Status W/U Status Risk Notes Problem Screening for malignant neoplasm of colon (031752307) Encounter for screening for malignant neoplasm of colon (Z12.11) Active confirmed Problem Family history of malignant neoplasm of gastrointestinal tract (221601600) Family history of malignant neoplasm of digestive organs (Z80.0) Active confirmed Problem Pre-procedure evaluation check (149391379) Encounter for other preprocedural examination (Z01.818) Active confirmed Problem Diverticulosis of colon (738322959) Diverticulosis of colon (K57.30) Active confirmed Plan Of Treatment Future Test Test Name Order Date COLONOSCOPY 12/22/2014 COLONOSCOPY 12/20/2021 Insurance Providers Payer Name Payer Address Payer Phone Subscriber Number Group Number Insured Name Patient Relationship to Insured Coverage Start Date Coverage End Date [employer] [address] [address] [place] [address] [id number] HARJEET CULLEN Self - patient is the insured Medical (General) History Medical History History ICD Code Negative Colonoscopies in 24 09 and in 08-29-2009, other than diverticulosis and internal hemorrhoids-- GERD--[id number] Cervical polyps Depression/anxiety Sleep apnea-uses CPAP Diffuse unspecified connecti ve tissue disease, SLE, Osteoarthritis---sees Dr. Doshi HTN Denies DE,DM,CVA,Lung disease,renal dise ase MCTD-unspecified Fibromyalgia Osteoarthritis Negative colonoscopy in 2014 Surgical History Surgery Date(Month/Year) LEEP Benign breast cyst Tonsils
== END 2024-09-09 13:07 | disposition home or self-care (01) ==
PROVIDERS: PCP Internal Medicine; Visit Provider Internal Medicine
DX: I10 Essential (primary) hypertension (principal); M35.9 Systemic involvement of connective tissue, unspecified; M17.12 Unilateral primary osteoarthritis, left knee

== ENCOUNTER 2024-09-18 14:31 | Outpatient (REF) | payer OTHER, SELFPAY ==
[2024-09-18 16:23] LABS: MANUAL DIFF FLAG NO
[2024-09-18 16:39] LABS: Basophils Percent Auto 0.3 % (0-2); Eosinophils Absolute Auto 0.2 X10*3/uL (0.0-0.4); Eosinophils Percent Auto 2.5 % (0-4); Hematocrit 42.5 % (37.0-47.0); Hemoglobin 14.1 g/dl (12.0-16.0); Imm Gran Abs Auto 0.03 X10*3/uL (0.00-0.03); Imm Gran Pct Auto 0.4 % (0.0-0.4); Lymphocytes Absolute Auto 2.5 X10*3/uL (1.2-4.9); Lymphocytes Percent Auto 36.5 % (20-40); Mean Corpuscular HGB Conc 33.2 g/dl (31.0-35.0); Mean Corpuscular Hemoglobin 31.8 pg (27.0-33.0); Mean Corpuscular Volume 95.7 fL (80.0-98.0); Mean Platelet Volume 9.6 fL (9.4-12.3); Monocytes Absolute Auto 0.7 X10*3/uL (0.1-1.2); Monocytes Percent Auto 9.5 % (2-11); Neutrophils Absolute Auto 3.5 x10*3/uL (2.0-8.3); Neutrophils Percent Auto 50.8 % (45-73); Platelet Count 287 X10*3/uL (160-400); Red Blood Count 4.44 X10*6/uL (4.20-5.50); Red Cell Distribution Width 13.1 % (11.0-16.0); White Blood Count 6.8 X10*3/uL (4.8-10.8)
[2024-09-18 17:16] LABS: Erythrocyte Sedimentation Rate 20 MM/HR (0-20)
[2024-09-18 17:40] LABS: Alanine Aminotransferase 41 U/L (0-31); Albumin Level 4.4 g/dL (3.5-5.0); Alkaline Phosphatase 71 U/L (39-117); Anion Gap 14 (12-20); Aspartate Amino Transferase 37 U/L (5-31); Bilirubin Total 0.3 mg/dL (0.0-1.0); Blood Urea Nitrogen 12 mg/dL (9-16); C Reactive Protein 0.98 mg/dL (< or = 0.50); Calcium 9.5 mg/dL (8.4-10.2); Carbon Dioxide 27 mmol/L (22-29); Chloride 107 mmol/L (96-108); Estimated Glomerular Filt Rate > 60; Glucose Random 114 mg/dL (60-115); Potassium 4.4 mmol/L (3.3-5.1); Sodium 144 mmol/L (135-145); Total Protein 7.7 g/dL (6.5-8.0)
[2024-09-19 04:14] LABS: HBc Num1 0.19 S/CO (0.00-0.79); HBsAGNum1 0.24 S/CO (0.00-0.99); Hepatitis A Antibody IgM 0.15 Index (0-0.79); Hepatitis B Core Antibody Nonreactive (Nonreactive); Hepatitis B Surface Antigen Negative (Negative); ~Hepatitis A Antibody IgM Nonreactive (Nonreactive); ~Hepatitis B Surface Antibody NONREACTIVE (Nonreactive); ~Hepatitis C Antibody Nonreactive (Nonreactive)
[2024-09-22 00:52] LABS: TS Negative Control Passed; TS Panel A 0; TS Panel B 0; TS Positive Control Passed; TSpotTB Negative (Negative)
== END 2024-09-18 14:32 | disposition home or self-care (01) ==
LOC: HO.LAB 14:31
PROVIDERS: PCP Internal Medicine; Visit Provider Student in an Organized Health Care Education/Training Program
DX: M06.00 Rheumatoid arthritis without rheumatoid factor, unspecified site (principal); Z11.1 Encounter for screening for respiratory tuberculosis
CPT/HCPCS: 36415; 80053; 85025; 85652; 86140; 86481; 86704; 86706; 86709; 86803; 87340

== ENCOUNTER 2024-09-18 14:31 | Outpatient (AMB) | payer OTHER, SELFPAY ==
[2024-09-18 14:36] VITALS: BP 134/82; PULSE 84; O2SAT 98; BMI 40.8
--- NOTE | 2024-09-18 14:36 | A.OFFVIS_ITS ---
Vital Signs 09/18/24 14:36 Height 5 ft 4 in Weight 238 lb BMI 40.8 BP 134/82 Blood Pressure Location Lt brachial Position Sitting Pulse 84 Pulse Source Pulse Oximeter Pulse Oximetry (%) 98 Oxygen Delivery Method Room Air Intake Visit Reasons: RA Intake Note: Patient last seen by Doctor Alina Caldwell on 07/16/24. Presents today for RA follow up and test results. She is taking Acetaminophen 250 with Ibuprofen 125. Allergies lisinopril Allergy (Severe, Verified 09/18/24 14:47) Nausea simvastatin Allergy (Severe, Verified 09/18/24 14:47) NAUSEA chamomile flower [CHAMOMILE HAWKINS] Allergy (Mild, Verified 09/18/24 14:47) RASH ropinirole Adverse Reaction (Intermediate, Verified 09/18/24 14:47) HIGH BLOOD PRESSURE gabapentin Adverse Reaction (Mild, Verified 09/18/24 14:47) Fatigued Sulfa (Sulfonamide Antibiotics) Adverse Reaction (Mild, Verified 09/18/24 14:47) RASH Daisys Adverse Reaction (Mild, Uncoded 09/18/24 14:47) rash Medication List - Last Reconciled 09/18/24 by Silvana Vega MD [Acetaminophen and Ibuprofen PO] albuterol sulfate 90 mcg/actuation 2 puffs inhalation Q6H PRN alpha lipoic acid 600 mg PO DAILY amlodipine 5 mg PO DAILY aspirin 81 mg PO DAILY calcium carbonate (Calcium 600) 600 mg PO BID cholecalciferol (vitamin D3) 25 mcg PO BID dextroamphetamine-amphetamine 10 mg ER 1 cap PO QAM diclofenac sodium 1% 2 grams topical DAILY PRN folic acid 1 mg PO DAILY gabapentin 300 mg PO BEDTIME 30 days gentamicin 0.3% 1 drp ophthalmic (eye) Q8H PRN Humira(CF) Pen (adalimumab) 40 mg (0.4 mL) subcut Q2W NS hydroxychloroquine 200 mg PO BID loratadine 10 mg PO DAILY methotrexate sodium 20 mg (8 x 2.5 mg) PO QWEEK bpxhgwjhtwrd-nydvkopf-jgwdnu 1 tab PO DAILY omega 5-cyh-mfv-fish oil 1,000 (120-180) mg (Fish Oil) 1 cap PO BID oxycodone-acetaminophen 5-325 mg 1 tab PO Q6H PRN sertraline 50 mg PO BEDTIME spironolactone 25 mg PO DAILY turmeric 3 capsules vitamin B complex 1 cap PO DAILY walker Folding Front wheeled walker duration 99 days HPI Comments Details: Patient is a 64-year-old female with hypertension, RUSSELL, depression and ADHD, UCTD/seronegative rheumatoid arthritis here today for follow up Interval History: Patient last seen 07/16/[address] Caldwell. At that time she was following up for her seronegative rheumatoid arthritis/undifferentiated connective tissue disease. She was on methotrexate 20 mg weekly, folic acid 1 mg daily, hydroxychloroquine 200 mg twice a day and Humira every other week. She reported continued episodes of joint pain involving her hands and knees requiring extra strength Tylenol about 4 tablets a day. Noted that Saturday she took her MTx and then the following day developed joint pain as well as flu like symptoms Joint pains involving the hands Does note that she has most flares closer ot when her Humira is due Rheumatologic History: onset 2008. 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 HCQ since 2009 eyes OK 03/2022, 03/2023. Methotrexate added 2011. Sulfasalazine added 2019. stopped 12/2019 due to suspicion of neuropathy Enbrel added 11/2023 DC ineffective Humira 01/2024 effective Decreased Mtx to 20mg weekly after starting Humira, and elevated LFTs Current Rheumatology Medication(s): Methotrexate 20 mg weekly p.o. 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 Undifferentiated connective tissue disease Annual physical exam Fibromyalgia Depression with anxiety RUSSELL (obstructive sleep apnea) Morbid obesity Surgical History History of colonoscopy History of cyst of breast History of tonsillectomy Family History (Updated 09/18/24 @ 15:10 by Silvana Vega MD) Father Osteoarthritis Colon cancer Diverticulosis Stroke HTN (hypertension) Mother HTN (hypertension) Asthma Heart murmur TIA (transient ischemic attack) Diabetes mellitus Full dentures Osteoarthritis Family/Other Diabetes mellitus Heart disease CHF (congestive heart failure) Cancer Breast cancer Multiple myeloma Sister Mental health disorder Rheumatoid arthritis Moises's disease Brother Substance use disorder Social History Household Members: Spouse Housing: House Are you a primary home health care worker to a significant other at home: Yes (cares for , hx CVA) Do you presently have visiting nurse or other home services: No Alcohol intake: never Patient Tobacco Use Status: Never used Tobacco e-Cigarette/Vaping Use: Never Used Advance Directives Date on File: 04/13/22 service: No Current occupational status: employed 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 Cognitive needs: No Hearing needs: No Vision needs: Yes Review of Systems Const Details: Review of Systems Constitutional: Denies fever, chills, weight loss ENT: Denies vision changes, eye pain or eye redness, dental caries, dry mouth GI: Denies nausea, vomiting, diarrhea, abdominal pain, change in BM Pulm: Denies SOB, TURCIOS, hemoptysis, wheezing Cards: Denies chest pain, palpitations Skin: Denies Raynaud's, rash, nail changes, photosensitivity, SERVER ENGINEER: Denies headaches, weakness, paresthesias, recurrent falls MSK: as per HPI All other systems reviewed and are unremarkable except noted above Physical Exam Vital Signs: Last Vital Signs Pulse 84 09/18/24 14:36 BP 134/82 09/18/24 14:36 Pulse Ox 98 09/18/24 14:36 Oxygen Delivery Method Room Air 09/18/24 14:36 BMI result Body Mass Index 40.8 Vital signs reviewed Physical Examination CONSTITUITIONAL Patient alert and cooperative. Well appearing and in no apparent painful distress HEENT Conjunctiva and sclera clear. ?Pupils equal round and reactive to light. ?No lymphadenopathy. ? CHEST/RESPIRATORY SYSTEM Normal respiratory effort and able to speak in complete sentences. ?Clear to auscultation bilaterally. ?No crackles, rales, rhonchi, wheezes heard. CARDIAC SYSTEM Regular rate and rhythm. ?S1 and S2 heard no murmurs. 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 No deformities noted. ?Swelling noted to bilateral hands with mild TTP of the MCPs Wrists: ?Full range of motion at the wrists without pain. Mild TTP of the wrists Elbows: Full range of motion without pain. No tenderness, weakness, swelling, increased warmth or erythema. Shoulders: Full range of motion without pain. No tenderness, weakness, swelling, increased warmth or erythema. Hips: Full range of motion without pain. Hip bursa: No tenderness to palpation Knees: ?Full range of motion. ?No tenderness, swelling, increased warmth or erythema.?Bilat crepitations Ankles: Full range of motion. ?No tenderness, swelling, increased warmth or erythema.? Feet: ?Negative squeeze test. ?No tenderness to palpation or swelling of the MTPs. Tender points:?No tenderness to palpation of the bilateral trapezius, supraspinatus, greater trochanters, anterior costochondral junctions, bilateral gluteal areas, bilateral suboccipital muscle insertions SKIN Skin intact without rashes. Results Reviewed Results Reviewed: Laboratory Tests 07/14/24 08/27/24 10:15 12:35 WBC 7.5 RBC 4.43 Hgb 14.1 Hct 42.2 Plt Count 280 ESR 23 H Sodium 143 Potassium 4.0 Chloride 108 Carbon Dioxide 28 BUN 14 Creatinine 0.68 AST 30 ALT 33 H Alkaline Phosphatase 66 C-Reactive Protein 1.81 H Total Protein 7.7 Albumin 4.4 Immunology labs 11/19/19 01/24/21 11/11/23 15:55 16:30 10:10 Rheumatoid Factor < 13.0 SS-A/Ro Antibody <1.0 NEG SS-B/La Antibody <1.0 NEG SmRNP Antibodies 5.1 H Sm (Theodore) Antibody <1.0 NEG SM/MANAGER COMPETITIVE INTELLIGENCE IgG Antibody 5.1 POS A Double Strand DNA Ab <1 Complement C3 134 Complement C4 32 Infectious serologies 11/11/23 10:10 Hepatitis A IgM Ab Nonreactive Hep Bs Antigen Negative Hep Bs Antibody NONREACTIVE Hep B Core Total Ab Nonreactive Hepatitis C Ab (EIA) Nonreactive TB Test (T-Spot) Com Negative Assessment & Plan Assessment & Plan (1) Seronegative rheumatoid arthritis: Comment: onset 2008. 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 HCQ since 2009 eyes OK 03/2022, 03/2023. Methotrexate added 2011. Sulfasalazine added 2019. stopped 12/2019 due to suspicion of neuropathy Enbrel added 11/2023 DC ineffective Humira 01/2024 effective Decreased Mtx 25 --> 20 due to Transaminitis Code(s): M06.00 - Rheumatoid arthritis without rheumatoid factor, unspecified site Category: Medical Plan: #Seronegative RA Patient is a 64 y.o. female with UCTD/Seronegative RA currently in a mild flare of her disease. Will increase the frequency of Humira from every 2 weeks to every 10 days. Will also give a steroid taper for more rapid relief Plan - Humira 40mg SC every 10 days - Prednisone 3 tablets for 5 days then 2 tablets for 5 days then 1 tablet for 5 days then stop - Plaquenil 200mg bid - Methotrexate 20mg weekly - Folic acid 1 mg - Labs today: CBC, CMP, ESR, CRP, Hepatitis panel, T spot - RTC 4 weeks - Labs prior to visit: CBC, CMP, CRP, ESR (2) Long-term use of hydroxychloroquine: Comment: eyes OK 03/2022, 03/2023. 04/2024 Code(s): Z79.899 - Other supervisor intermediates (current) drug therapy Category: Medical Plan: #Long-term Use of Hydroxychloroquine Discussed with patient the risks and benefits of hydroxychloroquine in managing the rheumatic condition Benefits include: - Reduced pain, reduce mortality, maintenance of remission and reduction of flares Risks include: - GI upset, skin hyperpigmentation, retinal toxicity (especially after more than 5 years of use), myopathy Advised yearly ophthalmology visits (3) Encounter for monitoring of adalimumab therapy: Code(s): Z51.81 - Encounter for therapeutic drug level monitoring; Z79.620 - intermediate (current) use of immunosuppressive biologic Plan: #Long-term Use of TNF Inhibitors: Humira Discussed with the patient the benefits and risks of TNF inhibitors for the management of the rheumatic condition Benefits include reduce pain, maintenance of remission and reduction of flares as well as ?progression of the disease Risks include injection sites/infusion reactions, serious infections (such as bacterial infections, opportunistic infections), malignancy, delaminating syndromes, autoimmune phenomena, CHF exacerbations, palmar plantar psoriasis and cytopenias Recommended rotating injection sites, and holding medication during and for up to 1 week after resolution of a febrile illness or open skin wound (4) Encounter for methotrexate monitoring: Code(s): Z51.81 - Encounter for therapeutic drug level monitoring; Z79.631 - adjunct faculty for medical terminology (current) use of antimetabolite agent Plan: #Long-term Current Use of Methotrexate Discussed with patient the benefits and risks of methotrexate for managing their rheumatic condition Benefits include reduced pain, reduced mortality, maintenance of remission and reduction of flares Risks include oral ulcers, photosensitivity, hepatotoxicity, hematologic toxicity, pneumonitis, flu-like symptoms (especially day after administration), nodulosis, lymphomas ? Limit alcohol and avoid Bactrim ? Monitoring: ?CBC, BMP, LFTs every 3-4 months and hepatitis serologies as needed Plan I spent 40 minutes reviewing the record and labs, taking a history, examining the patient, discussing the treatment plan, ordering diagnostic work up and documenting in the medical record Orders: Orders C Reactive Protein 4 Weeks 6. - Rheumatoid arthritis without rheumatoid factor, unspecified site Hepatitis A,B,C Profile 09/18/246. - Rheumatoid arthritis without rheumatoid factor, unspecified site Complete Blood Count Auto Diff 09/18/24 M06. - Rheumatoid arthritis without rheumatoid factor, unspecified site Comprehensive Met. Panel 09/18/246. - Rheumatoid arthritis without rheumatoid factor, unspecified site Complete Blood Count Auto Diff 4 Weeks 6. - Rheumatoid arthritis without rheumatoid factor, unspecified site Comprehensive Met. Panel 4 Weeks 6. - Rheumatoid arthritis without rheumatoid factor, unspecified site Erythrocyte Sedimentation Rate 4 Weeks 6. - Rheumatoid arthritis without rheumatoid factor, unspecified site T Spot TB 09/18/246. - Rheumatoid arthritis without rheumatoid factor, unspecified site C Reactive Protein 09/18/24 M06. - Rheumatoid arthritis without rheumatoid factor, unspecified site Erythrocyte Sedimentation Rate 09/18/24 M06. - Rheumatoid arthritis without rheumatoid factor, unspecified site Medications: New prednisone Take 3 tablets for 5 days then 2 tablets for 5 days then 1 tablet for 5 days then stop 5 mg PO DIRECTED 20 tabs 0RF 6.00 - Rheumatoid arthritis without rheumatoid factor, unspecified site Changed From Humira(CF) Pen (adalimumab) 40 mg (0.4 mL) subcut Q2W 2 mL 2RF NS 6. - Rheumatoid arthritis without rheumatoid factor, unspecified site To Humira(CF) Pen (adalimumab) 40 mg (0.4 mL) subcut .every 10 days 1.2 mL 4RF NS M06.00 - Rheumatoid arthritis without rheumatoid factor, unspecified site Coding Level of Care Code Est Pt Level 5 (32143) Complex EM visit Add On G2211 Diagnoses Seronegative rheumatoid arthritis M06.00 Long-term use of hydroxychloroquine Z79.899 Encounter for monitoring of adalimumab therapy Z51.81; Z79.620 Encounter for methotrexate monitoring Z51.81; Z79.631
--- OUTSIDE RECORDS SUMMARY | 2024-09-18 16:06 | XMS_ITS | Patient Health Record ---
Author Organization [facility] Address [address] [place] [address] Care Team Providers Care Product Strategy Director Name Role Phone Iman Pulliam MD Primary Care Provider Patrice Lundberg Unavailable [phone] Allergies Allergen (clinical drug ingredient) Drug/Non Drug [...] Problem Screening for malignant neoplasm of colon (341629831) Encounter for screening for malignant neoplasm of colon (Z12.11) Active confirmed Problem Family history of malignant neoplasm of gastrointestinal tract (673416921) Family history of malignant neoplasm of digestive organs (Z80.0) Active confirmed Problem Pre-procedure evaluation check (882183702) Encounter for other preprocedural examination (Z01.818) Active confirmed Problem Diverticulosis of colon (665416728) Diverticulosis of colon (K57.30) Active confirmed Plan Of Treatment Future Test Test Name Order Date COLONOSCOPY 12/22/2014 COLONOSCOPY 12/20/2021 Insurance Providers Payer Name Payer Address Payer Phone Subscriber Number Group Number Insured Name Patient Relationship to Insured Coverage Start Date Coverage End Date [employer] [address] [address] [place] [address] [id number] HARJEET CULLEN Self - patient is the insured Medical (General) History Medical History History ICD Code Negative Colonoscopies in 24 09 and in 08-29-2009, other than diverticulosis and internal hemorrhoids-- GERD--[id number]--[id number]. [facility] Cervical polyps Depression/anxiety Sleep apnea-uses CPAP Diffuse unspecified connecti ve tissue disease, SLE, Osteoarthritis---sees Dr. Doshi HTN Denies [place],DM,CVA,Lung disease,renal dise ase MCTD-unspecified Fibromyalgia Osteoarthritis Negative colonoscopy in 2014 Surgical History Surgery Date(Month/Year) LEEP Benign breast cyst Tonsils
== END 2024-09-18 15:28 | disposition home or self-care (01) ==
LOC: HO.RHE 14:32
PROVIDERS: PCP Internal Medicine; Visit Provider Student in an Organized Health Care Education/Training Program
DX: M06.09 Rheumatoid arthritis without rheumatoid factor, multiple sites (principal); Z79.899 Other long term (current) drug therapy; Z51.81 Encounter for therapeutic drug level monitoring; Z79.620 Long term (current) use of immunosuppressive biologic; Z79.631 Long term (current) use of antimetabolite agent
CPT/HCPCS: 99215

== ENCOUNTER → 2024-09-29 11:03 | Outpatient (BNVA) | payer OTHER, SELFPAY | PROVIDERS: PCP Internal Medicine | DX: Z01.818 Encounter for other preprocedural examination (principal) ==

== ENCOUNTER → 2024-10-06 11:20 | Outpatient (BNV) | payer OTHER, SELFPAY | PROVIDERS: PCP Internal Medicine; Visit Provider Internal Medicine | DX: Z01.810 Encounter for preprocedural cardiovascular examination (principal) | CPT/HCPCS: 93010 ==

== ENCOUNTER 2024-10-12 10:15 | Outpatient (AMB) | payer OTHER, SELFPAY ==
--- NOTE | 2024-10-12 10:34 | A.OFFVIS_ITS ---
Intake Visit Reasons: TM Referral; L TKA w/NE 11/03/24 Intake Note: Misa is a 64 year old female who presents today with her peter to discuss upcoming Left TKA 11/03/24, She was booked by [facility]. Patient reports that she has no current concerns Allergies lisinopril Allergy (Severe, Verified 10/06/24 11:45) Nausea simvastatin Allergy (Severe, Verified 10/06/24 11:45) NAUSEA chamomile flower [CHAMOMILE HAWKINS] Allergy (Mild, Verified 10/06/24 11:45) RASH nickel Allergy (Mild, Verified 10/06/24 11:45) skin rash ropinirole Adverse Reaction (Intermediate, Verified 10/06/24 11:45) HIGH BLOOD PRESSURE gabapentin Adverse Reaction (Mild, Verified 10/06/24 11:45) Fatigue Sulfa (Sulfonamide Antibiotics) Adverse Reaction (Mild, Verified 10/06/24 11:45) RASH Daisys Adverse Reaction (Mild, Uncoded 10/06/24 11:45) rash HPI HPI TM Referral; L TKA w/NE 11/03/24: Details: Misa is a 64-year-old woman who is scheduled for left knee replacement in the coming weeks. She describes ongoing left knee pain. She has pain every day. She has difficulty walking for more than 10 minutes without pain. She has pain at work and feels that it is difficult maintaining her activities of daily living. Some of those activities help care for her who is a 20 year stroke survivor. 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 Undifferentiated connective tissue disease Annual physical exam Fibromyalgia Depression with anxiety RUSSELL (obstructive sleep apnea) Morbid obesity Surgical History (Updated 10/06/24 @ 10:09 by Fatimah Lazo RN) History of esophagogastroduodenoscopy (EGD) (~1999) History of loop electrical excision procedure (LEEP) (1981) History of colonoscopy History of cyst of breast (1976) History of tonsillectomy (1968) Family History (Updated 09/21/24 @ 14:31 by Ginna Song CMA) Father Osteoarthritis Colon cancer Diverticulosis Stroke HTN (hypertension) Full dentures Mother HTN (hypertension) Asthma Heart murmur TIA (transient ischemic attack) Diabetes mellitus Full dentures Osteoarthritis Family/Other Diabetes mellitus Heart disease CHF (congestive heart failure) Cancer Breast cancer Multiple myeloma Sister Mental health disorder Rheumatoid arthritis Moises's disease Diabetes mellitus Diverticulosis Trauma Neuropathy PTSD (post-traumatic stress disorder) Anxiety Depression Brother Substance use disorder Diabetes mellitus CHF (congestive heart failure) Social History (Updated 10/06/24 @ 11:44 by Fatimah Lazo RN) Household Members: Spouse Housing: House Are you a primary health care assistant to a significant other at home: No Do you presently have visiting nurse or other home services: No 75 years or older and lives alone: No Alcohol intake: never Patient Tobacco Use Status: Never used Tobacco e-Cigarette/Vaping Use: Never Used Use of substances other than those prescribed or required for medical reasons: No Advance Directives: Yes Advance Directives Information Provided: No Advance Directives on File: Yes Advance Directives Date on File: 04/13/22 Healthcare Proxy: Yes service: No Current occupational status: employed 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 She has no effusion. She has 0-125 degrees of motion. Her skin is clean dry and intact. She has 2+ dorsalis pedis pulse. Results Reviewed Results Reviewed: I personally reviewed relevant radiographs. Left knee with severe osteoarthritis involving medial and, to a lesser extent, , the anterior compartment Assessment & Plan Assessment & Plan (1) Osteoarthritis of left knee: Code(s): M17.12 - Unilateral primary osteoarthritis, left knee Category: Medical Plan: 64-year-old woman with left knee osteoarthritis. It is severe and she has failed conservative management. She has been booked for a left total knee replacement. She is able to get long with a cane and does have her walker at home which she does not knee but will after the surgery. We had a long d iscussion regarding the risks, benefits and alternative to surgery including to, but not limited to, the risk of infection, stiffness, aseptic loosening, hardware complications, failure, medical complications associated with surgery. She does have a history of autoimmune disease and this can decrease the longevity of the prosthesis and lead to early loosening. She expressed understanding and we will proceed forward accordingly. Coding Level of Care Code Est Pt Level 3 (27253) Diagnoses Osteoarthritis of left knee M17.12
--- OUTSIDE RECORDS SUMMARY | 2024-10-12 12:02 | XMS_ITS | Patient Health Record ---
Author Organization [facility] Address [address] [place] [address] Care Team Providers Care Transfer Man Name Role Phone Iman Pulliam MD Primary Care Provider Patrice Lundberg Unavailable [phone] Allergies Allergen (clinical drug ingredient) Drug/Non Drug [...] Problem Screening for malignant neoplasm of colon (688924298) Encounter for screening for malignant neoplasm of colon (Z12.11) Active confirmed Problem Family history of malignant neoplasm of gastrointestinal tract (174171909) Family history of malignant neoplasm of digestive organs (Z80.0) Active confirmed Problem Pre-procedure evaluation check (669430090) Encounter for other preprocedural examination (Z01.818) Active confirmed Problem Diverticulosis of colon (890801061) Diverticulosis of colon (K57.30) Active confirmed Plan Of Treatment Future Test Test Name Order Date COLONOSCOPY 12/22/2014 COLONOSCOPY 12/20/2021 Insurance Providers Payer Name Payer Address Payer Phone Subscriber Number Group Number Insured Name Patient Relationship to Insured Coverage Start Date Coverage End Date [employer] [address] [address] [place] [address] [id number] 1 HARJEET CULLEN Self - patient is the insured Medical (General) History Medical History History ICD Code Negative Colonoscopies in 24 09 and in 08-29-2009, other than diverticulosis and internal hemorrhoids-- GERD--[id number]--[id number] Cervical polyps Depression/anxiety Sleep apnea-uses CPAP Diffuse unspecified connecti ve tissue disease, SLE, Osteoarthritis---sees Dr. Doshi HTN Denies [place],DM,CVA,Lung disease,renal dise ase MCTD-unspecified Fibromyalgia Osteoarthritis Negative colonoscopy in 2014 Surgical History Surgery Date(Month/Year) LEEP Benign breast cyst Tonsils
== END 2024-10-12 11:01 | disposition home or self-care (01) ==
LOC: HO.HOS 10:16
PROVIDERS: PCP Internal Medicine; Visit Provider Orthopaedic Surgery
DX: M17.12 Unilateral primary osteoarthritis, left knee (principal)
CPT/HCPCS: 99214

== ENCOUNTER 2024-10-12 15:23 | Outpatient (REF) | payer OTHER, SELFPAY | END 2024-10-12 15:24 | disposition home or self-care (01) | LOC: HO.MAMMO 15:23 | PROVIDERS: PCP Internal Medicine; Visit Provider Internal Medicine | DX: Z12.31 Encounter for screening mammogram for malignant neoplasm of breast (principal) | CPT/HCPCS: 77063; 77067 ==

== ENCOUNTER → 2024-10-12 15:45 | Outpatient (BNV) | payer OTHER, SELFPAY | PROVIDERS: PCP Internal Medicine; Visit Provider Internal Medicine | DX: Z12.31 Encounter for screening mammogram for malignant neoplasm of breast (principal) | CPT/HCPCS: 77063; 77067 ==

== ENCOUNTER 2024-10-21 13:33 | Outpatient (AMB) | payer OTHER, SELFPAY ==
[2024-10-21 13:39] VITALS: BP 140/78; PULSE 77; O2SAT 97; BMI 40.5
--- NOTE | 2024-10-21 13:39 | A.OFFVIS_ITS ---
Vital Signs 10/21/24 13:39 Height 5 ft 4 in Weight 235 lb 14.314 oz BMI 40.5 BP 140/78 H Blood Pressure Location Lt brachial Position Sitting Pulse 77 Pulse Source Pulse Oximeter Pulse Oximetry (%) 97 Oxygen Delivery Method Room Air Intake Visit Reasons: RUSSELL/L TKA (Dr. 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: No Allergies lisinopril Allergy (Severe, Verified 10/21/24 13:44) Nausea simvastatin Allergy (Severe, Verified 10/21/24 13:44) NAUSEA chamomile flower [CHAMOMILE HAWKINS] Allergy (Mild, Verified 10/21/24 13:44) RASH nickel Allergy (Mild, Verified 10/21/24 13:44) skin rash ropinirole Adverse Reaction (Intermediate, Verified 10/21/24 13:44) HIGH BLOOD PRESSURE gabapentin Adverse Reaction (Mild, Verified 10/21/24 13:44) Fatigue Sulfa (Sulfonamide Antibiotics) Adverse Reaction (Mild, Verified 10/21/24 13:44) RASH Daisys Adverse Reaction (Mild, Uncoded 10/21/24 13:44) rash Medication List - Last Reconciled 10/21/24 by Mirian Galvan MD [Acetaminophen and Ibuprofen PO] albuterol sulfate 90 mcg/actuation 2 puffs inhalation Q6H PRN alpha lipoic acid 600 mg PO DAILY amlodipine 5 mg PO DAILY aspirin 81 mg PO DAILY calcium carbonate (Calcium 600) 600 mg PO BID cholecalciferol (vitamin D3) 25 mcg PO BID dextroamphetamine-amphetamine 10 mg ER 1 cap PO QAM diclofenac sodium 1% 2 grams topical DAILY PRN folic acid 1 mg PO DAILY gabapentin 300 mg PO BEDTIME 30 days gentamicin 0.3% 1 drp ophthalmic (eye) Q8H PRN Humira(CF) Pen (adalimumab) 40 mg (0.4 mL) subcut .every 10 days NS hydroxychloroquine 200 mg PO BID loratadine 10 mg PO DAILY methotrexate sodium 15 mg (6 x 2.5 mg) PO QWEEK 90 days gbjfnetsvnbz-aceglale-semkyd 1 tab PO DAILY omega 2-mek-mum-fish oil 1,000 (120-180) mg (Fish Oil) 1 cap PO BID sertraline 50 mg PO BEDTIME spironolactone 25 mg PO DAILY turmeric 400 mg PO DAILY vitamin B complex 1 cap PO DAILY walker Folding Front wheeled walker duration 99 days HPI HPI RUSSELL/L TKA (Dr. Galvan): Details: 64 YEARS OLD FEMALE WITH MORBID OBESITY AND DIAGNOSIS OF OBSTRUCTIVE SLEEP APNEA IS HERE FOR FOLLOW-UP, AND ALSO FOR PREOP PULMONARY CLEARANCE . SHE REMAINS GROSSLY OVERWEIGHT BECAUSE SHE IS NOT ABLE TO DO MUCH EXERCISE AND CAN NOT LOSE WEIGHT. FOR OBSTRUCTIVE SLEEP APNEA SHE IS VERY REGULAR IN USING THE CPAP, EVERY NIGHT AND SHE SLEEPS WELL AT LEAST 6-7 HOURS EVERY NIGHT. HER BREATHING HAS BEEN STABLE SHE HAS HAD NO ATTACKS OF WHEEZING, SHE DOES HAVE ALBUTEROL ON HAND BUT RARELY USES. 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 Undifferentiated connective tissue disease Annual physical exam Fibromyalgia Depression with anxiety RUSSELL (obstructive sleep apnea) Morbid obesity Surgical History History of esophagogastroduodenoscopy (EGD) (~1999) History of loop electrical excision procedure (LEEP) (1981) History of colonoscopy History of cyst of breast (1976) History of tonsillectomy (1968) Family History Father Osteoarthritis Colon cancer Diverticulosis Stroke HTN (hypertension) Full dentures Mother HTN (hypertension) Asthma Heart murmur TIA (transient ischemic attack) Diabetes mellitus Full dentures Osteoarthritis Family/Other Diabetes mellitus Heart disease CHF (congestive heart failure) Cancer Breast cancer Multiple myeloma Sister Mental health disorder Rheumatoid arthritis Moises's disease Diabetes mellitus Diverticulosis Trauma Neuropathy PTSD (post-traumatic stress disorder) Anxiety Depression Brother Substance use disorder Diabetes mellitus CHF (congestive heart failure) Social History Household Members: Spouse Housing: House Are you a primary hiv/aids care nurse to a significant other at home: No Do you presently have visiting nurse or other home services: No 75 years or older and lives alone: No Alcohol intake: never Patient Tobacco Use Status: Never used Tobacco e-Cigarette/Vaping Use: Never Used Advance Directives Date on File: 04/13/22 service: No Current occupational status: employed 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 [employer] Cognitive needs: No Hearing needs: No Vision needs: Yes Review of Systems Const All systems reviewed & are unremarkable except as noted in HPI and below Eyes Reports no additional complaints ENT Reports nasal congestion (Mild off and on) Card Denies chest pain at rest, Denies irregular heart rhythm, Denies leg edema and Denies dyspnea on exertion Resp Denies cough, Denies dyspnea on exertion and Denies wheezing GI Reports no additional complaints Reports no additional complaints Musc Reports myalgias and Reports arthralgias Skin/Breast Reports system reviewed and no additional complaints, except as documented Neuro Reports no additional complaints Psych Reports no additional complaints Momo/Lymph Reports no additional complaints Aller/Immun Denies wheezing Physical Exam Vital Signs: Last Vital Signs Pulse 77 10/21/24 13:39 BP 140/78 H 10/21/24 13:39 Pulse Ox 97 10/21/24 13:39 Oxygen Delivery Method Room Air 10/21/24 13:39 BMI result Body Mass Index 40.5 Const General: healthy appearing (Except for being overweight), comfortable, no acute distress, alert and awake Orientation/consciousness: patient oriented x3 HEENT Head: Yes normal to inspection General nose exam: No nasal polyps present and No nasal discharge present Face and sinus: Yes sinuses nontender Mouth: oropharynx normal Throat: Yes posterior oropharynx normal Eyes General: appearance normal, both eyes and all related structures Neck Neck: Yes normal visual inspection, Yes no lymphadenopathy, Yes trachea midline and Yes no JVD Thyroid: Thyroid normal Chest Chest palpation & inspection: normal inspection of the chest, normal palpation of entire chest wall and no tenderness Resp Effort & Inspection: normal respiratory effort Auscultation: clear to auscultation bilaterally, no crackles and no wheezes Cardio Palpation: normal PMI Rate: regular rate Rhythm: regular rhythm Heart sounds: no gallops and no murmurs Peripheral pulses: Peripheral pulses 2+ throughout GI Palpation (GI): Soft to palpation, nontender, No hepatosplenomegaly present and no masses Auscultation: normal bowel sounds Back/Spine/Pelvis Thoracic/Lumbar Spine: thoracic and lumbar spine normal to inspection Skin General skin exam: no rashes or lesions noted Neuro General: patient oriented x3 and no focal motor deficits Cranial nerves: Yes CN's II-XII intact bilaterally Extrem General: Yes normal to inspection, Yes no clubbing, cyanosis or edema and Yes no calf tenderness Psych Appearance: grossly normal and well kempt Speech and movement: Normal speech and movement present Results Reviewed Results Reviewed: COMPLIANCE REPORT IS REVIEWED. SHE HAS USED 30/30 NIGHTS, 100%. AVERAGE USE IT PER NIGHT 6 HOURS 55 MINUTES. SHE IS ON RELATIVELY. LOW PRESSURE OF 10 CM THERE IS. NO AIR LEAK RESIDUAL AHI 3.5 Assessment & Plan Assessment & Plan (1) Morbid obesity: Comment: Patient remains morbidly obese . BMI= 40 .5 SHE IS NOT ABLE TO LOSE MUCH WEIGHT. Code(s): E66.01 - Morbid (severe) obesity due to excess calories Category: Medical Plan: DISCUSSED ABOUT THE WEIGHT ISSUE, TRY TO DECREASE THE CALORIES INTAKE. ONCE KNEE SURGERY IS DONE AND AFTER REHABILITATION SHE SHOULD START DOING SOME WALKING EVERY DAY. (2) RUSSELL (obstructive sleep apnea): Comment: She is a known case of obstructive sleep apnea due to her morbid obesity. Uses CPAP regularly with good effect and sleeps well. Compliance is good. Code(s): G47.33 - Obstructive sleep apnea (adult) (pediatric) Category: Medical Plan: COMMENDED FOR GOOD COMPLIANCE AND ADVISED TO KEEP ON USING THE CPAP DAILY. FOR THE KNEE SURGERY WHEN SHE IS IN THE HOSPITAL SHE SHOULD BRING HER CPAP WITH HER TO THE HOSPITAL AND USE AT NIGHT (3) TURCIOS (dyspnea on exertion): Comment: She has mild shortness of breath on exertion like walking up hill or on the level ground, Code(s): R06.00 - Dyspnea, unspecified Category: Medical Plan: DYSPNEA ON EXERTION IS MULTIFACTORIAL BUT MAINLY BECAUSE OF OBESITY AND RESTRICTIVE LUNG DISEASE. IT CAN IMPROVE ONLY WITH SIGNIFICANT WEIGHT REDUCTION AND ALSO DAILY BREATHING EXERCISES. Plan * FAR PULMONARY CLEARANCE FOR PLANNED KNEE SURGERY IS CONCERNED, SHE DOES NOT HAVE ANY CONTRAINDICATIONS FROM PULMONARY POINT OF VIEW. ADVISE THAT SHE SHOULD BRING HER CPAP DEVICE WITH HER TO THE HOSPITAL AND USE REGULARLY AT NIGHTTIME. IF SHE IS SLEEPY DURING THE DAYTIME SHE CAN USE THE CPAP DURING DAYTIME WELL. Coding Level of Care Code Est Pt Level 4 (41092) Diagnoses Morbid obesity E66.01 RUSSELL (obstructive sleep apnea) G47.33 TURCIOS (dyspnea on exertion) R06.00
--- OUTSIDE RECORDS SUMMARY | 2024-10-21 16:09 | XMS_ITS | Patient Health Record ---
Author Organization [facility] Address [address] [place] [address] Care Team Providers Care Supervisor [employer] Name Role Phone Iman Pulliam MD Primary Care Provider Patrice Lundberg Unavailable [phone] Allergies Allergen (clinical drug ingredient) Drug/Non Drug [...] Problem Screening for malignant neoplasm of colon (992643193) Encounter for screening for malignant neoplasm of colon (Z12.11) Active confirmed Problem Family history of malignant neoplasm of gastrointestinal tract (892842908) Family history of malignant neoplasm of digestive organs (Z80.0) Active confirmed Problem Pre-procedure evaluation check (616346680) Encounter for other preprocedural examination (Z01.818) Active confirmed Problem Diverticulosis of colon (519508751) Diverticulosis of colon (K57.30) Active confirmed Plan Of Treatment Future Test Test Name Order Date COLONOSCOPY 12/22/2014 COLONOSCOPY 12/20/2021 Insurance Providers Payer Name Payer Address Payer Phone Subscriber Number Group Number Insured Name Patient Relationship to Insured Coverage Start Date Coverage End Date [employer] [address] [address] [place] [address] [id number] HARJEET CULLEN Self - patient is the insured Medical (General) History Medical History History ICD Code Negative Colonoscopies in 24 09 and in 08-29-2009, other than diverticulosis and internal hemorrhoids-- GERD--[id number] Cervical polyps Depression/anxiety Sleep apnea-uses CPAP Diffuse unspecified connecti ve tissue disease, SLE, Osteoarthritis---sees Dr. Doshi HTN Denies [place],DM,CVA,Lung disease,renal dise ase MCTD-unspecified Fibromyalgia Osteoarthritis Negative colonoscopy in 2014 Surgical History Surgery Date(Month/Year) LEEP Benign breast cyst Tonsils
== END 2024-10-21 13:58 | disposition home or self-care (01) ==
LOC: HO.HPS 13:34
PROVIDERS: PCP Internal Medicine; Visit Provider Internal Medicine
DX: E66.01 Morbid (severe) obesity due to excess calories (principal); G47.33 Obstructive sleep apnea (adult) (pediatric); R06.00 Dyspnea, unspecified
CPT/HCPCS: 99214

== ENCOUNTER → 2024-10-21 13:33 | Outpatient (BNVA) | payer OTHER, SELFPAY | PROVIDERS: PCP Internal Medicine; Visit Provider Internal Medicine ==

== ENCOUNTER 2024-10-27 14:31 | Outpatient (REF) | payer OTHER, SELFPAY ==
[2024-10-27 14:41] LABS: MANUAL DIFF FLAG NO
[2024-10-27 15:16] LABS: Basophils Percent Auto 0.2 % (0-2); Eosinophils Absolute Auto 0.2 X10*3/uL (0.0-0.4); Eosinophils Percent Auto 1.8 % (0-4); Hematocrit 41.6 % (37.0-47.0); Hemoglobin 14.5 g/dl (12.0-16.0); Imm Gran Abs Auto 0.02 X10*3/uL (0.00-0.03); Imm Gran Pct Auto 0.2 % (0.0-0.4); Lymphocytes Absolute Auto 3.5 X10*3/uL (1.2-4.9); Lymphocytes Percent Auto 41.5 % (20-40); Mean Corpuscular HGB Conc 34.9 g/dl (31.0-35.0); Mean Corpuscular Hemoglobin 32.8 pg (27.0-33.0); Mean Corpuscular Volume 94.1 fL (80.0-98.0); Mean Platelet Volume 9.9 fL (9.4-12.3); Monocytes Absolute Auto 0.7 X10*3/uL (0.1-1.2); Monocytes Percent Auto 7.8 % (2-11); Neutrophils Absolute Auto 4.1 x10*3/uL (2.0-8.3); Neutrophils Percent Auto 48.5 % (45-73); Platelet Count 292 X10*3/uL (160-400); Red Blood Count 4.42 X10*6/uL (4.20-5.50); Red Cell Distribution Width 13.2 % (11.0-16.0); White Blood Count 8.5 X10*3/uL (4.8-10.8)
[2024-10-27 16:00] LABS: Erythrocyte Sedimentation Rate 31 MM/HR (0-20)
--- OUTSIDE RECORDS SUMMARY | 2024-10-27 17:22 | XMS_ITS | Patient Health Record ---
Author Organization [facility] Address [address] [place] [address] Care Team Providers Care Apartment Leasing Consultant Name Role Phone Iman Pulliam MD Primary Care Provider Patrice Lundberg Unavailable [phone] Allergies Allergen (clinical drug ingredient) Drug/Non Drug [...] Problem Screening for malignant neoplasm of colon (179262287) Encounter for screening for malignant neoplasm of colon (Z12.11) Active confirmed Problem Family history of malignant neoplasm of gastrointestinal tract (677207290) Family history of malignant neoplasm of digestive organs (Z80.0) Active confirmed Problem Pre-procedure evaluation check (625154222) Encounter for other preprocedural examination (Z01.818) Active confirmed Problem Diverticulosis of colon (055048374) Diverticulosis of colon (K57.30) Active confirmed Plan Of Treatment Future Test Test Name Order Date COLONOSCOPY 12/22/2014 COLONOSCOPY 12/20/2021 Insurance Providers Payer Name Payer Address Payer Phone Subscriber Number Group Number Insured Name Patient Relationship to Insured Coverage Start Date Coverage End Date [employer] [address] [address] [place] [address] [id number] HARJEET CULLEN Self - patient is the insured Medical (General) History Medical History History ICD Code Negative Colonoscopies in 24 09 and in 08-29-2009, other than diverticulosis and internal hemorrhoids-- GERD--[id number] Cervical polyps Depression/anxiety Sleep apnea-uses CPAP Diffuse unspecified connecti ve tissue disease, SLE, Osteoarthritis---sees Dr. Doshi HTN Denies [place],DM,CVA,Lung disease,renal dise ase MCTD-unspecified Fibromyalgia Osteoarthritis Negative colonoscopy in 2014 Surgical History Surgery Date(Month/Year) LEEP Benign breast cyst Tonsils
[2024-10-27 19:50] LABS: Alanine Aminotransferase 34 U/L (0-31); Albumin Level 4.4 g/dL (3.5-5.0); Anion Gap 13 (12-20); Aspartate Amino Transferase 27 U/L (5-31); Bilirubin Total 0.3 mg/dL (0.0-1.0); Blood Urea Nitrogen 8 mg/dL (9-16); C Reactive Protein 1.37 mg/dL (< or = 0.50); Calcium 9.4 mg/dL (8.4-10.2); Carbon Dioxide 28 mmol/L (22-29); Chloride 105 mmol/L (96-108); Estimated Glomerular Filt Rate > 60; Glucose Random 106 mg/dL (60-115); Potassium 4.2 mmol/L (3.3-5.1); Sodium 142 mmol/L (135-145); Total Protein 7.5 g/dL (6.5-8.0)
[2024-10-27 20:00] LABS: Alkaline Phosphatase 76 U/L (39-117)
== END 2024-10-27 14:32 | disposition home or self-care (01) ==
LOC: HO.LAB 14:31
PROVIDERS: PCP Internal Medicine; Visit Provider Student in an Organized Health Care Education/Training Program
DX: M06.00 Rheumatoid arthritis without rheumatoid factor, unspecified site (principal)
CPT/HCPCS: 36415; 80053; 85025; 85652; 86140

== ENCOUNTER 2024-10-28 14:39 | Outpatient (AMB) | payer OTHER, SELFPAY ==
[2024-10-28 14:41] VITALS: BP 140/72; PULSE 82; O2SAT 98; BMI 41.4
--- NOTE | 2024-10-28 14:41 | MHC.OFFVIS ---
Vital Signs 10/28/24 14:41 Height 5 ft 4 in Weight 240 lb 15.444 oz BMI 41.4 BP 140/72 H Blood Pressure Location Lt brachial Position Sitting Pulse 82 Pulse Source Pulse Oximeter Pulse Oximetry (%) 98 Oxygen Delivery Method Room Air Intake Visit Reasons: RA Intake Note: Patient presents for follow up on RA today. She was last seen in the office on 09/18/24. Allergies lisinopril Allergy (Severe, Verified 10/28/24 14:44) Nausea simvastatin Allergy (Severe, Verified 10/28/24 14:44) NAUSEA chamomile flower [CHAMOMILE HAWKINS] Allergy (Mild, Verified 10/28/24 14:44) RASH nickel Allergy (Mild, Verified 10/28/24 14:44) skin rash ropinirole Adverse Reaction (Intermediate, Verified 10/28/24 14:44) HIGH BLOOD PRESSURE gabapentin Adverse Reaction (Mild, Verified 10/28/24 14:44) Fatigue Sulfa (Sulfonamide Antibiotics) Adverse Reaction (Mild, Verified 10/28/24 14:44) RASH Daisys Adverse Reaction (Mild, Uncoded 10/28/24 14:44) rash Medication List - Last Reconciled 10/28/24 by Silvana Vega MD [Acetaminophen and Ibuprofen PO] albuterol sulfate 90 mcg/actuation 2 puffs inhalation Q6H PRN alpha lipoic acid 600 mg PO DAILY amlodipine 5 mg PO DAILY aspirin 81 mg PO DAILY dextroamphetamine-amphetamine 10 mg ER 1 cap PO QAM diclofenac sodium 1% 2 grams topical DAILY PRN folic acid 1 mg PO DAILY gabapentin 300 mg PO BEDTIME 30 days gentamicin 0.3% 1 drp ophthalmic (eye) Q8H PRN Humira(CF) Pen (adalimumab) 40 mg (0.4 mL) subcut .every 10 days NS hydroxychloroquine 200 mg PO BID loratadine 10 mg PO DAILY methotrexate sodium 15 mg (6 x 2.5 mg) PO QWEEK 90 days efyuotpjqsit-ablpluhw-ncguwm 1 tab PO DAILY omega 9-som-qxp-fish oil 1,000 (120-180) mg (Fish Oil) 1 cap PO BID sertraline 50 mg PO BEDTIME spironolactone 25 mg PO DAILY turmeric 400 mg PO DAILY vitamin B complex 1 cap PO DAILY walker Folding Front wheeled walker duration 99 days HPI Comments Details: Patient is a 64-year-old female with hypertension, RUSSELL, depression and ADHD, UCTD/seronegative rheumatoid arthritis here today for follow up Interval History: Patient last seen 09/19/24 with me. At that time she was following up for her seronegative rheumatoid arthritis/undifferentiated connective tissue disease. She was on methotrexate 20 mg weekly, folic acid 1 mg daily, hydroxychloroquine 200 mg twice a day and Humira every other week. She reported continued episodes of joint pain involving her hands and knees requiring extra strength Tylenol about 4 tablets a day. Was evidence of swelling and synovitis on examination. Based on this her methotrexate frequency was increased to every 10 days Prednisone taper also given Has been doing well on the increased frequency of the Humira Has her left TKR 11/03 Complaining of gum swelling and mild hand swelling now that she is off the prednisone Rheumatologic History: Seronegative RA onset 2008. +++CUSTOMER CONSULTING MANAGER ++JACY -ve JOYCE -ve RF, -ve CCP Predominantly hand and knee pains. HCQ Since 2009 eyes OK 03/2022, 03/2023. Methotrexate added 2011. Sulfasalazine added 2019. stopped 12/2019 due to suspicion of neuropathy Enbrel added 11/2023 DC ineffective Humira 01/2024 effective Decreased Mtx to 20mg weekly after starting Humira, and elevated LFTs Current Rheumatology Medication(s): Methotrexate 20 mg weekly p.o. 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 Undifferentiated connective tissue disease Annual physical exam Fibromyalgia Depression with anxiety RUSSELL (obstructive sleep apnea) Morbid obesity Surgical History History of esophagogastroduodenoscopy (EGD) (~1999) History of loop electrical excision procedure (LEEP) (1981) History of colonoscopy History of cyst of breast (1976) History of tonsillectomy (1968) Family History Father Osteoarthritis Colon cancer Diverticulosis Stroke HTN (hypertension) Full dentures Mother HTN (hypertension) Asthma Heart murmur TIA (transient ischemic attack) Diabetes mellitus Full dentures Osteoarthritis Family/Other Diabetes mellitus Heart disease CHF (congestive heart failure) Cancer Breast cancer Multiple myeloma Sister Mental health disorder Rheumatoid arthritis Moises's disease Diabetes mellitus Diverticulosis Trauma Neuropathy PTSD (post-traumatic stress disorder) Anxiety Depression Brother Substance use disorder Diabetes mellitus CHF (congestive heart failure) Social History Household Members: Spouse Housing: House Are you a primary primary care nurse to a significant other at home: No Do you presently have visiting nurse or other home services: No 75 years or older and lives alone: No Alcohol intake: never Patient Tobacco Use Status: Never used Tobacco e-Cigarette/Vaping Use: Never Used Advance Directives Date on File: 04/13/22 service: No Current occupational status: employed 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 [employer] Cognitive needs: No Hearing needs: No Vision needs: Yes Review of Systems Const Details: Review of Systems Constitutional: Denies fever, chills, weight loss ENT: Denies vision changes, eye pain or eye redness, dental caries, dry mouth GI: Denies nausea, vomiting, diarrhea, abdominal pain, change in BM Pulm: Denies SOB, TURCIOS, hemoptysis, wheezing Cards: Denies chest pain, palpitations Skin: Denies Raynaud's, rash, nail changes, photosensitivity, ELECTRICAL SIGN WIRER HELPER: Denies headaches, weakness, paresthesias, recurrent falls MSK: as per HPI All other systems reviewed and are unremarkable except noted above Physical Exam Vital Signs: Last Vital Signs Pulse 82 10/28/24 14:41 BP 140/72 H 10/28/24 14:41 Pulse Ox 98 10/28/24 14:41 Oxygen Delivery Method Room Air 10/28/24 14:41 BMI result Body Mass Index 41.4 Vital signs reviewed Physical Examination CONSTITUITIONAL Patient alert and cooperative. Well appearing and in no apparent painful distress HEENT Conjunctiva and sclera clear. ?Pupils equal round and reactive to light. ?No lymphadenopathy. ? CHEST/RESPIRATORY SYSTEM Normal respiratory effort and able to speak in complete sentences. ?Clear to auscultation bilaterally. ?No crackles, rales, rhonchi, wheezes heard. CARDIAC SYSTEM Regular rate and rhythm. ?S1 and S2 heard no murmurs. ?Radial pulses intact bilaterally MSK Hands: ?Able to make a fist. No synovitis noted to the MCPs, PIPs or DIPs. ?No tenderness to palpation of these joints. No deformities noted. ?Mild swelling noted to the hands Wrists: ?Full range of motion at the wrists without pain. ?Mild TTP of bilateral wrists Elbows: Full range of motion without pain. No tenderness, weakness, swelling, increased warmth or erythema. Shoulders: Full range of active range of motion without pain. No tenderness, weakness, swelling, increased warmth or erythema. Knees: ?Full range of motion. ?No tenderness, swelling, increased warmth or erythema.?No effusion or crepitations Ankles: Full range of motion. ?Mild TTP over the right tibiotalar joint Feet: ?Negative squeeze test. ?No tenderness to palpation or swelling of the MTPs. Tender points:?No tenderness to palpation of the bilateral trapezius, supraspinatus, greater trochanters, anterior costochondral junctions, bilateral gluteal areas, bilateral suboccipital muscle insertions SKIN Skin intact without rashes. Results Reviewed Results Reviewed: Laboratory Tests 09/18/24 10/27/24 16:21 14:40 WBC 8.5 RBC 4.42 Hgb 14.5 Hct 41.6 Plt Count 292 ESR 31 H Sodium 142 Potassium 4.2 Chloride 105 Carbon Dioxide 28 BUN 8 L Creatinine 0.72 AST 37 H 27 ALT 41 H 34 H Alkaline Phosphatase 76 C-Reactive Protein 0.98 H 1.37 H Immunology labs 11/19/19 01/24/21 11/11/23 15:55 16:30 10:10 Rheumatoid Factor < 13.0 Sm (Theodore) Antibody <1.0 <1.0 NEG SS-A/Ro Antibody <1.0 NEG SS-B/La Antibody <1.0 NEG SmRNP Antibodies 5.1 H SM/CUSTOMER CONSULTING MANAGER IgG Antibody 5.1 POS A Double Strand DNA Ab <1 Complement C3 134 Complement C4 32 Infectious serologies 09/18/24 16:21 Hepatitis A IgM Ab Nonreactive Hep Bs Antigen Negative Hep Bs Antibody NONREACTIVE Hep B Core Total Ab Nonreactive Hepatitis C Ab (EIA) Nonreactive Assessment & Plan Assessment & Plan (1) Seronegative rheumatoid arthritis: Comment: onset 2008. +++CUSTOMER CONSULTING MANAGER ++JACY -ve JOYCE -ve RF, -ve CCP Predominantly hand and knee pains. HCQ since 2009 eyes OK 03/2022, 03/2023. Methotrexate added 2011. Sulfasalazine added 2019. stopped 12/2019 due to suspicion of neuropathy Enbrel added 11/2023 DC ineffective Humira 01/2024 effective Decreased Mtx 25 --> 20 due to Transaminitis Code(s): M06.00 - Rheumatoid arthritis without rheumatoid factor, unspecified site Category: Medical Plan: #Seronegative RA Patient is a 64 y.o. female with UCTD/Seronegative RA here today for follow up. Doing better on the increased frequency of Humira, but this is currently on hold in preparation for her surgery. Instructions given on when to restart her Humira after surgery. We will follow up with her in 3 months Plan - Humira 40mg SC every 10 days. Currently holding in preparation for surgery on 11/03. Instructed to restart about 1 week after surgery once there is good healing. - Plaquenil 200mg bid - Methotrexate 20mg weekly - Folic acid 1 mg - RTC 3 months - Labs prior to visit: CBC, CMP, CRP, ESR (2) Pre-op evaluation: Code(s): Z01.818 - Encounter for other preprocedural examination Plan: #PreOp evaluation Patient having that left total knee [place] [facility] Methotrexate and hydroxychloroquine can be continued in the perioperative period Humira to be held 1 week before and at least 1 week after. Can restart the medication 1 week after the surgery once there is good healing Hold off steroids in the perioperative period as much as possible Given that this patient has been on an off steroids she may benefit from stress dose steroids in surgery. (3) Long-term use of hydroxychloroquine: Comment: eyes OK 03/2022, 03/2023. 04/2024 Code(s): Z79.899 - Other residential (current) drug therapy Category: Medical Plan: #Long-term Use of Hydroxychloroquine Discussed with patient the risks and benefits of hydroxychloroquine in managing the rheumatic condition Benefits include: - Reduced pain, reduce mortality, maintenance of remission and reduction of flares Risks include: - GI upset, skin hyperpigmentation, retinal toxicity (especially after more than 5 years of use), myopathy Advised yearly ophthalmology visits (4) Encounter for monitoring of adalimumab therapy: Code(s): Z51.81 - Encounter for therapeutic drug level monitoring; Z79.620 - intermediate (current) use of immunosuppressive biologic Plan: #Long-term Use of TNF Inhibitors: Humira Discussed with the patient the benefits and risks of TNF inhibitors for the management of the rheumatic condition Benefits include reduce pain, maintenance of remission and reduction of flares as well as ?progression of the disease Risks include injection sites/infusion reactions, serious infections (such as bacterial infections, opportunistic infections), malignancy, delaminating syndromes, autoimmune phenomena, CHF exacerbations, palmar plantar psoriasis and cytopenias Recommended rotating injection sites, and holding medication during and for up to 1 week after resolution of a febrile illness or open skin wound (5) Encounter for methotrexate monitoring: Code(s): Z51.81 - Encounter for therapeutic drug level monitoring; Z79.631 - air hammer stripper (current) use of antimetabolite agent Plan: #Long-term Current Use of Methotrexate Discussed with patient the benefits and risks of methotrexate for managing their rheumatic condition Benefits include reduced pain, reduced mortality, maintenance of remission and reduction of flares Risks include oral ulcers, photosensitivity, hepatotoxicity, hematologic toxicity, pneumonitis, flu-like symptoms (especially day after administration), nodulosis, lymphomas ? Limit alcohol and avoid Bactrim ? Monitoring: ?CBC, BMP, LFTs every 3-4 months and hepatitis serologies as needed Plan I spent 34 minutes reviewing the record and labs, taking a history, examining the patient, discussing the treatment plan, ordering diagnostic work up and documenting in the medical record Medications: Refilled hydroxychloroquine 200 mg PO BID 60 tabs 2RF M35.9 - Systemic involvement of connective tissue, unspecified Humira(CF) Pen (adalimumab) 40 mg (0.4 mL) subcut .every 10 days 1.2 mL 4RF NS M06.00 - Rheumatoid arthritis without rheumatoid factor, unspecified site methotrexate sodium 15 mg (6 x 2.5 mg) PO QWEEK 90 days 78 tabs 1RF M35.9 - Systemic involvement of connective tissue, unspecified Coding Level of Care Code Est Pt Level 4 (66300) Complex EM visit Add On G2211 Diagnoses Seronegative rheumatoid arthritis M06.00 Pre-op evaluation Z01.818 Long-term use of hydroxychloroquine Z79.899 Encounter for monitoring of adalimumab therapy Z51.81; Z79.620 Encounter for methotrexate monitoring Z51.81; Z79.631
--- OUTSIDE RECORDS SUMMARY | 2024-10-28 17:28 | XMS_ITS | Patient Health Record ---
Author Organization [facility] Address [address] [place] [address] Care Team Providers Care Sales And Events Coordinator Name Role Phone Iman Pulliam MD Primary Care Provider Patrice Lundberg Unavailable [phone] Allergies Allergen (clinical drug ingredient) Drug/Non Drug [...] Problem Screening for malignant neoplasm of colon (833910034) Encounter for screening for malignant neoplasm of colon (Z12.11) Active confirmed Problem Family history of malignant neoplasm of gastrointestinal tract (883058936) Family history of malignant neoplasm of digestive organs (Z80.0) Active confirmed Problem Pre-procedure evaluation check (739024212) Encounter for other preprocedural examination (Z01.818) Active confirmed Problem Diverticulosis of colon (187518667) Diverticulosis of colon (K57.30) Active confirmed Plan Of Treatment Future Test Test Name Order Date COLONOSCOPY 12/22/2014 COLONOSCOPY 12/20/2021 Insurance Providers Payer Name Payer Address Payer Phone Subscriber Number Group Number Insured Name Patient Relationship to Insured Coverage Start Date Coverage End Date [employer] [address] [address] [place] [address] [id number] HARJEET CULLEN Self - patient is the insured Medical (General) History Medical History History ICD Code Negative Colonoscopies in 24 09 and in 08-29-2009, other than diverticulosis and internal hemorrhoids-- GERD--[id number]--ep[facility]. [facility] Cervical polyps Depression/anxiety Sleep apnea-uses CPAP Diffuse unspecified connecti ve tissue disease, SLE, Osteoarthritis---sees Dr. Doshi HTN Denies [place],DM,CVA,Lung disease,renal dise ase MCTD-unspecified Fibromyalgia Osteoarthritis Negative colonoscopy in 2014 Surgical History Surgery Date(Month/Year) LEEP Benign breast cyst Tonsils
== END 2024-10-28 15:18 | disposition home or self-care (01) ==
LOC: HO.RHE 14:40
PROVIDERS: PCP Internal Medicine; Visit Provider Student in an Organized Health Care Education/Training Program
DX: M06.00 Rheumatoid arthritis without rheumatoid factor, unspecified site (principal); Z01.818 Encounter for other preprocedural examination; Z79.899 Other long term (current) drug therapy; Z51.81 Encounter for therapeutic drug level monitoring; Z79.620 Long term (current) use of immunosuppressive biologic; Z79.631 Long term (current) use of antimetabolite agent
CPT/HCPCS: 99214

== ENCOUNTER 2024-10-29 09:15 | Outpatient (AMB) | payer OTHER, SELFPAY ==
--- NOTE | 2024-10-29 08:43 | A.OFFVIS_ITS ---
Vital Signs 10/29/24 09:23 Height 5 ft 4 in Weight 240 lb BMI 41.2 Intake Visit Reasons: Pre-Op: L TKA w/NE 11/03/24 Intake Note: Misa is a 64 year old female who present today for a pre operative appointment for her left TKA 11/03/24 NE. LABS! Allergies lisinopril Allergy (Severe, Verified 10/29/24 09:23) Nausea simvastatin Allergy (Severe, Verified 10/29/24 09:23) NAUSEA chamomile flower [CHAMOMILE HAWKINS] Allergy (Mild, Verified 10/29/24 09:23) RASH nickel Allergy (Mild, Verified 10/29/24 09:23) skin rash ropinirole Adverse Reaction (Intermediate, Verified 10/29/24 09:23) HIGH BLOOD PRESSURE gabapentin Adverse Reaction (Mild, Verified 10/29/24 09:23) Fatigue Sulfa (Sulfonamide Antibiotics) Adverse Reaction (Mild, Verified 10/29/24 09:23) RASH Daisys Adverse Reaction (Mild, Uncoded 10/28/24 14:44) rash HPI HPI Pre-Op: L TKA w/NE 11/03/24: Details: Ms. Torres is a 64-year-old female who presents to the office today for her preoperative history and physical examination pending left total knee arthroplasty scheduled with Dr. Galvan on 11/03/2024. She has tried and failed all conservative treatment and her left knee pain is impacting her quality of life and activities of daily living. Therefore, she has consented to move forward with left total knee arthroplasty. Patient does have a significant past medical history of a TIA in 2022, elevated LFTs, obstructive sleep apnea (uses CPAP), hypertension, rheumatoid arthritis and a BMI of 40.5. Patient saw the following providers for preoperative clearance: PCP: Iman Pulliam on 09/09/2024 and was cleared for surgery. Machine Set Up Technician: Dr. Galvan on 10/21/2024 and was cleared for surgery. Patient instructed to bring CPAP machine on day of surgery. Client Account Specialist:Dr. Silvana Vega follows the patient for undifferentiated connective tissue disease patient is on Methotrexate, Humira and Plaquenil. 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 Undifferentiated connective tissue disease Annual physical exam Fibromyalgia Depression with anxiety RUSSELL (obstructive sleep apnea) Morbid obesity Surgical History History of esophagogastroduodenoscopy (EGD) (~1999) History of loop electrical excision procedure (LEEP) (1981) History of colonoscopy History of cyst of breast (1976) History of tonsillectomy (1968) Family History Father Osteoarthritis Colon cancer Diverticulosis Stroke HTN (hypertension) Full dentures Mother HTN (hypertension) Asthma Heart murmur TIA (transient ischemic attack) Diabetes mellitus Full dentures Osteoarthritis Family/Other Diabetes mellitus Heart disease CHF (congestive heart failure) Cancer Breast cancer Multiple myeloma Sister Mental health disorder Rheumatoid arthritis Moises's disease Diabetes mellitus Diverticulosis Trauma Neuropathy PTSD (post-traumatic stress disorder) Anxiety Depression Brother Substance use disorder Diabetes mellitus CHF (congestive heart failure) Social History Household Members: Spouse Housing: House Are you a primary career professional to a significant other at home: No Do you presently have visiting nurse or other home services: No Alcohol intake: never Patient Tobacco Use Status: Never used Tobacco e-Cigarette/Vaping Use: Never Used Advance Directives Date on File: 04/13/22 service: No Current occupational status: employed 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 She has no effusion. She has 0-125 degrees of motion. Her skin is clean dry and intact. She has 2+ dorsalis pedis pulse. Assessment & Plan Assessment & Plan (1) Osteoarthritis of left knee: Code(s): M17.12 - Unilateral primary osteoarthritis, left knee Category: Medical Plan Ms. Torres is a 64-year-old female who presents to the office today for her preoperative history and physical examination pending left total knee arthroplasty scheduled with Dr. Galvan on 11/03/2024. She has tried and failed all conservative treatment and her left knee pain is impacting her quality of life and activities of daily living. Therefore, she has consented to move for mata with left total knee arthroplasty. Patient does have a significant past medical history of a TIA in 2022 (on low- dose aspirin), elevated LFTs, obstructive sleep apnea (uses CPAP), hypertension, rheumatoid arthritis and a BMI of 40.5. Patient saw the following providers for preoperative clearance: PCP: Iman Pulliam on 09/09/2024 and was cleared for surgery. Machine Set Up Technician: Dr. Galvan on 10/21/2024 and was cleared for surgery. Patient instructed to bring CPAP machine on day of surgery. Client Account Specialist:Dr. Silvana Vega follows the patient for undifferentiated connective tissue disease patient is on Methotrexate, Humira and Plaquenil. * Methotrexate and Folic acid and hydroxychloroquine can be continued in the perioperative period * Humira to be held 1 week before and at least 1 week after. Can restart the medication 1 week after the surgery once there is good healing. Last injection was on 10/19/24. * Hold off steroids in the perioperative period as much as possible * Given that this patient has been on an off steroids she may benefit from stress dose steroids in surgery. X-rays of the left knee which were obtained on 06/15/2024 revealing osteoarthritis of the left knee. I discussed in detail the procedure and what to expect pre and post operatively. We discussed the risks, benefits and alternatives to the surgery as well as the rehabilitation course. The risks; which include, but are not limited to infection, bleeding, nerve injury, ongoing pain, swelling, and stiffness, perioperative risk of injury to bones and soft tissues, and blood clots. I?ve answered all questions and with their understanding they have consented to move forward with left total knee arthroplasty with Dr. Galvan. Allergy to Sulfa (Rash): No Celebrex History of TIA on low-dose aspirin at baseline: Lovenox for DVT ppx postoperatively Yasmany and son Isreal will be in the waiting room postoperatively. Orders: Orders Complete Blood Count no Diff Today Z01.818 - Encounter for other preprocedural examination PT Evaluation and Treatment Today Z96.652 - Presence of left artificial knee joint Basic Metabolic Panel Today Z01.818 - Encounter for other preprocedural examination Type and Screen Today Z01.818 - Encounter for other preprocedural examination Coding Level of Care Code Global (70610) Diagnoses Osteoarthritis of left knee M17.12
[2024-10-29 09:23] VITALS: BMI 41.2
--- OUTSIDE RECORDS SUMMARY | 2024-10-29 10:02 | XMS_ITS | Patient Health Record ---
Author Organization [facility] Address [address] [place] [address] Care Team Providers Care On Air Announcer Name Role Phone Iman Pulliam MD Primary Care Provider Patrice Lundberg Unavailable [phone] Allergies Allergen (clinical drug ingredient) Drug/Non Drug [...] Problem Screening for malignant neoplasm of colon (892897890) Encounter for screening for malignant neoplasm of colon (Z12.11) Active confirmed Problem Family history of malignant neoplasm of gastrointestinal tract (488378862) Family history of malignant neoplasm of digestive organs (Z80.0) Active confirmed Problem Pre-procedure evaluation check (426967253) Encounter for other preprocedural examination (Z01.818) Active confirmed Problem Diverticulosis of colon (638736379) Diverticulosis of colon (K57.30) Active confirmed Plan Of Treatment Future Test Test Name Order Date COLONOSCOPY 12/22/2014 COLONOSCOPY 12/20/2021 Insurance Providers Payer Name Payer Address Payer Phone Subscriber Number Group Number Insured Name Patient Relationship to Insured Coverage Start Date Coverage End Date [employer] [address] [address] [place] [address] [id number] HARJEET CULLEN Self - patient is the insured Medical (General) History Medical History History ICD Code Negative Colonoscopies in 24 09 and in 08-29-2009, other than diverticulosis and internal hemorrhoids-- GERD--[id number]--[facility] Cervical polyps Depression/anxiety Sleep apnea-uses CPAP Diffuse unspecified connecti ve tissue disease, SLE, Osteoarthritis---sees Dr. Doshi HTN Denies [place],DM,CVA,Lung disease,renal dise ase MCTD-unspecified Fibromyalgia Osteoarthritis Negative colonoscopy in 2014 Surgical History Surgery Date(Month/Year) LEEP Benign breast cyst Tonsils
== END 2024-10-29 09:45 | disposition home or self-care (01) ==
LOC: HO.HOS 09:16
PROVIDERS: PCP Internal Medicine; Visit Provider Physician Assistant
DX: M17.12 Unilateral primary osteoarthritis, left knee (principal)
CPT/HCPCS: 99024

== ENCOUNTER 2024-10-29 10:00 | Outpatient (REF) | payer OTHER, SELFPAY ==
[2024-10-29 11:58] LABS: Hemoglobin 13.6 g/dl (12.0-16.0); Mean Corpuscular Hemoglobin 31.8 pg (27.0-33.0); Mean Corpuscular Volume 93.5 fL (80.0-98.0); Mean Platelet Volume 9.9 fL (9.4-12.3); Platelet Count 261 X10*3/uL (160-400); Red Blood Count 4.28 X10*6/uL (4.20-5.50); Red Cell Distribution Width 13.2 % (11.0-16.0)
[2024-10-29 12:20] LABS: Anion Gap 13 (12-20); Blood Urea Nitrogen 10 mg/dL (9-16); Calcium 9.1 mg/dL (8.4-10.2); Carbon Dioxide 25 mmol/L (22-29); Chloride 108 mmol/L (96-108); Estimated Glomerular Filt Rate > 60; Glucose Random 115 mg/dL (60-115); Potassium 3.9 mmol/L (3.3-5.1); Sodium 142 mmol/L (135-145)
== END 2024-10-29 10:01 | disposition home or self-care (01) ==
LOC: HO.HOSX 10:00
PROVIDERS: Visit Provider Physician Assistant
DX: Z01.818 Encounter for other preprocedural examination (principal)
CPT/HCPCS: 36415; 80048; 85027

== ENCOUNTER 2024-11-03 06:04 | Day surgery (SDC) | payer OTHER, SELFPAY ==
--- NOTE | 2024-10-06 | ECG_ITS ---
Test Reason : preop Blood Pressure : */* mmHG Vent. Rate : 64 BPM Atrial Rate : 64 BPM P-R Int : 154 ms QRS Dur : 92 ms QT Int : 390 ms P-R-T Axes : 16 -5 44 degrees QTcB Int : 402 ms Normal sinus rhythm with sinus arrhythmia Normal ECG When compared with ECG of 17-Jun-2023 21:25, No significant change was found Referred By: Luna Leigh Electronically Signed By: SHEREE KEITH
[2024-10-06 10:29] VITALS: BP 134/63; PULSE 60; RESP 16; O2SAT 97; BMI 42.1
--- NOTE | 2024-10-06 10:52 | HO.ANESPROP2 ---
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 Preop rec's: Methotrexate and hydroxychloroquine can be continued in the perioperative period Humira to be held 1 week before and at least 1 week after. Can restart the medication 1 week after the surgery once there is good healing Hold off steroids in the perioperative period as much as possible Given that this patient has been on an off steroids she may benefit from stress dose steroids in surgery. RUSSELL: CPAP QHS TIA 2022: No residual PMFSH Active Problems Active Problems: All Active Problems Vitamin D deficiency (Acute) Osteoarthritis of left knee (Acute) Cubital tunnel syndrome on right (Acute) Tear of medial meniscus of left knee (Acute) Bilateral carpal tunnel syndrome (Acute) Seronegative rheumatoid arthritis (Acute) Edema (Acute) Long-term use of hydroxychloroquine (Acute) Numbness and tingling of left leg (Acute) HTN (hypertension) (Acute) Osteoarthritis of lumbar spine (Acute) Long-term use of immunosuppressant medication (Acute) Iron deficiency (Acute) Post-menopausal (Acute) Bilateral hand numbness (Acute) Primary osteoarthritis of left knee (Acute) Ulnar neuropathy at elbow of left upper extremity (Acute) Carpal tunnel syndrome of right wrist (Acute) Tingling of right upper extremity (Acute) Muscle cramps (Acute) Osteoarthritis of hand, primary localized (Acute) Hyperglycemia (Acute) TURCIOS (dyspnea on exertion) (Acute) Undifferentiated connective tissue disease (Acute) Depression with anxiety (Acute) RUSSELL (obstructive sleep apnea) (Acute) Morbid obesity (Acute) Past Medical History Medical History (Updated 11/03/24 @ 06:34 by Ansley Miller RN) Cervical dysplasia Cardiac abnormality Ambulates with cane Wears dentures Seasonal allergies Environmental allergies ADHD, 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 Carpal tunnel syndrome of right wrist Internal derangement of left knee Tingling of right upper extremity Brain TIA (~06/2023) Muscle cramps Numbness and tingling Osteoarthritis of hand, primary localized Elevated LFTs Hyperglycemia TURCIOS (dyspnea on exertion) senior living methotrexate user Undifferentiated connective tissue disease Annual physical exam Fibromyalgia Depression with anxiety RUSSELL (obstructive sleep apnea) Morbid obesity Family History Family History Father Osteoarthritis Colon cancer Diverticulosis Stroke HTN (hypertension) Full dentures Mother HTN (hypertension) Asthma Heart murmur TIA (transient ischemic attack) Diabetes mellitus Full dentures Osteoarthritis Family/Other Diabetes mellitus Heart disease CHF (congestive heart failure) Cancer Breast cancer Multiple myeloma Sister Mental health disorder Rheumatoid arthritis Moises's disease Diabetes mellitus Diverticulosis Trauma Neuropathy PTSD (post-traumatic stress disorder) Anxiety Depression Brother Substance use disorder Diabetes mellitus CHF (congestive heart failure) Family history of problems with anesthesia: No Surgical History Surgical History (Updated 11/03/24 @ 06:38 by Ansley Miller RN) History of surgery History of esophagogastroduodenoscopy (EGD) () History of loop electrical excision procedure (LEEP) (1981) History of colonoscopy History of cyst of breast (1976) History of tonsillectomy (1968) History of Problems with Anesthesia: No Social History Social History Household Members: Spouse Housing: House Are you a primary care transition mgr to a significant other at home: No Do you presently have visiting nurse or other home services: No Alcohol intake: never Patient Tobacco Use Status: Never used Tobacco e-Cigarette/Vaping Use: Never Used Use of substances other than those prescribed or required for medical reasons: No Have you been hit, kicked, punched, or otherwise hurt by someone within the past year? 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[employer] Cognitive needs: No Hearing needs: No Vision needs: Yes Meds Allergies Allergy/AdvReac Type Severity Reaction Status Date / Time lisinopril Allergy Severe Nausea Verified 10/29/24 09:23 simvastatin Allergy Severe NAUSEA Verified 10/29/24 09:23 chamomile flower Allergy Mild RASH Verified 10/29/24 09:23 [CHAMOMILE HAWKINS] nickel Allergy Mild skin rash Verified 10/29/24 09:23 ropinirole AdvReac Intermediate HIGH BLOOD Verified 10/29/24 09:23 PRESSURE gabapentin AdvReac Mild Fatigue Verified 10/29/24 09:23 Sulfa (Sulfonamide AdvReac Mild RASH Verified 10/29/24 09:23 Antibiotics) Daisys AdvReac Mild rash Uncoded 10/28/24 14:44 Home Medications ?Medication ?Instructions ?Recorded ?Confirmed ?Last Taken ?Type eqonreppkjhj-bvhvqyvn-tqcjkc tablet 1 tab PO DAILY 01/30/22 10/28/24 06/17/23 History loratadine 10 mg tablet 10 mg PO DAILY 06/14/22 11/03/24 11/03/24 History dextroamphetamine-amphetamine ER 1 cap PO QAM 03/28/23 10/28/24 06/17/23 History 10 mg 24hr capsule,extend release sertraline 50 mg tablet 50 mg PO BEDTIME 03/28/23 10/28/24 06/16/23 History vitamin B complex 1 cap PO DAILY 04/01/23 10/28/24 06/17/23 History diclofenac sodium 1 % topical gel 2 g topical DAILY PRN Pain 06/18/23 10/28/24 Unknown History omega 3-gik-rer-fish oil 1,000 mg 1 cap PO BID 06/18/23 10/28/24 10/27/24 History (120 mg-180 mg) capsule (Fish Oil) turmeric 400 mg capsule 400 mg PO DAILY 07/10/24 10/28/24 10/27/24 History alpha lipoic acid 600 mg capsule 600 mg PO DAILY 07/21/24 10/28/24 Unknown History aspirin 81 mg chewable tablet 81 mg PO DAILY 07/21/24 10/28/24 10/27/24 History gentamicin 0.3 % eye drops 1 drp ophthalmic (eye) Q8H PRN 07/21/24 10/28/24 Unknown History Itching Acetaminophen and Ibuprofen PO 09/18/24 10/28/24 Unknown History methotrexate sodium 2.5 mg tablet 25 mg PO QWEEK 11/03/24 Unknown History methotrexate sodium 2.5 mg tablet PO 11/03/24 11/03/24 Unknown History Exam Height,Weight and Vital Signs: Height 5 ft 3 in Weight 107.8 kg Last Vital Signs Pulse 60 10/06/24 10:29 Resp 16 10/06/24 10:29 BP 134/63 10/06/24 10:29 Pulse Ox 97 10/06/24 10:29 O2 Del Method Room Air 10/06/24 10:29 Pertinent Lab Results Pertinent Lab Results: Lab Results 10/06/24 10/29/24 Range/Units 11:15 10:16 Nasal Screen MRSA (PCR) NEGATIVE (Negative) Nasal S. aureus Screen NEGATIVE (Negative) Nasal MRSA/S.aureus Interp SEE NOTE Blood Type O Positive Antibody Screen NEGATIVE Laboratory Tests 10/29/24 10:30 WBC 6.0 Hgb 13.6 Hct 40.0 Plt Count 261 Sodium 142 Potassium 3.9 Chloride 108 Carbon Dioxide 25 BUN 10 Creatinine 0.67 Narrative Narrative: EKG 09/2024 Vent. Rate : 64 BPM Atrial Rate : 64 BPM P-R Int : 154 ms QRS Dur : 92 ms QT Int : 390 ms P-R-T Axes : 16 -5 44 degrees QTcB Int : 402 ms Normal sinus rhythm with sinus arrhythmia Normal ECG When compared with ECG of 17-Jun-2023 21:25, No significant change was found ECHO 2022 Conclusions: - Normal left ventricular size and systolic function. The visually estimated ejection fraction is between 60-65%. - E/E prime ratio is between 8 and 15 consistent with indeterminate filling pressures. There is severe septal asymmetric hypertrophy. - Normal right ventricular cavity size and systolic function. - Moderate plaque is seen in the descending thoracic aorta. Airway Mallampati Class: III TM Dist: >3cm Neck ROM: Full Denture: Upper Heart: Sav, regular Lungs: CTAB Assessment and Plan Assessment Anesthesia Assessment: Anesthesia Plan Discussed and PAT Visit Final Anesthetic Review Family History of Problems with Anesthesia: No History of Problems with Anesthesia: No Documented by User: Misael Fair MD 11/03/24 13:50 [facility] Past Medical History Medical History (Updated 11/03/24 @ 06:34 by Ansley Miller RN) Cervical dysplasia Cardiac abnormality Ambulates with cane Wears dentures Seasonal allergies Environmental allergies ADHD, 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 Carpal tunnel syndrome of right wrist Internal derangement of left knee Tingling of right upper extremity Brain TIA (~06/2023) Muscle cramps Numbness and tingling Osteoarthritis of hand, primary localized Elevated LFTs Hyperglycemia TURCIOS (dyspnea on exertion) senior living methotrexate user Undifferentiated connective tissue disease Annual physical exam Fibromyalgia Depression with anxiety RUSSELL (obstructive sleep apnea) Morbid obesity Family History Family History Father Osteoarthritis Colon cancer Diverticulosis Stroke HTN (hypertension) Full dentures Mother HTN (hypertension) Asthma Heart murmur TIA (transient ischemic attack) Diabetes mellitus Full dentures Osteoarthritis Family/Other Diabetes mellitus Heart disease CHF (congestive heart failure) Cancer Breast cancer Multiple myeloma Sister Mental health disorder Rheumatoid arthritis Moises's disease Diabetes mellitus Diverticulosis Trauma Neuropathy PTSD (post-traumatic stress disorder) Anxiety Depression Brother Substance use disorder Diabetes mellitus CHF (congestive heart failure) Surgical History Surgical History (Updated 11/03/24 @ 06:38 by Ansley Miller RN) History of surgery History of esophagogastroduodenoscopy (EGD) (~1999) History of loop electrical excision procedure (LEEP) (1981) History of colonoscopy History of cyst of breast (1976) History of tonsillectomy (1968) Social History Social History Household Members: Spouse Housing: House Are you a primary care transition mgr to a significant other at home: No Do you presently have visiting nurse or other home services: No Alcohol intake: never Patient Tobacco Use Status: Never used Tobacco e-Cigarette/Vaping Use: Never Used Use of substances other than those prescribed or required for medical reasons: No Have you been hit, kicked, punched, or otherwise hurt by someone within the past year? 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[employer] Cognitive needs: No Hearing needs: No Vision needs: Yes Meds Allergies Allergy/AdvReac Type Severity Reaction Status Date / Time lisinopril Allergy Severe Nausea Verified 10/29/24 09:23 simvastatin Allergy Severe NAUSEA Verified 10/29/24 09:23 chamomile flower Allergy Mild RASH Verified 10/29/24 09:23 [CHAMOMILE HAWKINS] nickel Allergy Mild skin rash Verified 10/29/24 09:23 ropinirole AdvReac Intermediate HIGH BLOOD Verified 10/29/24 09:23 PRESSURE gabapentin AdvReac Mild Fatigue Verified 10/29/24 09:23 Sulfa (Sulfonamide AdvReac Mild RASH Verified 10/29/24 09:23 Antibiotics) Daisys AdvReac Mild rash Uncoded 10/28/24 14:44 Home Medications ?Medication ?Instructions ?Recorded ?Confirmed ?Last Taken ?Type rhujbfuygeej-psaygvyk-thdcnn tablet 1 tab PO DAILY 01/30/22 10/28/24 06/17/23 History loratadine 10 mg tablet 10 mg PO DAILY 06/14/22 11/03/24 11/03/24 History dextroamphetamine-amphetamine ER 1 cap PO QAM 03/28/23 10/28/24 06/17/23 History 10 mg 24hr capsule,extend release sertraline 50 mg tablet 50 mg PO BEDTIME 03/28/23 10/28/24 06/16/23 History vitamin B complex 1 cap PO DAILY 04/01/23 10/28/24 06/17/23 History diclofenac sodium 1 % topical gel 2 g topical DAILY PRN Pain 06/18/23 10/28/24 Unknown History omega 8-caq-lbi-fish oil 1,000 mg 1 cap PO BID 06/18/23 10/28/24 10/27/24 History (120 mg-180 mg) capsule (Fish Oil) turmeric 400 mg capsule 400 mg PO DAILY 07/10/24 10/28/24 10/27/24 History alpha lipoic acid 600 mg capsule 600 mg PO DAILY 07/21/24 10/28/24 Unknown History aspirin 81 mg chewable tablet 81 mg PO DAILY 07/21/24 10/28/24 10/27/24 History gentamicin 0.3 % eye drops 1 drp ophthalmic (eye) Q8H PRN 07/21/24 10/28/24 Unknown History Itching Acetaminophen and Ibuprofen PO 09/18/24 10/28/24 Unknown History methotrexate sodium 2.5 mg tablet 25 mg PO QWEEK 11/03/24 Unknown History methotrexate sodium 2.5 mg tablet PO 11/03/24 11/03/24 Unknown History Assessment and Plan Final Anesthetic Review NPO: Yes ASA Class: III Final Preanesthetic Review: No Changes in Pt Med Stat, Meds/Allgs Chart Reviewed, Consent Obtained/Reviewed and Anes Risks/Benef Reviewed Patient Risk: Intermediate Procedure Risk: Low Anesthetic Plan Anesthetic Plan: MAC:, Spinal and Regional Block Disposition: Standard PACU
[2024-10-06 13:00] LABS: MRSA Nasal PCR NEGATIVE (Negative); SA Nasal PCR NEGATIVE (Negative)
[2024-11-03] VITALS (19 sets, daily range): BP systolic 88–163; BP diastolic 40–75; PULSE 55–97; RESP 16–19; TEMP 36.1–36.9; O2SAT 94–98; BMI 43.3
--- NOTE | ~2024-11-03 | XR_ITS ---
EXAMINATION: XR KNEE, LEFT CLINICAL INFORMATION: s/p LTKA COMPARISON: 06/15/2024. TECHNIQUE: Two views of the left knee. FINDINGS: There has been a total left knee arthroplasty. There is been associated patellar resurfacing. Femoral, and tibial components are intact, well seated, in anatomic alignment. There is no periprosthetic fracture or complication evident. There is subcutaneous and intra-articular gas. There are ventral skin german present. XR/XR knee LT 2V IMPRESSION: Status post left knee total arthroplasty without complication evident. Electronically signed by: Leonardo Shane MD 11/03/2024 10:19 AM EDT
[2024-11-03 06:42] LABS: Hematocrit 42.6 % (37.0-47.0); Hemoglobin 14.7 g/dl (12.0-16.0)
[2024-11-03] MEDS: Lactated Ringers 1,000 ML 100 ML IVCONT ×3 (07:13→23:13)
--- NOTE | 2024-11-03 07:27 | MHC.SHP ---
Pre-Procedural Eval Section A - 24 Hr Update-Section A only Date of Service: 11/03/24 The patient is an INPATIENT: No Changes since office visit: No Cold of Flu in the past 2 weeks, No New Medical Problems, No Changes in Medication and No Patient answered all questions The patient has been examined within 24 hours of the surgical procedure. The History & Physical has been completed within 30 days and I have reviewed it.: Yes Section B - Complete if H&P > 30 days Chief Complaint: Unilateral primary osteoarthritis, left knee Allergies: Allergies Allergy/AdvReac Type Severity Reaction Status Date / Time lisinopril Allergy Severe Nausea Verified 10/29/24 09:23 simvastatin Allergy Severe NAUSEA Verified 10/29/24 09:23 chamomile flower Allergy Mild RASH Verified 10/29/24 09:23 [CHAMOMILE HAWKINS] nickel Allergy Mild skin rash Verified 10/29/24 09:23 ropinirole AdvReac Intermediate HIGH BLOOD Verified 10/29/24 09:23 PRESSURE gabapentin AdvReac Mild Fatigue Verified 10/29/24 09:23 Sulfa (Sulfonamide AdvReac Mild RASH Verified 10/29/24 09:23 Antibiotics) Daisys AdvReac Mild rash Uncoded 10/28/24 14:44 Plan I have reviewed the history and physical and performed a pertinent physical examination on my patient. No changes have occurred unless specified. Time Spent With Patient Time: Total time managing care of this patient today ____ minutes.
--- NOTE | 2024-11-03 07:52 | PC.NURSE ---
md mathias aware of left knee old cat scratch from june. no s/sx of infection.
[2024-11-03] MEDS: Acetaminophen 1,000 MG/100 ML PIGGYBACK 400 MG IV (08:00)
[2024-11-03] MEDS: ceFAZolin Sodium/Dextrose,Iso 2 GM/50 ML PIGGYBACK IV ×2 (08:06→14:08)
--- NOTE | 2024-11-03 09:26 | PM.OP ---
Brief Operative Note Date of Service: 11/03/24 Pre-op diagnosis: Left knee OA Post-op diagnosis: same Procedure: Left TKA Implants: [place] Triathlon posterior stabilized cemented 09/08/09ps/32a Surgeon: Tremayne Galvan MD Anesthesia: GETA Was an Tractor Engine Assembler used for this Procedure?: Yes Tractor Engine Assembler: Oriana Adams Estimated blood loss (mL): 25 Tourniquet time (min): 60 IV fluids (mL): 1,000 Pathology: other Condition: stable Disposition: PACU
--- NOTE | 2024-11-03 09:27 | P.OP_ITS ---
Operative Note Operative Note Date of Service: 11/03/24 Narrative: Date of Service: 11/03/24 Pre-op diagnosis: Left knee OA Post-op diagnosis: same Procedure: Left TKA Implants: [place] Triathlon posterior stabilized cemented 09/08/ps/32a Surgeon: Tremayne Galvan MD Anesthesia: GETA Was an Underwriting Specialist used for this Procedure?: Yes Underwriting Specialist: Oriana Adams Estimated blood loss (mL): 25 Tourniquet time (min): 60 IV fluids (mL): 1,000 Pathology: other Condition: stable Disposition: PACU Procedure in detail: The patient was brought to the operating room and prepped and draped in standard sterile fashion. A time-out was called to identify proper site proper procedure proper surgeon and IV antibiotics were administered. 1 g of IV tranexamic acid was administered. I began by making a midline incision to the retinaculum and performed a medial parapatellar arthrotomy. The patella was translated laterally and the knee was flexed up. There was tricompartmental disease most advanced in the medial and anterior compartments. I performed a small medial peel and resected the infrapatellar fat pad. Jeremy's line was then used to drill my intramedullary femoral guide and my distal femur cut of 10mm was made in 5 degrees of valgus while protecting the soft tissues. I then measured a # 3 femur and placed my cutting guide in 3 deg or ER and made my anterior posterior and chamfer cuts protecting the soft tissues at all times. I then made my box but removing the PCL. Once I was satisfied with my cuts I turned my attention to the tibia. I removed the meniscus medially and laterally and , using an external cutting guide, in line with the tibial crest and the third ray, I made my distal tibial cut in 0 deg slope of while protecting the posterior soft tissues at all times. An extension block was used to confirm appropriate amount of bony resection. I then sized a #4 tibia and once I was satisfied that there was complete tibial coverage I placed my trial and with the trial femur in place took the knee through range of motion. I was satisfied with the extension and flexion as well as the balance at 0, 30 and 90 degrees. I then turned my attention to the patella where I removed 1 cm from the undersurface of the patella and then trialed a 32a patellar button. Again the knee was taken through range of motion I was satisfied with the tracking. I then prepared the tibia with a drill and punch. A femoral bone plug was placed and the knee was irrigated copiously. 2 bags of bone cement was then mixed on the back table using 3rd gen technique. I then cemented the patella, tibia and femur in standard fashion. Axial compression and a clamp were used while the cement dried. Once the cement was hard on the back table all excess cement was removed and I trialed different inserts until I selected a #10ps insert. The final insert was placed and local TXA was administered. The knee was then closed with a running Quill suture, a 3 0 Vicryl and german on the skin. Patient was then placed in sterile dressing and brought to recovery room in stable condition there were no known complications.
[2024-11-03] MEDS: oxyCODONE HCl Immed Release 5 MG TABLET PO ×3 (14:35→23:59)
--- NOTE | 2024-11-03 15:31 | PHA.MEDREC ---
Pharmacy Consult ? Medication Reconciliation Pharmacy has reviewed the medication reconciliation done by nursing. Spoke to patient to confirm med list. Patient states she is no longer on Gentamicin ophth. Patient confirmed Humira 40 mg every 10 days, last dose was 10/19/24 Patient was told to hold medication till 11/11/24, Methotrexate is 15 mg daily ( 3 tabs QAM and 3 tabs QPM, last dose was. 10/28/24.
--- NOTE | 2024-11-03 15:37 | PHA.MEDREC ---
Addendum entered by Akbar Thibodeaux [facility] 11/03/24 15:46: med rec reviewed Original Note: Pharmacy Consult ? Medication Reconciliation Pharmacy has reviewed the medication reconciliation done by nursing. Spoke to patient to confirm med list. Patient states she is no longer on Gentamicin ophth. Patient confirmed Humira 40 mg every 10 days, last dose was 10/19/24 Patient was told to hold medication till 11/11/24, Methotrexate is 15 mg every Saturday (3 tabs QAM and 3 tabs QPM, last dose was. 10/28/24.
[2024-11-03] MEDS: HYDROmorphone HCl 0.5 MG/0.5 ML SYRINGE 0.25 MG IVPUSH ×2 (17:07→21:08)
--- NOTE | 2024-11-03 17:13 | P.DS_ITS ---
DS: Providers Provider Date of Service: 11/04/24 Date of discharge: 11/04/24 Primary care physician: Iman Pulliam MD Consults: 11/03/24 13:02 Consult to Hospitalist Routine Comment: Consulting Provider: [facility] Reason For Exam: Routine medical management DS: Summary Hospital Course Hospital Course: The patient underwent a successful left total knee arthroplasty, they were transferred to PACU and then to the floor to recover. During their stay, their vitals were stable, afebrile at 98.6. Labs were unremarkable, H&H 13.8/41.1. POD 1 they were started on Lovenox 40mg subq QD for DVT ppx, they also received Physical Therapy services twice a day. Prior to discharge, their dressing was clean dry and intact, and the plan was to be discharged home with VNA services. Time Attestation Discharge Coordination Time (in mins): 30 Quality: Safe Use of Opioids Does Pt have an Active Cancer Diagnosis on the Problem List?: No Quality: Stroke Does the patient have a stroke diagnosis?: No Physical Exam Vital Signs: Vital Signs: Last Vital Signs Temp 97.7 F 11/03/24 15:17 Pulse 68 11/03/24 15:17 Resp 16 11/03/24 17:07 BP 163/75 H 11/03/24 15:17 Pulse Ox 98 11/03/24 15:17 O2 Del Method Room Air 11/03/24 15:17 BMI result Body Mass Index 43.3 Const: General: cooperative, healthy appearing and no acute distress Resp: Effort & Inspection: normal respiratory effort and able to speak in complete sentences Cardio: Rate: regular rate Peripheral pulses: Peripheral pulses 2+ throughout GI: Palpation (GI): Soft to palpation Skin: Lesions: no lesions Rashes: no rashes Extrem: Other: left knee dressing is c/d/i. Able to dorsi/plantar flex. Calf is supple and nontender. Sensation intact. Pedal pulse intact. DS: Data Data Completed and Pending Pending studies at discharge: Pending at discharge 11/03/24 08:31 Surgical [PTH] Routine Labs on day of discharge: Laboratory Results - last 24 hr 11/03/24 06:31 Hgb 14.7 Hct 42.6 Discharge Plan Discharge Patient Disposition: Home Health Service Referrals: Hoang Gr PA-C [Physician Grout Machine Tender] - 05/15/25 11:45 am Discharge Medications: New acetaminophen 325 mg Tablet 650 mg PO Q6H PRN (Reason: Pain, Mild 1-3,Fever,Headache) 30 Days Qty: 240 0RF enoxaparin 40 mg/0.4 mL Syringe 40 mg subcut Q24H 42 Days Qty: 16.8 0RF docusate sodium 100 mg Capsule 100 mg PO BID 30 Days Qty: 60 0RF oxycodone 5 mg Tablet 5 mg PO Q4H PRN (Reason: Pain, Moderate(Pain Scale 4-6)) 7 Days Qty: 42 0RF Rx Instructions: Partial Fill upon patient request. Continued gabapentin 300 mg capsule 300 mg PO BEDTIME 30 Days Qty: 30 6RF (DME) walker Misc See Rx Instructions .MEDSUPPLY Qty: 1 0RF Rx Instructions: Folding Front wheeled walker duration 99 days spironolactone 25 mg tablet 25 mg PO DAILY Qty: 90 1RF amlodipine 5 mg tablet 5 mg PO DAILY Qty: 90 3RF blztodjoqhij-ualrjque-bzdgep Tablet 1 tab PO DAILY alpha lipoic acid 600 mg Capsule 600 mg PO DAILY methotrexate sodium 2.5 mg tablet 15 mg PO WE@0900,2100 ibuprofen-acetaminophen [Motrin Dual Action W-Tylenol] 125-250 mg Tablet 2 tab PO Q8H PRN (Reason: Pain) Humira(CF) Pen 40 mg/0.4 mL pen injector kit 40 mg subcut Q10D Rx Instructions: Next dose 11/11/24 omega 3-gli-tmp-fish oil [Fish Oil] 1,000 mg (120 mg-180 mg) Capsule 1 cap PO BID diclofenac sodium 1 % Gel 2 g TOPICAL BID PRN (Reason: Pain) Rx Instructions: apply to single elbow, wrist or hand; for hand includes palm/fingers/back of hand loratadine 10 mg tablet 10 mg PO DAILY albuterol sulfate 90 mcg/actuation HFA aerosol inhaler 2 puff inhalation Q6H PRN (Reason: shortness of breath or wheezing) Qty: 8.5 0RF sertraline 50 mg tablet 50 mg PO BEDTIME dextroamphetamine-amphetamine 10 mg capsule,extended release 24hr 1 cap PO QAM vitamin B complex Capsule 1 cap PO DAILY folic acid 1 mg tablet 1 mg PO DAILY Qty: 90 1RF hydroxychloroquine 200 mg tablet 200 mg PO BID Qty: 60 2RF turmeric 400 mg capsule 400 mg PO DAILY Rx Instructions: 3 capsules Held aspirin 81 mg Tablet,Chewable 81 mg PO DAILY Hold Instructions: Resume on 12/16/24. hold until 6 weeks post op after finishing Lovenox Discharge Orders: Discharge Order (Routine); Ordered 11/04/24 Ordered By: Oriana Adams Diet: Advance to usual diet Activity on Discharge: Use cane or walker Activity Restrictions/Additional Instructions: Physical Therapy for ROM 0-120, quad strength, gait training. Use walker for ambulation Limit stair climbing, No shower, No tub bath, No driving Continue anticoagulant Lovenox x 6 weeks Keep Aquacel dressing clean, dry and intact. Follow up with orthopedics in 2 weeks Print Language: [place] Citizen
--- NOTE | 2024-11-03 17:14 | W.MHC.F2F ---
Service Date Service Date: 11/03/24 Encounter Date of encounter: 11/04/24 Reasons for Services Signs and symptoms assessed: s/pLTKA Pt. is considered homebound due to recent surgery. Unable to drive, poor balance, poor gait mechanics. Reason for physical therapy: home safety and mobility, therapeutic exercises, restore joint function, gait/transfer training and ADL training Homebound: Leaving the home is medically contraindicated at this time without the asist of a device and/or another person due th the listed conditions above and below. Reason homebound: unsteady gait / fall risk, leg weakness, pain with ambulation, pain with transfers, poor balance / fall risk and unable to drive Certification: Based on the above findings, I certify that this patient is confined to the home and needs intermittent correction care, physical therapy and/or speech therapy, or continues to need occupational therapy. The patient is under my care, and I have initiated the establishment of the plan of care. The patient will be followed by a physician who will periodically review the plan of care. Time Spent With Patient Time: Total time managing care of this patient today ____ minutes.
[2024-11-03] MEDS: Sertraline HCL 50 MG TABLET PO (20:02)
[2024-11-03] MEDS: Hydroxychloroquine Sulfate 200 MG TABLET PO (20:02)
[2024-11-03] MEDS: oxyCODONE HCl ER 10 MG TAB.ER.12H PO (20:02)
[2024-11-03] MEDS: Docusate Sodium 100 MG CAPSULE PO (20:02)
[2024-11-03] MEDS: Gabapentin 300 MG CAPSULE PO (20:02)
--- NOTE | 2024-11-03 20:30 | P.CONHOSP_ITS ---
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 Undifferentiated connective tissue disease Annual physical exam Fibromyalgia Depression with anxiety RUSSELL (obstructive sleep apnea) Morbid obesity Family History Father Osteoarthritis Colon cancer Diverticulosis Stroke HTN (hypertension) Full dentures Mother HTN (hypertension) Asthma Heart murmur TIA (transient ischemic attack) Diabetes mellitus Full dentures Osteoarthritis Family/Other Diabetes mellitus Heart disease CHF (congestive heart failure) Cancer Breast cancer Multiple myeloma Sister Mental health disorder Rheumatoid arthritis Moises's disease Diabetes mellitus Diverticulosis Trauma Neuropathy PTSD (post-traumatic stress disorder) Anxiety Depression Brother Substance use disorder Diabetes mellitus CHF (congestive heart failure) Surgical History History of surgery History of esophagogastroduodenoscopy (EGD) (~1999) History of loop electrical excision procedure (LEEP) (1981) History of colonoscopy History of cyst of breast (1976) History of tonsillectomy (1968) Social History Household Members: Spouse Housing: House Are you a primary residential care officer to a significant other at home: No Do you presently have visiting nurse or other home services: No Alcohol intake: never Patient Tobacco Use Status: Never used Tobacco e-Cigarette/Vaping Use: Never Used Use of substances other than those prescribed or required for medical reasons: No Currently Displaying Signs/Symptoms of Drug Intoxication Withdrawal: No Have you been hit, kicked, punched, or otherwise hurt by someone within the past year? If so, by whom?: No Do you feel safe in your current relationship?: Yes Is there a partner from a previous relationship who is making you feel unsafe now?: No Are you made to feel afraid or neglected: No Yazidism Healthcare Practices: Mandaeism Are you DNR?: No Advance Directives: Yes Advance Directives Information Provided: No Advance Directives on File: Yes Advance Directives Date on File: 04/13/22 Recently lost weight without trying: No Eating poorly because of decreased appetite: No Nutrition Risks: No Nutritional Risk Patient : No : No Poor oral hygiene: No service: No Current occupational status: employed 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 [employer] Cognitive needs: No Hearing needs: No Vision needs: Yes Meds Allergies Allergy/AdvReac Type Severity Reaction Status Date / Time lisinopril Allergy Severe Nausea Verified 10/29/24 09:23 simvastatin Allergy Severe NAUSEA Verified 10/29/24 09:23 chamomile flower Allergy Mild RASH Verified 10/29/24 09:23 [CHAMOMILE HAWKINS] nickel Allergy Mild skin rash Verified 10/29/24 09:23 ropinirole AdvReac Intermediate HIGH BLOOD Verified 10/29/24 09:23 PRESSURE gabapentin AdvReac Mild Fatigue Verified 10/29/24 09:23 Sulfa (Sulfonamide AdvReac Mild RASH Verified 10/29/24 09:23 Antibiotics) Daisys AdvReac Mild rash Uncoded 10/28/24 14:44 Active Medications: Current Medications Acetaminophen (Acetaminophen 325 Mg Tablet) 650 mg PO Q6H PRN PRN Reason: Pain, Mild 1-3,fever,headache Albuterol Sulfate (Albuterol Sulfate 90 Mcg 8 Gm Inhaler) 2 puff INHALE Q6H PRN PRN Reason: shortness of breath or wheezing Amlodipine Besylate (Amlodipine Besylate 5 Mg Tablet) 5 mg PO DAILY [facility]; Protocol Amphetamine/Dextroamphetamine (Dextroamphetamine/Amphetamine Xr 10 Mg Cap.Er.24h) 10 mg PO DAILY [facility] Docusate Sodium (Docusate Sodium 100 Mg Capsule) 100 mg PO BID [facility] Last Admin: 11/03/24 20:02 Dose: 100 mg Enoxaparin Sodium (Enoxaparin Sodium 40 Mg/0.4 Ml Syringe) 40 mg SUBCUT Q24H [facility] Folic Acid (Folic Acid 1 Mg Tablet) 1 mg PO DAILY [facility] Gabapentin (Gabapentin 300 Mg Capsule) 300 mg PO BEDTIME [facility] Last Admin: 11/03/24 20:02 Dose: 300 mg Hydromorphone HCl (Hydromorphone Hcl 0.5 Mg/0.5 Ml Syringe) 0.25 mg IVPUSH Q4H PRN; Protocol PRN Reason: Pain, Severe (Pain Scale 7-10) Last Admin: 11/03/24 17:07 Dose: 0.25 mg Hydroxychloroquine Sulfate (Hydroxychloroquine Sulfate 200 Mg Tablet) 200 mg PO BID [facility] Last Admin: 11/03/24 20:02 Dose: 200 mg Lactated Ringer's (Lr) 1,000 mls @ 100 mls/hr IVCONT .Q10H [facility] Last Admin: 11/03/24 17:32 Dose: 100 mls/hr Loratadine (Loratadine 10 Mg Tablet) 10 mg PO DAILY [facility] Magnesium Hydroxide (Milk Of Magnesia 30 Ml Oral.Susp) 30 ml PO DAILY PRN PRN Reason: Constipation Melatonin (Melatonin 3 Mg Tablet) 6 mg PO BEDTIME PRN PRN Reason: Insomnia Multivitamins/Vitamin C (Multivitamin Tablet) 1 tab PO DAILY [facility] Ondansetron HCl (Ondansetron Hcl 4 Mg/2 Ml Vial) 4 mg IVPUSH Q8H PRN PRN Reason: Nausea and Vomiting Oxycodone HCl (Oxycodone Hcl Immed Release 5 Mg Tablet) 5 mg PO Q4H PRN PRN Reason: Pain, Moderate(Pain Scale 4-6) Last Admin: 11/03/24 20:02 Dose: 5 mg Oxycodone HCl (Oxycodone Hcl Er 10 Mg Tab.Er.12h) 10 mg PO BID [facility] Last Admin: 11/03/24 20:02 Dose: 10 mg Sertraline HCl (Sertraline Hcl 50 Mg Tablet) 50 mg PO BEDTIME [facility] Last Admin: 11/03/24 20:02 Dose: 50 mg Sodium Chloride (0.9 % Sodium Chloride Flush 3 Ml Syringe) 3 ml IVFLUSH QSHIFT [facility] Last Admin: 11/03/24 16:10 Dose: Not Given Spironolactone (Spironolactone 25 Mg Tablet) 25 mg PO DAILY [facility]; Protocol Home Medications ?Medication ?Instructions ?Recorded ?Confirmed ?Last Taken ?Type jiygorhapdau-htmwsrhl-sqzgzn tablet 1 tab PO DAILY 01/30/22 10/28/24 06/17/23 History loratadine 10 mg tablet 10 mg PO DAILY 1211/03/24 11/03/24 History dextroamphetamine-amphetamine ER 1 cap PO QAM 03/28/23 10/28/24 06/17/23 History 10 mg 24hr capsule,extend release sertraline 50 mg tablet 50 mg PO BEDTIME 03/28/23 10/28/24 06/16/23 History vitamin B complex 1 cap PO DAILY 04/01/23 10/28/24 06/17/23 History diclofenac sodium 1 % topical gel 2 g topical BID PRN Pain 06/18/23 11/03/24 Unknown History omega 9-jqd-kud-fish oil 1,000 mg 1 cap PO BID 06/18/23 10/28/24 10/27/24 History (120 mg-180 mg) capsule (Fish Oil) turmeric 400 mg capsule 400 mg PO DAILY 07/10/24 10/28/24 10/27/24 History alpha lipoic acid 600 mg capsule 600 mg PO DAILY 07/21/24 10/28/24 Unknown History aspirin 81 mg chewable tablet 81 mg PO DAILY 07/21/24 10/28/24 10/27/24 History adalimumab 40 mg/0.4 mL 40 mg subcut Q10D 11/03/24 11/03/24 10/19/24 History subcutaneous pen kit (Humira(CF) Pen) ibuprofen 125 mg-acetaminophen 250 2 tab PO Q8H PRN Pain 11/03/24 11/03/24 Unknown History mg tablet (Motrin Dual Action with Tylenol) methotrexate sodium 2.5 mg tablet 15 mg PO WE@0900,2100 11/03/24 11/03/24 10/28/24 History Physical Exam 2 Vital Signs and Narrative: Vital Signs: Last Vital Signs Temp 98.4 F 11/03/24 19:33 Pulse 76 11/03/24 19:33 Resp 18 11/03/24 19:33 BP 132/62 11/03/24 19:33 Pulse Ox 95 11/03/24 19:33 O2 Del Method Room Air 11/03/24 19:33 BMI result Body Mass Index 43.3 Results Labs 11/03/24 06:31 Imaging Radiologist's Impressions: Impressions Knee X-Ray 11/03/24 09:50 IMPRESSION: Status post left knee total arthroplasty without complication evident. Electronically signed by: Leonardo Shane MD 11/03/2024 10:19 AM EDT RP Assessment and Plan Plan RA Per her Pediatric Occupational Therapist, follow these guidelines Pediatric Occupational Therapist:Dr. Silvana Vega follows the patient for undifferentiated connective tissue disease patient is on Methotrexate, Humira and Plaquenil. * Methotrexate and Folic acid and hydroxychloroquine can be continued in the perioperative period * Humira to be held 1 week before and at least 1 week after. Can restart the medication 1 week after the surgery once there is good healing. Last injection was on 10/19/24. * Hold off steroids in the perioperative period as much as possible * Given that this patient has been on an off steroids she may benefit from stress dose steroids in surgery.
--- NOTE | 2024-11-03 21:36 | P.CONHOSP_ITS ---
History of Present Illness Data of Consult Service Date: 11/03/24 Requesting physician: Oriana Adams Primary Care Provider: Iman Pulliam MD [facility] Reason for consult: medical management Patient is a 64-year-old female with past medical history osteoarthritis, rheumatoid arthritis, iron deficiency anemia, hypertension, RUSSELL on CPAP, morbid obesity and degenerative joint disease involving the left knee, ADHD, constipation, and hyperlipidemia is being seen today for consultation per Orthopedics echo management. Patient denies history of tobacco use, alcohol use, marijuana use or illicit drugs. Patient interviewed status post left total knee replacement and although patient was experiencing mild discomfort related to the surgery, patient was able to participate in consultation and currently patient's medical needs are managed appropriately as patient is currently on her home medications. In addition her spoon maker provided recommendations pre and post surgery regarding patient's medications that she chronically takes. Patient states she has not been on any steroids for 2 months or more as she had a flare proximally at that time and was prescribed prednisone as a taper. Currently it does not appear patient needs stress dosing of steroids as her blood pressure is stable and patient tolerated the procedure well. Patient should continue her routine home medications as ordered and monitor labs postsurgically as needed per Orthopedics. Review of Systems 2 Review of Systems: Patient currently denies any chest pain, shortness of breath at rest nausea, but is reporting moderate discomfort in the left lower extremity status post knee replacement. Nursing is at the bedside providing an ice pack and monitoring her pain. 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 Carpal tunnel syndrome of right wrist Internal derangement of left knee Tingling of right upper extremity Brain TIA (~06/2023) Muscle cramps Numbness and tingling Osteoarthritis of hand, primary localized Elevated LFTs Hyperglycemia TURCIOS (dyspnea on exertion) 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 Undifferentiated connective tissue disease Annual physical exam Fibromyalgia Depression with anxiety RUSSELL (obstructive sleep apnea) Morbid obesity Functional capacity: independent ambulation (Prior to surgery) Patient : No Family History Father Osteoarthritis Colon cancer Diverticulosis Stroke HTN (hypertension) Full dentures Mother HTN (hypertension) Asthma Heart murmur TIA (transient ischemic attack) Diabetes mellitus Full dentures Osteoarthritis Family/Other Diabetes mellitus Heart disease CHF (congestive heart failure) Cancer Breast cancer Multiple myeloma Sister Mental health disorder Rheumatoid arthritis Mioses's disease Diabetes mellitus Diverticulosis Trauma Neuropathy PTSD (post-traumatic stress disorder) Anxiety Depression Brother Substance use disorder Diabetes mellitus CHF (congestive heart failure) Surgical History History of surgery History of esophagogastroduodenoscopy (EGD) (~1999) History of loop electrical excision procedure (LEEP) (1981) History of colonoscopy History of cyst of breast (1976) History of tonsillectomy (1968) Social History Household Members: Spouse Housing: House Are you a primary ambulatory care coordinator to a significant other at home: No Do you presently have visiting nurse or other home services: No Alcohol intake: never Patient Tobacco Use Status: Never used Tobacco e-Cigarette/Vaping Use: Never Used Use of substances other than those prescribed or required for medical reasons: No Currently Displaying Signs/Symptoms of Drug Intoxication Withdrawal: No Have you been hit, kicked, punched, or otherwise hurt by someone within the past year? If so, by whom?: No Do you feel safe in your current relationship?: Yes Is there a partner from a previous relationship who is making you feel unsafe now?: No Are you made to feel afraid or neglected: No Hinduism Healthcare Practices: Amish Are you DNR?: No Advance Directives: Yes Advance Directives Information Provided: No Advance Directives on File: Yes Advance Directives Date on File: 04/13/22 Recently lost weight without trying: No Eating poorly because of decreased appetite: No Nutrition Risks: No Nutritional Risk Patient : No : No Poor oral hygiene: No service: No Current occupational status: employed 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 [employer] Cognitive needs: No Hearing needs: No Vision needs: Yes Ebola Risk: Travel/Contact With Anyone From Affected Area/s: No Has Patient Experienced Ebola Symptoms: No Meds Allergies Allergy/AdvReac Type Severity Reaction Status Date / Time lisinopril Allergy Severe Nausea Verified 10/29/24 09:23 simvastatin Allergy Severe NAUSEA Verified 10/29/24 09:23 chamomile flower Allergy Mild RASH Verified 10/29/24 09:23 [CHAMOMILE HAWKINS] nickel Allergy Mild skin rash Verified 10/29/24 09:23 ropinirole AdvReac Intermediate HIGH BLOOD Verified 10/29/24 09:23 PRESSURE gabapentin AdvReac Mild Fatigue Verified 10/29/24 09:23 Sulfa (Sulfonamide AdvReac Mild RASH Verified 10/29/24 09:23 Antibiotics) Daisys AdvReac Mild rash Uncoded 10/28/24 14:44 Active Medications: Current Medications Acetaminophen (Acetaminophen 325 Mg Tablet) 650 mg PO Q6H PRN PRN Reason: Pain, Mild 1-3,fever,headache Albuterol Sulfate (Albuterol Sulfate 90 Mcg 8 Gm Inhaler) 2 puff INHALE Q6H PRN PRN Reason: shortness of breath or wheezing Amlodipine Besylate (Amlodipine Besylate 5 Mg Tablet) 5 mg PO DAILY [facility]; Protocol Amphetamine/Dextroamphetamine (Dextroamphetamine/Amphetamine Xr 10 Mg Cap.Er.24h) 10 mg PO DAILY [facility] Docusate Sodium (Docusate Sodium 100 Mg Capsule) 100 mg PO BID [facility] Last Admin: 11/03/24 20:02 Dose: 100 mg Enoxaparin Sodium (Enoxaparin Sodium 40 Mg/0.4 Ml Syringe) 40 mg SUBCUT Q24H [facility] Folic Acid (Folic Acid 1 Mg Tablet) 1 mg PO DAILY [facility] Gabapentin (Gabapentin 300 Mg Capsule) 300 mg PO BEDTIME [facility] Last Admin: 11/03/24 20:02 Dose: 300 mg Hydromorphone HCl (Hydromorphone Hcl 0.5 Mg/0.5 Ml Syringe) 0.25 mg IVPUSH Q4H PRN; Protocol PRN Reason: Pain, Severe (Pain Scale 7-10) Last Admin: 11/03/24 21:08 Dose: 0.25 mg Hydroxychloroquine Sulfate (Hydroxychloroquine Sulfate 200 Mg Tablet) 200 mg PO BID [facility] Last Admin: 11/03/24 20:02 Dose: 200 mg Lactated Ringer's (Lr) 1,000 mls @ 100 mls/hr IVCONT .Q10H [facility] Last Admin: 11/03/24 17:32 Dose: 100 mls/hr Loratadine (Loratadine 10 Mg Tablet) 10 mg PO DAILY [facility] Magnesium Hydroxide (Milk Of Magnesia 30 Ml Oral.Susp) 30 ml PO DAILY PRN PRN Reason: Constipation Melatonin (Melatonin 3 Mg Tablet) 6 mg PO BEDTIME PRN PRN Reason: Insomnia Multivitamins/Vitamin C (Multivitamin Tablet) 1 tab PO DAILY [facility] Ondansetron HCl (Ondansetron Hcl 4 Mg/2 Ml Vial) 4 mg IVPUSH Q8H PRN PRN Reason: Nausea and Vomiting Oxycodone HCl (Oxycodone Hcl Immed Release 5 Mg Tablet) 5 mg PO Q4H PRN PRN Reason: Pain, Moderate(Pain Scale 4-6) Last Admin: 11/03/24 20:02 Dose: 5 mg Oxycodone HCl (Oxycodone Hcl Er 10 Mg Tab.Er.12h) 10 mg PO BID [facility] Last Admin: 11/03/24 20:02 Dose: 10 mg Sertraline HCl (Sertraline Hcl 50 Mg Tablet) 50 mg PO BEDTIME [facility] Last Admin: 11/03/24 20:02 Dose: 50 mg Sodium Chloride (0.9 % Sodium Chloride Flush 3 Ml Syringe) 3 ml IVFLUSH QSHIFT [facility] Last Admin: 11/03/24 16:10 Dose: Not Given Spironolactone (Spironolactone 25 Mg Tablet) 25 mg PO DAILY [facility]; Protocol Home Medications ?Medication ?Instructions ?Recorded ?Confirmed ?Last Taken ?Type nqsymoumreuo-zffifetp-krotnk tablet 1 tab PO DAILY 01/30/22 10/28/24 06/17/23 History loratadine 10 mg tablet 10 mg PO DAILY 06/14/22 11/03/24 11/03/24 History dextroamphetamine-amphetamine ER 1 cap PO QAM 03/28/23 10/28/24 06/17/23 History 10 mg 24hr capsule,extend release sertraline 50 mg tablet 50 mg PO BEDTIME 03/28/23 10/28/24 06/16/23 History vitamin B complex 1 cap PO DAILY 04/01/23 10/28/24 06/17/23 History diclofenac sodium 1 % topical gel 2 g topical BID PRN Pain 06/18/23 11/03/24 Unknown History omega 0-sqe-fcl-fish oil 1,000 mg 1 cap PO BID 06/18/23 10/28/2410/27/25 History (120 mg-180 mg) capsule (Fish Oil) turmeric 400 mg capsule 400 mg PO DAILY 07/10/24 10/28/24 10/27/24 History alpha lipoic acid 600 mg capsule 600 mg PO DAILY 07/21/24 10/28/24 Unknown History aspirin 81 mg chewable tablet 81 mg PO DAILY 07/21/24 10/28/24 10/27/24 History adalimumab 40 mg/0.4 mL 40 mg subcut Q10D 11/03/24 11/03/24 10/19/24 History subcutaneous pen kit (Humira(CF) Pen) ibuprofen 125 mg-acetaminophen 250 2 tab PO Q8H PRN Pain 11/03/24 11/03/24 Unknown History mg tablet (Motrin Dual Action with Tylenol) methotrexate sodium 2.5 mg tablet 15 mg PO WE@0900,2100 11/03/24 11/03/24 10/28/24 History Physical Exam 2 Vital Signs and Narrative: Vital Signs: Last Vital Signs Temp 98.4 F 11/03/24 19:33 Pulse 76 11/03/24 19:33 Resp 18 11/03/24 19:33 BP 132/62 11/03/24 19:33 Pulse Ox 95 11/03/24 19:33 O2 Del Method Room Air 11/03/24 19:33 BMI result Body Mass Index 43.3 Alert and orientated X3, able to give adequate hx. Neuro: CN II-X11 intact, no deficits, visual acuity intact EYES: PERRLA, EOM intact ENT: hearing intact, no issues with swallowing, uvula midline, lips moist, nares patent no epistaxis Cardiac: S1 S2 RRR, no murmur, no JVD, no edema in R Lower ext, left leg wrapped and extended, skin warm and dry Left foot Pulmonary: lungs clear to auscultation B Abdominal: BS active in all 4 quadrants, no guarding, tenderness, rebounding, pt is obese MSK: strength 5/5 upper and 4/5 RLE adn unable to assess in LLE due to immobiolization : no CVA tenderness no bladder distension Extremities: no edema in lower extremities, PT and DP pulses palpable +2 Psych: mood anxious, judgement and insight good Results Labs 11/03/24 06:31 ECG Attestation: I personally reviewed and interpreted this ECG as follows: (Normal sinus rhythm, QTC 402) Prior ECG tracings: available for review Imaging Radiologist's Impressions: Impressions Knee X-Ray 11/03/24 09:50 IMPRESSION: Status post left knee total arthroplasty without complication evident. Electronically signed by: Leonardo Shane MD 11/03/2024 10:19 AM EDT RP Assessment and Plan (1) Rheumatoid arthritis: Qualifiers: Rheumatoid arthritis location: other site Rheumatoid factor presence: u nspecified presence Qualified Code(s): M06.9 - Rheumatoid arthritis, unspecified Status: Acute Plan Patient is a 64-year-old female with past medical history osteoarthritis, rheumatoid arthritis, iron deficiency anemia, hypertension, RUSSELL on CPAP, morbid obesity and degenerative joint disease involving the left knee, ADHD, constipation, and hyperlipidemia was seen today per request of the orthopedic team for consultation regarding medical management. Rheumatoid arthritis Continue to follow recommendations from Dr. Vega patient's spoon maker as noted in preoperative assessment and plan per Orthopedics: Finance Vice President:Dr. Silvana Vega follows the patient for undifferentiated connective tissue disease patient is on Methotrexate, Humira and Plaquenil. * Methotrexate and Folic acid and hydroxychloroquine can be continued in the perioperative period * Humira to be held 1 week before and at least 1 week after. Can restart the medication 1 week after the surgery once there is good healing. Last injection was on 10/19/24. * Hold off steroids in the perioperative period as much as possible * Given that this patient has been on an off steroids she may benefit from stress dose steroids in surgery. At this time patient does not appear to need stress dose steroids. Patient's last prednisone taper was over 2 months prior. Blood pressure is stable. RUSSELL on CPAP -home CPAP ordered Iron-deficiency anemia -H&H preoperatively 14.7/42.6, no indication for intervention -patient was not taking iron preoperatively, continue folic acid -monitor H&H postoperatively Hypertension -blood pressure currently controlled, can continue amlodipine as well as spironolactone as potassium has been stable -low-sodium diet ADHD -patient has been resumed on her Adderall Hyperlipidemia -continue [place] 3 unless contraindicated postoperatively -patient does not currently take a statin Constipation (chronic) -adding MiraLax daily, senna at h.s. and Dulcolax suppository as needed if no bowel movement in 48 hours Patient's medical needs are well managed with patient's current home medication regimen and additional orders to help with constipation prevention. The hospitalist group will sign off at this time. We appreciate the consultation. Please reach out if any further medical concerns require consultation.
[2024-11-04] MEDS: HYDROmorphone HCl 0.5 MG/0.5 ML SYRINGE 0.25 MG IVPUSH ×2 (01:40→05:37)
[2024-11-04 03:30] VITALS: BP 145/70; PULSE 100; RESP 18; TEMP 37.9; O2SAT 94
[2024-11-04] MEDS: Acetaminophen 325 MG TABLET 650 MG PO (03:31)
[2024-11-04 07:04] LABS: Basophils Percent Auto 0.2 % (0-2); Eosinophils Absolute Auto 0.1 X10*3/uL (0.0-0.4); Eosinophils Percent Auto 0.5 % (0-4); Hematocrit 41.1 % (37.0-47.0); Hemoglobin 13.8 g/dl (12.0-16.0); Imm Gran Abs Auto 0.09 X10*3/uL (0.00-0.03); Imm Gran Pct Auto 0.5 % (0.0-0.4); Lymphocytes Absolute Auto 2.2 X10*3/uL (1.2-4.9); Lymphocytes Percent Auto 13.1 % (20-40); MANUAL DIFF FLAG SCAN; Mean Corpuscular HGB Conc 33.6 g/dl (31.0-35.0); Mean Corpuscular Hemoglobin 31.7 pg (27.0-33.0); Mean Corpuscular Volume 94.5 fL (80.0-98.0); Mean Platelet Volume 9.5 fL (9.4-12.3); Monocytes Absolute Auto 1.8 X10*3/uL (0.1-1.2); Neutrophils Absolute Auto 12.5 x10*3/uL (2.0-8.3); Neutrophils Percent Auto 74.7 % (45-73); Platelet Count 257 X10*3/uL (160-400); Red Blood Count 4.35 X10*6/uL (4.20-5.50); Red Cell Distribution Width 13.4 % (11.0-16.0); SCAN SMEAR FLAG 1; White Blood Count 16.7 X10*3/uL (4.8-10.8)
[2024-11-04] MEDS: polyethylene glycoL 3350 17 GM POWD.PACK PO (07:09)
[2024-11-04] MEDS: amLODIPine Besylate 5 MG TABLET PO (07:09)
[2024-11-04] MEDS: Docusate Sodium 100 MG CAPSULE PO ×2 (07:10→20:22)
[2024-11-04] MEDS: oxyCODONE HCl ER 10 MG TAB.ER.12H PO ×2 (07:10→20:22)
[2024-11-04] MEDS: Dextroamphetamine/Amphetamine XR 10 MG CAP.ER.24H PO (07:10)
[2024-11-04] MEDS: Hydroxychloroquine Sulfate 200 MG TABLET PO ×2 (07:10→20:22)
[2024-11-04] MEDS: Loratadine 10 MG TABLET PO (07:10)
[2024-11-04] MEDS: Folic Acid 1 MG TABLET PO (07:10)
[2024-11-04] MEDS: oxyCODONE HCl Immed Release 5 MG TABLET PO ×3 (07:10→19:29)
[2024-11-04] MEDS: Multivitamin TABLET 1 TAB PO (07:11)
[2024-11-04] MEDS: Spironolactone 25 MG TABLET PO (07:13)
[2024-11-04 07:18] LABS: Anion Gap 13 (12-20); Blood Urea Nitrogen 8 mg/dL (9-16); Carbon Dioxide 24 mmol/L (22-29); Chloride 104 mmol/L (96-108); Estimated Glomerular Filt Rate > 60; Glucose Fasting 165 mg/dL (60-99); Potassium 4.1 mmol/L (3.3-5.1); Sodium 137 mmol/L (135-145)
--- NOTE | 2024-11-04 07:37 | PM.PNORT ---
Subjective Subjective Date of Service: 11/04/24 Interval history: POD1 s/p LTKA Patient is resting in bed comfortably No overnight events Pain is managed No additional complaints Physical Exam Vital Signs: Vital Signs: Last Vital Signs Temp 100.2 F 11/04/24 03:30 Pulse 100 11/04/24 03:30 Resp 18 11/04/24 03:30 BP 145/70 H 11/04/24 03:30 Pulse Ox 94 11/04/24 03:30 O2 Del Method Room Air 11/04/24 03:30 BMI result Body Mass Index 43.3 Const: General: cooperative, healthy appearing and no acute distress Resp: Effort & Inspection: normal respiratory effort and able to speak in complete sentences Cardio: Rate: regular rate Peripheral pulses: Peripheral pulses 2+ throughout GI: Palpation (GI): Soft to palpation Skin: Lesions: no lesions Rashes: no rashes Extrem: Other: left knee dressing is c/d/i. Able to dorsi/plantar flex. Calf is supple and nontender. Sensation intact. Pedal pulse intact. Procedures Date of Service Date of Service: 11/04/24 Progress Note: A&P Assessment and plan (1) Status post total knee replacement, left: Status: Acute Plan Continue pain mgmnt Begin Lovenox for dvt ppx begin PT for LTKA Dispo planning-Pending PT eval, pain mgmnt Time Spent With Patient Time: Total time managing care of this patient today ____ minutes. Quality Stroke Does the patient have a stroke diagnosis?: No VTE Prior VTE?: Yes VTE Risk Level:: Medical - moderate - high VTE Device Contraindication: N/A - Device Ordered VTE Drug Contraindication: N/A - Med Ordered
[2024-11-04 08:09] VITALS: BP 161/78; PULSE 97; RESP 18; TEMP 37; O2SAT 92
[2024-11-04 08:29] LABS: SLIDE REVIEW VERIFIED
--- NOTE | 2024-11-04 09:24 | HO.POSTANES ---
Post Anesthesia Evaluation Post Anesthesia Evaluation Date of Service: 11/04/24 Vital Signs: Vital Signs Temp Pulse Resp BP Pulse Ox O2 Del Method 11/04/24 08:09 98.6 F 97 18 161/78 H 92 Room Air 11/04/24 03:30 100.2 F 100 18 145/70 H 94 Room Air 11/03/24 23:18 98.4 F 97 18 128/61 94 Room Air Anesthesia: Spinal Mental Status: Awake Pain Control: Satisfactory Nausea/Vomiting: None Hydration: Adequate Anesthesia-Related Issues: No Anes. Related Issues
[2024-11-04] MEDS: Enoxaparin Sodium 40 MG/0.4 ML SYRINGE SUBCUT (09:35)
[2024-11-04 09:43] VITALS: BP 176/84
--- NOTE | 2024-11-04 10:42 | MHC.CM.PN ---
Addendum entered by Yvette Luther 11/04/24 14:00: PER P.T., PT WILL CONTINUE TO BE RECOMMENDED FOR STR. [facility] PT'S FIRST CHOICE FOR REHAB THAT IS CONTRACTED WITH HER INSURANCE. CENTER WILL START AUTH PROCESS. PROVIDER UPDATED. Original Note: CM MET WITH PT AT BEDSIDE. PT IS LETHARGIC DUE TO PAIN MED. 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 PT IS EMPLOYED F/T AND USES [employer] . PT HAS C PAP FOR SLEEPING [facility]. +HCP ON FILE AND VERIFIED. PCP DR. VILLALTA. DP: PER P.T., PT MAY NEED STR BASED ON MORNING ASSESSMENT, WILL SEE AGAIN THIS AFTERNOON TO DETERMINE FINAL NEEDS. REFERRALS SENT TO CONTRACTED FACILITIES SHOULD PT REQUIRE STR. CM WILL CONTINUE TO FOLLOW FOR ANY CHANGE TO DC NEEDS/PLAN.
[2024-11-04] MEDS: Lactated Ringers 1,000 ML 100 ML IVCONT ×2 (11:50→21:28)
[2024-11-04 12:58] VITALS: BP 163/74; PULSE 91; RESP 18; TEMP 37.7; O2SAT 95
[2024-11-04 16:22] VITALS: BP 150/62; PULSE 89; RESP 18; TEMP 37; O2SAT 93
[2024-11-04 19:19] VITALS: BP 120/60; PULSE 95; RESP 18; TEMP 36.9; O2SAT 93
[2024-11-04] MEDS: Sennosides 8.6 MG TABLET 17.2 MG PO (20:22)
[2024-11-04] MEDS: Sertraline HCL 50 MG TABLET PO (20:22)
[2024-11-04] MEDS: Gabapentin 300 MG CAPSULE PO (20:22)
[2024-11-05 04:00] VITALS: BP 131/74; PULSE 83; RESP 18; TEMP 37.1; O2SAT 93
[2024-11-05 07:33] VITALS: BP 143/65; PULSE 85; RESP 18; TEMP 36.9; O2SAT 95
[2024-11-05] MEDS: polyethylene glycoL 3350 17 GM POWD.PACK PO (08:30)
[2024-11-05] MEDS: 0.9 % Sodium Chloride Flush 3 ML SYRINGE IVFLUSH ×2 (08:30→21:45)
[2024-11-05] MEDS: oxyCODONE HCl ER 10 MG TAB.ER.12H PO ×2 (08:32→21:42)
[2024-11-05] MEDS: oxyCODONE HCl Immed Release 5 MG TABLET PO ×2 (08:33→19:48)
[2024-11-05] MEDS: Spironolactone 25 MG TABLET PO (08:33)
[2024-11-05] MEDS: Dextroamphetamine/Amphetamine XR 10 MG CAP.ER.24H PO (08:34)
[2024-11-05] MEDS: Multivitamin TABLET 1 TAB PO (08:34)
[2024-11-05] MEDS: Folic Acid 1 MG TABLET PO (08:34)
[2024-11-05] MEDS: amLODIPine Besylate 5 MG TABLET PO (08:34)
[2024-11-05] MEDS: Loratadine 10 MG TABLET PO (08:35)
[2024-11-05] MEDS: Hydroxychloroquine Sulfate 200 MG TABLET PO ×2 (08:35→21:42)
[2024-11-05] MEDS: Docusate Sodium 100 MG CAPSULE PO ×2 (08:35→21:42)
[2024-11-05 08:40] LABS: Basophils Percent Auto 0.1 % (0-2); Eosinophils Absolute Auto 0.1 X10*3/uL (0.0-0.4); Eosinophils Percent Auto 0.7 % (0-4); Hematocrit 37.5 % (37.0-47.0); Hemoglobin 12.8 g/dl (12.0-16.0); Imm Gran Abs Auto 0.07 X10*3/uL (0.00-0.03); Imm Gran Pct Auto 0.4 % (0.0-0.4); Lymphocytes Absolute Auto 2.5 X10*3/uL (1.2-4.9); Lymphocytes Percent Auto 15.4 % (20-40); MANUAL DIFF FLAG SCAN; Mean Corpuscular HGB Conc 34.1 g/dl (31.0-35.0); Mean Corpuscular Hemoglobin 32.2 pg (27.0-33.0); Mean Corpuscular Volume 94.2 fL (80.0-98.0); Mean Platelet Volume 9.8 fL (9.4-12.3); Monocytes Absolute Auto 1.8 X10*3/uL (0.1-1.2); Monocytes Percent Auto 11.3 % (2-11); Neutrophils Absolute Auto 11.4 x10*3/uL (2.0-8.3); Neutrophils Percent Auto 72.1 % (45-73); Platelet Count 232 X10*3/uL (160-400); Red Blood Count 3.98 X10*6/uL (4.20-5.50); Red Cell Distribution Width 13.5 % (11.0-16.0); SCAN SMEAR FLAG 1; White Blood Count 15.9 X10*3/uL (4.8-10.8)
[2024-11-05 08:55] LABS: Anion Gap 11 (12-20); Blood Urea Nitrogen 6 mg/dL (9-16); Calcium 9.1 mg/dL (8.4-10.2); Carbon Dioxide 27 mmol/L (22-29); Chloride 102 mmol/L (96-108); Creatinine Clr Calc Pharmacy 115.7; Estimated Glomerular Filt Rate > 60; Glucose Fasting 130 mg/dL (60-99); Potassium 3.7 mmol/L (3.3-5.1); Sodium 136 mmol/L (135-145)
[2024-11-05 09:06] LABS: SLIDE REVIEW VERIFIED
[2024-11-05] MEDS: Enoxaparin Sodium 40 MG/0.4 ML SYRINGE SUBCUT (09:54)
--- NOTE | 2024-11-05 10:06 | PM.PNORT ---
Subjective Subjective Date of Service: 11/05/24 Interval history: POD2 s/p LTKA Patient is resting in bed comfortably No overnight events Pain is managed No additional complaints Physical Exam Vital Signs: Vital Signs: Last Vital Signs Temp 98.5 F 11/05/24 07:33 Pulse 85 11/05/24 07:33 Resp 18 11/05/24 07:33 BP 143/65 H 11/05/24 07:33 Pulse Ox 95 11/05/24 07:33 O2 Del Method Room Air 11/05/24 07:33 BMI result Body Mass Index 43.3 Const: General: cooperative, healthy appearing and no acute distress Resp: Effort & Inspection: normal respiratory effort and able to speak in complete sentences Cardio: Rate: regular rate Peripheral pulses: Peripheral pulses 2+ throughout GI: Palpation (GI): Soft to palpation Skin: Lesions: no lesions Rashes: no rashes Extrem: Other: left knee dressing is c/d/i. Able to dorsi/plantar flex. Calf is supple and nontender. Sensation intact. Pedal pulse intact. Procedures Date of Service Date of Service: 11/05/24 Progress Note: A&P Assessment and plan (1) Status post total knee replacement, left: Status: Acute Plan Continue pain mgmnt Continue Lovenox for dvt ppx Continue PT for LTKA Dispo planning-rehab placement, pain mgmnt Time Spent With Patient Time: Total time managing care of this patient today ____ minutes. Quality Stroke Does the patient have a stroke diagnosis?: No VTE Prior VTE?: Yes VTE Risk Level:: Medical - moderate - high VTE Device Contraindication: N/A - Device Ordered VTE Drug Contraindication: N/A - Med Ordered
--- NOTE | 2024-11-05 15:04 | MHC.CM.PN ---
CM CONTINUES TO AWAIT AUTH WITH [facility] [employer] FOR ADMISSION TO [facility]. ORTHO PA UPDATED.
[2024-11-05 15:15] VITALS: BP 142/61; PULSE 86; RESP 18; TEMP 36.5; O2SAT 92
[2024-11-05 19:19] VITALS: BP 149/65; PULSE 90; RESP 18; TEMP 37.1; O2SAT 95
[2024-11-05] MEDS: Gabapentin 300 MG CAPSULE PO (21:42)
[2024-11-05] MEDS: Sennosides 8.6 MG TABLET 17.2 MG PO (21:42)
[2024-11-05] MEDS: Sertraline HCL 50 MG TABLET PO (21:43)
[2024-11-06 03:35] VITALS: BP 139/63; PULSE 81; RESP 18; TEMP 36.8; O2SAT 95
[2024-11-06] MEDS: oxyCODONE HCl Immed Release 5 MG TABLET PO ×3 (07:00→17:10)
[2024-11-06] MEDS: oxyCODONE HCl ER 10 MG TAB.ER.12H PO (07:00)
[2024-11-06] MEDS: polyethylene glycoL 3350 17 GM POWD.PACK PO (07:00)
[2024-11-06] MEDS: Loratadine 10 MG TABLET PO (07:01)
[2024-11-06] MEDS: Docusate Sodium 100 MG CAPSULE PO (07:01)
[2024-11-06] MEDS: Hydroxychloroquine Sulfate 200 MG TABLET PO (07:01)
[2024-11-06] MEDS: Dextroamphetamine/Amphetamine XR 10 MG CAP.ER.24H PO (07:01)
[2024-11-06] MEDS: Spironolactone 25 MG TABLET PO (07:01)
[2024-11-06] MEDS: amLODIPine Besylate 5 MG TABLET PO (07:01)
[2024-11-06] MEDS: 0.9 % Sodium Chloride Flush 3 ML SYRINGE IVFLUSH (07:03)
[2024-11-06] MEDS: Multivitamin TABLET 1 TAB PO (07:05)
[2024-11-06] MEDS: Folic Acid 1 MG TABLET PO (07:06)
[2024-11-06 07:16] LABS: MANUAL DIFF FLAG NO
[2024-11-06 07:22] LABS: Basophils Percent Auto 0.2 % (0-2); Eosinophils Absolute Auto 0.3 X10*3/uL (0.0-0.4); Eosinophils Percent Auto 2.2 % (0-4); Hemoglobin 11.8 g/dl (12.0-16.0); Imm Gran Abs Auto 0.07 X10*3/uL (0.00-0.03); Imm Gran Pct Auto 0.6 % (0.0-0.4); Lymphocytes Absolute Auto 2.2 X10*3/uL (1.2-4.9); Lymphocytes Percent Auto 17.3 % (20-40); Mean Corpuscular HGB Conc 32.8 g/dl (31.0-35.0); Mean Corpuscular Hemoglobin 31.4 pg (27.0-33.0); Mean Corpuscular Volume 95.7 fL (80.0-98.0); Mean Platelet Volume 9.8 fL (9.4-12.3); Monocytes Absolute Auto 1.3 X10*3/uL (0.1-1.2); Monocytes Percent Auto 10.6 % (2-11); Neutrophils Absolute Auto 8.7 x10*3/uL (2.0-8.3); Neutrophils Percent Auto 69.1 % (45-73); Platelet Count 235 X10*3/uL (160-400); Red Blood Count 3.76 X10*6/uL (4.20-5.50); Red Cell Distribution Width 13.4 % (11.0-16.0); White Blood Count 12.5 X10*3/uL (4.8-10.8)
[2024-11-06 07:26] VITALS: BP 132/60; PULSE 82; RESP 18; TEMP 36.3; O2SAT 92
[2024-11-06 07:38] LABS: Anion Gap 12 (12-20); Blood Urea Nitrogen 8 mg/dL (9-16); Calcium 8.9 mg/dL (8.4-10.2); Carbon Dioxide 27 mmol/L (22-29); Chloride 101 mmol/L (96-108); Creatinine Clr Calc Pharmacy 119.8; Estimated Glomerular Filt Rate > 60; Glucose Fasting 126 mg/dL (60-99); Potassium 3.7 mmol/L (3.3-5.1); Sodium 136 mmol/L (135-145)
--- NOTE | 2024-11-06 08:09 | PM.PNORT ---
Subjective Subjective Date of Service: 11/06/24 Interval history: POD3 s/p LTKA Patient is resting in bed comfortably No overnight events Pain is managed No additional complaints Physical Exam Vital Signs: Vital Signs: Last Vital Signs Temp 97.3 F 11/06/24 07:26 Pulse 82 11/06/24 07:26 Resp 18 11/06/24 07:26 BP 132/60 11/06/24 07:26 Pulse Ox 92 11/06/24 07:26 O2 Del Method Room Air 11/06/24 07:26 BMI result Body Mass Index 43.3 Const: General: cooperative, healthy appearing and no acute distress Resp: Effort & Inspection: normal respiratory effort and able to speak in complete sentences Cardio: Rate: regular rate Peripheral pulses: Peripheral pulses 2+ throughout GI: Palpation (GI): Soft to palpation Skin: Lesions: no lesions Rashes: no rashes Extrem: Other: left knee dressing is c/d/i. Able to dorsi/plantar flex. Calf is supple and nontender. Sensation intact. Pedal pulse intact. Procedures Date of Service Date of Service: 11/06/24 Progress Note: A&P Assessment and plan (1) Status post total knee replacement, left: Status: Acute Plan Continue pain mgmnt Continue Lovenox for dvt ppx Continue PT for LTKA Dispo planning-rehab placement, pain mgmnt Time Spent With Patient Time: Total time managing care of this patient today ____ minutes. Quality Stroke Does the patient have a stroke diagnosis?: No VTE Prior VTE?: Yes VTE Risk Level:: Medical - moderate - high VTE Device Contraindication: N/A - Device Ordered VTE Drug Contraindication: N/A - Med Ordered
[2024-11-06] MEDS: Enoxaparin Sodium 40 MG/0.4 ML SYRINGE SUBCUT (10:46)
[2024-11-06] MEDS: Acetaminophen 325 MG TABLET 650 MG PO (10:47)
--- NOTE | 2024-11-06 10:57 | MHC.CM.PN ---
Addendum entered by Marilia Ramos 11/06/24 16:25: CM MET WITH PT TO DISCUSS DC PLANNING SHE IS AWARE THERE IS STILL NO DETERMINATION FROM [employer], SHE ALSO UNDERSTANDS THAT PROLONGED INPT STAY MAY CAUSE FURTHER DECONDITIONING. PER PT EVAL, PT REQUIRED [facility] FOR TRANSFERS AND WALKED 20 FEET WITH A WALKER SHE CONFIRMS SHE HAS A WALKER AT HOME SHE UNDERSTANDS THAT THE HOME PT WILL SEE HER TOMORROW PER DISCUSSION, PT WILL TRANSPORT HOME VIA [facility] MEDS WILL BE BROUGHT TO BEDSIDE BEFORE DC [facility] NOTIFIED OF PLAN TO DC HOME Addendum entered by Marilia Ramos 11/06/24 15:48: [employer] HAS STILL NOT RESPONDED TO AUTH REQUESTS AND HAVE INDICATED IT CAN TAKE FROM 7-14 DAYS FOR A DETERMINATION, HOWEVER THEY DENY IT WILL TAKE THAT LONG AUTH WAS REQUESTED ON 11/04/24 Original Note: PT AWAITING STR AT [facility] REQUESTED AUTH FROM [employer] ON 11/04/24 THEY REQUESTED AN EXPEDITED DECISION YESTERDAY PT IS AWARE AND WILL HAVE FAMILY BRING HER HUMIRA INJECTION TO THE SNF ONCE SHE TRANSFERS
--- NOTE | 2024-11-06 14:41 | PM.DS ---
DS: Providers Provider Date of Service: 11/06/24 Date of discharge: 11/06/24 Primary care physician: Iman Pulliam MD Consults: 11/03/24 13:02 Consult to Hospitalist Routine Comment: Consulting Provider: [facility] Hospitalists Reason For Exam: Routine medical management DS: Diagnosis Discharge Diagnosis (1) Status post total knee replacement, left: Status: Acute DS: Summary Hospital Course Hospital Course: The patient underwent a successful left total knee arthroplasty, they were transferred to PACU and then to the floor to recover. During their stay, their vitals were stable, afebrile at 97.3. Labs were unremarkable, H&H 11.8/36.1. POD 1 they were started on Lovenox 40mg subq QD for DVT ppx, they also received Physical Therapy services twice a day. Prior to discharge, their dressing was clean dry and intact, and the plan was to be discharged home with VNA services. Time Attestation Discharge Coordination Time (in mins): 30 Quality: Safe Use of Opioids Does Pt have an Active Cancer Diagnosis on the Problem List?: No Quality: Stroke Does the patient have a stroke diagnosis?: No Physical Exam Vital Signs: Vital Signs: Last Vital Signs Temp 97.3 F 11/06/24 07:26 Pulse 82 11/06/24 07:26 Resp 18 11/06/24 07:26 BP 132/60 11/06/24 07:26 Pulse Ox 92 11/06/24 07:26 O2 Del Method Room Air 11/06/24 07:26 BMI result Body Mass Index 43.3 Const: General: cooperative, healthy appearing and no acute distress Resp: Effort & Inspection: normal respiratory effort and able to speak in complete sentences Cardio: Rate: regular rate Peripheral pulses: Peripheral pulses 2+ throughout GI: Palpation (GI): Soft to palpation Skin: Lesions: no lesions Rashes: no rashes Extrem: Other: left knee dressing is c/d/i. Able to dorsi/plantar flex. Calf is supple and nontender. Sensation intact. Pedal pulse intact. DS: Data Data Completed and Pending Completed studies during hospitalization [Text1]: Pending at discharge 11/03/24 08:31 Surgical [PTH] Routine Labs on day of discharge: Laboratory Results - last 24 hr 11/06/24 06:36 WBC 12.5 H RBC 3.76 L Hgb 11.8 L Hct 36.0 L MCV 95.7 MCH 31.4 MCHC 32.8 RDW 13.4 Plt Count 235 MPV 9.8 Immature Gran % (Auto) 0.6 H Neut % (Auto) 69.1 Lymph % (Auto) 17.3 L [place] % (Auto) 10.6 Eos % (Auto) 2.2 Baso % (Auto) 0.2 Lymph # (Auto) 2.2 [place] # (Auto) 1.3 H Eos # (Auto) 0.3 Baso # (Auto) 0.0 Abs Immat Gran (auto) 0.07 H Absolute Neuts (auto) 8.7 H Absolute Nucleated RBC 0.000 Nucleated RBC % (auto) 0.0 Sodium 136 Potassium 3.7 Chloride 101 Carbon Dioxide 27 Anion Gap 12 BUN 8 L Creatinine 0.56 Estim Creat Clear Calc 119.8 Estimated GFR > 60 Fasting Glucose 126 H Calcium 8.9 Discharge Plan Discharge Patient Disposition: [facility] Referrals: [facility] [Outside] - 1 Week (TRANSFER FOR SHORT TERM REHAB) Hoang Gr PA-C [Physician Transportation Assistant] - 11/19/24 11:45 am Discharge Medications: New acetaminophen 325 mg Tablet 650 mg PO Q6H PRN (Reason: Pain, Mild 1-3,Fever,Headache) 30 Days Qty: 240 0RF enoxaparin 40 mg/0.4 mL Syringe 40 mg subcut Q24H 42 Days Qty: 16.8 0RF docusate sodium 100 mg Capsule 100 mg PO BID 30 Days Qty: 60 0RF oxycodone 5 mg tablet 5 mg PO Q4H PRN (Reason: pain) 7 Days Qty: 42 0RF Rx Instructions: Partial Fill upon patient request. Continued gabapentin 300 mg capsule 300 mg PO BEDTIME 30 Days Qty: 30 6RF (DME) walker Misc See Rx Instructions .MEDSUPPLY Qty: 1 0RF Rx Instructions: Folding Front wheeled walker duration 99 days spironolactone 25 mg tablet 25 mg PO DAILY Qty: 90 1RF amlodipine 5 mg tablet 5 mg PO DAILY Qty: 90 3RF uprnafooeolu-gwtkenma-sioydp Tablet 1 tab PO DAILY alpha lipoic acid 600 mg Capsule 600 mg PO DAILY methotrexate sodium 2.5 mg tablet 15 mg PO WE@0900,2100 ibuprofen-acetaminophen [Motrin Dual Action W-Tylenol] 125-250 mg Tablet 2 tab PO Q8H PRN (Reason: Pain) Humira(CF) Pen 40 mg/0.4 mL pen injector kit 40 mg subcut Q10D Rx Instructions: Next dose 11/11/24 omega 1-mnm-oup-fish oil [Fish Oil] 1,000 mg (120 mg-180 mg) Capsule 1 cap PO BID diclofenac sodium 1 % Gel 2 g TOPICAL BID PRN (Reason: Pain) Rx Instructions: apply to single elbow, wrist or hand; for hand includes palm/fingers/back of hand loratadine 10 mg tablet 10 mg PO DAILY albuterol sulfate 90 mcg/actuation HFA aerosol inhaler 2 puff inhalation Q6H PRN (Reason: shortness of breath or wheezing) Qty: 8.5 0RF sertraline 50 mg tablet 50 mg PO BEDTIME dextroamphetamine-amphetamine 10 mg capsule,extended release 24hr 1 cap PO QAM vitamin B complex Capsule 1 cap PO DAILY folic acid 1 mg tablet 1 mg PO DAILY Qty: 90 1RF hydroxychloroquine 200 mg tablet 200 mg PO BID Qty: 60 2RF turmeric 400 mg capsule 400 mg PO DAILY Rx Instructions: 3 capsules Held aspirin 81 mg Tablet,Chewable 81 mg PO DAILY Hold Instructions: Resume on 12/16/24. hold until 6 weeks post op after finishing Lovenox Diet: Advance to usual diet Activity on Discharge: Use cane or walker Activity Restrictions/Additional Instructions: Physical Therapy for ROM 0-120, quad strength, gait training. Use walker for ambulation Limit stair climbing, No shower, No tub bath, No driving Continue anticoagulant Lovenox x 6 weeks Keep Aquacel dressing clean, dry and intact. Follow up with orthopedics in 2 weeks Print Language: Icelandic
[2024-11-06 15:41] VITALS: BP 137/65; PULSE 88; RESP 16; TEMP 36; O2SAT 95
[2024-11-06] MEDS: Milk of Magnesia 30 ML ORAL.SUSP PO (15:49)
[2024-11-06 18:56] VITALS: BP 144/65; PULSE 85; RESP 16; TEMP 36.6; O2SAT 93
== END 2024-11-06 19:01 | disposition home health service (06) ==
LOC: HO.SSS 06:05 → HO.S3 12:10
PROVIDERS: Physician Assistant; PCP Internal Medicine; Visit Provider Orthopaedic Surgery
PROC: (CPT 27447; principal; 2024-11-03 07:30)
DX: M17.12 Unilateral primary osteoarthritis, left knee (principal); M25.562 Pain in left knee; M06.9 Rheumatoid arthritis, unspecified; I10 Essential (primary) hypertension; E78.5 Hyperlipidemia, unspecified; D50.9 Iron deficiency anemia, unspecified; E66.01 Morbid (severe) obesity due to excess calories; Z68.41 Body mass index [BMI] 40.0-44.9, adult; F90.9 Attention-deficit hyperactivity disorder, unspecified type; R06.09 Other forms of dyspnea; R73.9 Hyperglycemia, unspecified; K59.00 Constipation, unspecified; M79.7 Fibromyalgia; M35.89 Other specified systemic involvement of connective tissue; G47.33 Obstructive sleep apnea (adult) (pediatric); Z99.89 Dependence on other enabling machines and devices; Z79.631 Long term (current) use of antimetabolite agent; Z86.73 Personal history of transient ischemic attack (TIA), and cerebral infarction without residual deficits; F41.8 Other specified anxiety disorders
CPT/HCPCS: 27447; 36415; 73560; 80048; 85014; 85018; 85025; 86850; 86900; 86901; 87640; 87641; 88305; 88311; 93005; 94660; 97110; 97116; 97161; 97530; C1713; C1776; J0131; J0690; J1171; J1650; J2704; J2795; J7120

== ENCOUNTER → 2024-11-03 06:04 | Outpatient (BNV) | payer OTHER, SELFPAY | PROVIDERS: PCP Internal Medicine; Visit Provider Orthopaedic Surgery | DX: Z47.1 Aftercare following joint replacement surgery (principal); Z96.652 Presence of left artificial knee joint | CPT/HCPCS: 27447; 99024; G0180 ==

== ENCOUNTER → 2024-11-03 06:04 | Outpatient (BNV) | payer OTHER, SELFPAY | PROVIDERS: PCP Internal Medicine; Visit Provider Nurse Practitioner Family | DX: M06.9 Rheumatoid arthritis, unspecified (principal) | CPT/HCPCS: 99222 ==

== ENCOUNTER → 2024-11-03 09:36 | Outpatient (BNV) | payer OTHER, SELFPAY | PROVIDERS: PCP Internal Medicine; Visit Provider Radiology Diagnostic Radiology | DX: M17.12 Unilateral primary osteoarthritis, left knee (principal) | CPT/HCPCS: 73560 ==

== ENCOUNTER 2024-11-09 12:40 | Outpatient (AMB) | payer OTHER, SELFPAY ==
--- NOTE | 2024-11-09 13:20 | MHC.OFFVIS ---
Vital Signs 11/09/24 13:24 Height 5 ft 4 in Weight 235 lb BMI 40.3 Intake Visit Reasons: PO wound check L TKA w/NE 11/03/24 Intake Note: Misa is a 64 year old female who present today for a wound check appointment for her left TKA 11/03/24 NE. She states that last night she noticed her knee was red and her VNA nurse ruddy a venetie around the bandages where it is saturated. Allergies lisinopril Allergy (Severe, Verified 11/09/24 13:20) Nausea simvastatin Allergy (Severe, Verified 11/09/24 13:20) NAUSEA chamomile flower [CHAMOMILE HAWKINS] Allergy (Mild, Verified 11/09/24 13:20) RASH nickel Allergy (Mild, Verified 11/09/24 13:20) skin rash ropinirole Adverse Reaction (Intermediate, Verified 11/09/24 13:20) HIGH BLOOD PRESSURE gabapentin Adverse Reaction (Mild, Verified 11/09/24 13:20) Fatigue Sulfa (Sulfonamide Antibiotics) Adverse Reaction (Mild, Verified 11/09/24 13:20) RASH Daisys Adverse Reaction (Mild, Uncoded 10/28/24 14:44) rash HPI HPI PO wound check L TKA w/NE 11/03/24: Details: Ms. Torres is a 64-year-old female who presents to the office today for a wound check status post left total knee arthroplasty performed by Dr. Galvan on 11/03/2024. Patient reports that she was working with a VNA this morning with physical therapy and reported an increase in pain and there was some concern with drainage on the dressing. 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 Undifferentiated connective tissue disease Annual physical exam Fibromyalgia Depression with anxiety RUSSELL (obstructive sleep apnea) Morbid obesity Surgical History History of surgery History of esophagogastroduodenoscopy (EGD) (~1999) History of loop electrical excision procedure (LEEP) (1981) History of colonoscopy History of cyst of breast (1976) History of tonsillectomy (1968) Family History Father Osteoarthritis Colon cancer Diverticulosis Stroke HTN (hypertension) Full dentures Mother HTN (hypertension) Asthma Heart murmur TIA (transient ischemic attack) Diabetes mellitus Full dentures Osteoarthritis Family/Other Diabetes mellitus Heart disease CHF (congestive heart failure) Cancer Breast cancer Multiple myeloma Sister Mental health disorder Rheumatoid arthritis Moises's disease Diabetes mellitus Diverticulosis Trauma Neuropathy PTSD (post-traumatic stress disorder) Anxiety Depression Brother Substance use disorder Diabetes mellitus CHF (congestive heart failure) Social History Household Members: Spouse Housing: House Are you a primary medicare compliance auditor to a significant other at home: No Do you presently have visiting nurse or other home services: No 75 years or older and lives alone: No Alcohol intake: never Patient Tobacco Use Status: Never used Tobacco e-Cigarette/Vaping Use: Never Used Advance Directives Date on File: 04/13/22 service: No Current occupational status: employed 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 There is some surrounding normal-appearing erythema and ecchymosis but no signs of infection. [place] intact. NVI. Assessment & Plan Assessment & Plan (1) Status post total knee replacement, left: Code(s): Z96.652 - Presence of left artificial knee joint Category: Surgical Plan Ms. Torres is a 64-year-old female who presents to the office today for a wound check status post left total knee arthroplasty performed by Dr. Galvan on 11/03/2024. Patient reports that she was working with a VNA this morning with physical therapy and reported an increase in pain and there was some concern with drainage on the dressing. While in the office today, Dr. Galvan was available to see the patient with me. The Aquacel dressing was removed. There are no signs of infection at this time. The incision site was cleaned with a ChloraPrep and dressed with an Aquacel dressing. She will follow up at her normally scheduled follow up appointment, sooner if needed. Coding Level of Care Code Global (34754) Diagnoses Status post total knee replacement, left Z96.652
[2024-11-09 13:24] VITALS: BMI 40.3
--- OUTSIDE RECORDS SUMMARY | 2024-11-09 14:08 | XMS_ITS | Patient Health Record ---
Author Organization [facility] Address [address] [place] [address] Care Team Providers Care Closing Agent Name Role Phone Iman Pulliam MD Primary Care Provider Patrice Lundberg Unavailable [phone] Allergies Allergen (clinical drug ingredient) Drug/Non Drug [...] Problem Screening for malignant neoplasm of colon (826870955) Encounter for screening for malignant neoplasm of colon (Z12.11) Active confirmed Problem Family history of malignant neoplasm of gastrointestinal tract (780815672) Family history of malignant neoplasm of digestive organs (Z80.0) Active confirmed Problem Pre-procedure evaluation check (440101728) Encounter for other preprocedural examination (Z01.818) Active confirmed Problem Diverticulosis of colon (587961195) Diverticulosis of colon (K57.30) Active confirmed Plan Of Treatment Future Test Test Name Order Date COLONOSCOPY 12/22/2014 COLONOSCOPY 12/20/2021 Insurance Providers Payer Name Payer Address Payer Phone Subscriber Number Group Number Insured Name Patient Relationship to Insured Coverage Start Date Coverage End Date [employer] [address] [address] [place] [address] [id number] 1 HARJEET CULLEN Self - patient is the insured Medical (General) History Medical History History ICD Code Negative Colonoscopies in 24 09 and in 08-29-2009, other than diverticulosis and internal hemorrhoids-- GERD--[id number]--xfb. [facility] Cervical polyps Depression/anxiety Sleep apnea-uses CPAP Diffuse unspecified connecti ve tissue disease, SLE, Osteoarthritis---sees Dr. Doshi HTN Denies [place],DM,CVA,Lung disease,renal dise ase MCTD-unspecified Fibromyalgia Osteoarthritis Negative colonoscopy in 2014 Surgical History Surgery Date(Month/Year) LEEP Benign breast cyst Tonsils
== END 2024-11-09 13:53 | disposition home or self-care (01) ==
LOC: HO.HOS 12:41
PROVIDERS: PCP Internal Medicine; Visit Provider Physician Assistant
DX: Z96.652 Presence of left artificial knee joint (principal)
CPT/HCPCS: 99024

== ENCOUNTER → 2024-11-09 12:40 | Outpatient (BNVA) | payer OTHER, SELFPAY | PROVIDERS: PCP Internal Medicine; Visit Provider Physician Assistant ==

== ENCOUNTER 2024-11-19 10:27 | Outpatient (AMB) | payer OTHER, SELFPAY ==
--- NOTE | 2024-11-19 11:06 | MHC.OFFVIS ---
Vital Signs 11/19/24 11:06 Height 5 ft 4 in Intake Visit Reasons: 2WK PO: L TKA w/NE 11/03/24 Intake Note: Misa is a 64 year old female who present today for a post operative left TKA on 11/03/[address] Galvan. Patient reports question with about acetaminophen dosage, PT states very pleased with her progress. Allergies lisinopril Allergy (Severe, Verified 11/19/24 11:09) Nausea simvastatin Allergy (Severe, Verified 11/19/24 11:09) NAUSEA chamomile flower [CHAMOMILE HAWKINS] Allergy (Mild, Verified 11/19/24 11:09) RASH nickel Allergy (Mild, Verified 11/19/24 11:09) skin rash ropinirole Adverse Reaction (Intermediate, Verified 11/19/24 11:09) HIGH BLOOD PRESSURE gabapentin Adverse Reaction (Mild, Verified 11/19/24 11:09) Fatigue Sulfa (Sulfonamide Antibiotics) Adverse Reaction (Mild, Verified 11/19/24 11:09) RASH Daisys Adverse Reaction (Mild, Uncoded 10/28/24 14:44) rash Medication List - Last Reconciled 11/19/24 by Hoang Gr PA-C acetaminophen 650 mg (2 x 325 mg) PO Q6H PRN 30 days adalimumab (Humira(CF) Pen) 40 mg subcut Q10D albuterol sulfate 90 mcg/actuation 2 puffs inhalation Q6H PRN alpha lipoic acid 600 mg PO DAILY amlodipine 5 mg PO DAILY aspirin 81 mg PO DAILY dextroamphetamine-amphetamine 10 mg ER 1 cap PO QAM diclofenac sodium 1% 2 grams topical BID PRN docusate sodium 100 mg PO BID 30 days enoxaparin 40 mg (0.4 mL) subcut Q24H 42 days folic acid 1 mg PO DAILY gabapentin 300 mg PO BEDTIME 30 days hydroxychloroquine 200 mg PO BID ibuprofen-acetaminophen 125-250 mg (Motrin Dual Action with Tylenol) 2 tabs PO Q8H PRN loratadine 10 mg PO DAILY methotrexate sodium 15 mg PO WE@0900,2100 pehganxpwbid-pkuizzvx-maqoez 1 tab PO DAILY omega 5-etv-tbk-fish oil 1,000 (120-180) mg (Fish Oil) 1 cap PO BID oxycodone 5 mg PO Q4H PRN 7 days oxycodone 5 mg PO Q4H PRN 7 days sertraline 50 mg PO BEDTIME spironolactone 25 mg PO DAILY turmeric 400 mg PO DAILY vitamin B complex 1 cap PO DAILY walker Folding Front wheeled walker duration 99 days HPI HPI 2WK PO: L TKA w/NE 11/03/24: Details: 64-year-old female presents to the office today for a follow-up 2 weeks status post left total knee arthroplasty on 11/03/2024. She is doing well working with therapy at home. She is ambulating with a walker. She continues to take the oxycodone along with Tylenol for pain. 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 Undifferentiated connective tissue disease Annual physical exam Fibromyalgia Depression with anxiety RUSSELL (obstructive sleep apnea) Morbid obesity Surgical History History of surgery History of esophagogastroduodenoscopy (EGD) (~1999) History of loop electrical excision procedure (LEEP) (1981) History of colonoscopy History of cyst of breast (1976) History of tonsillectomy (1968) Family History Father Osteoarthritis Colon cancer Diverticulosis Stroke HTN (hypertension) Full dentures Mother HTN (hypertension) Asthma Heart murmur TIA (transient ischemic attack) Diabetes mellitus Full dentures Osteoarthritis Family/Other Diabetes mellitus Heart disease CHF (congestive heart failure) Cancer Breast cancer Multiple myeloma Sister Mental health disorder Rheumatoid arthritis Moises's disease Diabetes mellitus Diverticulosis Trauma Neuropathy PTSD (post-traumatic stress disorder) Anxiety Depression Brother Substance use disorder Diabetes mellitus CHF (congestive heart failure) Social History Household Members: Spouse Housing: House Are you a primary youth care specialist to a significant other at home: No Do you presently have visiting nurse or other home services: No 75 years or older and lives alone: No Alcohol intake: never Patient Tobacco Use Status: Never used Tobacco e-Cigarette/Vaping Use: Never Used Advance Directives Date on File: 04/13/22 service: No Current occupational status: employed 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 No significant erythema or effusion. Range of motion is 0-95 degrees. Calf supple and nontender. Neurovascularly intact. Assessment & Plan Assessment & Plan (1) Status post total knee replacement, left: Code(s): Z96.652 - Presence of left artificial knee joint Category: Surgical Plan: [place] removed today Steri-Strips applied. She will [facility]. She will continue to work on gait training her motion and strengthening. Continue DVT prophylaxis for another 4 weeks. She will require antibiotics for dental prophylaxis going forward. She will return in 4 weeks for routine postop appointment, sooner if needed. Coding Level of Care Code Global (52105) Diagnoses Status post total knee replacement, left Z96.652
--- OUTSIDE RECORDS SUMMARY | 2024-11-19 11:40 | XMS_ITS | Patient Health Record ---
Author Organization [facility] Address [address] [place] [address] Care Team Providers Care Dye Feeder Name Role Phone Iman Pulliam MD Primary Care Provider Patrice Lundberg Unavailable [phone] Allergies Allergen (clinical drug ingredient) Drug/Non Drug [...] Problem Screening for malignant neoplasm of colon (355256503) Encounter for screening for malignant neoplasm of colon (Z12.11) Active confirmed Problem Family history of malignant neoplasm of gastrointestinal tract (736544435) Family history of malignant neoplasm of digestive organs (Z80.0) Active confirmed Problem Pre-procedure evaluation check (327556384) Encounter for other preprocedural examination (Z01.818) Active confirmed Problem Diverticulosis of colon (217671191) Diverticulosis of colon (K57.30) Active confirmed Plan Of Treatment Future Test Test Name Order Date COLONOSCOPY 12/22/2014 COLONOSCOPY 12/20/2021 Insurance Providers Payer Name Payer Address Payer Phone Subscriber Number Group Number Insured Name Patient Relationship to Insured Coverage Start Date Coverage End Date [employer] [address] [address] [place] [address] [id number] 1 HARJEET CULLEN Self - patient is the insured Medical (General) History Medical History History ICD Code Negative Colonoscopies in 24 09 and in 08-29-2009, other than diverticulosis and internal hemorrhoids-- GERD--[id number]--[id number]. [facility] Cervical polyps Depression/anxiety Sleep apnea-uses CPAP Diffuse unspecified connecti ve tissue disease, SLE, Osteoarthritis---sees Dr. Doshi HTN Denies [place],DM,CVA,Lung disease,renal dise ase MCTD-unspecified Fibromyalgia Osteoarthritis Negative colonoscopy in 2014 Surgical History Surgery Date(Month/Year) LEEP Benign breast cyst Tonsils
== END 2024-11-19 11:41 | disposition home or self-care (01) ==
LOC: HO.HOS 10:27
PROVIDERS: PCP Internal Medicine; Visit Provider Physician Assistant
DX: Z96.652 Presence of left artificial knee joint (principal)
CPT/HCPCS: 99024

== ENCOUNTER → 2024-11-19 10:27 | Outpatient (BNVA) | payer OTHER, SELFPAY | PROVIDERS: PCP Internal Medicine; Visit Provider Physician Assistant ==

== ENCOUNTER 2024-12-10 07:25 | Outpatient (REF) | payer OTHER, SELFPAY ==
--- NOTE | ~2024-12-10 | XR_ITS ---
EXAMINATION: XR KNEE 3 VIEWS LEFT HISTORY: M25.562 - Pain in left knee COMPARISON: There is an is made with the prior examination dated 11/03/2024. FINDINGS: Standing AP views of both knees and additional lateral and sunrise patellar views of the left knee are submitted. The patient is status post total knee arthroplasty. The orthopedic elements are in anatomic alignment. There is no radiographic evidence of loosening. There is no fracture or dislocation. There is a moderate joint effusion. XR/XR knee LT 3V IMPRESSION: Status post left total knee arthroplasty. Moderate joint effusion. Electronically signed by: Patrice Kirby MD 12/10/2024 12:43 PM EDT
--- OUTSIDE RECORDS SUMMARY | 2024-12-10 07:28 | XMS_ITS | Patient Health Record ---
Author Organization [facility] Address [address] [place] [address] Care Team Providers Care Food And Beverage Assistant Manager Name Role Phone Iman Pulliam MD Primary Care Provider Patrice Lundberg Unavailable [phone] Allergies Allergen (clinical drug ingredient) Drug/Non Drug [...] Problem Screening for malignant neoplasm of colon (497584094) Encounter for screening for malignant neoplasm of colon (Z12.11) Active confirmed Problem Family history of malignant neoplasm of gastrointestinal tract (143651251) Family history of malignant neoplasm of digestive organs (Z80.0) Active confirmed Problem Pre-procedure evaluation check (216399643) Encounter for other preprocedural examination (Z01.818) Active confirmed Problem Diverticulosis o f colon (K57.30) Active confirmed Plan Of Treatment Future Test Test Name Order Date COLONOSCOPY 12/22/2014 COLONOSCOPY 12/20/2021 Insurance Providers Payer Name Payer Address Payer Phone Subscriber Number Group Number Insured Name Patient Relationship to Insured Coverage Start Date Coverage End Date [employer] [address] [address] [place] [address] [id number] 1 HARJEET CULLEN Self - patient is the insured Medical (General) History Medical History History ICD Code Negative Colonoscopies in 24 09 and in 08-29-2009, other than diverticulosis and internal hemorrhoids-- GERD--[id number]--[id number]. [facility] Cervical polyps Depression/anxiety Sleep apnea-uses CPAP Diffuse unspecified connecti ve tissue disease, SLE, Osteoarthritis---sees Dr. Doshi HTN Denies [place],DM,CVA,Lung disease,renal dise ase MCTD-unspecified Fibromyalgia Osteoarthritis Negative colonoscopy in 2014 Surgical History Surgery Date(Month/Year) LEEP Benign breast cyst Tonsils
== END 2024-12-10 07:26 | disposition home or self-care (01) ==
LOC: HO.HOSX 07:25
PROVIDERS: Visit Provider Orthopaedic Surgery
DX: M25.562 Pain in left knee (principal)
CPT/HCPCS: 73562

== ENCOUNTER 2024-12-10 12:12 | Outpatient (AMB) | payer OTHER, SELFPAY ==
--- NOTE | 2024-12-10 12:30 | MHC.OFFVIS ---
Intake Visit Reasons: 6WK PO: L TKA w/NE 11/03/24 Intake Note: Misa is a 64 year old female who presents today for a post operative appointment about 6 weeks s/p Left TKA 11/03/24. Allergies lisinopril Allergy (Severe, Verified 12/10/24 12:31) Nausea simvastatin Allergy (Severe, Verified 12/10/24 12:31) NAUSEA chamomile flower [CHAMOMILE HAWKINS] Allergy (Mild, Verified 12/10/24 12:31) RASH nickel Allergy (Mild, Verified 12/10/24 12:31) skin rash ropinirole Adverse Reaction (Intermediate, Verified 12/10/24 12:31) HIGH BLOOD PRESSURE gabapentin Adverse Reaction (Mild, Verified 12/10/24 12:31) Fatigue Sulfa (Sulfonamide Antibiotics) Adverse Reaction (Mild, Verified 12/10/24 12:31) RASH Daisys Adverse Reaction (Mild, Uncoded 12/10/24 12:31) rash HPI HPI 6WK PO: L TKA w/NE 11/03/24: Details: Misa is a 64 year old female who presents today for a post operative appointment about 6 weeks s/p Left TKA 11/03/24. She is doing well. She has slightly stiff in flexion but no fevers or chills. [facility] Medical History Rheumatoid arthritis Cervical dysplasia Cardiac abnormality Ambulates with cane Wears dentures Seasonal allergies Environmental allergies ADHD, 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 Carpal tunnel syndrome of right wrist Internal derangement of left knee Tingling of right upper extremity Brain TIA (~06/2023) Muscle cramps Numbness and tingling Osteoarthritis of hand, primary localized Elevated LFTs Hyperglycemia TURCIOS (dyspnea on exertion) snf methotrexate user Undifferentiated connective tissue disease Annual physical exam Fibromyalgia Depression with anxiety RUSSELL (obstructive sleep apnea) Morbid obesity Surgical History History of surgery History of esophagogastroduodenoscopy (EGD) (~1999) History of loop electrical excision procedure (LEEP) (1981) History of colonoscopy History of cyst of breast (1976) History of tonsillectomy (1968) Family History Father Osteoarthritis Colon cancer Diverticulosis Stroke HTN (hypertension) Full dentures Mother HTN (hypertension) Asthma Heart murmur TIA (transient ischemic attack) Diabetes mellitus Full dentures Osteoarthritis Family/Other Diabetes mellitus Heart disease CHF (congestive heart failure) Cancer Breast cancer Multiple myeloma Sister Mental health disorder Rheumatoid arthritis Moises's disease Diabetes mellitus Diverticulosis Trauma Neuropathy PTSD (post-traumatic stress disorder) Anxiety Depression Brother Substance use disorder Diabetes mellitus CHF (congestive heart failure) Social History Household Members: Spouse Housing: House Are you a primary child care leader to a significant other at home: No Do you presently have visiting nurse or other home services: No Alcohol intake: never Patient Tobacco Use Status: Never used Tobacco e-Cigarette/Vaping Use: Never Used Advance Directives Date on File: 04/13/22 service: No Current occupational status: employed 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 Stable to varus and valgus stress. Walking with a cane but comfortably. Results Reviewed Results Reviewed: I personally reviewed relevant radiographs. Left total knee arthroplasty in expected post operative position with no hardware complications or evidence of loosening Assessment & Plan Assessment & Plan (1) Status post total knee replacement, left: Code(s): Z96.652 - Presence of left artificial knee joint Category: Surgical Plan: Left knee status post knee replacement doing well. Continue aggressive physical therapy. Follow up 6 weeks. May discontinue anti coagulants. Orders: Orders XR knee LT 3V 12/10/24 M25.562 - Pain in left knee Coding Level of Care Code Global (34667) Diagnoses Status post total knee replacement, left Z96.652
== END 2024-12-10 12:35 | disposition home or self-care (01) ==
LOC: HO.HOS 12:13
PROVIDERS: PCP Internal Medicine; Visit Provider Orthopaedic Surgery
DX: Z96.652 Presence of left artificial knee joint (principal)
CPT/HCPCS: 99024

== ENCOUNTER → 2024-12-10 12:16 | Outpatient (BNV) | payer OTHER, SELFPAY | PROVIDERS: Visit Provider Radiology Diagnostic Radiology | DX: M25.462 Effusion, left knee (principal); Z96.652 Presence of left artificial knee joint | CPT/HCPCS: 73562 ==

== ENCOUNTER 2024-12-31 09:27 | Outpatient (AMB) | payer OTHER, SELFPAY ==
--- NOTE | 2024-12-31 09:28 | A.OFFVIS_ITS ---
Vital Signs 12/31/24 09:30 Height 5 ft 4 in Weight 236 lb BMI 40.5 BP 142/88 H Blood Pressure Location Rt brachial Position Sitting Intake Visit Reasons: Reschedule November 04 appt follow-up Intake Note: Patient presents for follow up sleep apnea compliance scanned 12/23/24 Allergies lisinopril Allergy (Severe, Verified 12/31/24 09:32) Nausea simvastatin Allergy (Severe, Verified 12/31/24 09:32) NAUSEA chamomile flower (CHAMOMILE HAWKINS) Allergy (Mild, Verified 12/31/24 09:32) RASH nickel Allergy (Mild, Verified 12/31/24 09:32) skin rash ropinirole Adverse Reaction (Intermediate, Verified 12/31/24 09:32) HIGH BLOOD PRESSURE gabapentin Adverse Reaction (Mild, Verified 12/31/24 09:32) Fatigue Sulfa (Sulfonamide Antibiotics) Adverse Reaction (Mild, Verified 12/31/24 09:32) RASH Daisys Adverse Reaction (Mild, Uncoded 12/31/24 09:32) rash HPI Comments Details: 64 y/o female comes for follow up of numbness and tingling in her feet and fingers. her EMG was c/w severe carpal tunnel on the right and ulnar neuropathy on left.she had carpal tunnel surgery and ulnar nerve decompression surgery on [id number] on the right , November 03 2024 she had a left knee replacement. she is feeling better. she is supposed to return to work next month. Gabapentin 300mg qhs has helped her feet. Pt is on CPAP now and is complaint and followed up by Dr. Galvan. she is followed up at Rheumatology Previous history-She has been on sulfasalazine for 2 years for undifferentiated connective tissues disease and she started noticing numbness, tingling in her finger tips and distal toes , shooting pains for about 1 year. SHe was seen by Dr. Estrada in December 2021 and sulfasalazine was stopped as a probable etiology of neuropathy. She started noticing improvement in symptoms 2 mths after she stopped. 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 Carpal tunnel syndrome of right wrist Internal derangement of left knee Tingling of right upper extremity Brain TIA (~06/2023) Muscle cramps Numbness and tingling Osteoarthritis of hand, primary localized Elevated LFTs Hyperglycemia TURCIOS (dyspnea on exertion) USP methotrexate user Undifferentiated connective tissue disease Annual physical exam Fibromyalgia Depression with anxiety RUSSELL (obstructive sleep apnea) Morbid obesity Surgical History History of surgery History of esophagogastroduodenoscopy (EGD) (~1999) History of loop electrical excision procedure (LEEP) (1981) History of colonoscopy History of cyst of breast (1976) History of tonsillectomy (1968) Family History Father Osteoarthritis Colon cancer Diverticulosis Stroke HTN (hypertension) Full dentures Mother HTN (hypertension) Asthma Heart murmur TIA (transient ischemic attack) Diabetes mellitus Full dentures Osteoarthritis Family/Other Diabetes mellitus Heart disease CHF (congestive heart failure) Cancer Breast cancer Multiple myeloma Sister Mental health disorder Rheumatoid arthritis Moises's disease Diabetes mellitus Diverticulosis Trauma Neuropathy PTSD (post-traumatic stress disorder) Anxiety Depression Brother Substance use disorder Diabetes mellitus CHF (congestive heart failure) Social History Household Members: Spouse Housing: House Are you a primary wound care technician to a significant other at home: No Do you presently have visiting nurse or other home services: No 75 years or older and lives alone: No Alcohol intake: never Patient Tobacco Use Status: Never used Tobacco e-Cigarette/Vaping Use: Never Used Advance Directives Date on File: 04/13/22 service: No Current occupational status: employed 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 Cognitive needs: No Hearing needs: No Vision needs: Yes Physical Exam Vital Signs: Last Vital Signs BP 142/88 H 12/31/24 09:30 BMI result Body Mass Index 40.5 Const General: cooperative, healthy appearing, comfortable and no acute distress Nutritional Appearance: obese Orientation/consciousness: patient oriented x3 Limitations: no limitations HEENT Head: Yes normal to inspection and Yes normocephalic Eyes Pupils: Equal, round and reactive pupils present Neuro General: patient oriented x3, tone normal, moves all extremities and no focal motor deficits Cranial nerves: Yes Facial sensation intact/muscles of mastication intact, Yes Equal, round and reactive pupils present, Yes Bilaterally intact EOM present, Yes Nystagmus not present, Yes Normal facial strength present, Yes Midline tongue present, Yes Symmetric palate elevation present and Yes Ability to bilaterally elevate shoulders present Cognition (Neuro): normal cognition Gait exam (Neuro): Antalgic gait present Motor exam (neuro): 5/5 motor strength present throughout and Motor abnormalities not present Coordination: [id number] test normal Psych Appearance: grossly normal Mental Status: mental status grossly normal Assessment & Plan Assessment & Plan (1) Carpal tunnel syndrome of right wrist: Code(s): G56.01 - Carpal tunnel syndrome, right upper limb Category: Medical (2) Ulnar neuropathy at elbow of left upper extremity: Code(s): G56.22 - Lesion of ulnar nerve, left upper limb Category: Medical (3) RUSSELL (obstructive sleep apnea): Comment: She is a known case of obstructive sleep apnea due to her morbid obesity. Uses CPAP regularly with good effect and sleeps well. Compliance is good. Code(s): G47.33 - Obstructive sleep apnea (adult) (pediatric) Category: Medical Plan Continue gabapentin 300 mg qHS for legs discomfort and shooting pain. ALpha lipoic acid and B complex in AM Continue CPAP and f/u with Dr. Galvan. Coding Level of Care Code Est Pt Level 4 (37067) Diagnoses Carpal tunnel syndrome of right wrist G56.01 Ulnar neuropathy at elbow of left upper extremity G56.22 RUSSELL (obstructive sleep apnea) G47.33
[2024-12-31 09:30] VITALS: BP 142/88; BMI 40.5
--- OUTSIDE RECORDS SUMMARY | 2024-12-31 10:29 | XMS_ITS | Patient Health Record ---
Author Organization [facility] Address [address] [place] [address] Care Team Providers Care Golf Ball Cover Treater Name Role Phone Iman Pulliam MD Primary Care Provider Patrice Lundberg Unavailable [phone] Allergies Allergen (clinical drug ingredient) Drug/Non Drug [...] Problem Screening for malignant neoplasm of colon (539762795) Encounter for screening for malignant neoplasm of colon (Z12.11) Active confirmed Problem Family history of malignant neoplasm of gastrointestinal tract (359270163) Family history of malignant neoplasm of digestive organs (Z80.0) Active confirmed Problem Pre-procedure evaluation check (806363346) Encounter for other preprocedural examination (Z01.818) Active confirmed Problem Diverticulosis o f colon (K57.30) Active confirmed Plan Of Treatment Future Test Test Name Order Date COLONOSCOPY 12/22/2014 COLONOSCOPY 12/20/2021 Insurance Providers Payer Name Payer Address Payer Phone Subscriber Number Group Number Insured Name Patient Relationship to Insured Coverage Start Date Coverage End Date [employer] [address] [address] [place] [address] [id number] HARJEET CULLEN Self - patient is the insured Medical (General) History Medical History History ICD Code Negative Colonoscopies in 24 09 and in 08-29-2009, other than diverticulosis and internal hemorrhoids-- GERD--[id number]--[id number] Cervical polyps Depression/anxiety Sleep apnea-uses CPAP Diffuse unspecified connecti ve tissue disease, SLE, Osteoarthritis---sees Dr. Doshi HTN Denies [place],DM,CVA,Lung disease,renal dise ase MCTD-unspecified Fibromyalgia Osteoarthritis Negative colonoscopy in 2014 Surgical History Surgery Date(Month/Year) LEEP Benign breast cyst Tonsils
== END 2024-12-31 10:23 | disposition home or self-care (01) ==
LOC: HO.HSMS 09:27
PROVIDERS: PCP Internal Medicine; Visit Provider Psychiatry & Neurology Neurology
DX: G56.01 Carpal tunnel syndrome, right upper limb (principal); G56.22 Lesion of ulnar nerve, left upper limb; G47.33 Obstructive sleep apnea (adult) (pediatric)
CPT/HCPCS: 99214

== ENCOUNTER 2025-01-21 09:59 | Outpatient (AMB) | payer OTHER, SELFPAY ==
[2025-01-21 10:01] VITALS: BMI 40.5
--- NOTE | 2025-01-21 10:01 | A.OFFVIS_ITS ---
Vital Signs 01/21/25 10:01 Height 5 ft 4 in Weight 236 lb BMI 40.5 Intake Visit Reasons: PO: L TKA w/NE 11/03/24 Intake Note: Misa is a 64 year old female who presents today for a post operative appointment s/p Left TKA 11/03/24. Allergies lisinopril Allergy (Severe, Verified 12/31/24 09:32) Nausea simvastatin Allergy (Severe, Verified 12/31/24 09:32) NAUSEA chamomile flower (CHAMOMILE HAWKINS) Allergy (Mild, Verified 12/31/24 09:32) RASH nickel Allergy (Mild, Verified 12/31/24 09:32) skin rash ropinirole Adverse Reaction (Intermediate, Verified 12/31/24 09:32) HIGH BLOOD PRESSURE gabapentin Adverse Reaction (Mild, Verified 12/31/24 09:32) Fatigue Sulfa (Sulfonamide Antibiotics) Adverse Reaction (Mild, Verified 12/31/24 09:32) RASH Daisys Adverse Reaction (Mild, Uncoded 12/31/24 09:32) rash HPI HPI PO: L TKA w/NE 11/03/24: Details: Patient is almost 3 months status post left knee replacement. She is doing well. She has no complaints. 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 Undifferentiated connective tissue disease Annual physical exam Fibromyalgia Depression with anxiety RUSSELL (obstructive sleep apnea) Morbid obesity Surgical History History of surgery History of esophagogastroduodenoscopy (EGD) (~1999) History of loop electrical excision procedure (LEEP) (1981) History of colonoscopy History of cyst of breast (1976) History of tonsillectomy (1968) Family History Father Osteoarthritis Colon cancer Diverticulosis Stroke HTN (hypertension) Full dentures Mother HTN (hypertension) Asthma Heart murmur TIA (transient ischemic attack) Diabetes mellitus Full dentures Osteoarthritis Family/Other Diabetes mellitus Heart disease CHF (congestive heart failure) Cancer Breast cancer Multiple myeloma Sister Mental health disorder Rheumatoid arthritis Moises's disease Diabetes mellitus Diverticulosis Trauma Neuropathy PTSD (post-traumatic stress disorder) Anxiety Depression Brother Substance use disorder Diabetes mellitus CHF (congestive heart failure) Social History Household Members: Spouse Housing: House Are you a primary health care assistant to a significant other at home: No Do you presently have visiting nurse or other home services: No Alcohol intake: never Patient Tobacco Use Status: Never used Tobacco e-Cigarette/Vaping Use: Never Used Advance Directives Date on File: 04/13/22 service: No Current occupational status: employed 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 Range of motion 0-130 degrees. Stable to varus and valgus stress. Assessment & Plan Assessment & Plan (1) Primary osteoarthritis of left knee: Code(s): M17.12 - Unilateral primary osteoarthritis, left knee Category: Medical Plan: Misa is doing very well 3 months status post left knee replacement. She has had no complications and a range of motion is excellent with minimal pain. She may return to work on 02/02. She can see me in 9 months' time or as needed there is a problem. Medications: Discontinued adalimumab-adaz Discontinued Reason: Doctor's Order 40 mg (0.4 mL) subcut .every 10 days 1.2 mL 5RF M06.00 - Rheumatoid arthritis without rheumatoid factor, unspecified site Coding Level of Care Code Global (59291) Diagnoses Primary osteoarthritis of left knee M17.12
--- OUTSIDE RECORDS SUMMARY | 2025-01-21 10:25 | XMS_ITS | Patient Health Record ---
Author Organization [facility] Address [address] [place] [address] Care Team Providers Care Remote Sensing Specialist Name Role Phone Iman Pulliam MD Primary Care Provider Patrice Lundberg Unavailable [phone] Allergies Allergen (clinical drug ingredient) Drug/Non Drug [...] Problem Screening for malignant neoplasm of colon (572794333) Encounter for screening for malignant neoplasm of colon (Z12.11) Active confirmed Problem Family history of malignant neoplasm of gastrointestinal tract (035883152) Family history of malignant neoplasm of digestive organs (Z80.0) Active confirmed Problem Pre-procedure evaluation check (436316948) Encounter for other preprocedural examination (Z01.818) Active confirmed Problem Diverticulosis of colon (999983608) Diverticulosis of colon (K57.30) Active confirmed Plan Of Treatment Future Test Test Name Order Date COLONOSCOPY 12/22/2014 COLONOSCOPY 12/20/2021 Insurance Providers Payer Name Payer Address Payer Phone Subscriber Number Group Number Insured Name Patient Relationship to Insured Coverage Start Date Coverage End Date [employer] [address] [address] [place] [address] [id number] 1 HARJEET CULLEN Self - patient is the insured Medical (General) History Medical History History ICD Code Negative Colonoscopies in 24 09 and in 08-29-2009, other than diverticulosis and internal hemorrhoids-- GERD--[id number]--[id number] Cervical polyps Depression/anxiety Sleep apnea-uses CPAP Diffuse unspecified connecti ve tissue disease, SLE, Osteoarthritis---sees Dr. Doshi HTN Denies [place],DM,CVA,Lung disease,renal dise ase MCTD-unspecified Fibromyalgia Osteoarthritis Negative colonoscopy in 2014 Surgical History Surgery Date(Month/Year) LEEP Benign breast cyst Tonsils
== END 2025-01-21 10:41 | disposition home or self-care (01) ==
LOC: HO.HOS 10:00
PROVIDERS: PCP Internal Medicine; Visit Provider Orthopaedic Surgery
DX: M17.12 Unilateral primary osteoarthritis, left knee (principal)
CPT/HCPCS: 99024

== ENCOUNTER 2025-01-26 09:39 | Outpatient (REF) | payer OTHER, SELFPAY ==
--- OUTSIDE RECORDS SUMMARY | 2025-01-26 10:23 | XMS_ITS | Patient Health Record ---
Author Organization [facility] Address [address] [place] [address] Care Team Providers Care Roller Print Tender Name Role Phone Iman Pulliam MD Primary Care Provider Patrice Lundberg Unavailable [phone] Allergies Allergen (clinical drug ingredient) Drug/Non Drug [...] Problem Screening for malignant neoplasm of colon (594427328) Encounter for screening for malignant neoplasm of colon (Z12.11) Active confirmed Problem Family history of malignant neoplasm of gastrointestinal tract (133140724) Family history of malignant neoplasm of digestive organs (Z80.0) Active confirmed Problem Pre-procedure evaluation check (020077743) Encounter for other preprocedural examination (Z01.818) Active confirmed Problem Diverticulosis of colon (876504549) Diverticulosis of colon (K57.30) Active confirmed Plan Of Treatment Future Test Test Name Order Date COLONOSCOPY 12/22/2014 COLONOSCOPY 12/20/2021 Insurance Providers Payer Name Payer Address Payer Phone Subscriber Number Group Number Insured Name Patient Relationship to Insured Coverage Start Date Coverage End Date [employer] [address] [address] [place] [address] [id number] 1 HARJEET CULLEN Self - patient is the insured Medical (General) History Medical History History ICD Code Negative Colonoscopies in 24 09 and in 08-29-2009, other than diverticulosis and internal hemorrhoids-- GERD--[id number]--[id number] Cervical polyps Depression/anxiety Sleep apnea-uses CPAP Diffuse unspecified connecti ve tissue disease, SLE, Osteoarthritis---sees Dr. Doshi HTN Denies [place],DM,CVA,Lung disease,renal dise ase MCTD-unspecified Fibromyalgia Osteoarthritis Negative colonoscopy in 2014 Surgical History Surgery Date(Month/Year) LEEP Benign breast cyst Tonsils
--- OUTSIDE RECORDS SUMMARY | 2025-01-26 10:23 | XMS_ITS | Clinical Summary ---
Author Organization [facility] Address [address] [place] [address] Phone Care Team Providers Care District Claims Manager Name Role Phone Iman Pulliam MD Primary Care Provider [phone] Social History Tobacco Use Types Packs/Day Years Used Date Smoking Tobacco: Never Assessed Education Answer Date Recorded Are you interested in more education? Not on ashley e 11/03/2022 Are you concerned about learning? Not on file 11/03/2022 No 11/03/2022 No 11/03/2022 Digital Access Answer Date Recorded No 12/02/2022 No 12/02/2022 No 12/02/2022 Reliable internet access at home? Not on file 12/02/2022 Device with a working camera? Not on file Comments Unknown Sex and Gender Information Value Date Recorded Sex Assigned at Not on file Legal Sex Female 3:14 PM EDT Gender Identity Not on file Sexual Orientation Not on file Plan of Treatment Health Maintenance Due Date Last Done Comments Adult Td,Tdap Booster 1959 LIPID PANEL 1959 DEPRESSION SCREENING 1971 SMOKING Hx and SMOKELESS TOBACCO SCREENING 01/17/1972 HEPATITIS C SCREENING 1977 MAMMOGRAM 1999 COLOGUARD 01/17/2004 COLONOSCOPY 01/17/2004 COLORECTAL CANCER SCREENING 01/17/2004 FIT TEST 01/17/2004 FOBT 01/17/2004 SIGMOIDOSCOPY 01/17/2004 VIRTUAL COLONOSCOPY 01/17/2004 PNEUMOCOCCAL VACCINES (50+ years) (1 of 1 - PCV) 2009 ZOSTER VACCINES (1 of 2) 2009 OSTEOPOROSIS SCREENING INITI AL (ONE-TIME) 01/17/2024 COVID-19 VACCINE (4 - 2023-2 5 season) 2024 05/15/2021, 07/18/2020, 06/26/2020 RSV VACCINE (1 - 1-dose 75+ series) 2034 HEPATITIS A VACCINES Aged Out No long er eligible based on patient's age to complete this topic HIB VACCINES Aged Out No longer eligi ble based on patient's age to complete this topic MENINGOCOCCAL VACCINES (ACWY) Aged Out No longer eligible based on patient's age to complete this topic MENINGOCOCCAL VACCINES (B) Aged Out N o longer eligible based on patient's age to complete this topic Medical Devices Not on file Insurance [employer] Member Subscriber Plan / Payer (Ef fective 2019-Present) Name:Misa Torres Relation to Subscriber:Self Name:Misa Torres Payer ID:[id number] (NAIC) Type:PPO Address: [place] [id number] [employer] Member Subscriber Plan / Payer (Ef fective 2019-Present) Name:Misa Torres Relation to Subscriber:Self Name:Misa Torres Payer ID:[id number] (NAIC) Type:PPO Address: [place] [id number] [employer]MIN[employer] ADMIN[employer]MIN[employer]MIN[employer] ADMINISTRATORS [facility] BLUE BENEFITS ADMINISTRATORS Care Teams District Claims Manager Relationship Specialty Start Date End Date Iman Pulliam MD [address] [facility] [place] [address] PCP - General Internal Medicine 03/31/21 Additional Source Comments The information contained in this document represents components of the legal health record. It is not the complete legal health record.[facility]
[2025-01-26 13:38] LABS: MANUAL DIFF FLAG NO
[2025-01-26 13:42] LABS: Hematocrit 40.5 % (37.0-47.0); Hemoglobin 13.5 g/dl (12.0-16.0); Imm Gran Abs Auto 0.02 X10*3/uL (0.00-0.03); Imm Gran Pct Auto 0.3 % (0.0-0.4); Lymphocytes Absolute Auto 2.9 X10*3/uL (1.2-4.9); Mean Corpuscular HGB Conc 33.3 g/dl (31.0-35.0); Mean Corpuscular Hemoglobin 31.1 pg (27.0-33.0); Mean Corpuscular Volume 93.3 fL (80.0-98.0); NRBC Abs Auto 0.000 X10*3/uL (0.0-0.012); NRBC Pct Auto 0.0 /100WBC (0.0-0.2); Platelet Count 275 X10*3/uL (160-400); Red Blood Count 4.34 X10*6/uL (4.20-5.50); White Blood Count 6.9 X10*3/uL (4.8-10.8)
[2025-01-26 13:56] LABS: Hemoglobin A1C 151.7292 umol/L; Total Hemoglobin (HGBA1C) 3555.4385 umol/L
[2025-01-26 14:01] LABS: Alanine Aminotransferase 31 U/L (0-31); Albumin Level 4.6 g/dL (3.5-5.0); Alkaline Phosphatase 69 U/L (39-117); Anion Gap 12 (12-20); Aspartate Amino Transferase 29 U/L (5-31); Blood Urea Nitrogen 10 mg/dL (9-16); Calcium 9.3 mg/dL (8.4-10.2); Carbon Dioxide 28 mmol/L (22-29); Chloride 106 mmol/L (96-108); Cholesterol 206 mg/dL (<200); Estimated Glomerular Filt Rate > 60; HDL Cholesterol 62 mg/dL (>40); Potassium 3.8 mmol/L (3.3-5.1); Sodium 142 mmol/L (135-145); Total Protein 7.3 g/dL (6.5-8.0); Triglycerides 159 mg/dL (<150)
== END 2025-01-26 09:40 | disposition home or self-care (01) ==
LOC: HO.HMGCLDS 09:39
PROVIDERS: PCP Internal Medicine; Referring Provider Student in an Organized Health Care Education/Training Program; Visit Provider Internal Medicine
DX: I10 Essential (primary) hypertension (principal); M06.00 Rheumatoid arthritis without rheumatoid factor, unspecified site; R73.9 Hyperglycemia, unspecified; E55.9 Vitamin D deficiency, unspecified
CPT/HCPCS: 36415; 80053; 80061; 82306; 83036; 84443; 85025; 85652; 86140

== ENCOUNTER 2025-02-01 10:01 | Outpatient (RCR) | payer OTHER, SELFPAY ==
--- NOTE | 2024-12-01 09:56 | MHC.PT.EP ---
[facility] [place] Office [place] Office [place] Office [address] Newton Castillo [address] [phone] F: [phone] F: [phone] F: [phone] F: [phone] Physical Therapy Plan of Care Date of Evaluation: 12/01/24 Date of Surgery: 11/03/24 Diagnosis: L TKA 11/03/24 Assessment: 64 y/o female s/p elective L TKA on 11/03/[address] Galvan. She had a 3-night stay at [facility] and then d/c home with home PT 3x/week. 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 Examination shows decreased knee ROM, decreased LE strength, swelling, pain, and impaired gait pattern. Recommend PT 3x/week for 2 weeks then 2x/week for additional 4 weeks to address impairments, implement HEP, and optimize functional mobility. Frequency and Duration: The patient will be seen 3x/week for 6 weeks Short Term Goals: 3 weeks I with HEP Demonstrate L knee ROM 0-115 Assembler Unit Goals: 6 weeks I with HEP and self management of sx Pt will be able to ambulate > 30 minutes with pain < 3/10 and LRAD Pt will ascend/ descend stairs in step through pattern with pain < 3/10 and one rail Treatment Plan: Modalities to reduce pain, spasms and effusion. Manual therapy to restore motion and function. Therapeutic exercise to improve strength and flexibility. Neuromuscular re-education for posture and balance. Therapeutic activities to return to functional activities of daily living. Electronically signed by: Wendi Florian PT Please sign and return to therapist. Thank you for your referral.
--- NOTE | 2025-02-01 11:22 | MHC.PT.DC ---
[facility] [place] Office [place] Office [place] Office [address] Newton Castillo [address] [phone] F: [phone] F: [phone] F: [phone] F: [phone] Physical Therapy Discharge Report Diagnosis: L TKA 11/03/24 Date of Surgery: 11/03/24 Date of Evaluation: 12/01/24 Date of Discharge: 02/01/25 Treatments to Date: 19 Cancellations to Date: 0 No Shows to Date: 0 Discharge Status: Achieved Goals Improved Function Independent with HEP Discharge Summary: Pt is appropriate for d/c secondary to meeting goals, good gait pattern, LEFS 58/80, and I with HEP. Her knee flexion is still stiff > 115* but otherwise she has made excellent progress and will continue with I HEP Electronically signed by: Wendi Florian PT Please sign and return to therapist. Thank you for your referral.
== END 2025-02-01 11:22 | disposition home or self-care (01) ==
LOC: HO.PT 10:01
PROVIDERS: PCP Internal Medicine; Visit Provider Physician Assistant
DX: Z47.1 Aftercare following joint replacement surgery (principal); Z96.652 Presence of left artificial knee joint
CPT/HCPCS: 97110; 97112; 97140; 97162; 97530

== ENCOUNTER 2025-02-02 08:03 | Outpatient (AMB) | payer OTHER, SELFPAY ==
--- OUTSIDE RECORDS SUMMARY | 2025-02-02 08:07 | XMS_ITS | Patient Health Record ---
Author Organization [facility] Address [address] [place] [address] Care Team Providers Care Celery Tier Name Role Phone Iman Pulliam MD Primary Care Provider Patrice Lundberg Unavailable [phone] Allergies Allergen (clinical drug ingredient) Drug/Non Drug [...] Problem Screening for malignant neoplasm of colon (732211012) Encounter for screening for malignant neoplasm of colon (Z12.11) Active confirmed Problem Family history of malignant neoplasm of gastrointestinal tract (874433800) Family history of malignant neoplasm of digestive organs (Z80.0) Active confirmed Problem Pre-procedure evaluation check (272197438) Encounter for other preprocedural examination (Z01.818) Active confirmed Problem Diverticulosis of colon (718418982) Diverticulosis of colon (K57.30) Active confirmed Plan Of Treatment Future Test Test Name Order Date COLONOSCOPY 12/22/2014 COLONOSCOPY 12/20/2021 Insurance Providers Payer Name Payer Address Payer Phone Subscriber Number Group Number Insured Name Patient Relationship to Insured Coverage Start Date Coverage End Date [employer] [address] [address] [place] [address] [id number] HARJEET CULLEN Self - patient is the insured Medical (General) History Medical History History ICD Code Negative Colonoscopies in 24 09 and in 08-29-2009, other than diverticulosis and internal hemorrhoids-- GERD--[id number]--[id number] Cervical polyps Depression/anxiety Sleep apnea-uses CPAP Diffuse unspecified connecti ve tissue disease, SLE, Osteoarthritis---sees Dr. Doshi HTN Denies PA,DM,CVA,Lung disease,renal dise ase MCTD-unspecified Fibromyalgia Osteoarthritis Negative colonoscopy in 2014 Surgical History Surgery Date(Month/Year) LEEP Benign breast cyst Tonsils
--- OUTSIDE RECORDS SUMMARY | 2025-02-02 08:08 | XMS_ITS | Clinical Summary ---
Author Organization [facility] Address [address] [place] [id number] Phone Care Team Providers Care Product Tester Name Role Phone Iman Pulliam MD Primary Care Provider [phone] Social History Tobacco Use Types Packs/Day Years [...] topic Medical Devices Not on file Insurance [employer] Member Subscriber Plan / Payer (Ef fective 2019-Present) Name:Misa Torres Relation to Subscriber:Self Name:Misa Torres Payer ID:[id number] (NAIC) Type:PPO Address: [place] [id number] [employer] Member Subscriber Plan / Payer (Ef fective 2019-Present) Name:Misa Torres Relation to Subscriber:Self Name:Misa Torres Payer ID:[id number] (NAIC) Type:PPO Address: [place] [id number] [employer] [facility] BLUE BENEFITS ADMINISTRATORS Care Teams Product Tester Relationship Specialty Start Date End Date Iman Pulliam MD [address] [place] [address] PCP - General Internal Medicine 03/31/21 Additional Source Comments The information contained in this document represents components of the legal health record. It is not the complete legal health record.[facility]
--- NOTE | 2025-02-02 08:10 | A.OFFVIS_ITS ---
Vital Signs 02/02/25 08:19 Height 5 ft 4 in Weight 242 lb 15.19 oz BMI 41.7 BP 140/80 H Blood Pressure Location Rt brachial Position Sitting Pulse 67 Pulse Source Pulse Oximeter Pulse Oximetry (%) 97 Oxygen Delivery Method Room Air Intake Visit Reasons: RA Intake Note: Patient presents for RA follow up. Patient stated she has been discharge by Doctor Aleida and she wants to know who will prescribe her Gabapentin 300 mg capsules daily for restless leg syndrome. Allergies lisinopril Allergy (Severe, Verified 02/02/25 08:17) Nausea simvastatin Allergy (Severe, Verified 02/02/25 08:17) NAUSEA chamomile flower (CHAMOMILE HAWKINS) Allergy (Mild, Verified 02/02/25 08:17) RASH nickel Allergy (Mild, Verified 02/02/25 08:17) skin rash ropinirole Adverse Reaction (Intermediate, Verified 02/02/25 08:17) HIGH BLOOD PRESSURE gabapentin Adverse Reaction (Mild, Verified 02/02/25 08:17) Fatigue Sulfa (Sulfonamide Antibiotics) Adverse Reaction (Mild, Verified 02/02/25 08:17) RASH Daisys Adverse Reaction (Mild, Uncoded 12/31/24 09:32) rash Medication List - Last Reconciled 02/02/25 by Silvana Vega MD acetaminophen 650 mg (2 x 325 mg) PO Q6H PRN 30 days adalimumab-atto (Amjevita(CF) Autoinjector) 40 mg (0.8 mL) subcut .every 10 days albuterol sulfate 90 mcg/actuation 2 puffs inhalation Q6H PRN alpha lipoic acid 600 mg PO DAILY amlodipine 5 mg PO DAILY aspirin 81 mg PO DAILY Held on 11/03/24. Instructions: Resume on 12/16/24. hold until 6 weeks post op after finishing Lovenox dextroamphetamine-amphetamine 10 mg ER 1 cap PO QAM diclofenac sodium 1% 2 grams topical BID PRN docusate sodium 100 mg PO BID 30 days folic acid 1 mg PO DAILY gabapentin 300 mg PO BEDTIME 30 days hydroxychloroquine 200 mg PO BID ibuprofen-acetaminophen 125-250 mg (Motrin Dual Action with Tylenol) 2 tabs PO Q8H PRN loratadine 10 mg PO DAILY methotrexate sodium 15 mg PO WE@0900,2100 bvhvvxrdpwol-mvqlzkld-tpayzo 1 tab PO DAILY omega 4-kqp-ldf-fish oil 1,000 (120-180) mg (Fish Oil) 1 cap PO BID sertraline 50 mg PO BEDTIME spironolactone 25 mg PO DAILY turmeric 400 mg PO DAILY vitamin B complex 1 cap PO DAILY walker Folding Front wheeled walker duration 99 days HPI Comments Details: Patient is a 64-year-old female with hypertension, RUSSELL, depression and ADHD, UCTD/seronegative rheumatoid arthritis here today for follow up Interval History: Patient last seen 10/28/24 with me. - Completed prednisone taper for a flare - Doing better on the increased frequency of Humira - Pre Op clearance for left TKR 11/03 - Humira on hold in preparation for the surgery Today, - restarted Humira - Complained of decreased hearing of the left ear - Doing well overall - Completed PT for the knee yesterday Rheumatologic History: Seronegative RA onset 2008. +++DISTANCE LEARNING PROGRAM COORDINATOR ++JACY -ve JOYCE -ve RF, -ve CCP Predominantly hand and knee pains. HCQ Since 2009 eyes OK 03/2022, 03/2023. Methotrexate added 2011. Sulfasalazine added 2019. stopped 12/2019 due to suspicion of neuropathy Enbrel added 11/2023 DC ineffective Humira 01/2024 effective Decreased Mtx to 20mg weekly after starting Humira, and elevated LFTs Current Rheumatology Medication(s): Methotrexate 20 mg weekly p.o. 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 Carpal tunnel syndrome of right wrist Internal derangement of left knee Tingling of right upper extremity Brain TIA (~06/2023) Muscle cramps Numbness and tingling Osteoarthritis of hand, primary localized Elevated LFTs Hyperglycemia TURCIOS (dyspnea on exertion) 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 Undifferentiated connective tissue disease Annual physical exam Fibromyalgia Depression with anxiety RUSSELL (obstructive sleep apnea) Morbid obesity Surgical History History of surgery History of esophagogastroduodenoscopy (EGD) (~1999) History of loop electrical excision procedure (LEEP) (1981) History of colonoscopy History of cyst of breast (1976) History of tonsillectomy (1968) Family History Father Osteoarthritis Colon cancer Diverticulosis Stroke HTN (hypertension) Full dentures Mother HTN (hypertension) Asthma Heart murmur TIA (transient ischemic attack) Diabetes mellitus Full dentures Osteoarthritis Family/Other Diabetes mellitus Heart disease CHF (congestive heart failure) Cancer Breast cancer Multiple myeloma Sister Mental health disorder Rheumatoid arthritis Moises's disease Diabetes mellitus Diverticulosis Trauma Neuropathy PTSD (post-traumatic stress disorder) Anxiety Depression Brother Substance use disorder Diabetes mellitus CHF (congestive heart failure) Social History Household Members: Spouse Housing: House Are you a primary summer child caregiver to a significant other at home: No Do you presently have visiting nurse or other home services: No 75 years or older and lives alone: No Alcohol intake: never Patient Tobacco Use Status: Never used Tobacco e-Cigarette/Vaping Use: Never Used Advance Directives Date on File: 04/13/22 service: No Current occupational status: employed 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 [employer] Cognitive needs: No Hearing needs: No Vision needs: Yes Review of Systems Const Details: Review of Systems Constitutional: Denies fever, chills, weight loss ENT: Denies vision changes, eye pain or eye redness, dental caries, dry mouth GI: Denies nausea, vomiting, diarrhea, abdominal pain, change in BM Pulm: Denies SOB, TURCIOS, hemoptysis, wheezing Cards: Denies chest pain, palpitations Skin: Denies Raynaud's, rash, nail changes, photosensitivity, TELEVISION PRESENTER: Denies headaches, weakness, paresthesias, recurrent falls MSK: as per HPI All other systems reviewed and are unremarkable except noted above Physical Exam Exam Exam: Vital signs reviewed Physical Examination CONSTITUITIONAL Patient alert and cooperative. Well appearing and in no apparent painful distress HEENT Conjunctiva and sclera clear. No lymphadenopathy. Wax impaction of the left ear CHEST/RESPIRATORY SYSTEM Normal respiratory effort and able to speak in complete sentences. Clear to auscultation bilaterally. No crackles, rales, rhonchi, wheezes heard. CARDIAC SYSTEM Regular rate and rhythm. S1 and S2 heard no murmurs. Radial pulses intact bilaterally MSK Hands * Right Hand: Able to make a fist. hand is slightly puffy. No TTP of the MCPs or PIPs * Left Hand: Able to make a fist. hand is slightly puffy. TTP of the 4th and 5th PIP. No TTP of the MCPs * Herbedens nodes noted bilaterally Wrists * Right Wrist: Full ROM. 70 degrees of wrist flexion, 80 degrees of wrist extension. No swelling or TTP * Left Wrist: Full ROM. 70 degrees of wrist flexion, 80 degrees of wrist extension. No swelling or TTP Elbows * Right Elbow: Full ROM. No swelling or TTP. No TTP of the medial and lateral epicondyles * Left Elbow: Full ROM. No swelling or TTP. No TTP of the medial and lateral epicondyles Shoulders * Right shoulder: Full ROM. No swelling noted. No TTP of the AC joint, subacromial bursa or posterior shoulder * Left shoulder: Full ROM. No swelling noted. No TTP of the AC joint, subacromial bursa or posterior shoulder Knees * Right knee: good ROM. TTP of the medial joint line. No effusion * Left knee: well healed surgical scar. Warm to touch with effusion. Good ROM Ankles * Right ankle: Good ankle dorsiflexion and plantar flexion. No swelling. No TTP of the ankle joint * Left ankle: Good ankle dorsiflexion and plantar flexion. No swelling. No TTP of the ankle joint Feet * Right foot: TTP of the 4th MTP * Left foot: TTP of the 2nd MTP Tender points? * No tenderness to palpation of the bilateral trapezius, supraspinatus, anterior costochondral junctions, bilateral suboccipital muscle insertions SKIN No rashes Vital Signs: Last Vital Signs Pulse 67 02/02/25 08:19 BP 140/80 H 02/02/25 08:19 Pulse Ox 97 02/02/25 08:19 Oxygen Delivery Method Room Air 02/02/25 08:19 BMI result Body Mass Index 41.7 Results Reviewed Results Reviewed: Laboratory Tests 01/26/25 09:44 WBC 6.9 RBC 4.34 Hgb 13.5 Hct 40.5 Plt Count 275 ESR 23 H Sodium 142 Potassium 3.8 Chloride 106 Carbon Dioxide 28 BUN 10 Creatinine 0.60 AST 29 ALT 31 Alkaline Phosphatase 69 C-Reactive Protein 1.91 H 25-OH Vitamin D Total 79.7 Rheumatology Labs 11/19/19 01/24/21 11/11/23 15:55 16:30 10:10 Rheumatoid Factor < 13.0 Sm (Theodore) Antibody <1.0 <1.0 NEG SS-A/Ro Antibody <1.0 NEG SS-B/La Antibody <1.0 NEG SmRNP Antibodies 5.1 H SM/DISTANCE LEARNING PROGRAM COORDINATOR IgG Antibody 5.1 POS A Double Strand DNA Ab <1 Complement C3 134 Complement C4 32 Infectious Labs 09/18/24 16:21 Hepatitis A IgM Ab Nonreactive Hep Bs Antigen Negative Hep Bs Antibody NONREACTIVE Hep B Core Total Ab Nonreactive Hepatitis C Ab (EIA) Nonreactive TB Test (T-Spot) Com Negative Assessment & Plan Assessment & Plan (1) Seronegative rheumatoid arthritis: Comment: onset 2008. +++DISTANCE LEARNING PROGRAM COORDINATOR ++JACY -ve JOYCE -ve RF, -ve CCP Predominantly hand and knee pains. HCQ since 2009 eyes OK 03/2022, 03/2023. Methotrexate added 2011. Sulfasalazine added 2019. stopped 12/2019 due to suspicion of neuropathy Enbrel added 11/2023 DC ineffective Humira 01/2024 effective Decreased Mtx 25 --> 20 due to Transaminitis Code(s): M06.00 - Rheumatoid arthritis without rheumatoid factor, unspecified site Category: Medical Plan: #Seronegative RA Patient is a 64 y.o. female with UCTD/Seronegative RA here today for follow up. Doing better on the increased frequency of Humira. Needs a nurse visit due to Humira misfire Low disease activity Plan - Humira 40mg SC every 10 days - Plaquenil 200mg bid - Methotrexate 20mg weekly - Folic acid 1 mg - RTC 3 months - Labs prior to visit: CBC, CMP, CRP, ESR (2) Long-term use of hydroxychloroquine: Comment: eyes OK 03/2022, 03/2023. 04/2024 Code(s): Z79.899 - Other terminal carman (current) drug therapy Category: Medical Plan: #Long-term Use of Hydroxychloroquine Discussed with patient the risks and benefits of hydroxychloroquine in managing the rheumatic condition Benefits include: - Reduced pain, reduce mortality, maintenance of remission and reduction of flares Risks include: - GI upset, skin hyperpigmentation, retinal toxicity (especially after more than 5 years of use), myopathy Advised yearly ophthalmology visits (3) Encounter for monitoring of adalimumab therapy: Code(s): Z51.81 - Encounter for therapeutic drug level monitoring; Z79.620 - terminal computer operator (current) use of immunosuppressive biologic Plan: #Long-term Use of TNF Inhibitors: Humira Discussed with the patient the benefits and risks of TNF inhibitors for the management of the rheumatic condition Benefits include reduce pain, maintenance of remission and reduction of flares as well as ?progression of the disease Risks include injection sites/infusion reactions, serious infections (such as bacterial infections, opportunistic infections), malignancy, delaminating syndromes, autoimmune phenomena, CHF exacerbations, palmar plantar psoriasis and cytopenias Recommended rotating injection sites, and holding medication during and for up to 1 week after resolution of a febrile illness or open skin wound (4) Encounter for methotrexate monitoring: Code(s): Z51.81 - Encounter for therapeutic drug level monitoring; Z79.631 - correction (current) use of antimetabolite agent Plan: #Long-term Current Use of Methotrexate Discussed with patient the benefits and risks of methotrexate for managing their rheumatic condition Benefits include reduced pain, reduced mortality, maintenance of remission and reduction of flares Risks include oral ulcers, photosensitivity, hepatotoxicity, hematologic toxicity, pneumonitis, flu-like symptoms (especially day after administration), nodulosis, lymphomas ? Limit alcohol and avoid Bactrim ? Monitoring: ?CBC, BMP, LFTs every 3-4 months and hepatitis serologies as needed Plan I spent 35 minutes reviewing the record and labs, taking a history, examining the patient, discussing the treatment plan, ordering diagnostic work up and documenting in the medical record Orders: Orders Complete Blood Count Auto Diff 3 Months M06.00 - Rheumatoid arthritis without rheumatoid factor, unspecified site C Reactive Protein 3 Months M06.00 - Rheumatoid arthritis without rheumatoid factor, unspecified site, Z79.899 - Other longterm (current) drug therapy Erythrocyte Sedimentation Rate 3 Months M06.00 - Rheumatoid arthritis without rheumatoid factor, unspecified site, Z79.899 - Other longterm (current) drug th aylin Nguyen Met. Panel 3 Months M06.00 - Rheumatoid arthritis without rheumatoid factor, unspecified site, Z79.899 - Other terminal carman (current) drug therapy Medications: Changed From gabapentin 300 mg PO BEDTIME 30 days 30 caps 0RF M06.00 - Rheumatoid ar thritis without rheumatoid factor, unspecified site To gabapentin 300 mg PO BEDTIME 90 caps 0RF 90 days M06.00 - Rheumatoid arthritis without rheumatoid factor, unspecified site Coding Level of Care Code Est Pt Level 4 (68026) Complex EM visit Add On G2211 Diagnoses Seronegative rheumatoid arthritis M06.00 Long-term use of hydroxychloroquine Z79.899 Encounter for monitoring of adalimumab therapy Z51.81; Z79.620 Encounter for methotrexate monitoring Z51.81; Z79.631
[2025-02-02 08:19] VITALS: BP 140/80; PULSE 67; O2SAT 97; BMI 41.7
== END 2025-02-02 09:00 | disposition home or self-care (01) ==
LOC: HO.RHE 08:04
PROVIDERS: PCP Internal Medicine; Visit Provider Student in an Organized Health Care Education/Training Program
DX: M06.00 Rheumatoid arthritis without rheumatoid factor, unspecified site (principal); Z79.899 Other long term (current) drug therapy; Z51.81 Encounter for therapeutic drug level monitoring; Z79.620 Long term (current) use of immunosuppressive biologic; Z79.631 Long term (current) use of antimetabolite agent
CPT/HCPCS: 99214

== ENCOUNTER 2025-02-02 10:53 | Outpatient (AMB) | payer OTHER, SELFPAY ==
[2025-02-02 11:02] VITALS: BP 126/70; PULSE 79; RESP 18; TEMP 36.8; O2SAT 97; BMI 41.7
--- NOTE | 2025-02-02 11:02 | MHC.PC.OV ---
Vital Signs 02/02/25 11:02 Height 5 ft 4 in Weight 243 lb BMI 41.7 BP 126/70 Blood Pressure Location Rt brachial Position Sitting Respiration 18 Pulse 79 Pulse Source Pulse Oximeter Temp 98.3 F Temp Source Oral Pulse Oximetry (%) 97 Oxygen Delivery Method Room Air Intake Visit Reasons: 6 months f/up Intake Note: Pt is here today for 6 months follow up visit. Allergies lisinopril Allergy (Severe, Verified 02/02/25 11:07) Nausea simvastatin Allergy (Severe, Verified 02/02/25 11:07) NAUSEA chamomile flower (CHAMOMILE HAWKINS) Allergy (Mild, Verified 02/02/25 11:07) RASH nickel Allergy (Mild, Verified 02/02/25 11:07) skin rash ropinirole Adverse Reaction (Intermediate, Verified 02/02/25 11:07) HIGH BLOOD PRESSURE gabapentin Adverse Reaction (Mild, Verified 02/02/25 11:07) Fatigue Sulfa (Sulfonamide Antibiotics) Adverse Reaction (Mild, Verified 02/02/25 11:07) RASH Daisys Adverse Reaction (Mild, Uncoded 02/02/25 11:07) rash Tobacco use date assessed: 02/02/25 Fall risk assessment: No Falls in past year Last assessed Fall Risk: 02/02/25 Dental Screening Dental Screen Date: 07/10/24 HPI 6 months f/up HPI Details Pt presents for f/u HTN, RA f/u with rheumatology. Pt underwent total L knee arthroplasty in October and recovered well. She is planning on going back to work. 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 Undifferentiated connective tissue disease Annual physical exam Fibromyalgia Depression with anxiety RUSSELL (obstructive sleep apnea) Morbid obesity Surgical History History of surgery History of esophagogastroduodenoscopy (EGD) (~1999) History of loop electrical excision procedure (LEEP) (1981) History of colonoscopy History of cyst of breast (1976) History of tonsillectomy (1968) Family History Father Osteoarthritis Colon cancer Diverticulosis Stroke HTN (hypertension) Full dentures Mother HTN (hypertension) Asthma Heart murmur TIA (transient ischemic attack) Diabetes mellitus Full dentures Osteoarthritis Family/Other Diabetes mellitus Heart disease CHF (congestive heart failure) Cancer Breast cancer Multiple myeloma Sister Mental health disorder Rheumatoid arthritis Moises's disease Diabetes mellitus Diverticulosis Trauma Neuropathy PTSD (post-traumatic stress disorder) Anxiety Depression Brother Substance use disorder Diabetes mellitus CHF (congestive heart failure) Social History Household Members: Spouse Housing: House Are you a primary hospice care sales consultant to a significant other at home: No Do you presently have visiting nurse or other home services: No 75 years or older and lives alone: No Alcohol intake: never Patient Tobacco Use Status: Never used Tobacco e-Cigarette/Vaping Use: Never Used Advance Directives Date on File: 04/13/22 service: No Current occupational status: employed 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 [employer] Cognitive needs: No Hearing needs: No Vision needs: Yes Questionnaire Thrive Questionnaire Date Thrive assessed: 07/10/24 I am a: Patient What is your living situation today?: I have a steady place to live Within the past 12 months, did the food you bought not last and you didn't have the money to get more?: Never true Within the past 12 months, did you worry whether your food would run out before you got money to buy more?: Never true Do you have trouble paying for medicines?: No Do you have trouble getting transportation to medical appointments?: No Do you have trouble paying your heating and electricity bill?: No Do you have trouble taking care of your child, family member or friend?: No Do you have trouble with day-to-day activities such as bathing, preparing meals, shopping, managing finances, etc.?: No Are you currently unemployed and looking for a job?: No Are you interested in more education?: Yes Please select the resources that you would like help with: None Currently or been in a relationship where the following occur: No concerns reported THRIVE Score: 0 MILDRED-7 AMB Questionnaire MILDRED-7 Date MILDRED - 7 assessed: 07/10/24 Source: Developed by Drs. Patrice Agosto, Megan Hu, Bobby Jackson and colleagues, with an educational johnathan from [employer]. Review of Systems Const All systems reviewed & are unremarkable except as noted in HPI and below Eyes Reports no additional complaints ENT Reports no additional complaints Card Reports no additional complaints Resp Reports no additional complaints GI Reports no additional complaints Reports no additional complaints Physical exam (Primary Care) Vital Signs: Last Vital Signs Temp 98.3 F 02/02/25 11:02 Pulse 79 02/02/25 11:02 Resp 18 02/02/25 11:02 BP 126/70 02/02/25 11:02 Pulse Ox 97 02/02/25 11:02 Oxygen Delivery Method Room Air 02/02/25 11:02 BMI result Body Mass Index 41.7 Tobacco/Smoking Status: Tobacco use Status Tobacco use date assessed 02/02/25 02/02/25 11:09 Patient Tobacco Use Status Never used Tobacco 02/02/25 11:09 e-Cigarette/Vaping Use Never Used 02/02/25 11:03 Thrive Assessment: Date of Thrive Assessment Date Thrive assessed 07/10/24 02/02/25 11:03 Currently or been in a relationship where the following occur: No concerns reported Const General: no acute distress HENMT Head: Yes normal to inspection Ears: hearing grossly normal bilaterally Eyes General: appearance normal, both eyes and all related structures Neck Neck: Yes supple Resp Effort & Inspection: normal respiratory effort Auscultation: clear to auscultation bilaterally Cardio Rhythm: regular rhythm Heart sounds: S1 normal heart sound present and S2 normal heart sound present GI Inspection: Yes normal to inspection Palpation (GI): Soft to palpation Percussion: Yes normal to percussion Auscultation: normal bowel sounds Coding Level of Care Code Est Pt Level 4 (93029) Complex EM visit Add On G2211 Diagnoses HTN (hypertension) I10 Hypertension type: unspecified Hyperglycemia R73.9 Morbid obesity E66.01 Undifferentiated connective tissue disease M35.9 Status post total knee replacement, left Z96.652 RUSSELL (obstructive sleep apnea) G47.33 Assessment & Plan Assessment & Plan (1) HTN (hypertension): Code(s): I10 - Essential (primary) hypertension Category: Medical Qualifiers: Hypertension type: unspecified Qualified Code(s): I10 - Essential (primary) hypertension Plan: cont meds (2) Hyperglycemia: Code(s): R73.9 - Hyperglycemia, unspecified Category: Medical Plan: A1C was 6.1, ADA diet increase exercise weight loss discussed with the patient (3) Morbid obesity: Comment: Patient remains morbidly obese . BMI= 40 .5 Code(s): E66.01 - Morbid (severe) obesity due to excess calories Category: Medical Plan: Decrease caloric intake increasing physical activity and weight loss discussed with the patient (4) Undifferentiated connective tissue disease: Comment: onset 2008. +++BUTCHER MEAT ++JACY -ve JOYCE -ve RF, -ve CCP Predominantly hand and knee pains. HCQ since 2009 eyes OK 03/2022, 03/2023, 04/2024 Code(s): M35.9 - Systemic involvement of connective tissue, unspecified Category: Medical Plan: Follow-up with rheumatology. Patient has been on methotrexate Plaquenil and Humira (5) Status post total knee replacement, left: Code(s): Z96.652 - Presence of left artificial knee joint Category: Surgical Plan: Follow-up with ortho (6) RUSSELL (obstructive sleep apnea): Comment: obstructive sleep apnea due to morbid obesity. Uses CPAP regularly with good effect and sleeps well. Compliance is good. Code(s): G47.33 - Obstructive sleep apnea (adult) (pediatric) Category: Medical Plan: Continue CPAP Orders: Orders Hemoglobin A1c 6 Months E55.9 - Vitamin D deficiency, unspecified, E66.01 - Morbid (severe) obesity due to excess calories, I10 - Essential (primary) hypertension, R73.9 - Hyperglycemia, unspecified Lipid Panel 6 Months E55.9 - Vitamin D deficiency, unspecified, E66.01 - Morbid (severe) obesity due to excess calories, I10 - Essential (primary) hypertension, R73.9 - Hyperglycemia, unspecified Vitamin D 25-OH Total 6 Months E55.9 - Vitamin D deficiency, unspecified, E66.01 - Morbid (severe) obesity due to excess calories, I10 - Essential (primary) hypertension, R73.9 - Hyperglycemia, unspecified Microalbumin, Random (w Creat) 6 Months E55.9 - Vitamin D deficiency, unspecified, E66.01 - Morbid (severe) obesity due to excess calories, I10 - Essential (primary) hypertension, R73.9 - Hyperglycemia, unspecified Vitamin B12 and Folate 6 Months E55.9 - Vitamin D deficiency, unspecified, E66.01 - Morbid (severe) obesity due to excess calories, I10 - Essential (primary) hypertension, R73.9 - Hyperglycemia, unspecified Comprehensive [place]. Panel Fast 6 Months E55.9 - Vitamin D deficiency, unspecified, E66.01 - Morbid (severe) obesity due to excess calories, I10 - Essential (primary) hypertension, R73.9 - Hyperglycemia, unspecified Complete Blood Count Auto Diff 6 Months E55.9 - Vitamin D deficiency, unspecified, E66.01 - Morbid (severe) obesity due to excess calories, I10 - Essential (primary) hypertension, R73.9 - Hyperglycemia, unspecified
== END 2025-02-02 15:57 | disposition home or self-care (01) ==
LOC: HO.HMCC 10:54
PROVIDERS: PCP Internal Medicine; Visit Provider Internal Medicine
DX: I10 Essential (primary) hypertension (principal); E66.01 Morbid (severe) obesity due to excess calories; Z68.41 Body mass index [BMI] 40.0-44.9, adult; R73.9 Hyperglycemia, unspecified; M35.9 Systemic involvement of connective tissue, unspecified; Z96.652 Presence of left artificial knee joint; G47.33 Obstructive sleep apnea (adult) (pediatric)

== ENCOUNTER 2025-04-26 09:28 | Outpatient (AMB) | payer OTHER, SELFPAY ==
[2025-04-26 09:45] VITALS: BP 160/70; PULSE 70; O2SAT 97; BMI 41.8
--- NOTE | 2025-04-26 09:45 | A.OFFVIS_ITS ---
Vital Signs 04/26/25 09:45 Height 5 ft 4 in Weight 243 lb 9.773 oz BMI 41.8 BP 160/70 H Blood Pressure Location Lt brachial Position Sitting Pulse 70 Pulse Source Pulse Oximeter Pulse Oximetry (%) 97 Oxygen Delivery Method Room Air Intake Visit Reasons: Obstructive sleep apnea Intake Note: pt is here for follow up and states she had a knee replacement and is doing well with cpap. pt is using Morenga otc at home. helps with insulin absorption. pt is also taking franken sense oil on knees. Heating And Air Conditioning Mechanic Required: No Vice President Of Talent Management: Vice President Of Talent Management offered & declined Allergies lisinopril Allergy (Severe, Verified 04/26/25 10:14) Nausea simvastatin Allergy (Severe, Verified 04/26/25 10:14) NAUSEA chamomile flower (CHAMOMILE HAWKINS) Allergy (Mild, Verified 04/26/25 10:14) RASH nickel Allergy (Mild, Verified 04/26/25 10:14) skin rash ropinirole Adverse Reaction (Intermediate, Verified 04/26/25 10:14) HIGH BLOOD PRESSURE gabapentin Adverse Reaction (Mild, Verified 04/26/25 10:14) Fatigue Sulfa (Sulfonamide Antibiotics) Adverse Reaction (Mild, Verified 04/26/25 10:14) RASH Daisys Adverse Reaction (Mild, Uncoded 04/26/25 10:14) rash Medication List - Last Reconciled 04/26/25 by Mirian Galvan MD acetaminophen (Tylenol Extra Strength) 1,000 mg (2 x 500 mg) PO Q6H 10 days adalimumab-atto (Amjevita(CF) Autoinjector) 40 mg (0.8 mL) subcut .every 10 days albuterol sulfate 90 mcg/actuation 2 puffs inhalation Q6H PRN alpha lipoic acid 600 mg PO DAILY amlodipine 5 mg PO DAILY amoxicillin 2,000 mg (4 x 500 mg) PO ONCE 1 day aspirin 81 mg PO DAILY Held on 11/03/24. Instructions: Resume on 12/16/24. hold until 6 weeks post op after finishing Lovenox cholecalciferol (vitamin D3) 25 mcg PO DAILY dextroamphetamine-amphetamine 10 mg ER 1 cap PO QAM diclofenac sodium 1% 2 grams topical BID PRN folic acid 1 mg PO DAILY gabapentin 300 mg PO BEDTIME 90 days hydroxychloroquine 200 mg PO BID loratadine 10 mg PO DAILY methotrexate sodium 15 mg PO WE@0900,2100 pxnqsbnshawr-afrlbqds-qofhqw 1 tab PO DAILY omega 2-hbq-goq-fish oil 1,000 (120-180) mg (Fish Oil) 1 cap PO BID sertraline 50 mg PO BEDTIME spironolactone 25 mg PO DAILY turmeric 400 mg PO DAILY vitamin B complex 1 cap PO DAILY walker Folding Front wheeled walker duration 99 days Do you need a note to return to daycare/school/sports/work: No HPI HPI Obstructive sleep apnea: Details: HARJEET IS 65 YEARS OLD GROSSLY OBESE PATIENT WITH OBSTRUCTIVE SLEEP APNEA. SHE IS HERE FOR 6 MONTHS FOLLOW-UP. SHE HAD KNEE REPLACEMENT AND HAS BEEN LIMITED IN HER ACTIVITIES. SHE HAS EXTENSIVE RHEUMATOID ARTHRITIS WHICH ALSO LIMITS HER PHYSICAL ACTIVITIES. THUS SHE HAS NOT BEEN ABLE TO LOSE ANY WEIGHT. HOWEVER SHE USES CPAP VERY REGULARLY AND SLEEPS GOOD. SHE HAS HISTORY OF DEPRESSION AND ANXIETY BUT WITH CURRENT MEDICATIONS DOING VERY WELL. 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 Undifferentiated connective tissue disease Annual physical exam Fibromyalgia Depression with anxiety RUSSELL (obstructive sleep apnea) Morbid obesity Surgical History History of surgery History of esophagogastroduodenoscopy (EGD) (~1999) History of loop electrical excision procedure (LEEP) (1981) History of colonoscopy History of cyst of breast (1976) History of tonsillectomy (1968) Family History Father Osteoarthritis Colon cancer Diverticulosis Stroke HTN (hypertension) Full dentures Mother HTN (hypertension) Asthma Heart murmur TIA (transient ischemic attack) Diabetes mellitus Full dentures Osteoarthritis Family/Other Diabetes mellitus Heart disease CHF (congestive heart failure) Cancer Breast cancer Multiple myeloma Sister Mental health disorder Rheumatoid arthritis Moises's disease Diabetes mellitus Diverticulosis Trauma Neuropathy PTSD (post-traumatic stress disorder) Anxiety Depression Brother Substance use disorder Diabetes mellitus CHF (congestive heart failure) Social History Household Members: Spouse Housing: House Are you a primary home care administrator to a significant other at home: No Do you presently have visiting nurse or other home services: No 75 years or older and lives alone: No Alcohol intake: never Patient Tobacco Use Status: Never used Tobacco e-Cigarette/Vaping Use: Never Used Advance Directives Date on File: 04/13/22 service: No Current occupational status: employed 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 Cognitive needs: No Hearing needs: No Vision needs: Yes Review of Systems Const All systems reviewed & are unremarkable except as noted in HPI and below Eyes Reports no additional complaints ENT Reports nasal congestion (Mild off and on) Card Denies chest pain at rest, Denies irregular heart rhythm, Denies leg edema and Denies dyspnea on exertion Resp Denies cough, Denies dyspnea on exertion and Denies wheezing GI Reports no additional complaints Reports no additional complaints Musc Reports myalgias and Reports arthralgias Skin/Breast Reports system reviewed and no additional complaints, except as documented Neuro Reports no additional complaints Psych Reports no additional complaints Momo/Lymph Reports no additional complaints Aller/Immun Denies wheezing Physical Exam Vital Signs: Last Vital Signs Pulse 70 04/26/25 09:45 BP 160/70 H 04/26/25 09:45 Pulse Ox 97 04/26/25 09:45 Oxygen Delivery Method Room Air 04/26/25 09:45 BMI result Body Mass Index 41.8 Const General: healthy appearing (Except for being overweight), comfortable, no acute distress, alert and awake Orientation/consciousness: patient oriented x3 HEENT Head: Yes normal to inspection General nose exam: No nasal polyps present and No nasal discharge present Face and sinus: Yes sinuses nontender Mouth: oropharynx normal Throat: Yes posterior oropharynx normal Eyes General: appearance normal, both eyes and all related structures Neck Neck: Yes normal visual inspection, Yes no lymphadenopathy, Yes trachea midline and Yes no JVD Thyroid: Thyroid normal Chest Chest palpation & inspection: normal inspection of the chest, normal palpation of entire chest wall and no tenderness Resp Effort & Inspection: normal respiratory effort Auscultation: clear to auscultation bilaterally, no crackles and no wheezes Cardio Palpation: normal PMI Rate: regular rate Rhythm: regular rhythm Heart sounds: no gallops and no murmurs Peripheral pulses: Peripheral pulses 2+ throughout GI Palpation (GI): Soft to palpation, nontender, No hepatosplenomegaly present and no masses Auscultation: normal bowel sounds Back/Spine/Pelvis Thoracic/Lumbar Spine: thoracic and lumbar spine normal to inspection Skin General skin exam: no rashes or lesions noted Neuro General: patient oriented x3 and no focal motor deficits Cranial nerves: Yes CN's II-XII intact bilaterally Extrem General: Yes normal to inspection, Yes no clubbing, cyanosis or edema and Yes no calf tenderness Psych Appearance: grossly normal and well kempt Speech and movement: Normal speech and movement present Results Reviewed Results Reviewed: COMPLIANCE REPORT FOR THE LAST 30 NIGHTS IS REVIEWED. SHE USED 28/30 NIGHTS., 92% AVERAGE USAGE PER NIGHT 6 HOURS 55 MINUTE. WITH RELATIVELY LOW PRESSURE OF 10 CM. THERE IS NO AIR LEAK AND RESIDUAL AHI IS 3.3 Assessment & Plan Assessment & Plan (1) Morbid obesity: Comment: Patient remains morbidly obese . Current BMI= 41.8 Because of ongoing rheumatoid arthritis and recent knee surgery has not been able to do much walking or any other physical exercise. Code(s): E66.01 - Morbid (severe) obesity due to excess calories Category: Medical Plan: Talked to her about the diet and need to start walking every day . (2) RUSSELL (obstructive sleep apnea): Comment: Obstructive sleep apnea due to morbid obesity. Uses CPAP regularly with good effect and sleeps well. Compliance is good. Code(s): G47.33 - Obstructive sleep apnea (adult) (pediatric) Category: Medical Plan: Commended for good compliance and advised to keep on using the CPAP every night regularly. Coding Level of Care Code Est Pt Level 3 (05473) Diagnoses Morbid obesity E66.01 RUSSELL (obstructive sleep apnea) G47.33
--- OUTSIDE RECORDS SUMMARY | 2025-04-26 10:37 | XMS_ITS | Clinical Summary ---
Author Organization [facility] Address [address] [place] [id number] Phone Care Team Providers Care Machine Stoppage Frequency Checker Name Role Phone Iman Pulliam MD Primary Care Provider [phone] Social History Tobacco Use Types Packs/Day Years [...] VACCINES (1 of 2) 2009 OSTEOPOROSIS SCREENING INITIAL (ONE-TIME) 01/17/2024 INFLUENZA VACCINE (#1) 2025 , 04/15/2019, 04/18/2018, Additional history exists COVID-19 VACCINE ( season) 2025 05/15/2021, 07/18/2020, 06/26/2020 RSV VACCINE (1 - [...] topic Medical Devices Not on file Insurance [employer] ADMIN[employer]AT[employer]MIN[employer] ADMIN[employer]ATORS [employer]MIN[employer]AT[employer]MIN[employer]MIN[employer]MIN[employer] [place] [employer] [id number] [employer] Care Teams Machine Stoppage Frequency Checker Relationship Specialty Start Date End Date Iman Pulliam MD [address] [facility] [place] [address] PCP - General Internal Medicine 03/31/21 Additional Source Comments The information contained in this document represents components of the legal health record. It is not the complete legal health record.[facility]
--- OUTSIDE RECORDS SUMMARY | 2025-04-26 10:37 | XMS_ITS | Patient Health Record ---
Author Organization [facility] Address [address] [place] [address] Care Team Providers Care Carton Counter Feeder Name Role Phone Iman Pulliam MD Primary Care Provider Patrice Lundberg Unavailable [phone] Allergies Allergen (clinical drug ingredient) Drug/Non Drug [...] MG 1 tablet Orally Onc e a day; Duration: 30 day(s) Active Plaquenil 200 MG 1 tablet with food o r milk Orally Once a day Active Immunizations Vaccine Route Administration Date Status Comme nts Influenza Unknown 04/25/2021 Administered Problems Problem Type SNOMED Code ICD Code Onset Dates Problem Status W/U Status Risk Notes Problem Screening for malignant neoplasm of colon (281578139) Encounter for screening for malignant neoplasm of colon (Z12.11) Active confirmed Problem Family history of malignant neoplasm of gastrointestinal tract (954482746) Family history of malignant neoplasm of digestive organs (Z80.0) Active confirmed Problem Pre-procedure evaluation check (533777520) Encounter for other preprocedural examination (Z01.818) Active confirmed Problem Diverticulosis of colon (421841235) Diverticulosis of colon (K57.30) Active confirmed Plan Of Treatment Future Test Test Name Order Date COLONOSCOPY 12/22/2014 COLONOSCOPY 12/20/2021 Insurance Providers Payer Name Payer Address Payer Phone Subscriber Number Group Number Insured Name Patient Relationship to Insured Coverage Start Date Coverage End Date [employer] OF [employer] [address] [address] [place] [address] [id number] HARJEET CULLEN Self - patient is the insured Medical (General) History Medical History History ICD Code Negative Colonoscopies in 24 09 and in 08-29-2009, other than diverticulosis and internal hemorrhoids-- GERD--[id number]--cra. except for a m inimal HH-no esophagitis Cervical polyps Depression/anxiety Sleep apnea-uses CPAP Diffuse unspecified connecti ve tissue disease, SLE, Osteoarthritis---sees Dr. Doshi HTN Denies MS,DM,CVA,Lung disease,renal dise ase MCTD-unspecified Fibromyalgia Osteoarthritis Negative colonoscopy in 2014 Surgical History Surgery Date(Month/Year) LEEP Benign breast cyst Tonsils
== END 2025-04-26 10:14 | disposition home or self-care (01) ==
LOC: HO.HPS 09:29
PROVIDERS: PCP Internal Medicine; Visit Provider Internal Medicine
DX: E66.01 Morbid (severe) obesity due to excess calories (principal); G47.33 Obstructive sleep apnea (adult) (pediatric)
CPT/HCPCS: 99213

== ENCOUNTER 2025-05-05 09:59 | Outpatient (RCR) | payer OTHER, SELFPAY ==
--- NOTE | 2025-03-18 12:47 | MHC.PT.EP ---
[facility] [place] Office [place] Office [place] Office [address] Newton Castillo [address] [phone] F: [phone] F: [phone] F: [phone] F: [phone] Physical Therapy Plan of Care Date of Evaluation: 03/18/25 Date of Surgery: N/A Diagnosis: osteoarthritis of lumbar spine *sciatica (RL) Assessment: pt is a 65 y/o female presenting to physical therapy w/ referring diagnosis of osteoarthritis of lumbar spine, *sciatica. Unfortunately, physical exam was limited d/t moderate-severe pain. I am suspicious of potentially B LE radiculopathy vs. B piriformis syndrome. Will continue to monitor and refer as appropriate. Impairments include pain, decreased range of motion, decreased strength, impaired functional mobility, impaired postural awareness, and altered ambulation mechanics. pt is a fair candidate for skilled PT due to age, potential remediation of impairments, typical disease/condition progression and prognosis, comorbidities, and motivation. pt would benefit from skilled PT intervention to provide a tailored strengthening and stretching exercise program, functional training, gait training, postural re-training, neuromuscular re-education, modalities as needed for pain, equipment safety demonstration. Frequency and Duration: The patient will be seen 2x/wk for 4 wks Short Term Goals: pt will be I w/ HEP to promote self-management of condition. pt will demo proper sitting posture w/ lumbar roll to promote neutral spine w/ seated ADLs. Hammer Driver Goals: pt will report a statistically significant improvement in self-reported outcome measure, Alcira, to promote return to PLOF. pt will improve lumbar flexion AROM to at least 75% to promote ease in lower body dressing. Treatment Plan: Modalities to reduce pain, spasms and effusion. Manual therapy to restore motion and function. Therapeutic exercise to improve strength and flexibility. Neuromuscular re-education for posture and balance. Therapeutic activities to return to functional activities of daily living. Electronically signed by: Cheryl Nunez PT, DPT Please sign and return to therapist. Thank you for your referral.
--- NOTE | 2025-05-10 13:00 | MHC.PT.DC ---
[facility] [place] [facility] [place] [facility] [place] [facility] [address] Newton Castillo 140 [facility] [phone] F: [phone] F: [phone] F: [phone] F: [phone] Physical Therapy Discharge Report Diagnosis: osteoarthritis of lumbar spine *sciatica (RL) Date of Surgery: N/A Date of Evaluation: 03/18/25 Date of Discharge: 05/10/25 Treatments to Date: 10 Cancellations to Date: 1 No Shows to Date: 0 Discharge Status: Improved Function Independent with HEP Discharge Summary: The patient has been reporting significantly less intense pain levels. The patient feels more confident and steady ambulating without her cane at times. She is independent with her home exercise program and was encouraged to continue to maintain the gains she has made here in PT. The patient is discharged from this physical therapy plan of care. Electronically signed by: Cheryl Nunez PT, DPT Please sign and return to therapist. Thank you for your referral.
== END 2025-05-10 13:00 | disposition home or self-care (01) ==
LOC: HO.PT 09:59
PROVIDERS: PCP Internal Medicine; Visit Provider Student in an Organized Health Care Education/Training Program
DX: M47.816 Spondylosis without myelopathy or radiculopathy, lumbar region (principal); M54.30 Sciatica, unspecified side; Z96.652 Presence of left artificial knee joint
CPT/HCPCS: 97110; 97162

== ENCOUNTER 2025-05-10 09:28 | Outpatient (REF) | payer OTHER, SELFPAY ==
[2025-05-10 10:28] LABS: MANUAL DIFF FLAG NO
--- OUTSIDE RECORDS SUMMARY | 2025-05-10 10:41 | XMS_ITS | Clinical Summary ---
Author Organization [facility] Address [address] [place] [address] Phone Care Team Providers Care Veneer Drier Feeder Name Role Phone Iman Pulliam MD Primary Care Provider [phone] Social History Tobacco Use Types Packs/Day Years [...] topic Medical Devices Not on file Insurance [employer] ADMINISTRATORS [employer]MINISTRAT[employer] BENEFITS ADMINISTRATORS [employer] ADMINISTRATORS [employer]MINISTRATORS [employer]MIN[employer]MIN[employer] Care Teams Veneer Drier Feeder Relationship Specialty Start Date End Date Iman Pulliam MD [address] [place] [address] PCP - General Internal Medicine 03/31/21 Additional Source Comments The information contained in this document represents components of the legal health record. It is not the complete legal health record.[facility]
--- OUTSIDE RECORDS SUMMARY | 2025-05-10 10:41 | XMS_ITS | Patient Health Record ---
Author Organization [facility] Address [address] [place] [address] Care Team Providers Care Lav Crewman Name Role Phone Iman Pulliam MD Primary Care Provider Patrice Lundberg Unavailable [phone] Allergies Allergen (clinical drug ingredient) Drug/Non Drug [...] Problem Screening for malignant neoplasm of colon (899415019) Encounter for screening for malignant neoplasm of colon (Z12.11) Active confirmed Problem Family history of malignant neoplasm of gastrointestinal tract (566975874) Family history of malignant neoplasm of digestive organs (Z80.0) Active confirmed Problem Pre-procedure evaluation check (056342316) Encounter for other preprocedural examination (Z01.818) Active confirmed Problem Diverticulosis of colon (874874526) Diverticulosis of colon (K57.30) Active confirmed Plan Of Treatment Future Test Test Name Order Date COLONOSCOPY 12/22/2014 COLONOSCOPY 12/20/2021 Insurance Providers Payer Name Payer Address Payer Phone Subscriber Number Group Number Insured Name Patient Relationship to Insured Coverage Start Date Coverage End Date BLUE [employer] AD[employer] OF [employer] [address] [address] [place] [address] [id number] HARJEET CULLEN Self - patient is the insured Medical (General) History Medical History History ICD Code Negative Colonoscopies in 24 09 and in 08-29-2009, other than diverticulosis and internal hemorrhoids-- GERD--[id number]. except for a m inimal HH-no esophagitis Cervical polyps Depression/anxiety Sleep apnea-uses CPAP Diffuse unspecified connecti ve tissue disease, SLE, Osteoarthritis---sees Dr. Doshi HTN Denies [place],DM,CVA,Lung disease,renal dise ase MCTD-unspecified Fibromyalgia Osteoarthritis Negative colonoscopy in 2014 Surgical History Surgery Date(Month/Year) LEEP Benign breast cyst Tonsils
[2025-05-10 10:49] LABS: Hematocrit 42.8 % (37.0-47.0); Hemoglobin 14.0 g/dl (12.0-16.0); Imm Gran Abs Auto 0.03 X10*3/uL (0.00-0.03); Imm Gran Pct Auto 0.5 % (0.0-0.4); Lymphocytes Absolute Auto 2.7 X10*3/uL (1.2-4.9); Mean Corpuscular HGB Conc 32.7 g/dl (31.0-35.0); Mean Corpuscular Hemoglobin 31.6 pg (27.0-33.0); Mean Corpuscular Volume 96.6 fL (80.0-98.0); NRBC Abs Auto 0.000 X10*3/uL (0.0-0.012); NRBC Pct Auto 0.0 /100WBC (0.0-0.2); Platelet Count 290 X10*3/uL (160-400); Red Blood Count 4.43 X10*6/uL (4.20-5.50); White Blood Count 6.5 X10*3/uL (4.8-10.8)
[2025-05-10 11:17] LABS: Alanine Aminotransferase 40 U/L (0-31); Albumin Level 4.6 g/dL (3.5-5.0); Alkaline Phosphatase 72 U/L (39-117); Anion Gap 11 (12-20); Aspartate Amino Transferase 30 U/L (5-31); Blood Urea Nitrogen 10 mg/dL (9-16); Calcium 9.5 mg/dL (8.4-10.2); Carbon Dioxide 30 mmol/L (22-29); Chloride 106 mmol/L (96-108); Estimated Glomerular Filt Rate > 60; Potassium 4.4 mmol/L (3.3-5.1); Sodium 143 mmol/L (135-145); Total Protein 7.3 g/dL (6.5-8.0)
== END 2025-05-10 09:29 | disposition home or self-care (01) ==
LOC: HO.HMGCLDS 09:28
PROVIDERS: PCP Internal Medicine; Visit Provider Student in an Organized Health Care Education/Training Program
DX: M06.00 Rheumatoid arthritis without rheumatoid factor, unspecified site (principal); Z79.899 Other long term (current) drug therapy
CPT/HCPCS: 36415; 80053; 85025; 85652; 86140

== ENCOUNTER 2025-05-26 07:47 | Outpatient (AMB) | payer OTHER, SELFPAY ==
--- NOTE | 2025-05-26 07:59 | A.OFFVIS_ITS ---
Vital Signs 05/26/25 08:11 Height 5 ft 4 in Weight 240 lb 11.916 oz BMI 41.3 BP 140/92 H Blood Pressure Location Lt brachial Position Sitting Pulse 58 Pulse Source Pulse Oximeter Pulse Oximetry (%) 98 Oxygen Delivery Method Room Air Intake Visit Reasons: RA Intake Note: Patient presents for RA follow up. Allergies lisinopril Allergy (Severe, Verified 05/26/25 08:05) Nausea simvastatin Allergy (Severe, Verified 05/26/25 08:05) NAUSEA chamomile flower (CHAMOMILE HAWKINS) Allergy (Mild, Verified 05/26/25 08:05) RASH nickel Allergy (Mild, Verified 05/26/25 08:05) skin rash ropinirole Adverse Reaction (Intermediate, Verified 05/26/25 08:05) HIGH BLOOD PRESSURE gabapentin Adverse Reaction (Mild, Verified 05/26/25 08:05) Fatigue Sulfa (Sulfonamide Antibiotics) Adverse Reaction (Mild, Verified 05/26/25 08:05) RASH Daisys Adverse Reaction (Mild, Uncoded 04/26/25 10:14) rash Medication List - Last Reconciled 05/26/25 by Silvana Vega MD acetaminophen (Tylenol Extra Strength) 1,000 mg (2 x 500 mg) PO Q6H 10 days adalimumab-atto (Amjevita(CF) Autoinjector) 40 mg (0.8 mL) subcut .every 10 days albuterol sulfate 90 mcg/actuation 2 puffs inhalation Q6H PRN alpha lipoic acid 600 mg PO DAILY amlodipine 5 mg PO DAILY aspirin 81 mg PO DAILY Held on 11/03/24. Instructions: Resume on 12/16/24. hold until 6 weeks post op after finishing Lovenox cholecalciferol (vitamin D3) 25 mcg PO DAILY dextroamphetamine-amphetamine 10 mg ER 1 cap PO QAM diclofenac sodium 1% 2 grams topical BID PRN folic acid 1 mg PO DAILY gabapentin 300 mg PO BEDTIME 90 days hydroxychloroquine 200 mg PO BID 90 days loratadine 10 mg PO DAILY methotrexate sodium 15 mg (6 x 2.5 mg) PO QWEEK 90 days xsefchpxhllj-hcvjhgwv-wzrofv 1 tab PO DAILY omega 9-pgm-wag-fish oil 1,000 (120-180) mg (Fish Oil) 1 cap PO BID sertraline 50 mg PO BEDTIME spironolactone 25 mg PO DAILY turmeric 400 mg PO DAILY vitamin B complex 1 cap PO DAILY walker Folding Front wheeled walker duration 99 days HPI Comments Details: Patient is a 65-year-old female with hypertension, RUSSELL, depression and ADHD, OA s/p left knee replacement, UCTD/seronegative rheumatoid arthritis here today for follow up Interval History: Patient last seen 02/02/25 with me. - On Humira 40mg every 10 days, methotrexate 20mg weekly, folic acid 1 mg daily and Hydroxychloroquine 200mg bid - restarted Humira - Complained of decreased hearing of the left ear - Doing well overall - Completed PT for the knee yesterday - Doing well on increased frequency of Humira Today - On Humira 40mg every 10 days, methotrexate 20mg weekly, folic acid 1 mg daily and Hydroxychloroquine 200mg bid - Doing okay overall - Left knee doing well - Trying to lose weight - Started moringa supplements Rheumatologic History: Seronegative RA onset 2008. +++SADDLE TREE STITCHER ++JACY -ve JOYCE -ve RF, -ve CCP Predominantly hand and knee pains. HCQ Since 2009 eyes OK 03/2022, 03/2023. Methotrexate added 2011. Sulfasalazine added 2019. stopped 12/2019 due to suspicion of neuropathy Enbrel added 11/2023 DC ineffective Humira 01/2024 effective Decreased Mtx to 20mg weekly after starting Humira, and elevated LFTs Current Rheumatology Medication(s): Methotrexate 20 mg weekly p.o. 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 Carpal tunnel syndrome of right wrist Internal derangement of left knee Tingling of right upper extremity Brain TIA (~06/2023) Muscle cramps Numbness and tingling Osteoarthritis of hand, primary localized Elevated LFTs Hyperglycemia TURCIOS (dyspnea on exertion) 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 Undifferentiated connective tissue disease Annual physical exam Fibromyalgia Depression with anxiety RUSSELL (obstructive sleep apnea) Morbid obesity Surgical History History of surgery History of esophagogastroduodenoscopy (EGD) (~1999) History of loop electrical excision procedure (LEEP) (1981) History of colonoscopy History of cyst of breast (1976) History of tonsillectomy (1968) Family History Father Osteoarthritis Colon cancer Diverticulosis Stroke HTN (hypertension) Full dentures Mother HTN (hypertension) Asthma Heart murmur TIA (transient ischemic attack) Diabetes mellitus Full dentures Osteoarthritis Family/Other Diabetes mellitus Heart disease CHF (congestive heart failure) Cancer Breast cancer Multiple myeloma Sister Mental health disorder Rheumatoid arthritis Moises's disease Diabetes mellitus Diverticulosis Trauma Neuropathy PTSD (post-traumatic stress disorder) Anxiety Depression Brother Substance use disorder Diabetes mellitus CHF (congestive heart failure) Social History Household Members: Spouse Housing: House Are you a primary client care specialist to a significant other at home: No Do you presently have visiting nurse or other home services: No 75 years or older and lives alone: No Alcohol intake: never Patient Tobacco Use Status: Never used Tobacco e-Cigarette/Vaping Use: Never Used Advance Directives Date on File: 04/13/22 service: No Current occupational status: employed 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 [employer] Cognitive needs: No Hearing needs: No Vision needs: Yes Review of Systems Narrative Review of Systems Constitutional: Denies fever, chills, weight loss ENT: Denies vision changes, eye pain or eye redness, dental caries, dry mouth GI: Denies nausea, vomiting, diarrhea, abdominal pain, change in BM Pulm: Denies SOB, TURCIOS, hemoptysis, wheezing Cards: Denies chest pain, palpitations Skin: Denies Raynaud's, rash, nail changes, photosensitivity, ANALYTICAL SCIENCES DIRECTOR: Denies headaches, weakness, paresthesias, recurrent falls MSK: as per HPI All other systems reviewed and are unremarkable except noted above Physical Exam Exam Exam: Vital signs reviewed Physical Examination CONSTITUITIONAL Patient alert and cooperative. Well appearing and in no apparent painful distress MSK Hands * Right Hand: Able to make a fist. No swelling or tenderness to palpation of the MCPs, PIPs or DIPs. * Left Hand: Able to make a fist. No swelling or tenderness to palpation of the MCPs, PIPs or DIPs. * TTP of the PIPs bilaterally Wrists * Right Wrist: Full ROM to flexion and extension. No swelling or TTP * Left Wrist: Full ROM to flexion and extension. No swelling or TTP Elbows * Right Elbow: Full ROM. No swelling or TTP. No TTP of the medial epicondyle. No TTP of the lateral epicondyle * Left Elbow: Full ROM. No swelling or TTP. No TTP of the medial epicondyle. No TTP of the lateral epicondyle Shoulders * Right shoulder: Full ROM. No swelling noted. No TTP of the AC joint. No TTP of the subacromial bursa. No TTP of the posterior shoulder * Left shoulder: Full ROM. No swelling noted. No TTP of the AC joint. No TTP of the subacromial bursa. No TTP of the posterior shoulder Hip bursa: No tenderness to palpation bilaterally Knees * Right knee: No swelling noted. No TTP of the knee joint line. No TTP of pes anserine bursa * Left knee: Decreased ROM. Surgical scar noted. No swelling noted. No TTP of the knee joint line. No TTP of pes anserine bursa. Ankles * Right ankle: Good ankle dorsiflexion and plantar flexion. No swelling. No TTP of the ankle joint * Left ankle: Good ankle dorsiflexion and plantar flexion. No swelling. No TTP of the ankle joint Feet * Right foot: Negative squeeze test * Left foot: Negative squeeze test Tender points? * No tenderness to palpation of the bilateral trapezius, supraspinatus, anterior costochondral junctions, bilateral suboccipital muscle insertions SKIN No rashes Vital Signs: Last Vital Signs Pulse 58 05/26/25 08:11 BP 140/92 H 05/26/25 08:11 Pulse Ox 98 05/26/25 08:11 Oxygen Delivery Method Room Air 05/26/25 08:11 BMI result Body Mass Index 41.3 Results Reviewed Results Reviewed: Laboratory Tests 01/26/25 05/10/25 09:44 09:35 WBC 6.5 RBC 4.43 Hgb 14.0 Hct 42.8 Plt Count 290 ESR 30 H Sodium 143 Potassium 4.4 Chloride 106 Carbon Dioxide 30 H BUN 10 Creatinine 0.66 AST 30 ALT 40 H C-Reactive Protein 1.91 H 1.25 H Laboratory Tests 09/18/24 16:21 Hepatitis A IgM Ab Nonreactive Hep Bs Antigen Negative Hep Bs Antibody NONREACTIVE Hep B Core Total Ab Nonreactive Hepatitis C Ab (EIA) Nonreactive TB Test (T-Spot) Com Negative DEXA 07/2022 FINDINGS: AP SPINE L1-L4: Current: BMD 1.237 g/cm2, Z-score 0.8, T-score 0.5, normal, 3.8% decrease from baseline (<5% change is not significant). Baseline: BMD 1.286 g/cm2. LEFT FEMUR, NECK: Current: BMD 1.017 g/cm2, Z-score 0.5, T-score -0.2, normal. Baseline: BMD 0.988 g/cm2. LEFT FEMUR, TOTAL: Current: BMD 1.163 g/cm2, Z-score 1.5, T-score 1.2, normal, 5.2% increase from baseline (<5% change is not significant). Baseline: BMD 1.105 g/cm2. Assessment & Plan Assessment & Plan (1) Seronegative rheumatoid arthritis: Comment: onset 2008. +++SADDLE TREE STITCHER ++JACY -ve JOYCE -ve RF, -ve CCP Predominantly hand and knee pains. HCQ since 2009 eyes OK 03/2022, 03/2023. Methotrexate added 2011. Sulfasalazine added 2019. stopped 12/2019 due to suspicion of neuropathy Enbrel added 11/2023 DC ineffective Humira 01/2024 effective Decreased Mtx 25 --> 20 due to Transaminitis Code(s): M06.00 - Rheumatoid arthritis without rheumatoid factor, unspecified site Category: Medical Plan: #Seronegative RA Patient is a 65 y.o. female with UCTD/Seronegative RA here today for follow up. Low disease activity Plan - Humira 40mg SC every 10 days - Plaquenil 200mg bid - Methotrexate 20mg weekly - Folic acid 1 mg - RTC 3 months - Labs prior to visit: CBC, CMP, CRP, ESR (2) Screening for osteoporosis: Comment: DEXA 07/2022: AP spine 0.5, Left femur neck -0.2, Left femur total 1.2 Code(s): Z13.820 - Encounter for screening for osteoporosis Category: Medical Plan: #Screening for osteoporosis Last DEXA 07/2022 normal Due for repeat bone density Plan - DEXA scan (3) Long-term use of hydroxychloroquine: Comment: eyes OK 03/2022, 03/2023. 04/2024 Code(s): Z79.899 - Other terminal system operator (current) drug therapy Category: Medical Plan: #Long-term Use of Hydroxychloroquine Discussed with patient the risks and benefits of hydroxychloroquine in managing the rheumatic condition Benefits include: - Reduced pain, reduce mortality, maintenance of remission and reduction of flares Risks include: - GI upset, skin hyperpigmentation, retinal toxicity (especially after more than 5 years of use), myopathy Advised yearly ophthalmology visits (4) Encounter for monitoring of adalimumab therapy: Code(s): Z51.81 - Encounter for therapeutic drug level monitoring; Z79.620 - group home (current) use of immunosuppressive biologic Plan: #Long-term Use of TNF Inhibitors: Humira Discussed with the patient the benefits and risks of TNF inhibitors for the management of the rheumatic condition Benefits include reduce pain, maintenance of remission and reduction of flares as well as ?progression of the disease Risks include injection sites/infusion reactions, serious infections (such as bacterial infections, opportunistic infections), malignancy, delaminating syndromes, autoimmune phenomena, CHF exacerbations, palmar plantar psoriasis and cytopenias Recommended rotating injection sites, and holding medication during and for up to 1 week after resolution of a febrile illness or open skin wound (5) Encounter for methotrexate monitoring: Code(s): Z51.81 - Encounter for therapeutic drug level monitoring; Z79.631 - group home (current) use of antimetabolite agent Plan: #Long-term Current Use of Methotrexate Discussed with patient the benefits and risks of methotrexate for managing their rheumatic condition Benefits include reduced pain, reduced mortality, maintenance of remission and reduction of flares Risks include oral ulcers, photosensitivity, hepatotoxicity, hematologic toxicity, pneumonitis, flu-like symptoms (especially day after administration), nodulosis, lymphomas ? Limit alcohol and avoid Bactrim ? Monitoring: ?CBC, BMP, LFTs every 3-4 months and hepatitis serologies as needed Plan I spent 30 minutes reviewing the record and labs, taking a history, examining the patient, discussing the treatment plan, ordering diagnostic work up and documenting in the medical record Orders: Orders XR DEXA axial skeleton Today M81.0 - Age-related osteoporosis without current pathological fracture Comprehensive Met. Panel 3 Months Z79.899 - Other assisted (current) drug therapy C Reactive Protein 3 Months Z79.899 - Other terminal system operator (current) drug therapy Erythrocyte Sedimentation Rate 3 Months Z79.899 - Other terminal system operator (current) drug therapy Complete Blood Count Auto Diff 3 Months Z79.899 - Other assisted (current) drug therapy Medications: Changed From hydroxychloroquine 200 mg PO BID 60 tabs 5RF M35.9 - Systemic involvement of connective tissue, unspecified To hydroxychloroquine 200 mg PO BID 180 tabs 1RF 90 days M35.9 - Systemic involvement of connective tissue, unspecified From methotrexate sodium 15 mg PO WE@0900,2100 M06.00 - Rheumatoid arthritis without rheumatoid factor, unspecified site To methotrexate sodium 15 mg (6 x 2.5 mg) PO QWEEK 78 tabs 1RF 90 days M06.00 - Rheumatoid arthritis without rheumatoid factor, unspecified site Refilled folic acid 1 mg PO DAILY 90 tabs 1RF M06.00 - Rheumatoid arthritis without rheumatoid factor, unspecified site adalimumab-atto (Amjevita(CF) Autoinjector) 40 mg (0.8 mL) subcut .every 10 days 8 mL 5RF M06.00 - Rheumatoid arthritis without rheumatoid factor, unspecified site Coding Level of Care Code Est Pt Level 4 (27809) Complex EM visit Add On G2211 Diagnoses Seronegative rheumatoid arthritis M06.00 Screening for osteoporosis Z13.820 Long-term use of hydroxychloroquine Z79.899 Encounter for monitoring of adalimumab therapy Z51.81; Z79.620 Encounter for methotrexate monitoring Z51.81; Z79.631
[2025-05-26 08:11] VITALS: BP 140/92; PULSE 58; O2SAT 98; BMI 41.3
--- OUTSIDE RECORDS SUMMARY | 2025-05-26 15:20 | XMS_ITS | Patient Health Record ---
Author Organization [facility] Address [address] [place] [address] Care Team Providers Care Forestry Aid Name Role Phone Iman Pulliam MD Primary Care Provider Patrice Lundberg Unavailable [phone] Allergies Allergen (clinical drug ingredient) Drug/Non Drug Allergy documented on EMR Reaction Allergy Type Onset Date Status Sulfa Unknown Drug Allergy Active Reason For Referral No Information Medications Medication SIG (Take, Route, Frequency, Duration) Notes Start Date End Date Status Cinnamon 500 MG Capsule Orally Active Centrum Silver Tablet Orally Active Sertraline HCl 100 MG Tablet 1 tablet Or ally Once a day Active Ferrous Sulfate CR A ctive Calcium 600 + D 600-200 MG-UNIT Tablet Orally Active Fish Oil 1200 MG Capsule 1 capsule Orall y Once a day Active sulfaSALAzine 500 MG Tablet 1 tablet Ora lly Once a day; Duration: 30 day(s) Active Plaquenil 200 MG Tablet 1 tablet with fo od or milk Orally Once a day Active Immunizations Vaccine Route Administration Date Status Comme nts Influenza Unknown 04/25/2021 Administered Social History Social History Additional Details Category Social Info Options Details Miscellaneous: Marital status: 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 [employer] Section Notes: Nonsmoker; no sig alcohol Nonsmoker; no sig alcohol Problems Problem Type SNOMED Code ICD Code Onset Dates Problem Status W/U Status Risk Notes Problem Screening for malignant neoplasm of colon (572109341) Encounter for screening for malignant neoplasm of colon (Z12.11) Active confirmed Problem Family history of malignant neoplasm of gastrointestinal tract (606916066) Family history of malignant neoplasm of digestive organs (Z80.0) Active confirmed Problem Pre-procedure evaluation check (841000349) Encounter for other preprocedural examination (Z01.818) Active confirmed Problem Diverticulosis of colon (970447321) Diverticulosis of colon (K57.30) Active confirmed Plan Of Treatment Future Test Test Name Order Date COLONOSCOPY 12/22/2014 COLONOSCOPY 12/20/2021 Insurance Providers Payer Name Payer Address Payer Phone Subscriber Number Group Number Insured Name Patient Relationship to Insured Coverage Start Date Coverage End Date BLUE BENEFITS ADMINISTRATORS OF [place] [address] [address] [place] [address] [id number] HARJEET CULLEN Self - patient is the insured Medical (General) History Medical History History ICD Code Negative Colonoscopies in 24 09 and in 08-29-2009, other than diverticulosis and internal hemorrhoids-- GERD--[id number] Cervical polyps Depression/anxiety Sleep apnea-uses CPAP Diffuse unspecified connecti ve tissue disease, SLE, Osteoarthritis---sees Dr. Doshi HTN Denies ID,DM,CVA,Lung disease,renal dise ase MCTD-unspecified Fibromyalgia Osteoarthritis Negative colonoscopy in 2014 Surgical History Surgery Date(Month/Year) LEEP Benign breast cyst Tonsils
--- OUTSIDE RECORDS SUMMARY | 2025-05-26 15:20 | XMS_ITS | Clinical Summary ---
Author Organization [facility] Address [address] [place] [address] Phone Care Team Providers Care Miller Apprentice Name Role Phone Iman Pulliam MD Primary Care Provider [phone] Social History Tobacco Use Types Packs/Day Years [...] 04/18/2018, Additional history exists COVID-19 VACCINE ( - season) 2025 05/15/2021, 07/18/2020, 06/26/2020 RSV VACCINE (1 - 1-dose 75+ series) 2034 HEPATITIS A VACCINES Aged Out No long er eligible based on patient's age to complete this topic HIB VACCINES Aged Out No longer eligi ble based on patient's age to complete this topic IPV VACCINES Aged Out No longer eligi ble based on patient's age to complete this topic MENINGOCOCCAL VACCINES (ACWY) Aged Out No longer eligible based on patient's age to complete this topic MENINGOCOCCAL VACCINES (B) Aged Out N o longer eligible based on patient's age to complete this topic Medical Devices Not on file Insurance [employer]MINISTRAT[employer]MINISTRATORS [employer]MINISTRAT[employer] ADMINISTRATORS [employer]MIN[employer]RATORS [employer]RAT[employer] Care Teams Miller Apprentice Relationship Specialty Start Date End Date Iman Pulliam MD 1962 [place] [address] PCP - General Internal Medicine 03/31/21 Additional Source Comments The information contained in this document represents components of the legal health record. It is not the complete legal health record.[facility]
== END 2025-05-26 08:51 | disposition home or self-care (01) ==
LOC: HO.RHES 07:47
PROVIDERS: PCP Internal Medicine; Visit Provider Student in an Organized Health Care Education/Training Program
DX: M06.00 Rheumatoid arthritis without rheumatoid factor, unspecified site (principal); Z13.820 Encounter for screening for osteoporosis; Z79.899 Other long term (current) drug therapy; Z51.81 Encounter for therapeutic drug level monitoring; Z79.620 Long term (current) use of immunosuppressive biologic; Z79.631 Long term (current) use of antimetabolite agent
CPT/HCPCS: 99214

== ENCOUNTER 2025-06-28 12:58 | Outpatient (REF) | payer OTHER, SELFPAY ==
--- NOTE | ~2025-06-28 | MM_ITS ---
EXAMINATION: DXA BONE DENSITY AXIAL HISTORY: M81.0 - Age-related osteoporosis without current pathological fracture TECHNIQUE: Novint Dual energy absorptiometry (DEXA) of the lumbar spine, total left hip, and femoral neck was performed. COMPARISON: Comparison is made with the prior examination dated 07/20/2022. FINDINGS: The bone mineral density of the lumbar spine is 1.284 g/cm2, corresponding to a T-score of 0.9, and a Z-score of 1.3. This is indicative of normal bone mineral density. This represents a BMD change of 3.8% compared to the prior exam. This is statistically significant. The bone mineral density of the left total hip is 1.152 g/cm2, corresponding to a T-score of 1.1, and a Z-score of 1.6. This is indicative of normal bone mineral density. This represents a BMD change of -0.9% compared to the prior exam. This is not statistically significant. The bone mineral density of the left femoral neck is 1.037 g/cm2, corresponding to a T-score of 0.0, and a Z-score of 0.8. This is indicative of normal bone mineral density. This represents a BMD change of 2.0% compared to the prior exam. MM/XR DEXA axial skeleton IMPRESSION: Based on bone mineral density, and according to World Health Organization (WHO) criteria, the diagnosis is consistent with normal bone mineral density. Statistically, 68% of repeat scans fall within 1 SD (+/- 0.010 g/cm2 for AP spine L1-L4) and 1 SD (+/- 0.012 g/cm2 for femur total) FRAX is a trademark of the [employer], a World Health Organization (WHO) Collaborating Center. Electronically signed by: Patrice Kirby MD 06/28/2025 02:02 PM ANGELA
--- OUTSIDE RECORDS SUMMARY | 2025-06-28 16:14 | XMS_ITS | Clinical Summary ---
Author Organization [facility] Address [address] [place] [id number] Phone Care Team Providers Care Second Shift Supervisor Name Role Phone Iman Pulliam MD Primary Care Provider [phone] Social History Tobacco Use Types Packs/Day Years [...] topic Medical Devices Not on file Insurance [employer] Care Teams Second Shift Supervisor Relationship Specialty Start Date End Date Iman Pulliam MD [address] [place] [address] PCP - General Internal Medicine 03/31/21 Additional Source Comments The information contained in this document represents components of the legal health record. It is not the complete legal health record.[facility]
--- OUTSIDE RECORDS SUMMARY | 2025-06-28 16:14 | XMS_ITS | Patient Health Record ---
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 [employer] Section Notes: Nonsmoker; no sig alcohol Nonsmoker; no sig alcohol Problems Problem Type SNOMED Code ICD Code Onset Dates Problem Status W/U Status Risk Notes Problem Screening for malignant neoplasm of colon (016343333) Encounter for screening for malignant neoplasm of colon (Z12.11) Active confirmed Problem Family history of malignant neoplasm of gastrointestinal tract (440111488) Family history of malignant neoplasm of digestive organs (Z80.0) Active confirmed Problem Pre-procedure evaluation check (543895285) Encounter for other preprocedural examination (Z01.818) Active confirmed Problem Diverticulosis of colon (275859256) Diverticulosis of colon (K57.30) Active confirmed Plan Of Treatment Future Test Test Name Order Date COLONOSCOPY 12/22/2014 COLONOSCOPY 12/20/2021 Insurance Providers Payer Name Payer Address Payer Phone Subscriber Number Group Number Insured Name Patient Relationship to Insured Coverage Start Date Coverage End Date [employer] [place] [address] [address] [place] [address] [id number] HARJEET CULLEN Self - patient is the insured Medical (General) History Medical History History ICD Code Negative Colonoscopies in 24 09 and in 08-29-2009, other than diverticulosis and internal hemorrhoids-- GERD--[id number]--[facility]. [facility] HH-no esophagitis Cervical polyps Depression/anxiety Sleep apnea-uses CPAP Diffuse unspecified connecti ve tissue disease, SLE, Osteoarthritis---sees Dr. Doshi HTN Denies [place],DM,CVA,Lung disease,renal dise ase MCTD-unspecified Fibromyalgia Osteoarthritis Negative colonoscopy in 2014 Surgical History Surgery Date(Month/Year) LEEP Benign breast cyst Tonsils
== END 2025-06-28 12:59 | disposition home or self-care (01) ==
LOC: HO.MAMMO 12:58
PROVIDERS: PCP Internal Medicine; Visit Provider Student in an Organized Health Care Education/Training Program
DX: M81.0 Age-related osteoporosis without current pathological fracture (principal)
CPT/HCPCS: 77080

== ENCOUNTER → 2025-06-28 13:30 | Outpatient (BNV) | payer OTHER, SELFPAY | PROVIDERS: PCP Internal Medicine; Visit Provider Radiology Diagnostic Radiology | DX: E28.39 Other primary ovarian failure (principal) | CPT/HCPCS: 77080 ==